=== PATIENT | male | born 1985 | race Caucasian/White ===

== ENCOUNTER 2016-04-20 07:31 | Emergency (ER) | payer OTHER ==
[2016-04-20 07:50] VITALS: TEMP 97.5
--- NOTE | 2016-04-20 09:25 | ED ---
ENT HPI - General Chief complaint: ENT Stated complaint: ear mouth pain Time Seen by Provider: 04/20/16 08:06 Source: patient, RN notes reviewed Mode of arrival: ambulatory Limitations: no limitations - History of Present Illness Initial comments: This patient is a 30-year-old man who presents with a few days of pains to the left side of his tongue. Patient states that with certain movements of the tongue or symptoms with chewing things he'll get a sharp sensation to the left side of his tongue. The patient has not noticed any swelling, drainage, fevers. Patient denies difficulty with speech or swallowing. Patient does have history of using oral tobacco products. MD complaint: other (Tongue pain) Onset/Timin -: days(s) Location: tongue Severity: mild Quality: sharp (Sharp) Consistency: intermittent Improves with: none - Related Data Previous Rx's Medication Instructions Recorded Ondansetron Odt [Zofran Odt] 4 mg PO Q8HR PRN #12 tab 03/07/16 Clindamycin [Cleocin] 150 mg PO Q6H #20 capsule 04/20/16 traMADol HCl [Ultram] 50 mg PO Q6H PRN #20 tab 04/20/16 Allergies Allergy/AdvReac Type Severity Reaction Status Date / Time amoxicillin Allergy Itching Verified 04/20/16 07:50 azithromycin [From Zithromax] Allergy Rash/Hives Verified 04/20/16 07:50 codeine Allergy Unknown Verified 04/20/16 07:50 Childhood Iodinated Contrast Media - Allergy Anaphylaxis Verified 04/20/16 07:50 Oral and [Iodinated Contrast Media - IV Dye] iodine Allergy Anaphylaxis Verified 04/20/16 07:50 sulfamethoxazole Allergy Rash/Hives Verified 04/20/16 07:50 [From Bactrim] trimethoprim [From Bactrim] Allergy Rash/Hives Verified 04/20/16 07:50 Review of Systems ROS Statement: Those systems with pertinent positive or pertinent negative responses have been documented in the HPI. ROS Other: All systems not noted in ROS Statement are negative. Constitutional: Denies: fever, chills ENT: Denies: ear pain, throat pain, dental pain, hearing loss Respiratory: Denies: cough, dyspnea, stridor Past Medical History Past Medical History: No Reported History History of Any Multi-Drug Resistant Organisms: None Reported Past Surgical History: Adenoidectomy, Tonsillectomy Past Psychological History: Anxiety Smoking Status: Current every day smoker Past Alcohol Use History: None Reported Past Drug Use History: None Reported General Exam Limitations: no limitations General appearance: alert, in no apparent distress Head exam: Present: atraumatic, normocephalic, normal inspection Eye exam: Present: normal appearance ENT exam: Present: mucous membranes moist, TM's normal bilaterally, normal external ear exam Expanded Mouth exam: Present: other (Patient has a papillary/polypoid lesion to the left side of the tongue near the base of the tongue. There is some mild erythema. There is no palpable abscess or evidence of deep infection. ). Absent: drooling, trismus, muffled voice, tongue normal, tongue elevation, laceration Teeth exam: Present: normal inspection Throat exam: normal inspection. negative: tonsillar erythema, tonsillar exudate , R peritonsillar mass, L peritonsillar mass Neck exam: Present: normal inspection, full ROM. Absent: tenderness, lymphadenopathy Respiratory exam: Present: normal lung sounds bilaterally. Absent: respiratory distress, wheezes, rales, rhonchi, stridor Cardiovascular Exam: Present: regular rate, normal rhythm, normal heart sounds. Absent: systolic murmur, diastolic murmur, rubs, gallop Course Vital Signs 04/20/16 04/20/16 07:49 09:30 Temperature 97.5 F L 97.5 F L Pulse Rate 69 74 Respiratory 20 16 Rate Blood Pressure 119/63 116/65 O2 Sat by Pulse 99 96 Oximetry Medical Decision Making - Medical Decision Making Patient's a 30-year-old male, tobacco user, who has a papillary/polypoid lesion to the left side of the tongue. Discussed possibilities including early malignancy, possibility of HPV, and patient to follow up with Dr. patel who is on -call for oral surgery, with suspicion the patient's will need a biopsy of this lesion. Discussed return parameters and stressed the importance of having the biopsy. The patient does have a little bit of erythema there and can possibility of mild infection was covered with antibiotic. Also given prescription for some analgesia. Discussed return parameters. Disposition Clinical Impression: Tongue abnormality Disposition: HOME SELF-CARE Condition: Good Instructions: Mouth Care (ED) Additional Instructions: As we discussed, you must follow-up with Dr. patel to have the growth on your tongue further evaluated. I suspect he will want to perform a biopsy. Return here if there is any worsening. Again I recommend that you stop using tobacco products.. Prescriptions: Clindamycin [Cleocin] 150 mg PO Q6H #20 capsule traMADol HCl [Ultram] 50 mg PO Q6H PRN #20 tab PRN Reason: Pain Referrals: Eran Andre MD [Primary Care Provider] - 1-2 days Robles Muir DDS [STAFF PHYSICIAN] - 1-2 days
[2016-04-20 09:33] VITALS: BP 116/65; PULSE 74; RESP 16
== END 2016-04-20 09:43 | disposition home or self-care (01) ==
LOC: EC 07:31
DX: K14.6 Glossodynia (principal); F17.200 Nicotine dependence, unspecified, uncomplicated; Z88.0 Allergy status to penicillin; Z91.041 Radiographic dye allergy status; Z88.5 Allergy status to narcotic agent; Z88.2 Allergy status to sulfonamides
CPT/HCPCS: 99282

== ENCOUNTER 2016-05-07 23:55 | Emergency (ER) | payer OTHER ==
[2016-05-08 00:05] VITALS: BP 134/75; PULSE 74; RESP 20; TEMP 97.6
[2016-05-08] MEDS ORDERED: LIDOCAINE VISCOUS 300 MG/15 ML CUP MUCOUS MEM STA (00:15)
[2016-05-08] MEDS ORDERED: LORATADINE-PSEUDOEPH 5-120 MG 1 EACH TAB.ER.12H PO STA (00:21)
--- NOTE | 2016-05-08 00:21 | ED ---
ENT HPI - General Chief complaint: ENT Stated complaint: SHI Time Seen by Provider: 05/08/16 00:11 Source: patient, RN notes reviewed Mode of arrival: ambulatory Limitations: no limitations - History of Present Illness Initial comments: 30-year-old male presents to the emergency department chief complaint of irritation in his throat. Patient states he has some irritation left ear and now he has to see her dictation is south just feels as if there is something scratching were in his throat. Patient states he has no difficulty breathing with it. Patient states that the cough does not change. Patient states feel ill like he has a cold. Patient states she's irritated. Patient states he's had it for a few days. Patient denies any history of in the past. Patient states he was concerned due to the symptoms they thought that he should be evaluated. Patient denies any recent fever, chills, shortness of breath, chest pain, back pain, abdominal pain, nausea vomiting, numbness or tingling, dysuria or hematuria, constipation or diarrhea, headaches or visual changes, or any other current symptoms. - Related Data Home Medications Medication Instructions Recorded Confirmed Meclizine [Antivert] 25 mg PO TID 05/08/16 05/08/16 clonazePAM [KlonoPIN] 0.5 mg PO DAILY 05/08/16 05/08/16 Previous Rx's Medication Instructions Recorded Loratadine-Pseudoeph 5-120 mg 1 each PO Q12HR #20 tab 05/08/16 [Claritin-D 12 HR] Allergies Allergy/AdvReac Type Severity Reaction Status Date / Time amoxicillin Allergy Itching Verified 05/08/16 00:05 azithromycin [From Zithromax] Allergy Rash/Hives Verified 05/08/16 00:05 codeine Allergy Unknown Verified 05/08/16 00:05 Childhood Iodinated Contrast Media - Allergy Anaphylaxis Verified 05/08/16 00:05 Oral and [Iodinated Contrast Media - IV Dye] iodine Allergy Anaphylaxis Verified 05/08/16 00:05 sulfamethoxazole Allergy Rash/Hives Verified 05/08/16 00:05 [From Bactrim] trimethoprim [From Bactrim] Allergy Rash/Hives Verified 05/08/16 00:05 Review of Systems ROS Statement: Those systems with pertinent positive or pertinent negative responses have been documented in the HPI. ROS Other: All systems not noted in ROS Statement are negative. Past Medical History Past Medical History: No Reported History History of Any Multi-Drug Resistant Organisms: None Reported Past Surgical History: Adenoidectomy, Tonsillectomy Past Psychological History: Anxiety Smoking Status: Current every day smoker Past Alcohol Use History: None Reported Past Drug Use History: None Reported General Exam - General Exam Comments Initial Comments: General exam: Alert, active, comfortable in no apparent distress Head: Normocephalic Eyes: Normal reaction of pupils, equal size, normal range of extraocular motion Ears: normal external ear canals, pink tympanic membranes with normal cone of light Nose: clear with pink turbinates Throat: no erythema or exudates with normal sized tonsils Neck: no masses, no nuchal rigidity Chest: no chest wall deformity Lungs: equal air entry with no crackles or wheeze CVS: S1 and S2 normal with no audible mumurs, regular rhythm Abdomen: no hepatosplenomegaly, normal bowel sounds, no guarding or rigidity Spine: no scoliosis or deformity Skin: no rashes Neurological: No focal deficits, tone is normal in all 4 extremities Limitations: no limitations Course Vital Signs 05/08/16 00:01 Temperature 97.6 F Pulse Rate 74 Respiratory 20 Rate Blood Pressure 134/75 O2 Sat by Pulse 99 Oximetry Medical Decision Making - Medical Decision Making 30-year-old male presents for what appears to be consistent with possible ALLERGY-type complaints. Patient did see improvement to his symptoms with lidocaine. This time we did start the patient on Claritin. We discussed follow -up with ENT and he is given Dr. Mccarthy's information. We discussed return parameters. Patient stated that he understood and all his questions have been answered. He will be discharged home. Disposition Clinical Impression: Throat irritation, Left ear pain, Seasonal allergies Disposition: HOME SELF-CARE Condition: Stable Instructions: Allergies (ED) Additional Instructions: Please use medication as discussed. Please follow up with family doctor if symptoms have not improved over the next two days. Please return to the emergency room if your symptoms increase or worsen or for any other concerns. Prescriptions: Loratadine-Pseudoeph 5-120 mg [Claritin-D 12 HR] 1 each PO Q12HR #20 tab Referrals: Eran Andre MD [Primary Care Provider] - 1-2 days Gino Mccarthy MD [STAFF PHYSICIAN] - 1-2 days Time of Disposition: 00:35
== END 2016-05-08 00:44 | disposition home or self-care (01) ==
LOC: EC 23:55
DX: H92.02 Otalgia, left ear (principal); R05 Cough; J31.0 Chronic rhinitis; F41.9 Anxiety disorder, unspecified; F17.200 Nicotine dependence, unspecified, uncomplicated; Z79.899 Other long term (current) drug therapy; Z88.0 Allergy status to penicillin; Z88.1 Allergy status to other antibiotic agents; Z88.5 Allergy status to narcotic agent; Z91.041 Radiographic dye allergy status; Z88.2 Allergy status to sulfonamides; Z91.048 Other nonmedicinal substance allergy status
CPT/HCPCS: 99283; 99284

== ENCOUNTER 2016-05-20 08:30 | Day surgery (SDC) | payer OTHER ==
[2016-05-12 14:45] VITALS: BMI 33.7
[~2016-05-20 08:30] MED LIST: LACTATED RINGERS 1,000 ML IV SCH; LIDOCAINE 1% 20 ML VIAL (10MG/ML) FOR IV START INTRADERMA PRN
[2016-05-20 09:02] VITALS: TEMP 98.2
[2016-05-20] MEDS ORDERED: fentaNYL (PF) 50 MCG/ML 2 ML AMP ONE (09:09)
[2016-05-20] MEDS ORDERED: PROPOFOL 10 MG/ML 20 ML VIAL IV ONE (09:09)
[2016-05-20] MEDS ORDERED: LIDOCAINE 1% INJ 10MG/ML (20 ML MDV) ONE (09:09)
[2016-05-20] MEDS ORDERED: MIDAZOLAM 2 MG/2 ML VIAL ONE (09:09)
--- NOTE | 2016-05-20 09:10 | P.GSHP ---
History of Present Illness H&P Date: 05/20/16 Chief Complaint: GERD This is a 30-year-old male referred from Dr. Eran Andre. Patient presents today for EGD. He's had issues with GERD. - Constitutional Constitutional: Reports as per HPI Past Medical History Past Medical History: No Reported History History of Any Multi-Drug Resistant Organisms: None Reported Past Surgical History: Adenoidectomy, Tonsillectomy Past Anesthesia/Blood Transfusion Reactions: Family History of Problems w/ Anesthesia Additional Past Anesthesia/Blood Transfusion Reaction / Comment(s): father N/V Past Psychological History: Anxiety Smoking Status: Current every day smoker Past Alcohol Use History: None Reported Past Drug Use History: None Reported - Past Family History Father Family Medical History: Cancer Medications and Allergies Home Medications Medication Instructions Recorded Confirmed Type Meclizine [Antivert] 25 mg PO DAILY 05/08/16 05/12/16 History clonazePAM [KlonoPIN] 0.5 mg PO DAILY 05/08/16 05/12/16 History methylPREDNISolone Dose Pack 4 mg PO DIRECTED 05/14/16 05/14/16 History [Medrol Dose Pack] Allergies Allergy/AdvReac Type Severity Reaction Status Date / Time azithromycin [From Zithromax] Allergy Rash/Hives Verified 05/20/16 08:54 codeine Allergy Unknown Verified 05/20/16 08:54 Childhood Iodinated Contrast Media - Allergy Anaphylaxis Verified 05/20/16 08:54 Oral and [Iodinated Contrast Media - IV Dye] iodine Allergy Anaphylaxis Verified 05/20/16 08:54 sulfamethoxazole Allergy Rash/Hives Verified 05/20/16 08:54 [From Bactrim] trimethoprim [From Bactrim] Allergy Rash/Hives Verified 05/20/16 08:54 Surgical - Exam Vital Signs Temp Pulse Resp BP Pulse Ox 98.2 F 77 16 129/83 95 05/20/16 09:00 05/20/16 09:00 05/20/16 09:00 05/20/16 09:00 05/20/16 09:00 - General well developed, no distress - Eyes PERRL - ENT normal pinna - Neck no masses - Respiratory normal expansion - Cardiovascular Rhythm: regular - Abdomen Abdomen: soft, non tender Assessment and Plan Plan: GERD. We'll perform EGD.
[2016-05-20 09:13] LABS: Glucose,Whole Blood 87 mg/dL (75-99)
--- NOTE | 2016-05-20 09:19 | P.OP ---
Date of Procedure: 05/20/16 Preoperative Diagnosis: GERD Postoperative Diagnosis: Antral gastritis Small hiatal hernia Esophagitis Procedure(s) Performed: EGD Anesthesia: MAC Surgeon: Scott Alfaro Pathology: other (Antrum, esophagus) Condition: stable Disposition: PACU Description of Procedure: The patient's placed on the endoscopy table in the lateral position. He received IV sedation. The gastroscope some placed oropharynx passed in the esophagus and into the stomach. Scope was then placed through the pylorus. The first and second portion of the duodenum appeared normal. Scope was then brought back into the antrum and there was water melon stripping of the antrum with significant gastritis. This area is biopsied. Scope was retroflexed and remainder of the stomach appeared normal. There was a small hiatal hernia. The GE junction was at 39 cm. The distal esophagus appeared minimally inflamed and a biopsies was performed. The proximal esophagus. Normal. Scope was withdrawn for patient.
[2016-05-20 09:54] VITALS: RESP 16
[2016-05-20 09:55] VITALS: BP 104/74; PULSE 71
== END 2016-05-20 10:17 | disposition home or self-care (01) ==
LOC: ORWHC2ENDO 08:30
PROVIDERS: ATTEND Surgery
DX: K29.70 Gastritis, unspecified, without bleeding (principal); K20.9 Esophagitis, unspecified; K44.9 Diaphragmatic hernia without obstruction or gangrene; F17.200 Nicotine dependence, unspecified, uncomplicated; F41.9 Anxiety disorder, unspecified; Z79.899 Other long term (current) drug therapy; Z88.1 Allergy status to other antibiotic agents; Z88.5 Allergy status to narcotic agent; Z88.2 Allergy status to sulfonamides
CPT/HCPCS: 88305; 88342; 43239; J2250; J2001; J3010; J2704

== ENCOUNTER 2016-06-02 20:10 | Emergency (ER) | payer OTHER ==
[2016-06-02 20:28] VITALS: RESP 16; TEMP 98
[2016-06-02 21:11] LABS: Basophils % (A) 1 %; CH 30.9; CHCM 34.9; Eosinophils # (A) 0.2 k/uL (0-0.7); Eosinophils % (A) 3 %; HCT 43.5 % (39.0-53.0); HDW 2.63; HGB 15.3 gm/dL (13.0-17.5); Luc # (Auto) 0.18; Luc % (Auto) 3; Lymphocytes % (A) 44 %; MCH 31.2 pg (25.0-35.0); MCHC 35.1 g/dL (31.0-37.0); MCV 88.9 fL (80.0-100.0); Mean Platelet Volume 8.6; Monocytes # (A) 0.5 k/uL (0-1.0); Monocytes % (A) 7 %; Neutrophils # (A) 2.9 k/uL (1.3-7.7); Neutrophils % (A) 43 %; RBC 4.89 m/uL (4.30-5.90); RDW 12.8 % (11.5-15.5); WBC 6.8 k/uL (3.8-10.6); WBC (Perox) 6.89
[2016-06-02 21:26] LABS: ALT 46 U/L (21-72); AST 34 U/L (17-59); Alkaline Phosphatase 41 U/L (38-126); Anion Gap 10 mmol/L; Blood Urea Nitrogen 14 mg/dL (9-20); Calcium 9.3 mg/dL (8.4-10.2); Carbon Dioxide 25 mmol/L (22-30); Chloride 107 mmol/L (98-107); Glucose 104 mg/dL (74-99); Non-African American GFR(MDRD) >60 (>60 ml/min/1.73 sqM); Potassium 4.1 mmol/L (3.5-5.1); Sodium 142 mmol/L (137-145); Total Bilirubin 0.3 mg/dL (0.2-1.3); Total Protein 7.1 g/dL (6.3-8.2)
--- NOTE | 2016-06-02 21:37 | XR ---
EXAMINATION TYPE: XR abdomen 2V DATE OF EXAM: 06/02/2016 9:15 PM CLINICAL HISTORY: Abdominal pain. TECHNIQUE: Supine and upright views of the abdomen are obtained. COMPARISON: Abdominal x-ray and CT abdomen and pelvis June 13, 2014 FINDINGS: There is some paucity of bowel gas. Visualized gas is noted in nondistended small and large bowel loops predominantly in the mid and right abdomen. No pneumoperitoneum or suspicious calcificat ion is seen. Elongated roughly 1 cm density over left pubic symphysis is of uncertain etiology presum ed external to patient. Clinical correlation is advised. Lung bases are clear. IMPRESSION: Overall nonspecific favor nonobstructive bowel gas pattern.
--- NOTE | 2016-06-02 21:39 | ED ---
General Adult HPI - General Chief complaint: GI Bleed Stated complaint: hernia Time Seen by Provider: 06/02/16 20:34 Source: patient, RN notes reviewed Mode of arrival: ambulatory Limitations: no limitations - History of Present Illness Initial comments: 30-year-old male presents to the emergency department with a chief complaint of diarrhea. Patient states he had one episode of dark diarrhea that started with abdominal cramping. Patient denies any nausea or vomiting. Patient states she was concerned with how dark it was thought that he should be seen. Patient states he just has a minimal epigastric abdominal cramping preceding this. Patient states there is no nausea vomiting. Patient states he was diagnosed with hiatal hernia so he was concerned. Patient states he hasn't had a fever chills. Patient denies any cough cold or runny nose. Patient states that he was concerned due to his pains without that he should be evaluated.Patient denies any recent fever, chills, shortness of breath, chest pain, back pain, nausea vomiting, numbness or tingling, dysuria or hematuria, constipation, headaches or visual changes, or any other current symptoms. - Related Data Home Medications Medication Instructions Recorded Confirmed Meclizine [Antivert] 25 mg PO DAILY 05/08/16 06/02/16 clonazePAM [KlonoPIN] 1 mg PO BID 05/08/16 06/02/16 Omeprazole 20 mg PO BID 06/02/16 06/02/16 Allergies Allergy/AdvReac Type Severity Reaction Status Date / Time azithromycin [From Zithromax] Allergy Rash/Hives Verified 06/02/16 21:39 codeine Allergy Unknown Verified 06/02/16 21:39 Childhood Iodinated Contrast Media - Allergy Anaphylaxis Verified 06/02/16 21:39 Oral and [Iodinated Contrast Media - IV Dye] iodine Allergy Anaphylaxis Verified 06/02/16 21:39 sulfamethoxazole Allergy Rash/Hives Verified 06/02/16 21:39 [From Bactrim] trimethoprim [From Bactrim] Allergy Rash/Hives Verified 06/02/16 21:39 Review of Systems ROS Statement: Those systems with pertinent positive or pertinent negative responses have been documented in the HPI. ROS Other: All systems not noted in ROS Statement are negative. Past Medical History Past Medical History: No Reported History History of Any Multi-Drug Resistant Organisms: None Reported Past Surgical History: Adenoidectomy, Tonsillectomy Past Anesthesia/Blood Transfusion Reactions: Family History of Problems w/ Anesthesia Additional Past Anesthesia/Blood Transfusion Reaction / Comment(s): father N/V Past Psychological History: Anxiety Smoking Status: Current every day smoker Past Alcohol Use History: None Reported Past Drug Use History: None Reported - Past Family History Father Family Medical History: Cancer General Exam - General Exam Comments Initial Comments: General: The patient is awake and alert, in no distress, and does not appear acutely ill. Eye: Pupils are equal, round and reactive to light, extra-ocular movements are intact; there is normal conjunctiva bilaterally. No signs of icterus. Ears, nose, mouth and throat: There are moist mucous membranes. Neck: The neck is supple, there is no tenderness. Cardiovascular: There is a regular rate and rhythm. No murmur, rub or gallop is appreciated. Respiratory: Lungs are clear to auscultation, respirations are non-labored, breath sounds are equal. No wheezes, stridor, rales, or rhonchi. Gastrointestinal: Soft, non-distended, non-tender abdomen without masses or organomegaly noted. There is no rebound or guarding present. No CVA tenderness. Bowel sounds are unremarkable. Back: There is no tenderness to palpation in the midline. There is no obvious deformity. No rashes noted. Musculoskeletal: Normal ROM, no tenderness, There is no pedal edema. There is no calf tenderness or swelling. Sensation intact. Pulses equal bilaterally 2+. Neurological: CN II-XII intact, There are no obvious motor or sensory deficits. Coordination appears grossly intact. Speech is normal. Skin: Skin is warm and dry and no rashes or lesions are noted. Psychiatric: Cooperative, appropriate mood & affect, normal judgment. Limitations: no limitations Course Vital Signs 06/02/16 20:23 Temperature 98 F Pulse Rate 87 Respiratory 16 Rate Blood Pressure 126/73 O2 Sat by Pulse 97 Oximetry Medical Decision Making - Medical Decision Making 30-year-old male presents emergency department with chief complaint of abdominal cramping followed by an episode of diarrhea this time patient's laboratory is negative and patient's stool is fecal occult negative as well. This time we discussed that he is having continued follow-up with his doctor. We discussed return parameters follow-up. We discussed all patient's questions. He stated that he understood any significant plan. Patient's abdomen is soft and nontender on reevaluation. This time we will discharge.. - Lab Data Result diagrams: 06/02/16 21:00 06/02/16 21:00 Lab Results 06/02/16 06/02/16 06/02/16 Range/Units 21:00 21:00 21:25 WBC 6.8 (3.8-10.6) k/uL RBC 4.89 (4.30-5.90) m/uL Hgb 15.3 (13.0-17.5) gm/dL Hct 43.5 (39.0-53.0) % MCV 88.9 (80.0-100.0) fL MCH 31.2 (25.0-35.0) pg MCHC 35.1 (31.0-37.0) g/dL RDW 12.8 (11.5-15.5) % Plt Count 180 (150-450) k/uL Neutrophils % 43 % Lymphocytes % 44 % Monocytes % 7 % Eosinophils % 3 % Basophils % 1 % Neutrophils # 2.9 (1.3-7.7) k/uL Lymphocytes # 3.0 (1.0-4.8) k/uL Monocytes # 0.5 (0-1.0) k/uL Eosinophils # 0.2 (0-0.7) k/uL Basophils # 0.0 (0-0.2) k/uL Sodium 142 (137-145) mmol/L Potassium 4.1 (3.5-5.1) mmol/L Chloride 107 (98-107) mmol/L Carbon Dioxide 25 (22-30) mmol/L Anion Gap 10 mmol/L BUN 14 (9-20) mg/dL Creatinine 0.90 (0.66-1.25) mg/dL Est GFR (MDRD) Af Amer >60 (>60 ml/min/1.73 sqM) Est GFR (MDRD) Non-Af >60 (>60 ml/min/1.73 sqM) Glucose 104 H (74-99) mg/dL Calcium 9.3 (8.4-10.2) mg/dL Total Bilirubin 0.3 (0.2-1.3) mg/dL AST 34 (17-59) U/L ALT 46 (21-72) U/L Alkaline Phosphatase 41 (38-126) U/L Total Protein 7.1 (6.3-8.2) g/dL Albumin 4.0 (3.5-5.0) g/dL Stool Occult Blood Negative (Negative) - Radiology Data Radiology results: report reviewed, image reviewed Disposition Clinical Impression: Diarrhea Disposition: HOME SELF-CARE Condition: Stable Instructions: Acute Diarrhea (ED) Additional Instructions: Please use medication as discussed. Please follow up with family doctor if symptoms have not improved over the next two days. Please return to the emergency room if your symptoms increase or worsen or for any other concerns. Referrals: Eran Andre MD [Primary Care Provider] - 1-2 days Time of Disposition: 21:46
[2016-06-02 21:56] VITALS: BP 119/65; PULSE 90
== END 2016-06-02 21:56 | disposition home or self-care (01) ==
LOC: EC 20:10
DX: R19.7 Diarrhea, unspecified (principal); K46.9 Unspecified abdominal hernia without obstruction or gangrene; K44.9 Diaphragmatic hernia without obstruction or gangrene; F41.9 Anxiety disorder, unspecified; Z79.899 Other long term (current) drug therapy; F17.200 Nicotine dependence, unspecified, uncomplicated; Z88.5 Allergy status to narcotic agent; Z88.2 Allergy status to sulfonamides; Z88.8 Allergy status to other drugs, medicaments and biological substances; Z88.1 Allergy status to other antibiotic agents; Z91.041 Radiographic dye allergy status
CPT/HCPCS: 36415; 74020; 80053; 82272; 85025; 99285

== ENCOUNTER 2016-08-02 23:46 | Emergency (ER) | payer OTHER ==
[2016-08-03 01:15] VITALS: BP 106/55; PULSE 55; RESP 18; TEMP 97.7
--- NOTE | 2016-08-03 07:41 | XR ---
EXAMINATION TYPE: XR chest 2V DATE OF EXAM: 08/03/2016 7:07 AM COMPARISON: 07/27/2015 TECHNIQUE: PA and lateral views submitted. HISTORY: Chest pain FINDINGS: The lungs are clear and there is no pneumothorax, pleural effusion, or focal pneumonia. IMPRESSION: 1. No acute process.
== END 2016-08-03 01:15 | disposition home or self-care (01) ==
LOC: EC 23:46
DX: J06.9 Acute upper respiratory infection, unspecified (principal)
CPT/HCPCS: 71020; 99283

== ENCOUNTER → 2016-09-19 | Outpatient (CLI) | payer OTHER ==
--- NOTE | 2016-09-19 12:57 | US ---
EXAMINATION TYPE: US venous doppler duplex LE LT DATE OF EXAM: 09/19/2016 12:43 PM COMPARISON: NONE CLINICAL HISTORY: M79.662 Pain Left lower limb. SIDE PERFORMED: Left TECHNIQUE: The lower extremity deep venous system is examined utilizing real time linear array sonog alice with graded compression, doppler sonography and color-flow sonography. VESSELS IMAGED: External Iliac Vein (EIV) Common Femoral Vein Deep Femoral Vein Greater Saphenous Vein * Femoral Vein Popliteal Vein Proximal Calf Veins (* superficial vessels) Grayscale, color doppler, spectral doppler imaging performed of the deep veins of the left lower extr emity. There is normal flow, compressibility, vascular waveforms. Left Leg: Negative for DVT IMPRESSION: No evidence for edema.
== END ==
LOC: RADUSWWP 12:24
PROVIDERS: ATTEND Family Medicine
DX: M79.662 Pain in left lower leg (principal)

== ENCOUNTER 2016-10-01 20:44 | Emergency (ER) | payer OTHER ==
[2016-10-01 20:51] VITALS: BP 130/75; PULSE 97; RESP 18; TEMP 98.8
--- NOTE | 2016-10-01 21:23 | ED ---
General Adult HPI - General Chief complaint: Abdominal Pain Stated complaint: Abd Pain Time Seen by Provider: 10/01/16 20:56 Source: patient, RN notes reviewed, old records reviewed Mode of arrival: ambulatory Limitations: no limitations - History of Present Illness Initial comments: Chief complaint history of present illness a 30-year-old male who reports that yesterday was doing some heavy lifting 20 pounds 200 pounds. Strain the muscles of his upper abdominal wall. No nausea no vomiting. - Related Data Home Medications Medication Instructions Recorded Confirmed Meclizine [Antivert] 25 mg PO DAILY 05/08/16 06/02/16 clonazePAM [KlonoPIN] 1 mg PO BID 05/08/16 06/02/16 Omeprazole 20 mg PO BID 06/02/16 06/02/16 Allergies Allergy/AdvReac Type Severity Reaction Status Date / Time azithromycin [From Zithromax] Allergy Rash/Hives Verified 10/01/16 20:51 codeine Allergy Unknown Verified 10/01/16 20:51 Childhood Iodinated Contrast Media - Allergy Anaphylaxis Verified 10/01/16 20:51 Oral and [Iodinated Contrast Media - IV Dye] iodine Allergy Anaphylaxis Verified 10/01/16 20:51 sulfamethoxazole Allergy Rash/Hives Verified 10/01/16 20:51 [From Bactrim] trimethoprim [From Bactrim] Allergy Rash/Hives Verified 10/01/16 20:51 Review of Systems ROS Statement: Those systems with pertinent positive or pertinent negative responses have been documented in the HPI. Review of systems no visual acuity changes no headache no stiff neck no back pain other than chronic back pain. No shortness of breath or chest pain. He has discomfort along the abdominal muscle attachments to the rib cage. Sitting up slightly increases her palpating the area increases it. No bruising noted. All systems are reviewed. Past medical problems significant for GERD, tonsils and adenoids. He has ALLERGIES to azithromycin, codeine, IV dye, sulfa drugs. Patient denies alcohol use denies drug use. Smokes daily encouraged to stop smoking. ROS Other: All systems not noted in ROS Statement are negative. Past Medical History Past Medical History: No Reported History History of Any Multi-Drug Resistant Organisms: None Reported Past Surgical History: Adenoidectomy, Tonsillectomy Past Anesthesia/Blood Transfusion Reactions: Family History of Problems w/ Anesthesia Additional Past Anesthesia/Blood Transfusion Reaction / Comment(s): father N/V Past Psychological History: Anxiety Smoking Status: Current every day smoker Past Alcohol Use History: None Reported Past Drug Use History: None Reported - Past Family History Father Family Medical History: Cancer General Exam - General Exam Comments Initial Comments: General: The patient is awake and alert, planes of discomfort to the upper abdominal wall from heavy lifting yesterday. Vital signs temperature 98.8 pulse 97 respiratory rate 18 pulse ox 97% room air blood pressure 130/75 Eye: Pupils are equal, , extra-ocular movements are intact; there is normal conjunctiva bilaterally. No signs of icterus. Ears, nose, mouth and throat: There are moist mucous membranes Neck: The neck is supple, there is no tenderness Cardiovascular: There is a regular rate and rhythm. No murmur, rub or gallop is appreciated. Respiratory: Lungs are clear to auscultation, respirations are non-labored, breath sounds are equal. No wheezes, stridor, rales, or rhonchi. Gastrointestinal: Palpation of the abdomen causes mild discomfort to the muscle attachments to the rib cage. No bruising. No evidence of herniation through the midline. Normal active bowel sounds. Back: Chronic back pain nothing new per patient. Musculoskeletal: Normal ROM, no tenderness, There is no pedal edema. There is no calf tenderness or swelling. Sensation intact. . Limitations: no limitations Course Vital Signs 10/01/16 20:48 Temperature 98.8 F Pulse Rate 97 Respiratory 18 Rate Blood Pressure 130/75 O2 Sat by Pulse 97 Oximetry Medical Decision Making - Medical Decision Making It appears the patient strained his upper abdominal muscles from lifting heavy items yesterday. Mildly more uncomfortable today than yesterday. The plan the patient will be advised to use Tylenol for pain and Pepcid for stomach and Tums as needed. Disposition Clinical Impression: Abdominal muscle strain Disposition: HOME SELF-CARE Condition: Fair Instructions: Muscle Strain (ED), Musculoskeletal Pain (ED) Additional Instructions: Do gentle range of motion use Tylenol for pain and Pepcid as needed. Follow-up family physician Referrals: Eran Andre MD [Primary Care Provider] - 1-2 days Time of Disposition: 21:23
== END 2016-10-01 21:30 | disposition home or self-care (01) ==
LOC: EC 20:44
DX: S39.011A Strain of muscle, fascia and tendon of abdomen, initial encounter (principal); X50.0XXA Overexertion from strenuous movement or load, initial encounter; Y93.B3 Activity, free weights; F41.9 Anxiety disorder, unspecified; F17.200 Nicotine dependence, unspecified, uncomplicated; Z88.1 Allergy status to other antibiotic agents; Z79.899 Other long term (current) drug therapy; Z91.041 Radiographic dye allergy status; Z88.5 Allergy status to narcotic agent; Z88.2 Allergy status to sulfonamides; Z91.048 Other nonmedicinal substance allergy status
CPT/HCPCS: 99283

== ENCOUNTER 2017-01-28 13:28 | Emergency (ER) | payer OTHER ==
[2017-01-28 13:36] VITALS: BP 131/77; PULSE 87; RESP 18; TEMP 97.9
--- NOTE | 2017-01-28 13:49 | ED ---
Head Injury HPI - General Chief complaint: Head Injury Stated complaint: head injury Time Seen by Provider: 01/28/17 13:33 Source: patient Mode of arrival: ambulatory Limitations: no limitations - History of Present Illness Initial comments: 31-year-old male patient presents to the emergency department today for evaluation after hitting his head on the trunk lid 2 days ago. Patient states that since then he has been having intermittent headaches and dizziness. Patient states that he does usually have dizziness from a history of vertigo however the dizziness seems to be a little bit more intense than usual. Patient states that he has been able to perform his activities of daily living and attend work without any problems. He is reporting some tenderness over where the trunk struck his head, denies any open wounds. He denies any blurred or double vision. Denies any neck pain. Denies any weakness, numbness, or tingling. He denies loss of consciousness at time of injury. Patient denies any back pain, chest pain, shortness of breath, abdominal pain, nausea, vomiting , or difficulties with bowel movements or urination. Patient denies any use of anticoagulants. - Related Data Home Medications Medication Instructions Recorded Confirmed Meclizine [Antivert] 25 mg PO DAILY 05/08/16 06/02/16 clonazePAM [KlonoPIN] 1 mg PO BID 05/08/16 06/02/16 Omeprazole 20 mg PO BID 06/02/16 06/02/16 Allergies/Adverse reactions: Allergies Allergy/AdvReac Type Severity Reaction Status Date / Time azithromycin [From Zithromax] Allergy Rash/Hives Verified 01/28/17 13:36 codeine Allergy Unknown Verified 01/28/17 13:36 Childhood Iodinated Contrast- Oral and Allergy Anaphylaxis Verified 01/28/17 13:36 IV Dye [Iodinated Contrast Media - IV Dye] iodine Allergy Anaphylaxis Verified 01/28/17 13:36 sulfamethoxazole Allergy Rash/Hives Verified 01/28/17 13:36 [From Bactrim] trimethoprim [From Bactrim] Allergy Rash/Hives Verified 01/28/17 13:36 Review of Systems ROS Statement: Those systems with pertinent positive or pertinent negative responses have been documented in the HPI. ROS Other: All systems not noted in ROS Statement are negative. Past Medical History Past Medical History: No Reported History History of Any Multi-Drug Resistant Organisms: None Reported Past Surgical History: Adenoidectomy, Tonsillectomy Past Anesthesia/Blood Transfusion Reactions: Family History of Problems w/ Anesthesia Additional Past Anesthesia/Blood Transfusion Reaction / Comment(s): father N/V Past Psychological History: Anxiety Smoking Status: Current every day smoker Past Alcohol Use History: None Reported Past Drug Use History: None Reported - Past Family History Father Family Medical History: Cancer General Exam Limitations: no limitations General appearance: alert, in no apparent distress, other (This is a well- developed, well-nourished adult male patient in no acute distress. Vital signs upon presentation her temperature 97.9F, pulse 87, respirations 18, blood pressure 131/77, pulse ox 100% on room air.) Head exam: Present: atraumatic, normocephalic, normal inspection, other ( Tenderness over the right posterior parietal scalp. No evidence of abrasion or laceration. No deformity or step-off to palpation. ) Eye exam: Present: normal appearance, PERRL, EOMI. Absent: scleral icterus, conjunctival injection, nystagmus, periorbital swelling Pupils: Present: normal accommodation ENT exam: Present: normal exam, normal oropharynx, mucous membranes moist, TM's normal bilaterally Neck exam: Present: normal inspection, full ROM, other (Nontender, no step-off, no deformity to firm midline palpation of the posterior cervical spine. Full range of motion without pain or limitation.). Absent: tenderness, meningismus, lymphadenopathy Respiratory exam: Present: normal lung sounds bilaterally. Absent: respiratory distress, wheezes, rales, rhonchi, stridor Cardiovascular Exam: Present: regular rate, normal rhythm, normal heart sounds. Absent: systolic murmur, diastolic murmur, rubs, gallop, clicks Neurological exam: Present: alert, oriented X3, CN II-XII intact, other (Speech is fluid and clear. Patient is acutely responsive.) Psychiatric exam: Present: normal affect, normal mood Skin exam: Present: warm, dry, intact, normal color. Absent: rash Course Vital Signs 01/28/17 13:34 Temperature 97.9 F Pulse Rate 87 Respiratory 18 Rate Blood Pressure 131/77 O2 Sat by Pulse 100 Oximetry Medical Decision Making - Medical Decision Making 31-year-old male patient presents to emergency department today for evaluation after being struck in the head by the trunk lid 2 days ago. The patient physical exam is unremarkable. Patient is neurologically intact. Patient is acutely responsive with clear fluid speech. Did discuss with patient the probability that he does have a concussion. Given the patient does not take any anticoagulants, low mechanism of injury, and neurologic status I felt it appropriate to withhold CT scanning at this time. I did instruct him to return here immediately subjective his symptoms change at all or worsen. I instructed him to follow up with his primary care physician for recheck in 1-2 days. I instructed him to return here immediately for any new, worsening, or concerning symptoms. He verbalizes understanding and agrees with this plan. Disposition Clinical Impression: Head injury, Concussion Disposition: HOME SELF-CARE Condition: Good Instructions: Concussion (ED) Additional Instructions: Avoid mentally and physically stimulate activities. Follow up with her primary care physician for recheck in 1-2 days. Return here immediately for any new, worsening, or concerning symptoms. Referrals: Eran Andre MD [Primary Care Provider] - 1-2 days Time of Disposition: 13:49
== END 2017-01-28 14:09 | disposition home or self-care (01) ==
LOC: EC 13:28
DX: S06.0X0A Concussion without loss of consciousness, initial encounter (principal); F41.9 Anxiety disorder, unspecified; F17.200 Nicotine dependence, unspecified, uncomplicated; Z88.1 Allergy status to other antibiotic agents; Z88.5 Allergy status to narcotic agent; Z91.048 Other nonmedicinal substance allergy status; Z88.2 Allergy status to sulfonamides; Z91.041 Radiographic dye allergy status; Z79.899 Other long term (current) drug therapy; W22.8XXA Striking against or struck by other objects, initial encounter
CPT/HCPCS: 99283

== ENCOUNTER 2017-01-29 20:04 | Emergency (ER) | payer OTHER ==
[2017-01-29 20:17] VITALS: BP 128/74; PULSE 88; RESP 16; TEMP 98.4
--- NOTE | 2017-01-29 21:08 | ED ---
Skin/Abscess/FB HPI - General Chief complaint: Skin/Abscess/Foreign Body Stated complaint: Rash/Headache Time Seen by Provider: 01/29/17 20:55 Source: patient Mode of arrival: ambulatory Limitations: no limitations - History of Present Illness Initial comments: this patient is a 31-year-old man who presents to be evaluated for a rash to his left forearm. The patient states that [place] had [place] past [place] of [place]. He believes she may have come in contact with some sort of plant material. He noted red, pruritic rash in a few small patches to his left forearm. The patient denies any sort of systemic symptoms, including no fever or chills, chest pain, palpitations, dyspnea, upper respiratory symptoms, joint pains, change in urination. MD complaint: rash -: hour(s) Tetanus Up to Date: yes Location: LUE Quality: burning Consistency: constant Improves with: none Worsens with: none Context: none Associated symptoms: denies other symptoms Treatments Prior to Arrival: none - Related Data Home Medications Medication Instructions Recorded Confirmed Meclizine [Antivert] 25 mg PO DAILY 05/08/16 06/02/16 clonazePAM [KlonoPIN] 1 mg PO BID 05/08/16 06/02/16 Omeprazole 20 mg PO BID 06/02/16 06/02/16 Previous Rx's Medication Instructions Recorded Triamcinolone 0.1% Cream [Kenalog] 1 applicatio TOPICAL BID #15 g 01/29/17 Allergies Allergy/AdvReac Type Severity Reaction Status Date / Time azithromycin [From Zithromax] Allergy Rash/Hives Verified 01/29/17 20:17 codeine Allergy Unknown Verified 01/29/17 20:17 Childhood Iodinated Contrast- Oral and Allergy Anaphylaxis Verified 01/29/17 20:17 IV Dye [Iodinated Contrast Media - IV Dye] iodine Allergy Anaphylaxis Verified 01/29/17 20:17 sulfamethoxazole Allergy Rash/Hives Verified 01/29/17 20:17 [From Bactrim] trimethoprim [From Bactrim] Allergy Rash/Hives Verified 01/29/17 20:17 Review of Systems ROS Statement: Those systems with pertinent positive or pertinent negative responses have been documented in the HPI. ROS Other: All systems not noted in ROS Statement are negative. Constitutional: Denies: fever, chills Respiratory: Denies: cough, dyspnea Cardiovascular: Denies: chest pain, palpitations Genitourinary: Denies: dysuria Musculoskeletal: Denies: joint swelling, arthralgia Skin: Reports: as per HPI, rash Past Medical History Past Medical History: No Reported History History of Any Multi-Drug Resistant Organisms: None Reported Past Surgical History: Adenoidectomy, Tonsillectomy Past Anesthesia/Blood Transfusion Reactions: Family History of Problems w/ Anesthesia Additional Past Anesthesia/Blood Transfusion Reaction / Comment(s): father N/V Past Psychological History: Anxiety Smoking Status: Current every day smoker Past Alcohol Use History: None Reported Past Drug Use History: None Reported - Past Family History Father Family Medical History: Cancer General Exam Limitations: no limitations General appearance: alert Head exam: Present: atraumatic, normocephalic Eye exam: Present: normal appearance. Absent: scleral icterus, conjunctival injection ENT exam: Present: normal oropharynx Skin exam: Present: warm, dry, intact, other (patient has 3 small patches of erythematous, dermatitis with some secondary excoriations to the left forearm. These measure approximately once or diameter for one, a linear portion, approximately 1.5 cm x 5 cm, and another, linear patch about 2 cm long by less than 1 cm.) Course Vital Signs 01/29/17 20:14 Temperature 98.4 F Pulse Rate 88 Respiratory 16 Rate Blood Pressure 128/74 O2 Sat by Pulse 99 Oximetry Disposition Clinical Impression: Dermatitis Disposition: HOME SELF-CARE Condition: Good Instructions: Contact Dermatitis (ED) Prescriptions: Triamcinolone 0.1% Cream [Kenalog] 1 applicatio TOPICAL BID #15 g Referrals: Eran Andre MD [Primary Care Provider] - 1-2 days
== END 2017-01-29 21:22 | disposition home or self-care (01) ==
LOC: EC 20:04
DX: L30.9 Dermatitis, unspecified (principal); F41.9 Anxiety disorder, unspecified; F17.200 Nicotine dependence, unspecified, uncomplicated; Z79.899 Other long term (current) drug therapy; Z88.1 Allergy status to other antibiotic agents; Z88.2 Allergy status to sulfonamides; Z88.5 Allergy status to narcotic agent; Z91.041 Radiographic dye allergy status
CPT/HCPCS: 99282

== ENCOUNTER 2017-03-09 22:50 | Emergency (ER) | payer OTHER ==
[2017-03-09 23:01] VITALS: RESP 18
--- NOTE | 2017-03-10 00:01 | ED ---
General Adult HPI - General Chief complaint: Chest Pain Stated complaint: Chest Pain Time Seen by Provider: 03/09/17 23:08 Source: patient, RN notes reviewed Mode of arrival: ambulatory Limitations: no limitations - History of Present Illness Initial comments: This is a 31-year-old male who presents to the emergency department with chief complaint of chest discomfort. He states that at approximately 4 PM he was out hunting with his son. He began to feel a "vibration" in the right side of his chest. He states that they last 2-5 minutes and occur every 15-20 minutes. Patient states that at first he thought it was a muscle spasm and tried punching himself in the chest to get the vibration to stop. He states that he does not feel a palpable vibration when he touches the right side of his chest. He states that he does have some mild shortness of breath but is unsure if its because he is anxious about the discomfort. Denies illicit drug use. Denies actual chest pain. Denies fever, chills, abdominal pain, nausea or vomiting, constipation or diarrhea, dysuria or hematuria, numbness or tingling, headache or vision changes. - Related Data Home Medications Medication Instructions Recorded Confirmed clonazePAM [KlonoPIN] 1 mg PO DAILY PRN 05/08/16 03/09/17 Acetaminophen Tab [Tylenol Tab] 325 - 650 mg PO Q4H PRN 03/09/17 03/09/17 Ascorbic Acid [Vitamin C] 500 mg PO DAILY 03/09/17 03/09/17 Meclizine [Antivert] 25 mg PO TID PRN 03/09/17 03/09/17 Zinc 50 mg PO DAILY 03/09/17 03/09/17 Allergies Allergy/AdvReac Type Severity Reaction Status Date / Time azithromycin [From Zithromax] Allergy Rash/Hives Verified 03/09/17 23:06 codeine Allergy Unknown Verified 03/09/17 23:06 Childhood Iodinated Contrast- Oral and Allergy Anaphylaxis Verified 03/09/17 23:06 IV Dye [Iodinated Contrast Media - IV Dye] iodine Allergy Anaphylaxis Verified 03/09/17 23:06 sulfamethoxazole Allergy Rash/Hives Verified 03/09/17 23:06 [From Bactrim] trimethoprim [From Bactrim] Allergy Rash/Hives Verified 03/09/17 23:06 Review of Systems ROS Statement: Those systems with pertinent positive or pertinent negative responses have been documented in the HPI. ROS Other: All systems not noted in ROS Statement are negative. Past Medical History Past Medical History: No Reported History History of Any Multi-Drug Resistant Organisms: None Reported Past Surgical History: Adenoidectomy, Tonsillectomy Past Anesthesia/Blood Transfusion Reactions: Family History of Problems w/ Anesthesia Additional Past Anesthesia/Blood Transfusion Reaction / Comment(s): father N/V Past Psychological History: Anxiety Smoking Status: Current every day smoker Past Alcohol Use History: None Reported Past Drug Use History: None Reported - Past Family History Father Family Medical History: Cancer General Exam - General Exam Comments Initial Comments: General: Awake and alert, well-developed; in no apparent distress. HEENT: Head atraumatic, normocephalic. Pupils are equal, round and reactive to light. Extraocular movements intact. Oropharynx moist without erythema or exudate. Neck: Supple. Normal ROM. Cardiovascular: Regular rate and rhythm. No murmurs, rubs or gallops. Chest symmetrical. No tenderness on palpation of chest wall. Respiratory: Lungs clear to auscultation bilaterally. No wheezes, rales or rhonchi. Normal respiratory effort with no use of accessory muscles. Abdomen: Soft, non-tender, non-distended. No rigidity, rebound or guarding. Normal bowel sounds in all 4 quadrants. Musculoskeletal: Normal ROM, no tenderness bilateral upper and lower extremities. Ambulating normally. Skin: [place], warm and dry without rashes or lesions. Neurological: Alert and oriented x3. CN II-XII grossly intact. Speech is fluent and answers are appropriate. No focal neuro deficits. Psychiatric: Normal mood and affect. No overt signs of depression or anxiety noted. Limitations: no limitations Course Vital Signs 03/09/17 22:59 Temperature 98.2 F Pulse Rate 80 Respiratory 18 Rate Blood Pressure 130/73 O2 Sat by Pulse 99 Oximetry EKG Findings - EKG Comments: EKG Findings:: EKG performed at 23:59:26. Normal sinus rhythm with nonspecific ST abnormality. Ventricular rate 70 bpm, CA interval 166, QRS duration 84, QT/ QTC 376/48. Medical Decision Making - Medical Decision Making This is a 31-year-old male who presented to the emergency department for evaluation of a "vibration" in the right chest. EKG revealed normal sinus rhythm. Chest x-ray revealed no acute cardiopulmonary process. Findings were discussed with patient. Patient likely suffering from a muscle spasm. He'll be discharged home. Return parameters were discussed. He is in agreement with plan and voiced understanding. All questions were answered. - Radiology Data Radiology results: report reviewed Chest x-ray impression: No acute cardiopulmonary disease. Disposition Clinical Impression: Chest wall discomfort Disposition: HOME SELF-CARE Condition: Good Instructions: Chest Wall Pain (ED) Additional Instructions: Please follow up with primary care provider within 1-2 days. Return to emergency department if symptoms should worsen or any concerns arise. Referrals: Eran Andre MD [Primary Care Provider] - 1-2 days Time of Disposition: 01:00
--- NOTE | 2017-03-10 00:45 | XR ---
EXAM: XR Chest, 2 Views CLINICAL HISTORY: Reason: Pain TECHNIQUE: Frontal and lateral views of the chest. COMPARISON: Chest x-ray 08/03/16 FINDINGS: Lungs: Unremarkable. No consolidation. Pleural space: No pleural effusion. No pneumothorax. Heart: Unremarkable. No cardiomegaly. Mediastinum: Unremarkable. Bones/joints: Unremarkable. IMPRESSION: No acute cardiopulmonary disease.
[2017-03-10 01:15] VITALS: BP 113/55; PULSE 72; TEMP 98.6
== END 2017-03-10 01:10 | disposition home or self-care (01) ==
LOC: EC 22:50
DX: R07.89 Other chest pain (principal); K21.9 Gastro-esophageal reflux disease without esophagitis; F17.200 Nicotine dependence, unspecified, uncomplicated; Z88.1 Allergy status to other antibiotic agents; Z88.5 Allergy status to narcotic agent; Z91.041 Radiographic dye allergy status; Z88.2 Allergy status to sulfonamides; Z91.048 Other nonmedicinal substance allergy status; Z79.899 Other long term (current) drug therapy
CPT/HCPCS: 71020; 93005; 99285

== ENCOUNTER 2017-03-23 01:09 | Emergency (ER) | payer OTHER ==
--- NOTE | 2017-03-23 02:33 | ED ---
General Adult HPI - General Chief complaint: Abdominal Pain Stated complaint: Upper abdominal Pain Time Seen by Provider: 03/23/17 02:08 Source: patient, RN notes reviewed Mode of arrival: ambulatory Limitations: no limitations - History of Present Illness Initial comments: 31-year-old male presents emergency 5 chief complaint of abdominal wall muscle pain. He states he is listening car seen help hold him this time part of his abdominal wall. Patient states bending moving things seems to make it worse. He states worse to touch. If he tries to do occur that seems to make it worse as well. Patient states there is no falls there is no other injury in the incident. They were concerned due to his pain so he thought that he should be seen.Patient denies any recent fever, chills, shortness of breath, chest pain, back pain, nausea vomiting, numbness or tingling, dysuria or hematuria, constipation or diarrhea, headaches or visual changes, or any other current symptoms. - Related Data Home Medications Medication Instructions Recorded Confirmed clonazePAM [KlonoPIN] 1 mg PO DAILY PRN 05/08/16 03/23/17 Acetaminophen Tab [Tylenol Tab] 325 - 650 mg PO Q4H PRN 03/09/17 03/23/17 Ascorbic Acid [Vitamin C] 500 mg PO DAILY 03/09/17 03/23/17 Meclizine [Antivert] 25 mg PO TID PRN 03/09/17 03/23/17 Zinc 50 mg PO DAILY 03/09/17 03/23/17 Amoxicillin 500 mg PO TID 03/23/17 03/23/17 Hydrocodone/Acetaminophen [[place] 1 tab PO Q4HR PRN 03/23/17 03/23/17 5-325] Allergies Allergy/AdvReac Type Severity Reaction Status Date / Time azithromycin [From Zithromax] Allergy Rash/Hives Verified 03/23/17 01:21 codeine Allergy Unknown Verified 03/23/17 01:21 Childhood Iodinated Contrast- Oral and Allergy Anaphylaxis Verified 03/23/17 01:21 IV Dye [Iodinated Contrast Media - IV Dye] iodine Allergy Anaphylaxis Verified 03/23/17 01:21 sulfamethoxazole Allergy Rash/Hives Verified 03/23/17 01:21 [From Bactrim] trimethoprim [From Bactrim] Allergy Rash/Hives Verified 03/23/17 01:21 Review of Systems ROS Statement: Those systems with pertinent positive or pertinent negative responses have been documented in the HPI. ROS Other: All systems not noted in ROS Statement are negative. Past Medical History Past Medical History: No Reported History Additional Past Medical History / Comment(s): vertigo History of Any Multi-Drug Resistant Organisms: None Reported Past Surgical History: Adenoidectomy, Tonsillectomy Past Anesthesia/Blood Transfusion Reactions: Family History of Problems w/ Anesthesia Additional Past Anesthesia/Blood Transfusion Reaction / Comment(s): father N/V Past Psychological History: Anxiety Smoking Status: Current every day smoker Past Alcohol Use History: None Reported Past Drug Use History: None Reported - Past Family History Father Family Medical History: Cancer General Exam Limitations: no limitations General appearance: alert, in no apparent distress ENT exam: Present: normal exam, mucous membranes moist Neck exam: Present: normal inspection. Absent: tenderness, meningismus, lymphadenopathy Respiratory exam: Present: normal lung sounds bilaterally. Absent: respiratory distress, wheezes, rales, rhonchi, stridor Cardiovascular Exam: Present: regular rate, normal rhythm, normal heart sounds. Absent: systolic murmur, diastolic murmur, rubs, gallop, clicks GI/Abdominal exam: Present: soft, tenderness (Minimal tenderness to palpation of the abdominal wall muscles in the upper abdomen upon flexing), normal bowel sounds. Absent: distended, guarding, rebound, rigid Neurological exam: Present: alert, oriented X3 Psychiatric exam: Present: normal affect, normal mood Skin exam: Present: warm, dry, intact, normal color. Absent: rash Course Vital Signs 03/23/17 01:17 Temperature 97.8 F Pulse Rate 94 Respiratory 17 Rate Blood Pressure 141/92 O2 Sat by Pulse 97 Oximetry Medical Decision Making - Medical Decision Making 31-year-old male presents emergency 5 chief complaint of what appears abdominal wall muscle strain. This and we discussed Motrin Tylenol with discussed ice the area. We discussed return parameters and follow-up and all questions. Patient stated that he understood and he is in agreement with this plan. All questions have been answered. At this time the patient will be discharged home. - Radiology Data Radiology results: report reviewed, image reviewed Disposition Clinical Impression: Abdominal wall strain Disposition: HOME SELF-CARE Condition: Stable Instructions: Muscle Strain (ED) Additional Instructions: Please use medication as discussed. Please follow up with family doctor if symptoms have not improved over the next two days. Please return to the emergency room if your symptoms increase or worsen or for any other concerns. Referrals: Eran Andre MD [Primary Care Provider] - 1-2 days Time of Disposition: 03:15
--- NOTE | 2017-03-23 03:13 | XR ---
EXAM: XR Abdomen Complete, 2 or More Views CLINICAL HISTORY: Reason: Pain TECHNIQUE: Frontal view of the abdomen/pelvis with upright view of the abdomen. COMPARISON: None. FINDINGS: Intraperitoneal space: No free air. Gastrointestinal tract: Unremarkable. No dilation. Bones/joints: Unremarkable. IMPRESSION: Unremarkable abdominal x-rays.
[2017-03-23 03:41] VITALS: BP 129/68; PULSE 68; RESP 18; TEMP 98.4
== END 2017-03-23 03:41 | disposition home or self-care (01) ==
LOC: EC 01:09
DX: S39.011A Strain of muscle, fascia and tendon of abdomen, initial encounter (principal); F17.200 Nicotine dependence, unspecified, uncomplicated; Z88.1 Allergy status to other antibiotic agents; Z88.5 Allergy status to narcotic agent; Z91.041 Radiographic dye allergy status; Z91.048 Other nonmedicinal substance allergy status; Z88.2 Allergy status to sulfonamides; Z79.899 Other long term (current) drug therapy; X50.1XXA Overexertion from prolonged static or awkward postures, initial encounter
CPT/HCPCS: 74019; 99284

== ENCOUNTER 2017-04-02 12:21 | Emergency (ER) | payer OTHER ==
[2017-04-02 13:22] VITALS: BP 111/68; PULSE 78; RESP 18; TEMP 99.1
[2017-04-02] MEDS ORDERED: KETOROLAC 60 MG/2 ML VIAL IM STA (13:47)
[2017-04-02] MEDS ORDERED: ORPHENADRINE 30 MG/ML 2 ML VIAL IM STA (13:47)
--- NOTE | 2017-04-02 14:02 | XR ---
EXAMINATION TYPE: XR thoracic spine 2V DATE OF EXAM: 04/02/2017 COMPARISON: NONE HISTORY: Pain Alignment is anatomic. There is no compression deformities. Vertebral body height and disc interspa jefry are maintained. IMPRESSION: 1. No acute abnormality.
--- NOTE | 2017-04-02 14:06 | ED ---
General Adult HPI - General Chief complaint: Extremity Injury, Upper Stated complaint: Back Pain Time Seen by Provider: 04/02/17 13:23 Source: patient, RN notes reviewed Mode of arrival: ambulatory Limitations: no limitations - History of Present Illness Initial comments: 31-year-old male presents to the emergency department with a chief complaint of midthoracic pain. He states that he was chasing his dog and since he's had pain in the center of his back. He denies any actual fall or injury. He states that movement seems to make it worse. Patient has a loss by bladder functioning saddle anesthesia. Patient states there is no actual falls traumas to the area. Patient states in the center of his back. Standing and sitting is the worst he can get comfortable laying down. He was concerned due to the continued pain so he thought that he should be evaluated. Patient denies any recent fever, chills, shortness of breath, chest pain, abdominal pain, nausea vomiting, numbness or tingling, dysuria or hematuria, constipation or diarrhea, headaches or visual changes, or any other current symptoms. - Related Data Home Medications Medication Instructions Recorded Confirmed clonazePAM [KlonoPIN] 1 mg PO DAILY PRN 05/08/16 04/02/17 Ascorbic Acid [Vitamin C] 500 mg PO DAILY 03/09/17 04/02/17 Meclizine [Antivert] 25 mg PO TID PRN 03/09/17 04/02/17 Previous Rx's Medication Instructions Recorded Ibuprofen [Motrin] 600 mg PO Q6HR PRN #20 tab 04/02/17 Orphenadrine [Norflex] 100 mg PO Q12H #10 tablet.er 04/02/17 Allergies Allergy/AdvReac Type Severity Reaction Status Date / Time azithromycin [From Zithromax] Allergy Rash/Hives Verified 04/02/17 13:44 codeine Allergy Unknown Verified 04/02/17 13:44 Childhood Iodinated Contrast- Oral and Allergy Anaphylaxis Verified 04/02/17 13:44 IV Dye [Iodinated Contrast Media - IV Dye] iodine Allergy Anaphylaxis Verified 04/02/17 13:44 sulfamethoxazole Allergy Rash/Hives Verified 04/02/17 13:44 [From Bactrim] trimethoprim [From Bactrim] Allergy Rash/Hives Verified 04/02/17 13:44 Review of Systems ROS Statement: Those systems with pertinent positive or pertinent negative responses have been documented in the HPI. ROS Other: All systems not noted in ROS Statement are negative. Past Medical History Past Medical History: No Reported History Additional Past Medical History / Comment(s): vertigo History of Any Multi-Drug Resistant Organisms: None Reported Past Surgical History: Adenoidectomy, Tonsillectomy Past Anesthesia/Blood Transfusion Reactions: Family History of Problems w/ Anesthesia Additional Past Anesthesia/Blood Transfusion Reaction / Comment(s): father N/V Past Psychological History: Anxiety Smoking Status: Current every day smoker Past Alcohol Use History: None Reported Past Drug Use History: None Reported - Past Family History Father Family Medical History: Cancer General Exam Limitations: no limitations General appearance: alert, in no apparent distress ENT exam: Present: normal exam, mucous membranes moist Neck exam: Present: normal inspection. Absent: tenderness, meningismus, lymphadenopathy Respiratory exam: Present: normal lung sounds bilaterally. Absent: respiratory distress, wheezes, rales, rhonchi, stridor Cardiovascular Exam: Present: regular rate, normal rhythm, normal heart sounds. Absent: systolic murmur, diastolic murmur, rubs, gallop, clicks Back exam: Present: normal inspection, full ROM, tenderness (Left thoracic paraspinal region), muscle spasm (Left thoracic paraspinal) Neurological exam: Present: alert, oriented X3 Psychiatric exam: Present: normal affect, normal mood Skin exam: Present: warm, dry, intact, normal color. Absent: rash Course Vital Signs 04/02/17 13:18 Temperature 99.1 F Pulse Rate 78 Respiratory 18 Rate Blood Pressure 111/68 O2 Sat by Pulse 98 Oximetry Medical Decision Making - Medical Decision Making 31-year-old male presents to the emergency department with a chief complaint of back pain after cheating his jaw. This time we discussed most likely a muscle spasm. We discussed we'll start him on muscle relaxers and Motrin for home for pain. We did discuss return parameters and follow-up and all questions. Patient stated he understood and he is agreement this plan. All questions have been answered. At this time the patient is in agreement with this. This time the patient will be discharged. - Radiology Data Radiology results: report reviewed, image reviewed Disposition Clinical Impression: Spasm of thoracic back muscle Disposition: HOME SELF-CARE Condition: Stable Instructions: Muscle Spasm (ED) Additional Instructions: Please use medication as discussed. Please follow up with family doctor if symptoms have not improved over the next two days. Please return to the emergency room if your symptoms increase or worsen or for any other concerns. Prescriptions: Ibuprofen [Motrin] 600 mg PO Q6HR PRN #20 tab PRN Reason: Pain Orphenadrine [Norflex] 100 mg PO Q12H #10 tablet.er Referrals: Eran Andre MD [Primary Care Provider] - 1-2 days Time of Disposition: 14:06
== END 2017-04-02 14:11 | disposition home or self-care (01) ==
LOC: EC 12:21
DX: M62.830 Muscle spasm of back (principal); F17.200 Nicotine dependence, unspecified, uncomplicated; Z79.899 Other long term (current) drug therapy; Z88.1 Allergy status to other antibiotic agents; Z88.5 Allergy status to narcotic agent; Z91.041 Radiographic dye allergy status; Z91.048 Other nonmedicinal substance allergy status
CPT/HCPCS: 72070; 99283; 96372 ×2; J2360; J1885

== ENCOUNTER → 2017-04-09 | Outpatient (CLI) | payer OTHER ==
--- NOTE | 2017-04-09 08:26 | CT ---
EXAMINATION TYPE: CT lumbar spine wo con DATE OF EXAM: 04/09/2017 COMPARISON: 12/01/2015 HISTORY: Low back pain, no known injury CT DLP: 1301.[address] of the lumbar spine was performed. Bone and soft tissue window settings are submitted as well as coronal and sagittal reconstructions. L1-L2: Normal disc space height. No disc herniation protrusion or central stenosis. No facet joint arthropathy. No evidence for foraminal encroachment. L2-L3: Normal disc space height. No disc herniation protrusion or central stenosis. No facet joint arthropathy. No evidence for foraminal encroachment. L3-L4: Normal disc space height. No disc herniation protrusion or central stenosis. No facet joint arthropathy. No evidence for foraminal encroachment. L4-L5: Normal disc space height. Mild posterior disc bulge noted without adrien disc herniation. No ev idence for central stenosis. No facet joint arthropathy. No evidence for foraminal encroachment. L5-S1: Normal disc space height. Mild posterior disc bulge noted without adrien disc herniation. No ev idence for central stenosis. No facet joint arthropathy. No evidence for foraminal encroachment. No paraspinal masses are identified. Lumbar segments are free if fracture. IMPRESSION: 1. Mild disc bulging posteriorly at L4-5 and L5-S1 with minimal effacement ventral thecal sac. No jerry dence for herniation or central stenosis.
== END | disposition home or self-care (01) ==
LOC: RADCTMAIN 07:03
PROVIDERS: ATTEND Family Medicine
DX: M51.27 Other intervertebral disc displacement, lumbosacral region (principal)
CPT/HCPCS: 72131

== ENCOUNTER 2017-04-11 02:46 | Emergency (ER) | payer OTHER ==
[2017-04-11 03:11] VITALS: BP 144/81; PULSE 97; RESP 18; TEMP 97.3
[2017-04-11] MEDS ORDERED: DIPHENOX-ATROP 2.5-0.025 MG 1 EACH TAB PO STA (03:20)
--- NOTE | 2017-04-11 03:24 | ED ---
General Adult HPI - General Chief complaint: Abdominal Pain Stated complaint: Diarrhea Time Seen by Provider: 04/11/17 02:50 Source: patient, family, RN notes reviewed Mode of arrival: ambulatory Limitations: no limitations - History of Present Illness Initial comments: This is a 31-year-old male presents emergency Department stating since midnight tonight he said diarrhea and he said about 7 or 8 episodes. Patient states about 5 days ago he stepped on a nail and he was given a tetanus shot and he is wondering if that wound on his foot could be the cause of his diarrhea. Patient states the wound does not look red and there is no pus or drainage. Patient states he is given an antibiotic but he only took one day. Patient denies any fever or chills. Patient states earlier he was a little bit dizzy but that has subsided. Patient denies any chest pain difficulty breathing shortness of breath or palpitations. Patient denies any abdominal pain. Patient states she's had no nausea or vomiting. Patient denies any lightheadedness currently or dizziness currently. Patient denies any headache patient denies numbness weakness - Related Data Home Medications Medication Instructions Recorded Confirmed clonazePAM [KlonoPIN] 1 mg PO DAILY PRN 05/08/16 04/11/17 Ascorbic Acid [Vitamin C] 500 mg PO DAILY 03/09/17 04/11/17 Meclizine [Antivert] 25 mg PO TID PRN 03/09/17 04/11/17 Previous Rx's Medication Instructions Recorded Ibuprofen [Motrin] 600 mg PO Q6HR PRN #20 tab 04/02/17 Orphenadrine [Norflex] 100 mg PO Q12H #10 tablet.er 04/02/17 Allergies Allergy/AdvReac Type Severity Reaction Status Date / Time azithromycin [From Zithromax] Allergy Rash/Hives Verified 04/11/17 03:11 codeine Allergy Unknown Verified 04/11/17 03:11 Childhood Iodinated Contrast- Oral and Allergy Anaphylaxis Verified 04/11/17 03:11 IV Dye [Iodinated Contrast Media - IV Dye] iodine Allergy Anaphylaxis Verified 04/11/17 03:11 sulfamethoxazole Allergy Rash/Hives Verified 04/11/17 03:11 [From Bactrim] trimethoprim [From Bactrim] Allergy Rash/Hives Verified 04/11/17 03:11 Review of Systems ROS Statement: Those systems with pertinent positive or pertinent negative responses have been documented in the HPI. ROS Other: All systems not noted in ROS Statement are negative. Past Medical History Past Medical History: No Reported History Additional Past Medical History / Comment(s): vertigo History of Any Multi-Drug Resistant Organisms: None Reported Past Surgical History: Adenoidectomy, Tonsillectomy Past Anesthesia/Blood Transfusion Reactions: Family History of Problems w/ Anesthesia Additional Past Anesthesia/Blood Transfusion Reaction / Comment(s): father N/V Past Psychological History: Anxiety Smoking Status: Current every day smoker Past Alcohol Use History: None Reported Past Drug Use History: None Reported - Past Family History Father Family Medical History: Cancer General Exam - General Exam Comments Initial Comments: GENERAL: Patient is well-developed and well-nourished. Patient is nontoxic and well- hydrated and is in no acute distress. ENT: Neck is soft and supple. No significant lymphadenopathy is noted. Oropharynx is clear. Moist mucous membranes. Neck has full range of motion without eliciting any pain. EYES: The sclera were anicteric and conjunctiva were pink and moist. Extraocular movements were intact and pupils were equal round and reactive to light. Eyelids were unremarkable. PULMONARY: Unlabored respirations. Good breath sounds bilaterally. No audible rales rhonchi or wheezing was noted. CARDIOVASCULAR: There is a regular rate and rhythm without any murmurs gallops or rubs. ABDOMEN: Soft and nontender with normal bowel sounds. No palpable organomegaly was noted. There is no palpable pulsatile mass. SKIN: Skin is clear with no lesions or rashes and otherwise unremarkable. NEUROLOGIC: Patient is alert and oriented x3. Cranial nerves II through XII are grossly intact. Motor and sensory are also intact. Normal speech, volume and content. Symmetrical smile. MUSCULOSKELETAL: Normal extremities with adequate strength and full range of motion. No lower extremity swelling or edema. No calf tenderness. LYMPHATICS: No significant lymphadenopathy is noted PSYCHIATRIC: Normal psychiatric evaluation. Normal interpersonal interactions appears functionally intact in deals appropriately with others. No signs of depression. No signs of anxiety. Limitations: no limitations Course Vital Signs 04/11/17 03:07 Temperature 97.3 F L Pulse Rate 97 Respiratory 18 Rate Blood Pressure 144/81 O2 Sat by Pulse 98 Oximetry Medical Decision Making - Medical Decision Making Patient's abdomen is completely soft the wound to the bottom of the foot does not look infected is no drainage is no swelling. Disposition Clinical Impression: Acute diarrhea Disposition: HOME SELF-CARE Condition: Good Instructions: Acute Diarrhea (ED) Referrals: Eran Andre MD [Primary Care Provider] - 1-2 days Time of Disposition: 03:24
== END 2017-04-11 03:30 | disposition home or self-care (01) ==
LOC: EC 02:46
DX: R19.7 Diarrhea, unspecified (principal); F17.200 Nicotine dependence, unspecified, uncomplicated; Z79.899 Other long term (current) drug therapy; Z88.1 Allergy status to other antibiotic agents; Z88.5 Allergy status to narcotic agent; Z91.041 Radiographic dye allergy status; Z91.048 Other nonmedicinal substance allergy status; Z88.2 Allergy status to sulfonamides
CPT/HCPCS: 99283

== ENCOUNTER 2017-04-23 19:11 | Emergency (ER) | payer OTHER ==
[2017-04-23 19:22] VITALS: BP 127/77; PULSE 81; RESP 18; TEMP 98.1
--- NOTE | 2017-04-23 19:29 | ED ---
General Adult HPI - General Chief complaint: Skin/Abscess/Foreign Body Stated complaint: Rash Time Seen by Provider: 04/23/17 19:22 Source: patient, RN notes reviewed Mode of arrival: ambulatory Limitations: no limitations - History of Present Illness Initial comments: 31-year-old male presents for rash. He noticed that last night. He states he just has a few red bumps. They're not itchy and irritated. Patient denies any other symptoms with it. Patient denies any fever chills. He denies any new soaps or detergents. He was concerned due to the fact that he saw the bottom so he thought that he should be seen.Patient denies any recent fever, chills, shortness of breath, chest pain, back pain, abdominal pain, nausea vomiting, numbness or tingling, dysuria or hematuria, constipation or diarrhea, headaches or visual changes, or any other current symptoms. - Related Data Home Medications Medication Instructions Recorded Confirmed clonazePAM [KlonoPIN] 1 mg PO DAILY PRN 05/08/16 04/11/17 Ascorbic Acid [Vitamin C] 500 mg PO DAILY 03/09/17 04/11/17 Meclizine [Antivert] 25 mg PO TID PRN 03/09/17 04/11/17 Previous Rx's Medication Instructions Recorded Ibuprofen [Motrin] 600 mg PO Q6HR PRN #20 tab 04/02/17 Orphenadrine [Norflex] 100 mg PO Q12H #10 tablet.er 04/02/17 Hydrocortisone [Cortisone 10%] 1 applic TOPICAL BID #1 tube 04/23/17 Allergies Allergy/AdvReac Type Severity Reaction Status Date / Time azithromycin [From Zithromax] Allergy Rash/Hives Verified 04/23/17 19:22 codeine Allergy Unknown Verified 04/23/17 19:22 Childhood Iodinated Contrast- Oral and Allergy Anaphylaxis Verified 04/23/17 19:22 IV Dye [Iodinated Contrast Media - IV Dye] iodine Allergy Anaphylaxis Verified 04/23/17 19:22 sulfamethoxazole Allergy Rash/Hives Verified 04/23/17 19:22 [From Bactrim] trimethoprim [From Bactrim] Allergy Rash/Hives Verified 04/23/17 19:22 Review of Systems ROS Statement: Those systems with pertinent positive or pertinent negative responses have been documented in the HPI. ROS Other: All systems not noted in ROS Statement are negative. Past Medical History Past Medical History: No Reported History Additional Past Medical History / Comment(s): vertigo History of Any Multi-Drug Resistant Organisms: None Reported Past Surgical History: Adenoidectomy, Tonsillectomy Past Anesthesia/Blood Transfusion Reactions: Family History of Problems w/ Anesthesia Additional Past Anesthesia/Blood Transfusion Reaction / Comment(s): father N/V Past Psychological History: Anxiety Smoking Status: Current every day smoker Past Alcohol Use History: None Reported Past Drug Use History: None Reported - Past Family History Father Family Medical History: Cancer General Exam Limitations: no limitations General appearance: alert, in no apparent distress ENT exam: Present: normal exam, mucous membranes moist Neck exam: Present: normal inspection. Absent: tenderness, meningismus, lymphadenopathy Respiratory exam: Present: normal lung sounds bilaterally. Absent: respiratory distress, wheezes, rales, rhonchi, stridor Cardiovascular Exam: Present: regular rate, normal rhythm, normal heart sounds. Absent: systolic murmur, diastolic murmur, rubs, gallop, clicks Psychiatric exam: Present: normal affect, normal mood Skin exam: Present: warm, dry, intact, rash (Small red bump 3 throughout the abdomen. One to the right forehead) Course Vital Signs 04/23/17 19:20 Temperature 98.1 F Pulse Rate 81 Respiratory 18 Rate Blood Pressure 127/77 O2 Sat by Pulse 98 Oximetry Medical Decision Making - Medical Decision Making 31-year-old male presents for what appears to be a very mild possible dermatitis. We'll give him a steroid cream to apply to the area. We did discuss follow-up return parameters all questions. They state that he understood and he is given plan. All questions have been answered. He will be discharged. Disposition Clinical Impression: Dermatitis Disposition: HOME SELF-CARE Condition: Stable Instructions: Dermatitis (ED) Additional Instructions: Please use medication as discussed. Please follow up with family doctor if symptoms have not improved over the next two days. Please return to the emergency room if your symptoms increase or worsen or for any other concerns. Prescriptions: Hydrocortisone [Cortisone 10%] 1 applic TOPICAL BID #1 tube Referrals: Eran Andre MD [Primary Care Provider] - 1-2 days Time of Disposition: 19:28
== END 2017-04-23 19:32 | disposition home or self-care (01) ==
LOC: EC 19:11
DX: L30.9 Dermatitis, unspecified (principal); F17.200 Nicotine dependence, unspecified, uncomplicated; Z88.1 Allergy status to other antibiotic agents; Z88.2 Allergy status to sulfonamides; Z88.5 Allergy status to narcotic agent; Z91.041 Radiographic dye allergy status; Z91.048 Other nonmedicinal substance allergy status; Z79.899 Other long term (current) drug therapy
CPT/HCPCS: 99282

== ENCOUNTER 2017-08-25 22:40 | Emergency (ER) | payer OTHER ==
[2017-08-25 22:45] VITALS: RESP 18
--- NOTE | 2017-08-26 00:23 | ED ---
Skin/Abscess/FB HPI - General Chief complaint: Skin/Abscess/Foreign Body Stated complaint: abcess Time Seen by Provider: 08/25/17 23:46 Source: patient, RN notes reviewed, old records reviewed Mode of arrival: ambulatory Limitations: no limitations - History of Present Illness Initial comments: This patient is a 31 year old male with CC of right inner thigh abscess. He was seen by PCP and started on antibiotic cream. He reports that he thinks itneeds to be drained. Denies fever or chills. Denies history of MRSA. Denies streaking up the leg or swelling. - Related Data Home Medications Medication Instructions Recorded Confirmed clonazePAM [KlonoPIN] 1 mg PO DAILY PRN 05/08/16 04/11/17 Ascorbic Acid [Vitamin C] 500 mg PO DAILY 03/09/17 04/11/17 Meclizine [Antivert] 25 mg PO TID PRN 03/09/17 04/11/17 Previous Rx's Medication Instructions Recorded Ibuprofen [Motrin] 600 mg PO Q6HR PRN #20 tab 04/02/17 Orphenadrine [Norflex] 100 mg PO Q12H #10 tablet.er 04/02/17 Hydrocortisone [Cortisone 10%] 1 applic TOPICAL BID #1 tube 04/23/17 Cephalexin [Keflex] 500 mg PO Q6HR #28 cap 08/26/17 Allergies Allergy/AdvReac Type Severity Reaction Status Date / Time azithromycin [From Zithromax] Allergy Rash/Hives Verified 08/25/17 22:45 codeine Allergy Unknown Verified 08/25/17 22:45 Childhood Iodinated Contrast- Oral and Allergy Anaphylaxis Verified 08/25/17 22:45 IV Dye [Iodinated Contrast Media - IV Dye] iodine Allergy Anaphylaxis Verified 08/25/17 22:45 sulfamethoxazole Allergy Rash/Hives Verified 08/25/17 22:45 [From Bactrim] trimethoprim [From Bactrim] Allergy Rash/Hives Verified 08/25/17 22:45 Review of Systems ROS Statement: Those systems with pertinent positive or pertinent negative responses have been documented in the HPI. ROS Other: All systems not noted in ROS Statement are negative. Constitutional: Denies: fever, chills Eyes: Denies: eye pain ENT: Denies: ear pain Respiratory: Denies: cough Cardiovascular: Denies: chest pain Endocrine: Denies: heat or cold intolerance Gastrointestinal: Denies: abdominal pain, nausea, vomiting Skin: Reports: rash Neurological: Denies: headache Psychiatric: Denies: anxiety Hematological/Lymphatic: Denies: easy bleeding Past Medical History Past Medical History: No Reported History Additional Past Medical History / Comment(s): vertigo History of Any Multi-Drug Resistant Organisms: None Reported Past Surgical History: Adenoidectomy, Tonsillectomy Past Anesthesia/Blood Transfusion Reactions: Family History of Problems w/ Anesthesia Additional Past Anesthesia/Blood Transfusion Reaction / Comment(s): father N/V Past Psychological History: Anxiety Smoking Status: Current every day smoker Past Alcohol Use History: None Reported Past Drug Use History: None Reported - Past Family History Father Family Medical History: Cancer General Exam - General Exam Comments Initial Comments: Well appearing 31 year old male, no distress. Limitations: no limitations General appearance: alert, in no apparent distress Head exam: Present: atraumatic, normocephalic, normal inspection Eye exam: Present: normal appearance, PERRL, EOMI. Absent: scleral icterus, conjunctival injection, periorbital swelling ENT exam: Present: normal exam, mucous membranes moist Neck exam: Present: normal inspection. Absent: tenderness, meningismus, lymphadenopathy Respiratory exam: Present: normal lung sounds bilaterally. Absent: respiratory distress, wheezes, rales, rhonchi, stridor Cardiovascular Exam: Present: regular rate, normal rhythm, normal heart sounds. Absent: systolic murmur, diastolic murmur, rubs, gallop, clicks GI/Abdominal exam: Present: soft, normal bowel sounds. Absent: distended, tenderness, guarding, rebound, rigid Extremities exam: Present: normal inspection, full ROM, normal capillary refill , other (2 cm right medial thigh abscess. No purulent drainage. ). Absent: tenderness, pedal edema, joint swelling, calf tenderness Back exam: Present: normal inspection Neurological exam: Present: alert, oriented X3, CN II-XII intact Psychiatric exam: Present: normal affect, normal mood Skin exam: Present: warm, dry, intact, normal color. Absent: rash Course Vital Signs 08/25/17 08/26/17 22:43 00:43 Temperature 98.2 F 98.7 F Pulse Rate 83 71 Respiratory 18 18 Rate Blood Pressure 125/75 143/71 O2 Sat by Pulse 97 98 Oximetry Procedures - Incision & Drainage Consent Obtained: verbal consent Site: lower extremity (right medial upper thigh) Size (cm): 2 Anesthetic Used: lidocaine 1% Amount (mLs): 3 I&D Cleaning Method: Iodine Sterile Field Used?: Yes Scalpel Used: #11 I&D Drainage Obtained: Blood Culture Obtained?: No Patient Tolerated Procedure: well Medical Decision Making - Medical Decision Making 31 year old male with CC of abscess on right medial inner thigh, and complains of irritation when walking. I attempted Incision and drainage, however there was no pus from the site. I did explore, and leave a small opening. Discussed doing warm soaks. Will start pt on antibiotics and discussed return parameters. Discussed the area is more of a firm nodule, and I do not suspect much drainage from site. Discussed PCP follow up and return parameters discussed. Disposition Clinical Impression: Abscess Disposition: HOME SELF-CARE Condition: Good Instructions: Abscess Incision and Drainage (ED) Additional Instructions: Patient has follow-up with primary care provider. Take antibiotics as prescribed. Return to emergency department if any alarming signs or symptoms occur. Prescriptions: Cephalexin [Keflex] 500 mg PO Q6HR #28 cap Is patient prescribed a controlled substance at d/c from ED?: No When asked, does pt state using other controlled substances?: No If prescribed controlled substance>3 days was MAPS reviewed?: No If opioid is for acute pain is fill amount 7 days or less?: No If Rx opioid, was Start Talking consent form obtained?: No Referrals: Eran Andre MD [Primary Care Provider] - 1-2 days Time of Disposition: 00:21
[2017-08-26 00:45] VITALS: BP 143/71; PULSE 71; TEMP 98.7
== END 2017-08-26 00:45 | disposition home or self-care (01) ==
LOC: EC 22:40
DX: L02.415 Cutaneous abscess of right lower limb (principal); F17.200 Nicotine dependence, unspecified, uncomplicated; Z88.1 Allergy status to other antibiotic agents; Z88.5 Allergy status to narcotic agent; Z91.041 Radiographic dye allergy status; Z91.048 Other nonmedicinal substance allergy status; Z88.2 Allergy status to sulfonamides
CPT/HCPCS: 10060; 99283

== ENCOUNTER 2017-09-06 09:16 | Emergency (ER) | payer OTHER ==
[2017-09-06 09:28] VITALS: BP 124/76; PULSE 88; RESP 18; TEMP 98.4
--- NOTE | 2017-09-06 09:56 | ED ---
General Adult HPI - General Chief complaint: Abdominal Pain Stated complaint: C-Diff, Abd Pain Time Seen by Provider: 09/06/17 09:37 Source: patient, RN notes reviewed Mode of arrival: ambulatory Limitations: no limitations - History of Present Illness Initial comments: Patient 31-year-old male who presents emergency room today with a chief complaint of having a positive C. diff test. He does admit that he was at [facility] 2 days ago. He states he had a stool study. He states he was called yesterday positive for C. diff. Admits that he was on Keflex a week ago for a infection to his leg which has improved. Patient does admit that he' s had some cramping in his abdomen. No diarrhea. Has been passing gas. States she's having increased cramping type pain and decided to come here to the emergency room. Patient denies any other complaints or symptoms. States he has not picked up his antibiotic prescription yet today. Patient denies any recent fever, chills, shortness of breath, chest pain, back pain, vomiting, numbness or tingling, dysuria or hematuria, constipation, headaches or visual changes, or any other complaints. - Related Data Home Medications Medication Instructions Recorded Confirmed clonazePAM [KlonoPIN] 1 mg PO DAILY PRN 05/08/16 04/11/17 Ascorbic Acid [Vitamin C] 500 mg PO DAILY 03/09/17 04/11/17 Meclizine [Antivert] 25 mg PO TID PRN 03/09/17 04/11/17 Previous Rx's Medication Instructions Recorded Ibuprofen [Motrin] 600 mg PO Q6HR PRN #20 tab 04/02/17 Orphenadrine [Norflex] 100 mg PO Q12H #10 tablet.er 04/02/17 Hydrocortisone [Cortisone 10%] 1 applic TOPICAL BID #1 tube 04/23/17 Cephalexin [Keflex] 500 mg PO Q6HR #28 cap 08/26/17 Famotidine [Pepcid] 20 mg PO BID #20 tablet 09/06/17 Ondansetron Odt [Zofran ODT] 4 mg PO Q8HR PRN #20 tab 09/06/17 Allergies Allergy/AdvReac Type Severity Reaction Status Date / Time azithromycin [From Zithromax] Allergy Rash/Hives Verified 09/06/17 09:28 codeine Allergy Unknown Verified 09/06/17 09:28 Childhood Iodinated Contrast- Oral and Allergy Anaphylaxis Verified 09/06/17 09:28 IV Dye [Iodinated Contrast Media - IV Dye] iodine Allergy Anaphylaxis Verified 09/06/17 09:28 sulfamethoxazole Allergy Rash/Hives Verified 09/06/17 09:28 [From Bactrim] trimethoprim [From Bactrim] Allergy Rash/Hives Verified 09/06/17 09:28 Review of Systems ROS Statement: Those systems with pertinent positive or pertinent negative responses have been documented in the HPI. ROS Other: All systems not noted in ROS Statement are negative. Past Medical History Past Medical History: No Reported History Additional Past Medical History / Comment(s): vertigo History of Any Multi-Drug Resistant Organisms: C-DIFF Date of last positivie culture/infection: 09/05/17-CDiff MDRO Source:: stool Past Surgical History: Adenoidectomy, Tonsillectomy Past Anesthesia/Blood Transfusion Reactions: Family History of Problems w/ Anesthesia Additional Past Anesthesia/Blood Transfusion Reaction / Comment(s): father N/V Past Psychological History: Anxiety Smoking Status: Current every day smoker Past Alcohol Use History: None Reported Past Drug Use History: None Reported - Past Family History Father Family Medical History: Cancer General Exam - General Exam Comments Initial Comments: General: The patient is awake and alert, in no distress, and does not appear acutely ill. Eye: Pupils are equal, round and reactive to light, extra-ocular movements are intact. No nystagmus. There is normal conjunctiva bilaterally. No signs of icterus. Ears, nose, mouth and throat: There are moist mucous membranes and no oral lesions. Neck: The neck is supple, there is no tenderness or JVD. Cardiovascular: There is a regular rate and rhythm. No murmur, rub or gallop is appreciated. Respiratory: Lungs are clear to auscultation, respirations are non-labored, breath sounds are equal. No wheezes, stridor, rales, or rhonchi. Gastrointestinal: Soft, non-distended, non-tender abdomen without masses or organomegaly noted. There is no rebound or guarding present. No CVA tenderness. Musculoskeletal: Normal ROM, no tenderness. Strength 5/5. Sensation intact. Pulses equal bilaterally 2+. Neurological: A&O x 3. CN II-XII intact, There are no obvious motor or sensory deficits. Coordination appears grossly intact. Speech is normal. Skin: Skin is warm and dry and no rashes or lesions are noted. Psychiatric: Cooperative, appropriate mood & affect, normal judgment. Limitations: no limitations Course Vital Signs 09/06/17 09:26 Temperature 98.4 F Pulse Rate 88 Respiratory 18 Rate Blood Pressure 124/76 O2 Sat by Pulse 99 Oximetry Medical Decision Making - Medical Decision Making It was discussed with the patient about starting an IV and draw blood here the emergency room. At this time patient feels relatively comfortable being discharged home to start his antibiotics that were prescribed to him. He will be given medications of Zofran and Pepcid for his symptoms. He is advised follow-up family doctor return to emergency room symptoms increase worsen. He states understanding and is in agreement. Disposition Clinical Impression: C. difficile colitis Disposition: HOME SELF-CARE Condition: Good Instructions: Clostridium Difficile Infection (ED) Additional Instructions: Please use medication as discussed. Please follow-up with family doctor in the next 2 days of symptoms have not improved. Please return to emergency room if the symptoms increase or worsen or for any other concerns. Prescriptions: Famotidine [Pepcid] 20 mg PO BID #20 tablet Ondansetron Odt [Zofran ODT] 4 mg PO Q8HR PRN #20 tab PRN Reason: Nausea Is patient prescribed a controlled substance at d/c from ED?: No Referrals: Eran Andre MD [Primary Care Provider] - 1-2 days Time of Disposition: 09:55
== END 2017-09-06 10:03 | disposition home or self-care (01) ==
LOC: EC 09:16
DX: A04.72 Enterocolitis due to Clostridium difficile, not specified as recurrent (principal); F41.9 Anxiety disorder, unspecified; F17.200 Nicotine dependence, unspecified, uncomplicated; Z79.899 Other long term (current) drug therapy; Z88.1 Allergy status to other antibiotic agents; Z88.2 Allergy status to sulfonamides; Z88.5 Allergy status to narcotic agent; Z91.041 Radiographic dye allergy status
CPT/HCPCS: 99283

== ENCOUNTER 2017-10-11 04:13 | Emergency (ER) | payer OTHER ==
[2017-10-11] MEDS ORDERED: SODIUM CHLORIDE 0.9% 1,000 ML IV STA (04:35)
[2017-10-11] MEDS ORDERED: ONDANSETRON 4 MG/2 ML VIAL IVP STA (04:35)
[2017-10-11] MEDS ORDERED: KETOROLAC 30 MG/ML 1 ML VIAL IVP STA (04:36)
--- NOTE | 2017-10-11 05:24 | ED ---
Abdominal Pain HPI - General Chief Complaint: Abdominal Pain Stated Complaint: Abdominal Pain Time Seen by Provider: 10/11/17 04:23 Source: patient, family Mode of arrival: ambulatory Limitations: no limitations - History of Present Illness Initial Comments: 31 years old gentleman presents with abdominal pain, its located in the epigastric area just 8 food from mom local [employer] and he feels maybe there was some rhonchi with the fluid he is nauseous he feels like he's, throughout but no vomiting so for no diarrhea either pain is quite bad it's at this point he has no history of firm a peptic ulcer disease he denies any surgeries of the abdomen - Related Data Home Medications Medication Instructions Recorded Confirmed clonazePAM [KlonoPIN] 1 mg PO DAILY PRN 05/08/16 10/11/17 Ascorbic Acid [Vitamin C] 500 mg PO DAILY 03/09/17 10/11/17 Meclizine [Antivert] 25 mg PO TID PRN 03/09/17 10/11/17 Previous Rx's Medication Instructions Recorded Ibuprofen [Motrin] 600 mg PO Q6HR PRN #20 tab 04/02/17 Orphenadrine [Norflex] 100 mg PO Q12H #10 tablet.er 04/02/17 Hydrocortisone [Cortisone 10%] 1 applic TOPICAL BID #1 tube 04/23/17 Cephalexin [Keflex] 500 mg PO Q6HR #28 cap 08/26/17 Famotidine [Pepcid] 20 mg PO BID #20 tablet 09/06/17 Ondansetron Odt [Zofran ODT] 4 mg PO Q8HR PRN #20 tab 09/06/17 Allergies Allergy/AdvReac Type Severity Reaction Status Date / Time azithromycin [From Zithromax] Allergy Rash/Hives Verified 10/11/17 04:21 codeine Allergy Unknown Verified 10/11/17 04:21 Childhood Iodinated Contrast- Oral and Allergy Anaphylaxis Verified 10/11/17 04:21 IV Dye [Iodinated Contrast Media - IV Dye] iodine Allergy Anaphylaxis Verified 10/11/17 04:21 sulfamethoxazole Allergy Rash/Hives Verified 10/11/17 04:21 [From Bactrim] trimethoprim [From Bactrim] Allergy Rash/Hives Verified 10/11/17 04:21 Review of Systems ROS Statement: Those systems with pertinent positive or pertinent negative responses have been documented in the HPI. ROS Other: All systems not noted in ROS Statement are negative. Past Medical History Past Medical History: No Reported History Additional Past Medical History / Comment(s): vertigo History of Any Multi-Drug Resistant Organisms: C-DIFF Date of last positivie culture/infection: 09/05/17-CDiff MDRO Source:: stool Past Surgical History: Adenoidectomy, Tonsillectomy Past Anesthesia/Blood Transfusion Reactions: Family History of Problems w/ Anesthesia Additional Past Anesthesia/Blood Transfusion Reaction / Comment(s): father N/V Past Psychological History: Anxiety Smoking Status: Current every day smoker Past Alcohol Use History: None Reported Past Drug Use History: None Reported - Past Family History Father Family Medical History: Cancer General Exam Limitations: no limitations Course Vital Signs 10/11/17 04:17 Temperature 98 F Pulse Rate 82 Respiratory 20 Rate Blood Pressure 116/67 O2 Sat by Pulse 99 Oximetry Patient is reassessed at term 7:15 his pain is better CBC looks good, his metabolic panel including pancreas amylase elevated LFTs are within normal range and KUB ruled out any bowel obstruction. Patient is advised come back if he has high fever chills or symptoms get worse Medical Decision Making - Lab Data Result diagrams: 10/11/17 05:20 10/11/17 05:20 Lab Results 10/11/17 10/11/17 10/11/17 Range/Units 05:20 05:20 05:20 WBC 10.8 H (3.8-10.6) k/uL RBC 5.16 (4.30-5.90) m/uL Hgb 15.6 (13.0-17.5) gm/dL Hct 46.1 (39.0-53.0) % MCV 89.3 (80.0-100.0) fL MCH 30.2 (25.0-35.0) pg MCHC 33.8 (31.0-37.0) g/dL RDW 12.6 (11.5-15.5) % Plt Count 218 (150-450) k/uL Neutrophils % 44 % Lymphocytes % 43 % Monocytes % 7 % Eosinophils % 3 % Basophils % 1 % Neutrophils # 4.7 (1.3-7.7) k/uL Lymphocytes # 4.7 (1.0-4.8) k/uL Monocytes # 0.8 (0-1.0) k/uL Eosinophils # 0.3 (0-0.7) k/uL Basophils # 0.1 (0-0.2) k/uL Sodium 141 (137-145) mmol/L Potassium 3.8 (3.5-5.1) mmol/L Chloride 107 (98-107) mmol/L Carbon Dioxide 26 (22-30) mmol/L Anion Gap 8 mmol/L BUN 13 (9-20) mg/dL Creatinine 0.80 (0.66-1.25) mg/dL Est GFR (CKD-EPI)AfAm >90 (>60 ml/min/1.73 sqM) Est GFR (CKD-EPI)NonAf >90 (>60 ml/min/1.73 sqM) Glucose 104 H (74-99) mg/dL Plasma Lactic Acid Oleksandr 1.7 (0.7-2.0) mmol/L Calcium 9.8 (8.4-10.2) mg/dL Total Bilirubin 0.3 (0.2-1.3) mg/dL AST 31 (17-59) U/L ALT 47 (21-72) U/L Alkaline Phosphatase 35 L (38-126) U/L Total Protein 7.0 (6.3-8.2) g/dL Albumin 4.2 (3.5-5.0) g/dL Amylase 90 (30-110) U/L Lipase 235 (23-300) U/L Disposition Clinical Impression: Abdominal pain Disposition: HOME SELF-CARE Instructions: Abdominal Pain (ED) Additional Instructions: Advised to use Tylenol for the discomfort try to avoid Advil or Aleve and centering the references side effects towards the GI tract Is patient prescribed a controlled substance at d/c from ED?: No Referrals: Eran Andre MD [Primary Care Provider] - 1-2 days
[2017-10-11 05:32] LABS: Basophils # (A) 0.1 k/uL (0-0.2); Basophils % (A) 1 %; Eosinophils # (A) 0.3 k/uL (0-0.7); Eosinophils % (A) 3 %; HCT 46.1 % (39.0-53.0); HGB 15.6 gm/dL (13.0-17.5); Lymphocytes # (A) 4.7 k/uL (1.0-4.8); Lymphocytes % (A) 43 %; MCH 30.2 pg (25.0-35.0); MCHC 33.8 g/dL (31.0-37.0); MCV 89.3 fL (80.0-100.0); Monocytes # (A) 0.8 k/uL (0-1.0); Monocytes % (A) 7 %; Neutrophils # (A) 4.7 k/uL (1.3-7.7); Neutrophils % (A) 44 %; Platelet Count 218 k/uL (150-450); RBC 5.16 m/uL (4.30-5.90); RDW 12.6 % (11.5-15.5); WBC 10.8 k/uL (3.8-10.6)
[2017-10-11 05:40] LABS: ALT 47 U/L (21-72); AST 31 U/L (17-59); Albumin 4.2 g/dL (3.5-5.0); Alkaline Phosphatase 35 U/L (38-126); Amylase 90 U/L (30-110); Anion Gap 8 mmol/L; Blood Urea Nitrogen 13 mg/dL (9-20); Calcium 9.8 mg/dL (8.4-10.2); Carbon Dioxide 26 mmol/L (22-30); Chloride 107 mmol/L (98-107); Glucose 104 mg/dL (74-99); Lipase 235 U/L (23-300); Potassium 3.8 mmol/L (3.5-5.1); Sodium 141 mmol/L (137-145); Total Bilirubin 0.3 mg/dL (0.2-1.3)
--- NOTE | 2017-10-11 06:48 | XR ---
EXAMINATION TYPE: XR KUB DATE OF EXAM: 10/11/2017 COMPARISON: 03/23/2017 HISTORY: Abdominal pain TECHNIQUE: 2 views FINDINGS: There is no sign of intestinal obstruction or pneumoperitoneum. Fecal pattern is normal. Daly ng bases are clear. There are no pathologic calcifications over the kidneys. IMPRESSION: Nonacute abdomen. No change.
[2017-10-11 07:28] LABS: Appearance,Urine Cloudy (Clear); Bacteria,Urine Rare /hpf; Bilirubin,Urine Negative (Negative); Blood,Urine Negative (Negative); Budding Yeast,Urine Many /hpf; Color,Urine Yellow; Glucose,Urine (UA) Negative (Negative); Ketones,Urine Negative (Negative); Leukocyte Esterase,Urine Negative (Negative); Nitrite,Urine Negative (Negative); PH, Urine 7.5 (5.0-8.0); Protein,Urine Negative (Negative); Specific Gravity,Urine 1.014 (1.001-1.035); Urobilinogen,Urine <2.0 mg/dL (<2.0); WBC,Urine 6 /hpf (0-5)
[2017-10-11 07:35] VITALS: BP 117/65; PULSE 85; RESP 18; TEMP 98.3
== END 2017-10-11 07:24 | disposition home or self-care (01) ==
LOC: EC 04:13
DX: R10.13 Epigastric pain (principal); R11.0 Nausea; F41.9 Anxiety disorder, unspecified; F17.200 Nicotine dependence, unspecified, uncomplicated; Z79.899 Other long term (current) drug therapy; Z88.1 Allergy status to other antibiotic agents; Z88.2 Allergy status to sulfonamides; Z88.5 Allergy status to narcotic agent; Z91.041 Radiographic dye allergy status
CPT/HCPCS: 99284; 96374; 96375; 96361; 36415; 80053; 82150; 83605; 83690; 85025; 81001; 74018; J2405; J1885

== ENCOUNTER 2017-12-15 20:47 | Emergency (ER) | payer OTHER ==
[2017-12-15 20:59] VITALS: TEMP 98.3
[2017-12-15] MEDS ORDERED: SODIUM CHLORIDE 0.9% 1,000 ML IV STA (22:28)
--- NOTE | 2017-12-15 22:32 | ED ---
Abdominal Pain HPI - General Source: patient Mode of arrival: ambulatory Limitations: no limitations <Oliva Stearns - Last Filed: 12/16/17 03:54> <Rosy Oden - Last Filed: 12/17/17 03:18> - General Chief Complaint: Abdominal Pain Stated Complaint: abdominal pain Time Seen by Provider: 12/15/17 21:56 - History of Present Illness Initial Comments: 32-year-old male patient presents to the emergency department today for evaluation of upper abdominal pain. Patient states that his abdomen has been bothering over the last couple of days. States that today he had a bowel movement and the stool was coated and red and did have parts that seemed to be black. Patient denies any fevers or chills this. Denies any nausea or vomiting. Patient states he has been having issues with his abdomen over the last couple of months, alternating diarrhea and constipation. Patient states that he has follow-up with his doctor for this and he cannot figure out what is going on. He denies any recent travel or sick contacts. States he was diagnosed with C. difficile couple of months ago but his repeat stool cultures were negative. States he did complete treatment for that. Denies any loose stool today. Patient denies any recent rash, shortness breath, chest pain, abdominal pain, back pain, numbness, tingling, dizziness, weakness, hematuria, dysuria, urinary urgency, urinary frequency, headache, visual changes, or any other complaints. (Oliva Stearns) - Related Data Home Medications Medication Instructions Recorded Confirmed clonazePAM [KlonoPIN] 1 mg PO DAILY PRN 05/08/16 12/15/17 Ascorbic Acid [Vitamin C] 500 mg PO DAILY 03/09/17 12/15/17 Meclizine [Antivert] 25 mg PO TID PRN 03/09/17 12/15/17 Previous Rx's Medication Instructions Recorded Ibuprofen [Motrin] 600 mg PO Q6HR PRN #20 tab 04/02/17 Dicyclomine [Bentyl] 20 mg PO QID #20 tablet 12/15/17 Allergies Allergy/AdvReac Type Severity Reaction Status Date / Time azithromycin [From Zithromax] Allergy Rash/Hives Verified 12/15/17 21:09 codeine Allergy Unknown Verified 12/15/17 21:09 Childhood Iodinated Contrast- Oral and Allergy Anaphylaxis Verified 12/15/17 21:09 IV Dye [Iodinated Contrast Media - IV Dye] iodine Allergy Anaphylaxis Verified 12/15/17 21:09 sulfamethoxazole Allergy Rash/Hives Verified 12/15/17 21:09 [From Bactrim] trimethoprim [From Bactrim] Allergy Rash/Hives Verified 12/15/17 21:09 Review of Systems ROS Other: All systems not noted in ROS Statement are negative. <Oliva Stearns - Last Filed: 12/16/17 03:54> ROS Other: All systems not noted in ROS Statement are negative. <Rosy Oden - Last Filed: 12/17/17 03:18> ROS Statement: Those systems with pertinent positive or pertinent negative responses have been documented in the HPI. Past Medical History Past Medical History: No Reported History Additional Past Medical History / Comment(s): vertigo History of Any Multi-Drug Resistant Organisms: C-DIFF Date of last positivie culture/infection: 09/05/17-CDiff MDRO Source:: stool Past Surgical History: Adenoidectomy, Tonsillectomy Past Anesthesia/Blood Transfusion Reactions: Family History of Problems w/ Anesthesia Additional Past Anesthesia/Blood Transfusion Reaction / Comment(s): father N/V Past Psychological History: Anxiety Smoking Status: Current every day smoker Past Alcohol Use History: None Reported Past Drug Use History: None Reported - Past Family History Father Family Medical History: Cancer <Oliva Stearns Mika - Last Filed: 12/16/17 03:54> General Exam Limitations: no limitations General appearance: alert, in no apparent distress, other (This is a well- developed, well-nourished adult male patient in no acute distress. Vital signs upon presentation are temperature 98.2F, pulse 88, respirations 18, blood pressure 126/77, pulse ox 98% on room air.) Eye exam: Present: normal appearance, PERRL, EOMI. Absent: scleral icterus, conjunctival injection, periorbital swelling ENT exam: Present: normal exam, normal oropharynx, mucous membranes moist Respiratory exam: Present: normal lung sounds bilaterally. Absent: respiratory distress, wheezes, rales, rhonchi, stridor Cardiovascular Exam: Present: regular rate, normal rhythm, normal heart sounds. Absent: systolic murmur, diastolic murmur, rubs, gallop, clicks GI/Abdominal exam: Present: soft, tenderness (Patient has left lower quadrant abdominal tenderness, upper abdominal tenderness), normal bowel sounds. Absent : distended, guarding, rebound, rigid Neurological exam: Present: alert, oriented X3, CN II-XII intact Psychiatric exam: Present: normal affect, normal mood Skin exam: Present: warm, dry, intact, normal color. Absent: rash <Oliva Stearns - Last Filed: 12/16/17 03:54> Vital Signs 12/15/17 12/15/17 20:55 23:42 Temperature 98.3 F Pulse Rate 88 84 Respiratory 18 16 Rate Blood Pressure 126/77 117/73 O2 Sat by Pulse 98 98 Oximetry Medical Decision Making - Lab Data Result diagrams: 12/15/17 22:30 12/15/17 22:30 - EKG Data -: EKG Interpreted by Me <Oliva Stearns - Last Filed: 12/16/17 03:54> - Lab Data Result diagrams: 12/15/17 22:30 12/15/17 22:30 <Rosy Oden - Last Filed: 12/17/17 03:18> - Medical Decision Making 32-year-old male patient presented to the emergency department today for complaints of upper abdominal pain and GI bleeding. Physical examination did reveal some mild upper abdominal tenderness. Labs reviewed and were unremarkable. Patient was negative for blood on Hemoccult testing. EKG showed normal sinus rhythm. Vital signs are stable. Patient did report that he is having intermittent abdominal pain and issues with bowel movements over the last couple of months. Patient has not seen her been evaluated by cleaner carpet and upholstery. We did discuss follow-up and that he should discuss possible colonoscopy. He is instructed to return here immediately for any new, worsening, or concerning symptoms. He verbalizes understanding and agrees with this plan. (Oliva Stearns) I was available for consultation in the emergency department. The history and physical exam were done by the midlevel provider. I was consulted for this patient's care. I reviewed the case with the midlevel provider and based on their presentation of the patient, I agree with the assessment, medical decision making and plan of care as documented. (Rosy Oden) - Lab Data Lab Results 12/15/17 12/15/17 12/15/17 Range/Units 22:30 22:30 22:30 WBC 8.8 (3.8-10.6) k/uL RBC 4.71 (4.30-5.90) m/uL Hgb 14.8 (13.0-17.5) gm/dL Hct 43.6 (39.0-53.0) % MCV 92.4 (80.0-100.0) fL MCH 31.4 (25.0-35.0) pg MCHC 34.0 (31.0-37.0) g/dL RDW 12.9 (11.5-15.5) % Plt Count 212 (150-450) k/uL Neutrophils % 52 % Lymphocytes % 37 % Monocytes % 6 % Eosinophils % 2 % Basophils % 0 % Neutrophils # 4.6 (1.3-7.7) k/uL Lymphocytes # 3.2 (1.0-4.8) k/uL Monocytes # 0.6 (0-1.0) k/uL Eosinophils # 0.2 (0-0.7) k/uL Basophils # 0.0 (0-0.2) k/uL PT (9.0-12.0) sec INR (<1.2) APTT (22.0-30.0) sec Sodium 142 (137-145) mmol/L Potassium 3.6 (3.5-5.1) mmol/L Chloride 108 H (98-107) mmol/L Carbon Dioxide 26 (22-30) mmol/L Anion Gap 8 mmol/L BUN 14 (9-20) mg/dL Creatinine 0.88 (0.66-1.25) mg/dL Est GFR (CKD-EPI)AfAm >90 (>60 ml/min/1.73 sqM) Est GFR (CKD-EPI)NonAf >90 (>60 ml/min/1.73 sqM) Glucose 98 (74-99) mg/dL Calcium 8.9 (8.4-10.2) mg/dL Total Bilirubin 0.2 (0.2-1.3) mg/dL AST 23 (17-59) U/L ALT 32 (21-72) U/L Alkaline Phosphatase 36 L (38-126) U/L Total Creatine Kinase 105 (55-170) U/L CK-MB (CK-2) 0.2 (0.0-2.4) ng/mL CK-MB (CK-2) Rel Index 0.2 Troponin I <0.012 (0.000-0.034) ng/mL Total Protein 6.3 (6.3-8.2) g/dL Albumin 3.6 (3.5-5.0) g/dL Stool Occult Blood (Negative) 12/15/17 12/15/17 Range/Units 22:30 22:30 WBC (3.8-10.6) k/uL RBC (4.30-5.90) m/uL Hgb (13.0-17.5) gm/dL Hct (39.0-53.0) % MCV (80.0-100.0) fL MCH (25.0-35.0) pg MCHC (31.0-37.0) g/dL RDW (11.5-15.5) % Plt Count (150-450) k/uL Neutrophils % % Lymphocytes % % Monocytes % % Eosinophils % % Basophils % % Neutrophils # (1.3-7.7) k/uL Lymphocytes # (1.0-4.8) k/uL Monocytes # (0-1.0) k/uL Eosinophils # (0-0.7) k/uL Basophils # (0-0.2) k/uL PT 9.6 (9.0-12.0) sec INR 1.0 (<1.2) APTT 23.5 (22.0-30.0) sec Sodium (137-145) mmol/L Potassium (3.5-5.1) mmol/L Chloride (98-107) mmol/L Carbon Dioxide (22-30) mmol/L Anion Gap mmol/L BUN (9-20) mg/dL Creatinine (0.66-1.25) mg/dL Est GFR (CKD-EPI)AfAm (>60 ml/min/1.73 sqM) Est GFR (CKD-EPI)NonAf (>60 ml/min/1.73 sqM) Glucose (74-99) mg/dL Calcium (8.4-10.2) mg/dL Total Bilirubin (0.2-1.3) mg/dL AST (17-59) U/L ALT (21-72) U/L Alkaline Phosphatase (38-126) U/L Total Creatine Kinase (55-170) U/L CK-MB (CK-2) (0.0-2.4) ng/mL CK-MB (CK-2) Rel Index Troponin I (0.000-0.034) ng/mL Total Protein (6.3-8.2) g/dL Albumin (3.5-5.0) g/dL Stool Occult Blood Negative (Negative) - EKG Data EKG Comments: EKG obtained at 2237 shows normal sinus rhythm with a sinus arrhythmia. Ventricular rate is 69, MS interval is 186, QR yazidism 886, QT is 394, QTC is 422. No evidence of ST elevation or depression. (Oliva Stearns) Disposition Is patient prescribed a controlled substance at d/c from ED?: No Time of Disposition: 23:38 <Oliva Stearns - Last Filed: 12/16/17 03:54> <Rosy Oden - Last Filed: 12/17/17 03:18> Clinical Impression: Abdominal pain Disposition: HOME SELF-CARE Condition: Good Instructions: Abdominal Pain (ED) Additional Instructions: Increase fluids. Follow-up with cleaner carpet and upholstery for further evaluation and possible colonoscopy. Return here immediately for any new, worsening, or concerning symptoms. Prescriptions: Dicyclomine [Bentyl] 20 mg PO QID #20 tablet Referrals: Eran Andre MD [Primary Care Provider] - 1-2 days Danae Mujica MD [STAFF PHYSICIAN] - 1-2 days
[2017-12-15 22:49] LABS: Basophils % (A) 0 %; Eosinophils # (A) 0.2 k/uL (0-0.7); Eosinophils % (A) 2 %; HCT 43.6 % (39.0-53.0); HGB 14.8 gm/dL (13.0-17.5); Lymphocytes # (A) 3.2 k/uL (1.0-4.8); Lymphocytes % (A) 37 %; MCH 31.4 pg (25.0-35.0); MCV 92.4 fL (80.0-100.0); Mean Platelet Volume 8.3; Monocytes # (A) 0.6 k/uL (0-1.0); Monocytes % (A) 6 %; Neutrophils # (A) 4.6 k/uL (1.3-7.7); Neutrophils % (A) 52 %; Platelet Count 212 k/uL (150-450); RBC 4.71 m/uL (4.30-5.90); RDW 12.9 % (11.5-15.5); WBC 8.8 k/uL (3.8-10.6)
[2017-12-15 22:59] LABS: Partial Thromboplastin Time 23.5 sec (22.0-30.0); Prothrombin Time 9.6 sec (9.0-12.0)
[2017-12-15 23:06] LABS: ALT 32 U/L (21-72); AST 23 U/L (17-59); Albumin 3.6 g/dL (3.5-5.0); Alkaline Phosphatase 36 U/L (38-126); Anion Gap 8 mmol/L; Blood Urea Nitrogen 14 mg/dL (9-20); Calcium 8.9 mg/dL (8.4-10.2); Carbon Dioxide 26 mmol/L (22-30); Chloride 108 mmol/L (98-107); Glucose 98 mg/dL (74-99); Potassium 3.6 mmol/L (3.5-5.1); Sodium 142 mmol/L (137-145); Total Bilirubin 0.2 mg/dL (0.2-1.3); Total Protein 6.3 g/dL (6.3-8.2)
[2017-12-15 23:11] LABS: Creatine Kinase 105 U/L (55-170)
[2017-12-15 23:22] LABS: Creatine Kinase MB 0.2 ng/mL (0.0-2.4)
[2017-12-15 23:24] LABS: Troponin I <0.012 ng/mL (0.000-0.034)
[2017-12-15 23:43] VITALS: BP 117/73; PULSE 84; RESP 16
== END 2017-12-16 00:06 | disposition home or self-care (01) ==
LOC: EC 20:47
DX: R10.10 Upper abdominal pain, unspecified (principal); R10.812 Left upper quadrant abdominal tenderness; R10.814 Left lower quadrant abdominal tenderness; F17.200 Nicotine dependence, unspecified, uncomplicated; F41.9 Anxiety disorder, unspecified; Z88.1 Allergy status to other antibiotic agents; Z88.5 Allergy status to narcotic agent; Z88.2 Allergy status to sulfonamides; Z91.041 Radiographic dye allergy status; Z91.048 Other nonmedicinal substance allergy status
CPT/HCPCS: 36415; 80053; 82272; 82550; 82553; 84484; 85025; 85610; 85730; 93005; 96360; 99284

== ENCOUNTER 2018-01-05 01:32 | Emergency (ER) | payer OTHER ==
[2018-01-05 01:38] VITALS: RESP 18
--- NOTE | 2018-01-05 01:53 | ED ---
Chest Pain HPI - General Chief Complaint: Chest Pain Stated Complaint: Chest Pain Difficulty Breathing Time Seen by Provider: 01/05/18 01:42 Source: patient Mode of arrival: ambulatory Limitations: no limitations - History of Present Illness Initial Comments: This patient is 32-year-old man who presents to be evaluated for chest pain. Patient indicates the area at the xiphoid. He states that it developed couple of hours ago, he had [place] He states that it feels "like a baseball head hit me there", but states that he did not have any trauma. He has not noted any worsening or relieving factors. The pain is constant and mild intensity. There have been no associated symptoms. MD Complaint: chest pain -: hour(s) Onset: during rest, other (The patient states that he was driving) Pain Location: epigastric Pain Radiation: none Severity: mild Quality: other (Like a baseball hit me) Consistency: constant Improves With: nothing Worsens With: nothing Treatments Prior to Arrival: none - Related Data Home Medications Medication Instructions Recorded Confirmed clonazePAM [KlonoPIN] 1 mg PO DAILY PRN 05/08/16 12/15/17 Ascorbic Acid [Vitamin C] 500 mg PO DAILY 03/09/17 12/15/17 Meclizine [Antivert] 25 mg PO TID PRN 03/09/17 12/15/17 Previous Rx's Medication Instructions Recorded Ibuprofen [Motrin] 600 mg PO Q6HR PRN #20 tab 04/02/17 Dicyclomine [Bentyl] 20 mg PO QID #20 tablet 12/15/17 Allergies Allergy/AdvReac Type Severity Reaction Status Date / Time azithromycin [From Zithromax] Allergy Rash/Hives Verified 01/05/18 01:38 codeine Allergy Unknown Verified 01/05/18 01:38 Childhood Iodinated Contrast- Oral and Allergy Anaphylaxis Verified 01/05/18 01:38 IV Dye [Iodinated Contrast Media - IV Dye] iodine Allergy Anaphylaxis Verified 01/05/18 01:38 sulfamethoxazole Allergy Rash/Hives Verified 01/05/18 01:38 [From Bactrim] trimethoprim [From Bactrim] Allergy Rash/Hives Verified 01/05/18 01:38 Review of Systems ROS Statement: Those systems with pertinent positive or pertinent negative responses have been documented in the HPI. ROS Other: All systems not noted in ROS Statement are negative. Constitutional: Denies: fever, chills Respiratory: Denies: cough, dyspnea Cardiovascular: Reports: as per HPI, chest pain. Denies: palpitations, dyspnea on exertion, edema, syncope Gastrointestinal: Denies: abdominal pain, nausea, vomiting, diarrhea, constipation Musculoskeletal: Denies: back pain Skin: Denies: rash Neurological: Denies: headache, weakness, numbness EKG Findings - EKG Results: EKG: interpreted by ERMD, sinus rhythm (Rate 68 bpm), normal axis, normal QRS, normal ST/T, no acute changes - NV, Pacemaker, Normal: Normal tracing: normal tracing Past Medical History Past Medical History: No Reported History Additional Past Medical History / Comment(s): vertigo, History of Any Multi-Drug Resistant Organisms: C-DIFF Date of last positivie culture/infection: 09/05/17-CDiff, MDRO Source:: stool Past Surgical History: Adenoidectomy, Tonsillectomy Past Anesthesia/Blood Transfusion Reactions: Family History of Problems w/ Anesthesia Additional Past Anesthesia/Blood Transfusion Reaction / Comment(s): father N/V Past Psychological History: Anxiety Smoking Status: Current every day smoker Past Alcohol Use History: Occasional Past Drug Use History: None Reported - Past Family History Father Family Medical History: Cancer General Exam Limitations: no limitations General appearance: alert, in no apparent distress Head exam: Present: atraumatic, normocephalic Eye exam: Present: normal appearance. Absent: scleral icterus, conjunctival injection Respiratory exam: Present: normal lung sounds bilaterally. Absent: respiratory distress, wheezes, rales, rhonchi, stridor, chest wall tenderness, accessory muscle use Cardiovascular Exam: Present: regular rate, normal rhythm, normal heart sounds. Absent: systolic murmur, diastolic murmur, rubs, gallop GI/Abdominal exam: Present: soft, normal bowel sounds. Absent: distended, tenderness, guarding, rebound, rigid, mass Extremities exam: Present: normal inspection, normal capillary refill. Absent: pedal edema, calf tenderness Back exam: Present: normal inspection. Absent: CVA tenderness (R), CVA tenderness (L) Skin exam: Present: warm, dry, intact, normal color. Absent: rash Course Vital Signs 10/16/18 10/16/18 01:35 02:01 Temperature 97.8 F Pulse Rate 78 Pulse Rate [ 74 Drum Puller ] Respiratory 18 Rate Blood Pressure 126/84 O2 Sat by Pulse 99 Oximetry Disposition Clinical Impression: Chest pain Disposition: HOME SELF-CARE Condition: Good Instructions: Chest Pain (ED) Is patient prescribed a controlled substance at d/c from ED?: No Referrals: Eran Andre MD [Primary Care Provider] - 1-2 days
[2018-01-05 02:32] LABS: Basophils % (A) 0 %; Eosinophils # (A) 0.3 k/uL (0-0.7); Eosinophils % (A) 3 %; HCT 45.2 % (39.0-53.0); HGB 15.6 gm/dL (13.0-17.5); Lymphocytes # (A) 3.8 k/uL (1.0-4.8); Lymphocytes % (A) 40 %; MCH 31.6 pg (25.0-35.0); MCHC 34.5 g/dL (31.0-37.0); MCV 91.7 fL (80.0-100.0); Mean Platelet Volume 7.6; Monocytes # (A) 0.6 k/uL (0-1.0); Monocytes % (A) 6 %; Neutrophils # (A) 4.5 k/uL (1.3-7.7); Neutrophils % (A) 48 %; Platelet Count 222 k/uL (150-450); RBC 4.93 m/uL (4.30-5.90); RDW 12.8 % (11.5-15.5); WBC 9.4 k/uL (3.8-10.6)
[2018-01-05 02:41] LABS: ALT 42 U/L (21-72); AST 24 U/L (17-59); Albumin 4.2 g/dL (3.5-5.0); Alkaline Phosphatase 33 U/L (38-126); Anion Gap 8 mmol/L; Blood Urea Nitrogen 16 mg/dL (9-20); Calcium 9.4 mg/dL (8.4-10.2); Carbon Dioxide 25 mmol/L (22-30); Chloride 106 mmol/L (98-107); Glucose 90 mg/dL (74-99); Potassium 3.9 mmol/L (3.5-5.1); Sodium 139 mmol/L (137-145); Total Bilirubin 0.5 mg/dL (0.2-1.3); Total Protein 7.4 g/dL (6.3-8.2)
[2018-01-05 02:45] LABS: Creatine Kinase 98 U/L (55-170)
[2018-01-05 02:58] LABS: Creatine Kinase MB 0.2 ng/mL (0.0-2.4); Troponin I <0.012 ng/mL (0.000-0.034)
--- NOTE | 2018-01-05 02:59 | XR ---
EXAMINATION TYPE: XR chest 2V DATE OF EXAM: 01/05/2018 COMPARISON: 03/10/2017 HISTORY: Chest pain TECHNIQUE: Frontal and lateral views of the chest are obtained. FINDINGS: Heart and mediastinum are normal. Lungs are clear. Diaphragm is normal. Bony thorax appear s normal. IMPRESSION: Normal chest. No change.
[2018-01-05 03:37] VITALS: BP 115/66; PULSE 69; TEMP 97.7
== END 2018-01-05 03:37 | disposition home or self-care (01) ==
LOC: EC 01:32
DX: R07.9 Chest pain, unspecified (principal); R06.00 Dyspnea, unspecified; F41.9 Anxiety disorder, unspecified; Z88.1 Allergy status to other antibiotic agents; Z88.2 Allergy status to sulfonamides; Z88.5 Allergy status to narcotic agent; Z91.041 Radiographic dye allergy status
CPT/HCPCS: 36415; 71046; 80053; 82550; 82553; 84484; 85025; 85379; 93005; 99285

== ENCOUNTER 2018-01-21 18:32 | Emergency (ER) | payer OTHER ==
[2018-01-21 18:37] VITALS: RESP 18; TEMP 98.2
--- NOTE | 2018-01-21 19:18 | ED ---
General Adult HPI - General Chief complaint: Chest Pain Stated complaint: high heart rate Time Seen by Provider: 01/21/18 19:04 Source: patient Mode of arrival: ambulatory Limitations: no limitations - History of Present Illness Initial comments: 32-year-old male patient presents to the emergency department today for evaluation of chest discomfort and irregular rapid heart rate. Patient states that he went to urgent care today for evaluation of rash to the right ankle. Patient states while he was there they noticed that his heart rate was high and irregular. States that they sent him over here for further evaluation. Patient reports that he did have onset of some chest tightness and upper abdominal pain today. States he has been feeling somewhat dizzy and weak. Patient states that the pain in his chest is substernal and feels like he pulled something. Patient states that he has had chest pain frequently since he was a child. Patient states that his physician's have never been able to figure out what causes it. Patient denies any history of palpitations or irregular heartbeat. States he is not having any shortness of breath, nausea, vomiting, or sweats. Patient is also reporting rash to the right ankle. States he noticed it today when getting out of the shower. He denies any itching, burning, or pain to the rash. Denies any exposure to new substances. States he has not had a rash to any other part of his body. Patient denies any recent rash, fever, chills, diarrhea, constipation, back pain, numbness, tingling, hematuria, dysuria, urinary urgency, urinary frequency, headache, visual changes, or any other complaints. - Related Data Home Medications Medication Instructions Recorded Confirmed clonazePAM [KlonoPIN] 1 mg PO TID PRN 05/08/16 01/21/18 Ascorbic Acid [Vitamin C] 500 mg PO DAILY 03/09/17 01/21/18 Meclizine [Antivert] 25 mg PO TID PRN 03/09/17 01/21/18 Acetaminophen Tab [Tylenol Tab] 1,000 mg PO Q6HR PRN 01/21/18 01/21/18 Previous Rx's Medication Instructions Recorded Ibuprofen [Motrin] 600 mg PO Q6HR PRN #20 tab 04/02/17 Allergies Allergy/AdvReac Type Severity Reaction Status Date / Time azithromycin [From Zithromax] Allergy Rash/Hives Verified 01/21/18 19:17 codeine Allergy Unknown Verified 01/21/18 19:17 Childhood Iodinated Contrast- Oral and Allergy Anaphylaxis Verified 01/21/18 19:17 IV Dye [Iodinated Contrast Media - IV Dye] iodine Allergy Anaphylaxis Verified 01/21/18 19:17 sulfamethoxazole Allergy Rash/Hives Verified 01/21/18 19:17 [From Bactrim] trimethoprim [From Bactrim] Allergy Rash/Hives Verified 01/21/18 19:17 Review of Systems ROS Statement: Those systems with pertinent positive or pertinent negative responses have been documented in the HPI. ROS Other: All systems not noted in ROS Statement are negative. Past Medical History Past Medical History: No Reported History Additional Past Medical History / Comment(s): vertigo, History of Any Multi-Drug Resistant Organisms: C-DIFF Date of last positivie culture/infection: 09/05/17-CDiff, MDRO Source:: stool Past Surgical History: Adenoidectomy, Tonsillectomy Past Anesthesia/Blood Transfusion Reactions: Family History of Problems w/ Anesthesia Additional Past Anesthesia/Blood Transfusion Reaction / Comment(s): father N/V Past Psychological History: Anxiety Smoking Status: Current every day smoker Past Alcohol Use History: None Reported Past Drug Use History: None Reported - Past Family History Father Family Medical History: Cancer General Exam Limitations: no limitations General appearance: alert, in no apparent distress, other (This is a well- developed, well-nourished adult male patient in no acute distress. Vital signs upon presentation are temperature 98.2F, pulse 131, respirations 18, blood pressure 117/77, pulse ox 98% on room air.) Eye exam: Present: normal appearance, PERRL, EOMI. Absent: scleral icterus, conjunctival injection, periorbital swelling ENT exam: Present: normal exam, normal oropharynx, mucous membranes moist Respiratory exam: Present: normal lung sounds bilaterally. Absent: respiratory distress, wheezes, rales, rhonchi, stridor Cardiovascular Exam: Present: normal rhythm, tachycardia, normal heart sounds. Absent: systolic murmur, diastolic murmur, rubs, gallop, clicks GI/Abdominal exam: Present: soft, normal bowel sounds. Absent: distended, tenderness, guarding, rebound, rigid Neurological exam: Present: alert, oriented X3, CN II-XII intact Psychiatric exam: Present: normal affect, normal mood Skin exam: Present: warm, dry, intact, normal color. 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 No evidence of ST elevation or depression. Medical Decision Making - Medical Decision Making 32-year-old male patient presented to the emergency department today for complaints of palpitations and chest tightness. Patient reports that he isn't having chest pain frequently since childhood without no identifiable cause for his symptoms. Patient reports he was seen at urgent care today for rash to his ankle and they found the elevated irregular heart rate incidentally. Currently patient was reporting some mild chest tightness. Physical examination is unremarkable. He has no reproducible pain. Heart rate is in the 70s to 90s. He was normal sinus rhythm on the monitor throughout visit. EKG showed normal sinus rhythm. Labs reviewed and are unremarkable. Did discuss findings and results with the patient. Patient does feel comfortable being discharged home. He is instructed to follow up with cardiology for further evaluation and possible Holter monitoring. We did discuss return parameters in detail. He verbalizes understanding and agrees with this plan. - Lab Data Result diagrams: 01/21/18 18:50 01/21/18 18:50 Lab Results 01/21/18 01/21/18 01/21/18 Range/Units 18:50 18:50 18:50 WBC 8.7 (3.8-10.6) k/uL RBC 5.36 (4.30-5.90) m/uL Hgb 17.1 (13.0-17.5) gm/dL Hct 49.5 (39.0-53.0) % MCV 92.3 (80.0-100.0) fL MCH 31.8 (25.0-35.0) pg MCHC 34.4 (31.0-37.0) g/dL RDW 12.7 (11.5-15.5) % Plt Count 198 (150-450) k/uL Neutrophils % 64 % Lymphocytes % 26 % Monocytes % 6 % Eosinophils % 2 % Basophils % 0 % Neutrophils # 5.6 (1.3-7.7) k/uL Lymphocytes # 2.3 (1.0-4.8) k/uL Monocytes # 0.5 (0-1.0) k/uL Eosinophils # 0.2 (0-0.7) k/uL Basophils # 0.0 (0-0.2) k/uL PT (9.0-12.0) sec INR (<1.2) APTT (22.0-30.0) sec D-Dimer (<0.60) mg/L FEU Sodium 140 (137-145) mmol/L Potassium 4.6 (3.5-5.1) mmol/L Chloride 107 (98-107) mmol/L Carbon Dioxide 23 (22-30) mmol/L Anion Gap 10 mmol/L BUN 15 (9-20) mg/dL Creatinine 0.83 (0.66-1.25) mg/dL Est GFR (CKD-EPI)AfAm >90 (>60 ml/min/1.73 sqM) Est GFR (CKD-EPI)NonAf >90 (>60 ml/min/1.73 sqM) Glucose 132 H (74-99) mg/dL Calcium 9.9 (8.4-10.2) mg/dL Magnesium 2.0 (1.6-2.3) mg/dL Total Bilirubin 0.7 (0.2-1.3) mg/dL AST 37 (17-59) U/L ALT 29 (21-72) U/L Alkaline Phosphatase 28 L (38-126) U/L Total Creatine Kinase 96 (55-170) U/L CK-MB (CK-2) 0.3 (0.0-2.4) ng/mL CK-MB (CK-2) Rel Index 0.3 Troponin I <0.012 (0.000-0.034) ng/mL Total Protein 7.9 (6.3-8.2) g/dL Albumin 4.6 (3.5-5.0) g/dL Amylase (30-110) U/L Lipase (23-300) U/L TSH (0.465-4.680) mIU/L 01/21/18 01/21/18 Range/Units 18:50 18:50 WBC (3.8-10.6) k/uL RBC (4.30-5.90) m/uL Hgb (13.0-17.5) gm/dL Hct (39.0-53.0) % MCV (80.0-100.0) fL MCH (25.0-35.0) pg MCHC (31.0-37.0) g/dL RDW (11.5-15.5) % Plt Count (150-450) k/uL Neutrophils % % Lymphocytes % % Monocytes % % Eosinophils % % Basophils % % Neutrophils # (1.3-7.7) k/uL Lymphocytes # (1.0-4.8) k/uL Monocytes # (0-1.0) k/uL Eosinophils # (0-0.7) k/uL Basophils # (0-0.2) k/uL PT 9.6 (9.0-12.0) sec INR 1.0 (<1.2) APTT 23.4 (22.0-30.0) sec D-Dimer <0.17 (<0.60) mg/L FEU Sodium (137-145) mmol/L Potassium (3.5-5.1) mmol/L Chloride (98-107) mmol/L Carbon Dioxide (22-30) mmol/L Anion Gap mmol/L BUN (9-20) mg/dL Creatinine (0.66-1.25) mg/dL Est GFR (CKD-EPI)AfAm (>60 ml/min/1.73 sqM) Est GFR (CKD-EPI)NonAf (>60 ml/min/1.73 sqM) Glucose (74-99) mg/dL Calcium (8.4-10.2) mg/dL Magnesium (1.6-2.3) mg/dL Total Bilirubin (0.2-1.3) mg/dL AST (17-59) U/L ALT (21-72) U/L Alkaline Phosphatase (38-126) U/L Total Creatine Kinase (55-170) U/L CK-MB (CK-2) (0.0-2.4) ng/mL CK-MB (CK-2) Rel Index Troponin I (0.000-0.034) ng/mL Total Protein (6.3-8.2) g/dL Albumin (3.5-5.0) g/dL Amylase 119 H (30-110) U/L Lipase 154 (23-300) U/L TSH 1.630 (0.465-4.680) mIU/L - Radiology Data Radiology results: report reviewed, image reviewed Two-view x-ray of the chest is obtained. Heart mediastinum are normal. Lungs are clear. Diaphragm is normal. Bony thorax appears normal. Impression by Dr. Alejo shows normal chest with no change. Disposition Clinical Impression: Palpitations, Chest pain Disposition: HOME SELF-CARE Condition: Good Instructions: Chest Pain (ED), Heart Palpitations (ED) Additional Instructions: Follow-up with mortgage originator to discuss Holter monitor. Follow-up with your primary care physician for recheck in 1-2 days. Return here immediately for any new, worsening, or concerning symptoms. Is patient prescribed a controlled substance at d/c from ED?: No Referrals: Eran Andre MD [Primary Care Provider] - 1-2 days Pete Hernández MD [STAFF PHYSICIAN] - 1-2 days Time of Disposition: 20:30
[2018-01-21 19:23] LABS: ALT 29 U/L (21-72); AST 37 U/L (17-59); Albumin 4.6 g/dL (3.5-5.0); Alkaline Phosphatase 28 U/L (38-126); Anion Gap 10 mmol/L; Blood Urea Nitrogen 15 mg/dL (9-20); Calcium 9.9 mg/dL (8.4-10.2); Carbon Dioxide 23 mmol/L (22-30); Chloride 107 mmol/L (98-107); Glucose 132 mg/dL (74-99); Potassium 4.6 mmol/L (3.5-5.1); Sodium 140 mmol/L (137-145); Total Bilirubin 0.7 mg/dL (0.2-1.3); Total Protein 7.9 g/dL (6.3-8.2)
[2018-01-21 19:25] LABS: Creatine Kinase 96 U/L (55-170)
[2018-01-21 19:26] LABS: Basophils % (A) 0 %; Eosinophils # (A) 0.2 k/uL (0-0.7); Eosinophils % (A) 2 %; HCT 49.5 % (39.0-53.0); HGB 17.1 gm/dL (13.0-17.5); Lymphocytes # (A) 2.3 k/uL (1.0-4.8); Lymphocytes % (A) 26 %; MCH 31.8 pg (25.0-35.0); MCHC 34.4 g/dL (31.0-37.0); MCV 92.3 fL (80.0-100.0); Mean Platelet Volume 7.8; Monocytes # (A) 0.5 k/uL (0-1.0); Monocytes % (A) 6 %; Neutrophils # (A) 5.6 k/uL (1.3-7.7); Neutrophils % (A) 64 %; Partial Thromboplastin Time 23.4 sec (22.0-30.0); Platelet Count 198 k/uL (150-450); Prothrombin Time 9.6 sec (9.0-12.0); RBC 5.36 m/uL (4.30-5.90); RDW 12.7 % (11.5-15.5); WBC 8.7 k/uL (3.8-10.6)
[2018-01-21 19:28] LABS: D-Dimer <0.17 mg/L FEU (<0.60)
[2018-01-21 19:38] LABS: Creatine Kinase MB 0.3 ng/mL (0.0-2.4); Troponin I <0.012 ng/mL (0.000-0.034)
--- NOTE | 2018-01-21 19:41 | XR ---
EXAMINATION TYPE: XR chest 2V DATE OF EXAM: 01/21/2018 COMPARISON: 01/05/2018 HISTORY: Irregular heart rate TECHNIQUE: Frontal and lateral views of the chest are obtained. FINDINGS: Heart and mediastinum are normal. Lungs are clear. Diaphragm is normal. Bony thorax appear s normal. IMPRESSION: Normal chest. No change.
[2018-01-21 20:37] VITALS: BP 131/69; PULSE 81
== END 2018-01-21 20:37 | disposition home or self-care (01) ==
LOC: EC 18:32
DX: R07.89 Other chest pain (principal); R00.2 Palpitations; R21 Rash and other nonspecific skin eruption; R00.0 Tachycardia, unspecified; R10.10 Upper abdominal pain, unspecified; F17.200 Nicotine dependence, unspecified, uncomplicated; Z88.1 Allergy status to other antibiotic agents; Z88.2 Allergy status to sulfonamides; Z88.5 Allergy status to narcotic agent; Z91.041 Radiographic dye allergy status; Z91.048 Other nonmedicinal substance allergy status
CPT/HCPCS: 36415; 71046; 80053; 82150; 82550; 82553; 83690; 83735; 84443; 84484; 85025; 85379; 85610; 85730; 93005; 99285

== ENCOUNTER 2018-04-07 08:52 | Day surgery (SDC) | payer OTHER ==
[2018-04-05 12:54] VITALS: BMI 33.5
[2018-04-07] MEDS ORDERED: LACTATED RINGERS 1,000 ML IV ONE (09:03)
[2018-04-07 09:04] VITALS: TEMP 97.7
[2018-04-07] MEDS ORDERED: LIDOCAINE 1% INJ 10MG/ML (20 ML MDV) ONE (09:59)
[2018-04-07] MEDS ORDERED: PROPOFOL 10 MG/ML 20 ML VIAL IV ONE (09:59)
--- NOTE | 2018-04-07 10:21 | P.PCN ---
Date of Procedure: 04/07/18 Procedure(s) Performed: BRIEF HISTORY: Patient is a 32-year-old pleasant white female, scheduled for an elective colonoscopy as a part of variation of left lower quadrant abdominal pain and change in bowel habits for the last several months duration. PROCEDURE PERFORMED: Colonoscopy. PREOPERATIVE DIAGNOSIS: Left lower quadrant abdominal pain and change in bowel habits. IV sedation per Anesthesia. PROCEDURE: After informed consent was obtained, the patient, was brought into the endoscopy unit. IV sedation was administered by Anesthesia under continuous monitoring. Digital rectal examination was normal. Initially the Olympus CF- 160 flexible video colonoscope was then inserted in the rectum, gradually advanced into the cecum without any difficulty. Careful examination was performed as the scope was gradually being withdrawn. Ileocecal valve and the appendiceal orifice were visualized and appeared normal. Prep was excellent. Mucosa of the cecum, ascending colon, transverse colon, descending colon, sigmoid colon, and rectum appeared normal. Retroflexion was performed in the rectum and no lesions were seen. The patient tolerated the procedure well. IMPRESSION: Normal-appearing colon from rectum to cecum with no evidence of colitis or colorectal neoplasia. RECOMMENDATIONS: Findings of this examination were discussed with the patient is well as his family. He was advised to be on a high-fiber diet and fiber supplements a regular basis and take Bentyl as needed..
[2018-04-07 10:25] VITALS: BP 105/64; RESP 16
[2018-04-07 10:45] VITALS: PULSE 73
== END 2018-04-07 10:55 | disposition home or self-care (01) ==
LOC: ORWHC2ENDO 08:52
PROVIDERS: ATTEND Internal Medicine Gastroenterology
DX: R10.32 Left lower quadrant pain (principal); R19.4 Change in bowel habit; Z79.1 Long term (current) use of non-steroidal anti-inflammatories (NSAID); Z79.899 Other long term (current) drug therapy; Z88.1 Allergy status to other antibiotic agents; Z88.5 Allergy status to narcotic agent; Z88.2 Allergy status to sulfonamides; Z91.048 Other nonmedicinal substance allergy status; F17.210 Nicotine dependence, cigarettes, uncomplicated
CPT/HCPCS: 45378; J2001; J2704

== ENCOUNTER 2018-04-16 06:55 | Emergency (ER) | payer OTHER ==
[2018-04-16 07:00] VITALS: RESP 18
[2018-04-16] MEDS ORDERED: MAG HYDROX/AL HYDROX/SIMETH 30 ML, HYOSCYAMINE ELIXIR 10 ML, CIMETIDINE HCL 300 MG, LID... PO STA ×4 (07:27)
--- NOTE | 2018-04-16 07:30 | ED ---
General Adult HPI - General Chief complaint: Abdominal Pain Stated complaint: ABD PAIN Source: patient Mode of arrival: ambulatory Limitations: no limitations - Related Data Home Medications Medication Instructions Recorded Confirmed clonazePAM [KlonoPIN] 1 mg PO TID PRN 05/08/16 04/16/18 Meclizine [Antivert] 25 mg PO TID PRN 03/09/17 04/16/18 Bismuth Subsalicylate 349 mg PO ONCE PRN 04/16/18 04/16/18 [Pepto-Bismol] Previous Rx's Medication Instructions Recorded Omeprazole [PriLOSEC] 40 mg PO DAILY #30 capsule. 04/16/18 Allergies Allergy/AdvReac Type Severity Reaction Status Date / Time azithromycin [From Zithromax] Allergy Rash/Hives Verified 04/16/18 07:22 codeine Allergy Unknown Verified 04/16/18 07:22 Childhood Iodinated Contrast- Oral and Allergy Anaphylaxis Verified 04/16/18 07:22 IV Dye [Iodinated Contrast Media - IV Dye] iodine Allergy Anaphylaxis Verified 04/16/18 07:22 sulfamethoxazole Allergy Rash/Hives Verified 04/16/18 07:22 [From Bactrim] trimethoprim [From Bactrim] Allergy Rash/Hives Verified 04/16/18 07:22 Review of Systems ROS Statement: Those systems with pertinent positive or pertinent negative responses have been documented in the HPI. ROS Other: All systems not noted in ROS Statement are negative. Past Medical History Past Medical History: Asthma, GERD/Reflux Additional Past Medical History / Comment(s): vertigo, lots of gas, occasional blood in stool, recent stress test, intermittent rapid heart rate-just finished w/monitor, hx. kidney stones, pt states was told by PCP did not have c-diff in past History of Any Multi-Drug Resistant Organisms: C-DIFF Date of last positivie culture/infection: 09/05/17-CDiff, MDRO Source:: stool Past Surgical History: Adenoidectomy, Tonsillectomy Additional Past Surgical History / Comment(s): colonoscopy Past Anesthesia/Blood Transfusion Reactions: Family History of Problems w/ Anesthesia Additional Past Anesthesia/Blood Transfusion Reaction / Comment(s): father N/V Past Psychological History: Anxiety Smoking Status: Current every day smoker Past Alcohol Use History: Rare Past Drug Use History: None Reported - Past Family History Father Family Medical History: Cancer General Exam Limitations: no limitations Course Vital Signs 04/16/18 06:57 Temperature 97.5 F L Pulse Rate 97 Respiratory 18 Rate Blood Pressure 120/83 O2 Sat by Pulse 98 Oximetry Medical Decision Making - Medical Decision Making Dictation was produced using [employer] dictation software. please excuse any grammatical, word or spelling errors. Chief Complaint: 32-year-old male past medical history of hiatal hernia presents with epigastric abdominal pain. History of Present Illness: he is 32-year-old male presents with epigastric abdominal no pain since last night. Patient states he had crockpot venison. 30 minutes after eating he began having this crampy abdominal pain. Patient has history of hiatal hernia that was discovered last year. He had a lower endoscopy performed last week for left lower quadrant pain. Patient denies any pyrexia. Patient denies any nausea or vomiting. He denies any symptoms like this in the past. Patient does drink 24 ounces of coffee every morning. Denies any alcohol abuse. Patient does smoke half pack cigarettes a day. The ROS documented in this emergency department record has been reviewed and confirmed by me. Those systems with pertinent positive or negative responses have been documented in the HPI. All other systems are other negative and/or noncontributory. PHYSICAL EXAM: General Impression: Alert and oriented x3, not in acute distress HEENT: Normocephalic atraumatic, extra-ocular movements intact, pupils equal and reactive to light bilaterally, mucous membranes moist. Cardiovascular: Heart regular rate and rhythm, S1&S2 audible, no murmurs, rubs or gallops Chest: Lungs clear to auscultation bilaterally, no rhonchi, no wheeze, no rales Abdomen: Bowel sounds present, abdomen soft, non-tender, non-distended, no organomegaly Musculoskeletal: Pulses present and equal in all extremities, no peripheral edema Motor: Power 5/5 bilaterally, no focal deficits noted Neurological: CN II-XII grossly intact, no focal motor or sensory deficits noted Skin: Intact with no visualized rashes Psych: Normal affect and mood ED course: 32-year-old male presents with chief complaint of epigastric abdominal pain. Vital signs upon arrival are within acceptable limits.Laboratory evaluation obtained. Mild leukocytosis of 11.1. Metabolic panel is unremarkable. Abdominal labs are unremarkable. Urinalysis negative. KUB shows possible enteritis or ileus. Patient given GI cocktail. Patient observed in the emergency department for several hours. Patient reevaluated found have improvement of symptoms. Patient reports that he is supposed to be taking a proton pump inhibitor however has not been compliant with that medication. Patient given prescription for omeprazole. Still to follow-up with his GI doctor for outpatient management of symptoms. Patient understandable and agreeable to disposition. EKG interpretation: Ventricular rate 64, normal sinus rhythm,. Interval 166, QRS 84, QTC 460. No AL prolongation, no QTC prolongation, no ST or T-wave changes noted. . Overall, this EKG is unremarkable - Lab Data Result diagrams: 04/16/18 07:13 04/16/18 07:13 Lab Results 04/16/18 04/16/18 04/16/18 Range/Units 07:13 07:13 07:13 WBC 11.1 H (3.8-10.6) k/uL RBC 5.32 (4.30-5.90) m/uL Hgb 16.4 (13.0-17.5) gm/dL Hct 48.8 (39.0-53.0) % MCV 91.8 (80.0-100.0) fL MCH 30.8 (25.0-35.0) pg MCHC 33.5 (31.0-37.0) g/dL RDW 13.0 (11.5-15.5) % Plt Count 213 (150-450) k/uL Neutrophils % 47 % Lymphocytes % 41 % Monocytes % 6 % Eosinophils % 3 % Basophils % 0 % Neutrophils # 5.3 (1.3-7.7) k/uL Lymphocytes # 4.5 (1.0-4.8) k/uL Monocytes # 0.7 (0-1.0) k/uL Eosinophils # 0.4 (0-0.7) k/uL Basophils # 0.0 (0-0.2) k/uL Sodium 140 (137-145) mmol/L Potassium 4.6 (3.5-5.1) mmol/L Chloride 108 H (98-107) mmol/L Carbon Dioxide 24 (22-30) mmol/L Anion Gap 8 mmol/L BUN 18 (9-20) mg/dL Creatinine 0.90 (0.66-1.25) mg/dL Est GFR (CKD-EPI)AfAm >90 (>60 ml/min/1.73 sqM) Est GFR (CKD-EPI)NonAf >90 (>60 ml/min/1.73 sqM) Glucose 100 H (74-99) mg/dL Calcium 9.5 (8.4-10.2) mg/dL Total Bilirubin 1.1 (0.2-1.3) mg/dL AST 30 (17-59) U/L ALT 38 (21-72) U/L Alkaline Phosphatase 25 L (38-126) U/L Total Protein 7.6 (6.3-8.2) g/dL Albumin 4.5 (3.5-5.0) g/dL Lipase 140 (23-300) U/L Urine Color Yellow Urine Appearance Clear (Clear) Urine pH 5.5 (5.0-8.0) Ur Specific [place] 1.019 (1.001-1.035) Urine Protein Negative (Negative) Urine Glucose (UA) Negative (Negative) Urine Ketones Negative (Negative) Urine Blood Negative (Negative) Urine Nitrite Negative (Negative) Urine Bilirubin Negative (Negative) Urine Urobilinogen <2.0 (<2.0) mg/dL Ur Leukocyte Esterase Negative (Negative) Disposition Clinical Impression: Abdominal pain Disposition: HOME SELF-CARE Instructions (If sedation given, give patient instructions): Abdominal Pain (ED ) Prescriptions: Omeprazole [PriLOSEC] 40 mg PO DAILY #30 capsule.dr Is patient prescribed a controlled substance at d/c from ED?: No Referrals: Eran Andre MD [Primary Care Provider] - 1-2 days Time of Disposition: 08:37
[2018-04-16 07:39] LABS: Basophils % (A) 0 %; Eosinophils # (A) 0.4 k/uL (0-0.7); Eosinophils % (A) 3 %; HCT 48.8 % (39.0-53.0); HGB 16.4 gm/dL (13.0-17.5); Lymphocytes # (A) 4.5 k/uL (1.0-4.8); Lymphocytes % (A) 41 %; MCH 30.8 pg (25.0-35.0); MCHC 33.5 g/dL (31.0-37.0); MCV 91.8 fL (80.0-100.0); Mean Platelet Volume 7.9; Monocytes # (A) 0.7 k/uL (0-1.0); Monocytes % (A) 6 %; Neutrophils # (A) 5.3 k/uL (1.3-7.7); Neutrophils % (A) 47 %; Platelet Count 213 k/uL (150-450); RBC 5.32 m/uL (4.30-5.90); WBC 11.1 k/uL (3.8-10.6)
[2018-04-16 07:40] LABS: Appearance,Urine Clear (Clear); Bilirubin,Urine Negative (Negative); Blood,Urine Negative (Negative); Color,Urine Yellow; Glucose,Urine (UA) Negative (Negative); Ketones,Urine Negative (Negative); Leukocyte Esterase,Urine Negative (Negative); Nitrite,Urine Negative (Negative); PH, Urine 5.5 (5.0-8.0); Protein,Urine Negative (Negative); Specific Gravity,Urine 1.019 (1.001-1.035); Urobilinogen,Urine <2.0 mg/dL (<2.0)
[2018-04-16 07:50] LABS: ALT 38 U/L (21-72); AST 30 U/L (17-59); Albumin 4.5 g/dL (3.5-5.0); Alkaline Phosphatase 25 U/L (38-126); Anion Gap 8 mmol/L; Blood Urea Nitrogen 18 mg/dL (9-20); Calcium 9.5 mg/dL (8.4-10.2); Carbon Dioxide 24 mmol/L (22-30); Chloride 108 mmol/L (98-107); Glucose 100 mg/dL (74-99); Lipase 140 U/L (23-300); Potassium 4.6 mmol/L (3.5-5.1); Sodium 140 mmol/L (137-145); Total Bilirubin 1.1 mg/dL (0.2-1.3); Total Protein 7.6 g/dL (6.3-8.2)
--- NOTE | 2018-04-16 08:23 | XR ---
Abdomen HISTORY: Abdomen pain Frontal view of the abdomen on 2 images correlated to prior abdomen 10/11/2017 Lung bases are clear. Bone mineralization is stable. No pneumoperitoneum or bowel obstruction evident . There are air-fluid levels without bowel distention. IMPRESSION: Correlate for possible enteritis or ileus, follow-up as indicated.
[2018-04-16 08:51] VITALS: BP 116/85; PULSE 67; TEMP 98
== END 2018-04-16 08:43 | disposition home or self-care (01) ==
LOC: EC 06:55
DX: D72.829 Elevated white blood cell count, unspecified (principal); F17.210 Nicotine dependence, cigarettes, uncomplicated; Z87.442 Personal history of urinary calculi; Z87.19 Personal history of other diseases of the digestive system; Z88.1 Allergy status to other antibiotic agents; Z88.5 Allergy status to narcotic agent; Z91.041 Radiographic dye allergy status; Z88.2 Allergy status to sulfonamides
CPT/HCPCS: 36415; 74018; 80053; 81003; 83690; 85025; 93005; 99284

== ENCOUNTER 2018-06-09 14:56 | Emergency (ER) | payer OTHER ==
[2018-06-09 15:09] VITALS: RESP 18
[2018-06-09] MEDS ORDERED: SODIUM CHLORIDE 0.9% 1,000 ML IV STA (16:07)
[2018-06-09] MEDS ORDERED: ONDANSETRON 4 MG/2 ML VIAL IVP STA (16:07)
[2018-06-09] MEDS ORDERED: PANTOPRAZOLE 40 MG/10 ML VIAL IVP STA (16:07)
[2018-06-09] MEDS ORDERED: MAG HYDROX/AL HYDROX/SIMETH 30 ML, HYOSCYAMINE ELIXIR 10 ML, CIMETIDINE HCL 300 MG PO STA ×3 (16:08)
[2018-06-09 16:28] LABS: Basophils % (A) 0 %; Eosinophils # (A) 0.1 k/uL (0-0.7); Eosinophils % (A) 2 %; HCT 49.7 % (39.0-53.0); HGB 16.2 gm/dL (13.0-17.5); Lymphocytes # (A) 1.9 k/uL (1.0-4.8); Lymphocytes % (A) 28 %; MCH 30.4 pg (25.0-35.0); MCHC 32.6 g/dL (31.0-37.0); MCV 93.1 fL (80.0-100.0); Mean Platelet Volume 8.1; Monocytes # (A) 0.4 k/uL (0-1.0); Monocytes % (A) 6 %; Neutrophils # (A) 4.3 k/uL (1.3-7.7); Neutrophils % (A) 62 %; Platelet Count 208 k/uL (150-450); RBC 5.34 m/uL (4.30-5.90); RDW 12.8 % (11.5-15.5)
[2018-06-09 16:38] LABS: ALT 35 U/L (21-72); AST 29 U/L (17-59); Albumin 4.5 g/dL (3.5-5.0); Alkaline Phosphatase 35 U/L (38-126); Amylase 71 U/L (30-110); Anion Gap 11 mmol/L; Blood Urea Nitrogen 11 mg/dL (9-20); Calcium 9.7 mg/dL (8.4-10.2); Carbon Dioxide 24 mmol/L (22-30); Chloride 106 mmol/L (98-107); Glucose 92 mg/dL (74-99); Lipase 126 U/L (23-300); Potassium 4.3 mmol/L (3.5-5.1); Sodium 141 mmol/L (137-145); Total Bilirubin 0.7 mg/dL (0.2-1.3); Total Protein 7.7 g/dL (6.3-8.2)
--- NOTE | 2018-06-09 17:05 | ED ---
Abdominal Pain HPI - General Chief Complaint: Abdominal Pain Stated Complaint: Abd pain,dizzy,shaking Time Seen by Provider: 06/09/18 15:36 Source: patient, RN notes reviewed, old records reviewed Mode of arrival: ambulatory Limitations: no limitations - History of Present Illness Initial Comments: This is a 32-year-old male to the ER for evaluation of abdominal pain. Epigastric and bilateral upper quadrant abdominal pain. Patient has mild nausea no vomiting no fevers. No prior history of similar pain. Symptoms for 2-3 days episodic in nature. Nothing seems to make better or worse. No prior surgical history again. Patient currently complaining of pain mild now. No diarrhea. No prior evaluation. MD Complaint: abdominal pain -: hour(s), days(s) Location: LUQ, RUQ, epigastric Radiation: epigastric Migration to: LUQ, RUQ Severity: mild Severity scale (1-10): 3 Quality: aching Consistency: intermittent Improves With: nothing Worsens With: nothing Associated Symptoms: nausea - Related Data Home Medications Medication Instructions Recorded Confirmed clonazePAM [KlonoPIN] 1 mg PO TID PRN 05/08/16 06/09/18 Meclizine [Antivert] 25 mg PO TID PRN 03/09/17 06/09/18 Previous Rx's Medication Instructions Recorded Ondansetron [Zofran] 4 mg PO Q8HR PRN #60 tab 06/09/18 Allergies Allergy/AdvReac Type Severity Reaction Status Date / Time azithromycin [From Zithromax] Allergy Rash/Hives Verified 06/09/18 15:39 codeine Allergy Unknown Verified 06/09/18 15:39 Childhood Iodinated Contrast- Oral and Allergy Anaphylaxis Verified 06/09/18 15:39 IV Dye [Iodinated Contrast Media - IV Dye] iodine Allergy Anaphylaxis Verified 06/09/18 15:39 sulfamethoxazole Allergy Rash/Hives Verified 06/09/18 15:39 [From Bactrim] trimethoprim [From Bactrim] Allergy Rash/Hives Verified 06/09/18 15:39 Review of Systems ROS Statement: Those systems with pertinent positive or pertinent negative responses have been documented in the HPI. ROS Other: All systems not noted in ROS Statement are negative. Past Medical History Past Medical History: Asthma, GERD/Reflux Additional Past Medical History / Comment(s): vertigo, lots of gas, occasional blood in stool, recent stress test, intermittent rapid heart rate-just finished w/monitor, hx. kidney stones, pt states was told by PCP did not have c-diff in past History of Any Multi-Drug Resistant Organisms: C-DIFF Date of last positivie culture/infection: 09/05/17-CDiff, MDRO Source:: stool Past Surgical History: Adenoidectomy, Tonsillectomy Additional Past Surgical History / Comment(s): colonoscopy Past Anesthesia/Blood Transfusion Reactions: Family History of Problems w/ Anesthesia Additional Past Anesthesia/Blood Transfusion Reaction / Comment(s): father N/V Past Psychological History: Anxiety Smoking Status: Current every day smoker Past Alcohol Use History: Rare Past Drug Use History: None Reported - Past Family History Father Family Medical History: Cancer General Exam Limitations: no limitations General appearance: alert, in no apparent distress Head exam: Present: atraumatic, normocephalic, normal inspection Eye exam: Present: normal appearance, PERRL, EOMI. Absent: scleral icterus, conjunctival injection, periorbital swelling ENT exam: Present: normal exam, mucous membranes moist Neck exam: Present: normal inspection. Absent: tenderness, meningismus, lymphadenopathy Respiratory exam: Present: normal lung sounds bilaterally. Absent: respiratory distress, wheezes, rales, rhonchi, stridor Cardiovascular Exam: Present: regular rate, normal rhythm, normal heart sounds. Absent: systolic murmur, diastolic murmur, rubs, gallop, clicks GI/Abdominal exam: Present: soft, normal bowel sounds. Absent: distended, tenderness, guarding, rebound, rigid Extremities exam: Present: normal inspection, full ROM, normal capillary refill. Absent: tenderness, pedal edema, joint swelling, calf tenderness Back exam: Present: normal inspection Neurological exam: Present: alert, oriented X3, CN II-XII intact Psychiatric exam: Present: normal affect, normal mood Skin exam: Present: warm, dry, intact, normal color. Absent: rash Course Vital Signs 06/09/18 06/09/18 15:08 17:28 Temperature 98.4 F 98.0 F Pulse Rate 71 65 Respiratory 18 18 Rate Blood Pressure 123/74 117/71 O2 Sat by Pulse 98 98 Oximetry Medical Decision Making - Medical Decision Making 29 female the ER with nonspecific abdominal pain. No significant cause found here labwork is normal. Patient declining any further testing or imaging at this time, will return to ER if symptoms worsen - Lab Data Result diagrams: 06/09/18 15:59 06/09/18 15:59 Lab Results 06/09/18 06/09/18 Range/Units 15:59 15:59 WBC 7.0 (3.8-10.6) k/uL RBC 5.34 (4.30-5.90) m/uL Hgb 16.2 (13.0-17.5) gm/dL Hct 49.7 (39.0-53.0) % MCV 93.1 (80.0-100.0) fL MCH 30.4 (25.0-35.0) pg MCHC 32.6 (31.0-37.0) g/dL RDW 12.8 (11.5-15.5) % Plt Count 208 (150-450) k/uL Neutrophils % 62 % Lymphocytes % 28 % Monocytes % 6 % Eosinophils % 2 % Basophils % 0 % Neutrophils # 4.3 (1.3-7.7) k/uL Lymphocytes # 1.9 (1.0-4.8) k/uL Monocytes # 0.4 (0-1.0) k/uL Eosinophils # 0.1 (0-0.7) k/uL Basophils # 0.0 (0-0.2) k/uL Sodium 141 (137-145) mmol/L Potassium 4.3 (3.5-5.1) mmol/L Chloride 106 (98-107) mmol/L Carbon Dioxide 24 (22-30) mmol/L Anion Gap 11 mmol/L BUN 11 (9-20) mg/dL Creatinine 0.82 (0.66-1.25) mg/dL Est GFR (CKD-EPI)AfAm >90 (>60 ml/min/1.73 sqM) Est GFR (CKD-EPI)NonAf >90 (>60 ml/min/1.73 sqM) Glucose 92 (74-99) mg/dL Calcium 9.7 (8.4-10.2) mg/dL Total Bilirubin 0.7 (0.2-1.3) mg/dL AST 29 (17-59) U/L ALT 35 (21-72) U/L Alkaline Phosphatase 35 L (38-126) U/L Total Protein 7.7 (6.3-8.2) g/dL Albumin 4.5 (3.5-5.0) g/dL Amylase 71 (30-110) U/L Lipase 126 (23-300) U/L Disposition Clinical Impression: Abdominal pain Disposition: HOME SELF-CARE Condition: Good Instructions (If sedation given, give patient instructions): Abdominal Pain (ED) Prescriptions: Ondansetron [Zofran] 4 mg PO Q8HR PRN #60 tab PRN Reason: Nausea And Vomiting Is patient prescribed a controlled substance at d/c from ED?: No Referrals: Eran Andre MD [Primary Care Provider] - 1-2 days
[2018-06-09 17:29] VITALS: BP 117/71; PULSE 65; TEMP 98
== END 2018-06-09 17:29 | disposition home or self-care (01) ==
LOC: EC 14:56
DX: R10.13 Epigastric pain (principal); R10.11 Right upper quadrant pain; R10.12 Left upper quadrant pain; R11.0 Nausea; R42 Dizziness and giddiness; R25.1 Tremor, unspecified; F17.200 Nicotine dependence, unspecified, uncomplicated; Z88.1 Allergy status to other antibiotic agents; Z88.2 Allergy status to sulfonamides; Z88.5 Allergy status to narcotic agent; Z91.041 Radiographic dye allergy status; Z91.048 Other nonmedicinal substance allergy status
CPT/HCPCS: 36415; 80053; 82150; 83690; 85025; 99284; 96374; 96375; 96361; J2405; C9113

== ENCOUNTER 2018-07-01 13:26 | Emergency (ER) | payer OTHER ==
[2018-07-01 13:33] VITALS: TEMP 97.7
[2018-07-01 14:04] LABS: Basophils % (A) 0 %; Eosinophils # (A) 0.2 k/uL (0-0.7); Eosinophils % (A) 2 %; HCT 49.3 % (39.0-53.0); Lymphocytes # (A) 2.5 k/uL (1.0-4.8); Lymphocytes % (A) 33 %; MCH 29.9 pg (25.0-35.0); MCHC 32.4 g/dL (31.0-37.0); MCV 92.3 fL (80.0-100.0); Mean Platelet Volume 7.8; Monocytes # (A) 0.4 k/uL (0-1.0); Monocytes % (A) 5 %; Neutrophils # (A) 4.4 k/uL (1.3-7.7); Neutrophils % (A) 58 %; Platelet Count 207 k/uL (150-450); RBC 5.34 m/uL (4.30-5.90); RDW 12.8 % (11.5-15.5); WBC 7.6 k/uL (3.8-10.6)
[2018-07-01 14:20] LABS: INR 0.9 (<1.2); Partial Thromboplastin Time 23.7 sec (22.0-30.0); Prothrombin Time 9.9 sec (9.0-12.0)
[2018-07-01 14:32] LABS: Glucose,Whole Blood 99 mg/dL (75-99)
[2018-07-01 14:34] LABS: Albumin 4.4 g/dL (3.5-5.0); Anion Gap 10 mmol/L; Blood Urea Nitrogen 15 mg/dL (9-20); Calcium 9.9 mg/dL (8.4-10.2); Carbon Dioxide 23 mmol/L (22-30); Chloride 108 mmol/L (98-107); Glucose 90 mg/dL (74-99); Sodium 141 mmol/L (137-145); Total Bilirubin 0.6 mg/dL (0.2-1.3); Total Protein 7.5 g/dL (6.3-8.2)
[2018-07-01 14:45] LABS: Potassium 4.3 mmol/L (3.5-5.1)
[2018-07-01 14:46] LABS: ALT 36 U/L (21-72); AST 32 U/L (17-59); Alkaline Phosphatase 36 U/L (38-126); Magnesium 1.7 mg/dL (1.6-2.3)
[2018-07-01 15:47] VITALS: BP 119/81; PULSE 76; RESP 16
--- NOTE | 2018-07-01 16:09 | XR ---
EXAMINATION TYPE: XR chest 2V DATE OF EXAM: 07/01/2018 COMPARISON: Prior chest x-ray 01/21/2018 HISTORY: Pain, difficulty breathing, dizziness TECHNIQUE: Frontal and lateral views of the chest are obtained. FINDINGS: No evident airspace disease, pneumothorax, or pleural effusion. Cardiac mediastinal silhou ette, pulmonary vascularity and yoan are stable. IMPRESSION: No acute cardiopulmonary process.
--- NOTE | 2018-07-01 16:23 | ED ---
Chest Pain HPI - General Chief Complaint: Chest Pain Stated Complaint: Chest pain, SOB Time Seen by Provider: 07/01/18 15:39 Source: patient, family, RN notes reviewed, old records reviewed Mode of arrival: wheelchair Limitations: no limitations - History of Present Illness Initial Comments: Patient is a 32-year-old man presents emergency Department today. He states that after he was cutting wood he became dizzy and felt short of breath. Symptoms lasted for 20 minutes. Patient started that he having a panic attack and Klonopin. Patient states that he has had no chest pain at this time denies any dizziness. His symptoms seemed to resolve after drinks water. Patient is emergency department for 2 hours before being able to be seen due to volume load. Patient states that since his arrival to ED is otherwise been feeling well. It is a smoker. Denies any family history of personal history of heart disease. - Related Data Home Medications Medication Instructions Recorded Confirmed clonazePAM [KlonoPIN] 1 mg PO DAILY PRN 05/08/16 07/01/18 Meclizine [Antivert] 25 mg PO TID PRN 03/09/17 07/01/18 Allergies Allergy/AdvReac Type Severity Reaction Status Date / Time azithromycin [From Zithromax] Allergy Rash/Hives Verified 07/01/18 16:10 codeine Allergy Unknown Verified 07/01/18 16:10 Childhood Iodinated Contrast- Oral and Allergy Anaphylaxis Verified 07/01/18 16:10 IV Dye [Iodinated Contrast Media - IV Dye] iodine Allergy Anaphylaxis Verified 07/01/18 16:10 sulfamethoxazole Allergy Rash/Hives Verified 07/01/18 16:10 [From Bactrim] trimethoprim [From Bactrim] Allergy Rash/Hives Verified 07/01/18 16:10 Review of Systems ROS Statement: Those systems with pertinent positive or pertinent negative responses have been documented in the HPI. ROS Other: All systems not noted in ROS Statement are negative. EKG Findings - EKG Comments: EKG Findings:: EKG performed at 13 3070 sinus rhythm with sinus arrhythmia normal EKG. Ventricular rate of 80 bpm. Verbal 136 most seconds. She episcopal 82 Alyssa's seconds. QT QTc is 356/410 ms. Past Medical History Past Medical History: Asthma, GERD/Reflux Additional Past Medical History / Comment(s): vertigo, lots of gas, occasional blood in stool, recent stress test, intermittent rapid heart rate-just finished w/monitor, hx. kidney stones, pt states was told by PCP did not have c-diff in past History of Any Multi-Drug Resistant Organisms: C-DIFF Date of last positivie culture/infection: 09/05/17-CDiff, MDRO Source:: stool Past Surgical History: Adenoidectomy, Tonsillectomy Additional Past Surgical History / Comment(s): colonoscopy Past Anesthesia/Blood Transfusion Reactions: Family History of Problems w/ Anesthesia Additional Past Anesthesia/Blood Transfusion Reaction / Comment(s): father N/V Past Psychological History: Anxiety Smoking Status: Current every day smoker Past Alcohol Use History: Rare Past Drug Use History: None Reported - Past Family History Father Family Medical History: Cancer General Exam - General Exam Comments Initial Comments: Well-appearing 32-year-old male. Alert. No distress. Limitations: no limitations General appearance: alert, in no apparent distress Head exam: Present: atraumatic, normocephalic, normal inspection Eye exam: Present: normal appearance, PERRL, EOMI. Absent: scleral icterus, conjunctival injection, periorbital swelling ENT exam: Present: normal exam, mucous membranes moist Neck exam: Present: normal inspection. Absent: tenderness, meningismus, lymphadenopathy Respiratory exam: Present: normal lung sounds bilaterally. Absent: respiratory distress, wheezes, rales, rhonchi, stridor Cardiovascular Exam: Present: regular rate, normal rhythm, normal heart sounds. Absent: systolic murmur, diastolic murmur, rubs, gallop, clicks GI/Abdominal exam: Present: soft, normal bowel sounds. Absent: distended, tenderness, guarding, rebound, rigid Extremities exam: Present: normal inspection, full ROM, normal capillary refill. Absent: tenderness, pedal edema, joint swelling, calf tenderness Back exam: Present: normal inspection Neurological exam: Present: alert, oriented X3, CN II-XII intact Psychiatric exam: Present: normal affect, normal mood Skin exam: Present: warm, dry, intact, normal color. Absent: rash Course Vital Signs 07/01/18 07/01/18 13:29 15:43 Temperature 97.7 F Pulse Rate 99 76 Respiratory 20 16 Rate Blood Pressure 123/84 119/81 O2 Sat by Pulse 98 99 Oximetry Chest Pain MDM - MDM 32-year-old male presents returns today with complaints of some episodes of dizziness and shortness of breath when he was chopping wood, do not drink water prior to doing so. He states he had a tingling sensation over his body that subsided shortly afterward. Arrival after taking Klonopin and he feels much better. Patient was in his normal EKG. Normal troponin and blood work. Chest x-rays negative for any acute process. this time will be discharged otherwise. Sober signs are stable. Discussed falling up with PCP and possibly cardiology for further treatment and evaluation. Patient agrees treatment plan will comply. Disposition Clinical Impression: Atypical chest pain Disposition: HOME SELF-CARE Condition: Good Instructions (If sedation given, give patient instructions): Chest Pain (ED) Additional Instructions: Paient advised to follow up with her primary care doctor. Patient should also follow-up with cardiology. Return to the emergency department if any alarming signs or symptoms occur. Is patient prescribed a controlled substance at d/c from ED?: No Referrals: Eran Andre MD [Primary Care Provider] - 1-2 days Time of Disposition: 16:22
== END 2018-07-01 16:31 | disposition home or self-care (01) ==
LOC: EC 13:26
DX: R07.89 Other chest pain (principal); R06.02 Shortness of breath; R42 Dizziness and giddiness; F17.200 Nicotine dependence, unspecified, uncomplicated; Z88.1 Allergy status to other antibiotic agents; Z88.5 Allergy status to narcotic agent; Z91.041 Radiographic dye allergy status; Z88.2 Allergy status to sulfonamides
CPT/HCPCS: 36415; 71046; 80053; 83735; 84484; 85025; 85610; 85730; 93005; 99285

== ENCOUNTER 2018-07-24 23:27 | Emergency (ER) | payer OTHER ==
[2018-07-25] MEDS ORDERED: KETOROLAC 30 MG/ML 1 ML VIAL IVP STA (00:22)
[2018-07-25] MEDS ORDERED: METOCLOPRAMIDE 5 MG/ML 2 ML VIAL IVP STA (00:22)
[2018-07-25] MEDS ORDERED: SODIUM CHLORIDE 0.9% 1,000 ML IV STA (00:22)
[2018-07-25] MEDS ORDERED: diphenhydrAMINE 50 MG/ML 1 ML VIAL IVP STA (00:22)
[2018-07-25] MEDS ORDERED: DICYCLOMINE 10 MG/ML 2 ML AMP IM STA (00:23)
[2018-07-25] MEDS ORDERED: ONDANSETRON 4 MG ODT STARTER PACK 2 TAB BTL PO STA (01:36)
--- NOTE | 2018-07-25 01:36 | ED ---
General Adult HPI - General Chief complaint: Nausea/Vomiting/Diarrhea Stated complaint: Dizzy,Headache,Shaking Time Seen by Provider: 07/24/18 23:55 Source: patient, family Mode of arrival: ambulatory Limitations: no limitations - History of Present Illness Initial comments: 32-year-old male patient presents to the emergency department today for evaluati on of headache and diarrhea. Patient states he's had a headache throughout the day today. Patient states he went to dinner and after eating he did have abdominal cramping and had a large watery bowel movement. Patient states he developed chills after this. States his headache became worse. States he was dizzy. He denies any blurred or double vision. Denies any known fever. Denies any hematochezia or melena. Denies any sick contacts or recent travel. Patient states he does have a history of migraine headaches and his headache is similar to his usual migraine pattern. States he was concerned because of the abdominal discomfort and diarrhea. Patient denies any recent rash, fever, chills, shortness breath, chest pain, abdominal pain, nausea, vomiting, diarrhea, constipation, back pain, numbness, tingling, dizziness, weakness, hematuria, dysuria, urinary urgency, urinary frequency, headache, visual changes, or any other complaints. - Related Data Home Medications Medication Instructions Recorded Confirmed clonazePAM [KlonoPIN] 1 mg PO DAILY PRN 05/08/16 07/24/18 Meclizine [Antivert] 25 mg PO TID PRN 03/09/17 07/24/18 Allergies Allergy/AdvReac Type Severity Reaction Status Date / Time azithromycin [From Zithromax] Allergy Rash/Hives Verified 07/01/18 16:10 codeine Allergy Unknown Verified 07/01/18 16:10 Childhood Iodinated Contrast- Oral and Allergy Anaphylaxis Verified 07/01/18 16:10 IV Dye [Iodinated Contrast Media - IV Dye] iodine Allergy Anaphylaxis Verified 07/01/18 16:10 sulfamethoxazole Allergy Rash/Hives Verified 07/01/18 16:10 [From Bactrim] trimethoprim [From Bactrim] Allergy Rash/Hives Verified 07/01/18 16:10 Review of Systems ROS Statement: Those systems with pertinent positive or pertinent negative responses have been documented in the HPI. ROS Other: All systems not noted in ROS Statement are negative. Past Medical History Past Medical History: Asthma, GERD/Reflux Additional Past Medical History / Comment(s): vertigo, lots of gas, occasional blood in stool, recent stress test, intermittent rapid heart rate-just finished w/monitor, hx. kidney stones, pt states was told by PCP did not have c-diff in past History of Any Multi-Drug Resistant Organisms: C-DIFF Date of last positivie culture/infection: 09/05/17-CDiff, MDRO Source:: stool Past Surgical History: Adenoidectomy, Tonsillectomy Additional Past Surgical History / Comment(s): colonoscopy Past Anesthesia/Blood Transfusion Reactions: Family History of Problems w/ Anesthesia Additional Past Anesthesia/Blood Transfusion Reaction / Comment(s): father N/V Past Psychological History: Anxiety Smoking Status: Current every day smoker Past Alcohol Use History: Rare Past Drug Use History: None Reported - Past Family History Father Family Medical History: Cancer General Exam Limitations: no limitations Course Vital Signs 07/24/18 07/25/18 23:41 02:00 Temperature 97.9 F 98.0 F Pulse Rate 103 H 82 Respiratory 20 18 Rate Blood Pressure 132/77 139/70 O2 Sat by Pulse 99 98 Oximetry Medical Decision Making - Medical Decision Making 32-year-old male patient presented to the emergency department today for evaluation of headache and diarrhea. Physical examination reveals soft nontender abdomen. He is neurologically intact with no focal deficits. Does report a history of migraines and states that his symptoms are consistent with his usual migraine pattern. We did start an IV and administered IV fluids, IV medications and IM Bentyl. Upon reevaluation patient reports complete resolution of symptoms. States he feels much better. He does agree to be discharged home at this time. He will be given a starter pack for Zofran for any returning nausea. He is instructed to follow-up with his primary care physician for recheck in 1-2 days. Return parameters were discussed in detail. He verbalizes understanding and agrees with this plan. Disposition Clinical Impression: Headache, Diarrhea Disposition: HOME SELF-CARE Condition: Good Instructions (If sedation given, give patient instructions): Acute Headache (ED), Acute Diarrhea (ED) Additional Instructions: Start with clear liquid diet and advance as tolerated. Take medications as directed. Follow-up with your primary care physician for recheck in 1-2 days. Return to the emergency department immediately for any new, worsening, or concerning symptoms. Is patient prescribed a controlled substance at d/c from ED?: No Referrals: Eran Andre MD [Primary Care Provider] - 1-2 days Time of Disposition: 01:36
[2018-07-25 02:02] VITALS: BP 139/70; PULSE 82; RESP 18; TEMP 98
== END 2018-07-25 02:03 | disposition home or self-care (01) ==
LOC: EC 23:27
DX: R51 Headache (principal); R19.7 Diarrhea, unspecified; F17.200 Nicotine dependence, unspecified, uncomplicated; Z88.1 Allergy status to other antibiotic agents; Z88.5 Allergy status to narcotic agent; Z88.2 Allergy status to sulfonamides; Z91.041 Radiographic dye allergy status; Z88.8 Allergy status to other drugs, medicaments and biological substances
CPT/HCPCS: 99283; 96374; 96375 ×2; 96361; 96372; J1200; J0500; J2765; J1885; S0119

== ENCOUNTER 2018-08-25 20:21 | Emergency (ER) | payer OTHER ==
[2018-08-25 20:37] VITALS: RESP 18
[2018-08-25] MEDS ORDERED: HYDROcodone/APAP 5-325MG 1 EACH TAB PO STA (21:44)
[2018-08-25 21:46] LABS: Glucose,Whole Blood 99 mg/dL (75-99)
--- NOTE | 2018-08-25 21:46 | ED ---
Eye Problem HPI - General Source: patient Mode of arrival: ambulatory Limitations: no limitations <Oliva Stearns - Last Filed: 08/26/18 02:00> <Rosy Oden - Last Filed: 08/26/18 03:45> - General Chief complaint: Eye Problems Stated complaint: Vision Change,Dizziness Time Seen by Provider: 08/25/18 21:08 - History of Present Illness Initial comments: 32-year-old male patient presents to the emergency department today for sudden onset blurred vision. Patient states he was sitting in his cough watching his kids finished when he suddenly was unable to read words on his phone. Patient states his distant vision was intact. Patient denies any other symptoms with this. Denies any headache. Patient states he did have a little dizziness but he does have chronic dizziness and takes meclizine for this. He denies any fever or chills. Denies any eye pain or drainage. Denies any numbness, tingling, weakness to his extremities. Denies any recent head injury. Patient denies any recent rash, shortness breath, chest pain, abdominal pain, nausea, vomiting, diarrhea, constipation, back pain, hematuria, dysuria, urinary urgency, urinary frequency, headache, visual changes, or any other complaints. (Oliva Stearns) - Related Data Home Medications Medication Instructions Recorded Confirmed clonazePAM [KlonoPIN] 1 mg PO DAILY PRN 05/08/16 08/25/18 Meclizine [Antivert] 25 mg PO TID PRN 03/09/17 08/25/18 Allergies Allergy/AdvReac Type Severity Reaction Status Date / Time azithromycin [From Zithromax] Allergy Rash/Hives Verified 08/25/18 20:52 codeine Allergy Unknown Verified 08/25/18 20:52 Childhood Iodinated Contrast- Oral and Allergy Anaphylaxis Verified 08/25/18 20:52 IV Dye [Iodinated Contrast Media - IV Dye] iodine Allergy Anaphylaxis Verified 08/25/18 20:52 sulfamethoxazole Allergy Rash/Hives Verified 08/25/18 20:52 [From Bactrim] trimethoprim [From Bactrim] Allergy Rash/Hives Verified 08/25/18 20:52 Review of Systems ROS Other: All systems not noted in ROS Statement are negative. <Oliva Stearns - Last Filed: 08/26/18 02:00> ROS Other: All systems not noted in ROS Statement are negative. <Rosy Oden P - Last Filed: 08/26/18 03:45> ROS Statement: Those systems with pertinent positive or pertinent negative responses have been documented in the HPI. Past Medical History Past Medical History: Asthma, GERD/Reflux Additional Past Medical History / Comment(s): vertigo, occasional blood in stool, recent stress test, hx. kidney stones, History of Any Multi-Drug Resistant Organisms: None Reported Date of last positivie culture/infection: 09/05/17-CDiff, MDRO Source:: stool Past Surgical History: Adenoidectomy, Tonsillectomy Additional Past Surgical History / Comment(s): colonoscopy, Past Anesthesia/Blood Transfusion Reactions: Family History of Problems w/ Anesthesia Additional Past Anesthesia/Blood Transfusion Reaction / Comment(s): father N/V Past Psychological History: Anxiety Smoking Status: Current every day smoker Past Alcohol Use History: Rare Past Drug Use History: None Reported - Past Family History Father Family Medical History: Cancer <Oliva Stearns M - Last Filed: 08/26/18 02:00> General Exam Limitations: no limitations General appearance: alert, in no apparent distress, other (Physical well- developed, well-nourished adult male patient in no acute distress. Vital signs upon presentation shows temperature 97.7F, pulse 1:15, respirations 18, blood pressure 133/83, pulse ox 99% on room air.) Eye exam: Present: normal appearance, PERRL, EOMI. Absent: scleral icterus, conjunctival injection, periorbital swelling ENT exam: Present: normal exam, normal oropharynx, mucous membranes moist Respiratory exam: Present: normal lung sounds bilaterally. Absent: respiratory distress, wheezes, rales, rhonchi, stridor Cardiovascular Exam: Present: regular rate, normal rhythm, normal heart sounds. Absent: systolic murmur, diastolic murmur, rubs, gallop, clicks GI/Abdominal exam: Present: soft, normal bowel sounds. Absent: distended, tenderness, guarding, rebound, rigid Neurological exam: Present: alert, oriented X3, CN II-XII intact Psychiatric exam: Present: normal affect, normal mood Skin exam: Present: warm, dry, intact, normal color. Absent: rash <Oliva Stearns - Last Filed: 08/26/18 02:00> Course Vital Signs 08/25/18 08/25/18 20:34 22:07 Temperature 97.7 F 97.9 F Pulse Rate 115 H 108 H Respiratory 18 18 Rate Blood Pressure 133/83 139/80 O2 Sat by Pulse 99 100 Oximetry Medical Decision Making <Oliva Stearns - Last Filed: 08/26/18 02:00> <Rosy Oden - Last Filed: 08/26/18 03:45> - Medical Decision Making 32-year-old male patient presents to the emergency department today for evaluation of blurred vision. Physical examination is unremarkable. He is neurologically intact with no focal deficits. Blood glucose is normal. Visual acuity is normal. Given these findings patient will be discharged home at this time. He is urged to obtain ophthalmic examination either by optometry or ophthalmology. He is instructed HIS primary care physician for recheck tomorrow. Return parameters were discussed in detail. He verbalizes understanding and agrees with this plan. (Oliva Stearns) I was available for consultation in the emergency department. The history and physical exam were done by the midlevel provider. I was consulted for this yari ent's care. I reviewed the case with the midlevel provider and based on their presentation of the patient, I agree with the assessment, medical decision making and plan of care as documented. Chart was dictated using [employer] dictation software. Attempts were made to correct any dictation errors however some typographical errors may persist. (Rosy Oden) - Lab Data Lab Results 08/25/18 Range/Units 21:43 POC Glucose (mg/dL) 99 (75-99) mg/dL POC Glu [employer] Yesica Coley Disposition Is patient prescribed a controlled substance at d/c from ED?: No Time of Disposition: 21:46 <Oliva Stearns - Last Filed: 08/26/18 02:00> <Rosy Oden - Last Filed: 08/26/18 03:45> Clinical Impression: Blurred vision, bilateral Disposition: HOME SELF-CARE Condition: Good Instructions (If sedation given, give patient instructions): Blurred Vision (ED) Additional Instructions: Rest. Increase fluids. Follow up with her primary care physician for recheck in 1-2 days. Consider follow up with advertising specialist or foundry manager for further evaluation. Return to the emergency department immediately for any new, worsening, or concerning symptoms Referrals: Eran Andre MD [Primary Care Provider] - 1-2 days
[2018-08-25 22:08] VITALS: BP 139/80; PULSE 108; TEMP 97.9
== END 2018-08-25 22:08 | disposition home or self-care (01) ==
LOC: EC 20:21
DX: H53.8 Other visual disturbances (principal); R42 Dizziness and giddiness; F17.200 Nicotine dependence, unspecified, uncomplicated; Z88.1 Allergy status to other antibiotic agents; Z88.2 Allergy status to sulfonamides; Z88.5 Allergy status to narcotic agent; Z91.041 Radiographic dye allergy status; Z91.048 Other nonmedicinal substance allergy status
CPT/HCPCS: 36415; 99284

== ENCOUNTER 2018-11-06 20:30 | Emergency (ER) | payer OTHER ==
[2018-11-06] MEDS ORDERED: ALPRAZolam 0.5 MG TAB PO STA (21:02)
--- NOTE | 2018-11-06 21:02 | ED ---
Chest Pain HPI - General Chief Complaint: Chest Pain Stated Complaint: Chest pain Time Seen by Provider: 11/06/18 20:41 Source: patient, family Mode of arrival: ambulatory Limitations: no limitations - History of Present Illness Initial Comments: 33-year-old male presenting this evening for chief complaint of chest pain. Patient states his children were acting up at dinner and he began yelling at them. He states he then began experiencing chest pain. He states this happened before. Patient states he struggles with anxiety and takes anxiety medications which she did take prior to arrival. Patient states that he did not have jaw pain the pain did not radiate denies back pain. Patient denies any dyspnea. Patient denies any leg swelling. Patient states he has had a negative stress test 2 months prior. Patient describes the pain as a dull aching. He denies pressure. Patient denies any sharp pain hemoptysis recent surgery travel or immobilization. Patient denies history of DVT or pulmonary and wasn't. Patient states his symptoms are subsiding upon arrival he states he does have a dull amount of chest pain. Remaining review is negative. Upon arrival patient appears well vital signs within acceptable limits no signs of acute distress. - Related Data Home Medications Medication Instructions Recorded Confirmed clonazePAM [KlonoPIN] 1 mg PO DAILY PRN 05/08/16 08/25/18 Meclizine [Antivert] 25 mg PO TID PRN 03/09/17 08/25/18 Allergies Allergy/AdvReac Type Severity Reaction Status Date / Time azithromycin [From Zithromax] Allergy Rash/Hives Verified 11/06/18 20:39 codeine Allergy Unknown Verified 11/06/18 20:39 Childhood Iodinated Contrast- Oral and Allergy Anaphylaxis Verified 11/06/18 20:39 IV Dye [Iodinated Contrast Media - IV Dye] iodine Allergy Anaphylaxis Verified 11/06/18 20:39 sulfamethoxazole Allergy Rash/Hives Verified 11/06/18 20:39 [From Bactrim] trimethoprim [From Bactrim] Allergy Rash/Hives Verified 11/06/18 20:39 Review of Systems ROS Statement: Those systems with pertinent positive or pertinent negative responses have been documented in the HPI. ROS Other: All systems not noted in ROS Statement are negative. EKG Findings - EKG Comments: EKG Findings:: Ventricular rate 93 bpm, HI interval 160 ms, QR yarsani 80 ms, QT/QTC 354/440 ms. This is normal sinus rhythm, normal EKG. There is no ST elevation or depression. Artifact is noted no other acute abdomen abnormalities. Personally interpreted. Past Medical History Past Medical History: Asthma, GERD/Reflux Additional Past Medical History / Comment(s): vertigo, occasional blood in stool, recent stress test, hx. kidney stones, History of Any Multi-Drug Resistant Organisms: None Reported Date of last positivie culture/infection: 09/05/17-CDiff, MDRO Source:: stool Past Surgical History: Adenoidectomy, Tonsillectomy Additional Past Surgical History / Comment(s): colonoscopy, Past Anesthesia/Blood Transfusion Reactions: Family History of Problems w/ Anesthesia Additional Past Anesthesia/Blood Transfusion Reaction / Comment(s): father N/V Past Psychological History: Anxiety Smoking Status: Current every day smoker Past Alcohol Use History: Rare Past Drug Use History: None Reported - Past Family History Father Family Medical History: Cancer General Exam - General Exam Comments Initial Comments: General: The patient is awake and alert, in no distress, and does not appear acutely ill. Eye: Pupils are equal, round and reactive to light, extra-ocular movements are intact. No nystagmus. There is normal conjunctiva bilaterally. No signs of icterus. Ears, nose, mouth and throat: There are moist mucous membranes and no oral lesions. Neck: The neck is supple, there is no tenderness or JVD. Cardiovascular: There is a regular rate and rhythm. No murmur, rub or gallop is appreciated. Respiratory: Lungs are clear to auscultation, respirations are non-labored, breath sounds are equal. No wheezes, stridor, rales, or rhonchi. Gastrointestinal: Soft, non-distended, non-tender abdomen without masses or organomegaly noted. There is no rebound or guarding present. Musculoskeletal: Normal ROM, no tenderness. Strength 5/5. Sensation intact. Pulses equal bilaterally 2+. Neurological: A&O x 3. CN II-XII intact, There are no obvious motor or sensory deficits. Coordination appears grossly intact. Speech is normal. Skin: Skin is warm and dry and no rashes or lesions are noted. No lower extremity edema Psychiatric: Cooperative, appropriate mood & affect, normal judgment. Limitations: no limitations Course Vital Signs 11/06/18 11/06/1819 20:36 21:42 23:00 Temperature 98.5 F 97.8 F 98 F Pulse Rate 97 94 90 Respiratory 20 18 18 Rate Blood Pressure 126/81 123/74 124/74 O2 Sat by Pulse 99 96 98 Oximetry 11/07/18 00:44 Temperature 98 F Pulse Rate 90 Respiratory 18 Rate Blood Pressure 126/78 O2 Sat by Pulse 100 Oximetry Chest Pain MDM - MDM Well-appearing 33-year-old male past medical history of anxiety. Patient has no history of diabetes hypertension, no history of premature coronary artery disease. Patient had negative stress test 2 months prior. Patient's pain does not appear typical. Initial troponin negative. Physical examination unremarkable. No murmur. No lower extremity edema. EKG no acute findings. Repeat troponin at 3 hours negative. Patient was requesting discharge prior to the second troponin however I encouraged patient to stay for the second test. At this time feel patient is low risk for adverse cardiac outcome. Given his past medical history, presentation and EKG findings and 2 negative troponins. I discussed the case with attending provider who is agreeable. At this time we feel patient is stable for discharge. Return parameters importance of follow-up were discussed with patient who verbalizes understanding. Disposition Clinical Impression: Chest pain, Stress Disposition: HOME SELF-CARE Condition: Good Instructions (If sedation given, give patient instructions): Chest Pain (ED) Additional Instructions: Please use medication as discussed. Please follow-up with family doctor in the next 2 days. Please return to emergency room if the symptoms increase or worsen or for any other concerns. Is patient prescribed a controlled substance at d/c from ED?: No Referrals: Eran Andre MD [Primary Care Provider] - 1-2 days Time of Disposition: 00:36
--- NOTE | 2018-11-06 21:13 | XR ---
EXAMINATION TYPE: XR chest 2V DATE OF EXAM: 11/06/2018 COMPARISON: 07/01/2018 HISTORY: Chest pain TECHNIQUE: Frontal and lateral views of the chest are obtained. FINDINGS: Heart and mediastinum are normal. Lungs are clear. Diaphragm is normal. Bony thorax appear s normal. There are chest leads. IMPRESSION: Normal chest. No change.
[2018-11-06 21:18] LABS: Basophils % (A) 0 %; Eosinophils # (A) 0.2 k/uL (0-0.7); Eosinophils % (A) 2 %; HCT 47.9 % (39.0-53.0); HGB 16.1 gm/dL (13.0-17.5); Lymphocytes # (A) 3.2 k/uL (1.0-4.8); Lymphocytes % (A) 37 %; MCH 30.9 pg (25.0-35.0); MCHC 33.5 g/dL (31.0-37.0); MCV 92.3 fL (80.0-100.0); Mean Platelet Volume 8.1; Monocytes # (A) 0.5 k/uL (0-1.0); Monocytes % (A) 6 %; Neutrophils # (A) 4.5 k/uL (1.3-7.7); Neutrophils % (A) 53 %; Platelet Count 197 k/uL (150-450); RBC 5.19 m/uL (4.30-5.90); RDW 12.9 % (11.5-15.5); WBC 8.6 k/uL (3.8-10.6)
[2018-11-06 21:27] LABS: ALT 31 U/L (21-72); AST 26 U/L (17-59); African American GFR (CKD) >90 (>60 ml/min/1.73 sqM); Albumin 4.4 g/dL (3.5-5.0); Alkaline Phosphatase 39 U/L (38-126); Anion Gap 10 mmol/L; Blood Urea Nitrogen 14 mg/dL (9-20); Calcium 9.4 mg/dL (8.4-10.2); Carbon Dioxide 22 mmol/L (22-30); Chloride 108 mmol/L (98-107); Glucose 96 mg/dL (74-99); Magnesium 1.7 mg/dL (1.6-2.3); Non-African American GFR(CKD) >90 (>60 ml/min/1.73 sqM); Potassium 3.8 mmol/L (3.5-5.1); Sodium 140 mmol/L (137-145); Total Bilirubin 0.5 mg/dL (0.2-1.3); Total Protein 7.5 g/dL (6.3-8.2)
[2018-11-06 21:30] LABS: INR 0.9 (<1.2); Partial Thromboplastin Time 24.1 sec (22.0-30.0); Prothrombin Time 9.8 sec (9.0-12.0)
[2018-11-06 21:44] VITALS: RESP 18
[2018-11-06 23:53] VITALS: PULSE 90; TEMP 98
[2018-11-07 00:46] VITALS: BP 126/78
== END 2018-11-07 00:43 | disposition home or self-care (01) ==
LOC: EC 20:30
DX: F43.9 Reaction to severe stress, unspecified (principal); R07.9 Chest pain, unspecified; F41.9 Anxiety disorder, unspecified; F17.200 Nicotine dependence, unspecified, uncomplicated; Z88.1 Allergy status to other antibiotic agents; Z88.2 Allergy status to sulfonamides; Z88.5 Allergy status to narcotic agent; Z91.041 Radiographic dye allergy status; Z91.048 Other nonmedicinal substance allergy status
CPT/HCPCS: 36415; 71046; 80053; 83735; 84484; 85025; 85610; 85730; 93005; 99285

== ENCOUNTER 2018-11-22 18:13 | Emergency (ER) | payer OTHER ==
[2018-11-22 18:31] VITALS: RESP 18
[2018-11-22] MEDS ORDERED: LIDOCAINE 1% INJ 10MG/ML (20 ML MDV) SQ ONE (19:10)
[2018-11-22] MEDS ORDERED: KETOROLAC 30 MG/ML 1 ML VIAL IM STA (19:11)
--- NOTE | 2018-11-22 20:48 | ED ---
General Adult HPI - General Chief complaint: Skin/Abscess/Foreign Body Stated complaint: foreign body under finger nail Time Seen by Provider: 11/22/18 18:42 Source: patient Mode of arrival: ambulatory Limitations: no limitations - History of Present Illness Initial comments: Patient 33-year-old male presenting to emergency Department with a chief compl aint of a thorn in his finger. Patient reports there is a thorn on their his nail on the right fourth digit. Patient reports he attempted to remove it by cutting parts of the nail off but is still to disappear patient reports tenderness with palpation in the region. Patient denies any lacerations or abrasions the region. Patient denies any trauma to the area patient denies any numbness or tingling. Patient reports the pain is an 8 and throbbing only with palpation alleviated rest. Patient denies taking medication to alleviate his symptoms. - Related Data Home Medications Medication Instructions Recorded Confirmed clonazePAM [KlonoPIN] 1 mg PO DAILY PRN 05/08/16 08/25/18 Meclizine [Antivert] 25 mg PO TID PRN 03/09/17 08/25/18 Previous Rx's Medication Instructions Recorded Cephalexin [Keflex] 500 mg PO Q6HR 3 Days #12 cap 11/22/18 Allergies Allergy/AdvReac Type Severity Reaction Status Date / Time azithromycin [From Zithromax] Allergy Rash/Hives Verified 11/22/18 18:32 codeine Allergy Unknown Verified 11/22/18 18:32 Childhood Iodinated Contrast- Oral and Allergy Anaphylaxis Verified 11/22/18 18:32 IV Dye [Iodinated Contrast Media - IV Dye] iodine Allergy Anaphylaxis Verified 11/22/18 18:32 sulfamethoxazole Allergy Rash/Hives Verified 11/22/18 18:32 [From Bactrim] trimethoprim [From Bactrim] Allergy Rash/Hives Verified 11/22/18 18:32 Review of Systems ROS Statement: Those systems with pertinent positive or pertinent negative responses have been documented in the HPI. ROS Other: All systems not noted in ROS Statement are negative. Past Medical History Past Medical History: Asthma, GERD/Reflux Additional Past Medical History / Comment(s): vertigo, occasional blood in stool, recent stress test, hx. kidney stones, History of Any Multi-Drug Resistant Organisms: None Reported Date of last positivie culture/infection: 09/05/17-CDiff, MDRO Source:: stool Past Surgical History: Adenoidectomy, Tonsillectomy Additional Past Surgical History / Comment(s): colonoscopy, Past Anesthesia/Blood Transfusion Reactions: Family History of Problems w/ Anesthesia Additional Past Anesthesia/Blood Transfusion Reaction / Comment(s): father N/V Past Psychological History: Anxiety Smoking Status: Current every day smoker Past Alcohol Use History: Rare Past Drug Use History: None Reported - Past Family History Father Family Medical History: Cancer General Exam - General Exam Comments Initial Comments: General: Well-developed well-nourished distress HEENT: Normocephalic/atraumatic, PERLL, pharynx erythema, swallowing well, EAC no erythema, no exudates, TM clear, no cervical lymph nodes Neck: Supple, nontender, trachea midline Chest/Lungs: Normal respirations, no signs of respiratory distress clear to auscultation bilaterally no wheezes, rales, rhonchi Cardiac: Regular rate and rhythm, normal S1-S2, no murmurs rubs or gallops Abdomen/GI: Soft nontender, bowel sounds equal or quadrant x4, no guarding, no rebound no CVA tenderness Musculoskeletal: Foreign body under the nail of the fourth right digit, mild erythema and region, no lacerations or abrasions, no active bleeding. No damage to the nail bed. Skin: Warmth, no rashes or lesions, no cyanosis or diaphoresis Neurologic: AAO x 3, CN 2-12 intact, Psychiatric: Mood and affect normal, judgment normal Limitations: no limitations Course Vital Signs 11/22/18 11/22/18 18:29 21:24 Temperature 98.5 F 98.2 F Pulse Rate 95 80 Respiratory 18 18 Rate Blood Pressure 108/77 112/72 O2 Sat by Pulse 98 99 Oximetry Procedures - Procedures Initial comment: Partial nail removal/foreign body removal: Digital block and local anesthesia, 1% lidocaine, partial removal of the right fourth digit nail, foreign body removed, full range of motion, patient tolerated procedure well. Medical Decision Making - Medical Decision Making Patient is a 33-year-old male presenting to emergency Department with a chief complaint of a torn and his nail. Patient appears to have a foreign body lodged under the nail of the right fourth digit. Patient has full range of motion but the site of injury appears to be very tender, patient has normal capillary refill. Local anesthesia and digital block was used in order to partially remove the nail along with a foreign body. Patient tolerated the procedure well. Foreign body was removed. Patient was given Keflex. Patient will be discharged with a 5 day course of Keflex. Patient advised to alternate between Tylenol and ibuprofen for pain control. Strict return parameters were thor oughly discussed with patient is understanding and agreeable. Patient advised to follow proper wound care structures. Case discussed with physician. Disposition Clinical Impression: Foreign body finger Disposition: HOME SELF-CARE Condition: Stable Instructions (If sedation given, give patient instructions): Nail Removal (ED), Partial Nail Avulsion for Ingrown Nail (DC) Additional Instructions: Please take prescribed medication as directed. Please follow proper wound care instructions. Please return to emergency department symptoms worsen. Prescriptions: Cephalexin [Keflex] 500 mg PO Q6HR 3 Days #12 cap Is patient prescribed a controlled substance at d/c from ED?: No Referrals: Eran Andre MD [Primary Care Provider] - 1-2 days Time of Disposition: 21:13
[2018-11-22] MEDS ORDERED: CEPHALEXIN 500MG STARTER PACK 4 CAP BTL PO STA (21:13)
[2018-11-22 21:25] VITALS: BP 112/72; PULSE 80; TEMP 98.2
== END 2018-11-22 21:25 | disposition home or self-care (01) ==
LOC: EC 18:13
DX: S60.454A Superficial foreign body of right ring finger, initial encounter (principal); F17.200 Nicotine dependence, unspecified, uncomplicated; Z88.1 Allergy status to other antibiotic agents; Z88.2 Allergy status to sulfonamides; Z88.5 Allergy status to narcotic agent; Z91.041 Radiographic dye allergy status; Z91.048 Other nonmedicinal substance allergy status; W45.8XXA Other foreign body or object entering through skin, initial encounter; Y92.009 Unspecified place in unspecified non-institutional (private) residence as the place of occurrence of the external cause
CPT/HCPCS: 99283; 11730; 96372; J2001; J1885

== ENCOUNTER 2018-12-29 16:14 | Emergency (ER) | payer OTHER ==
[2018-12-29 16:26] VITALS: BP 138/71; PULSE 93; RESP 16; TEMP 98.5
--- NOTE | 2018-12-29 18:11 | ED ---
Lower Extremity Injury HPI - General Chief Complaint: Extremity Injury, Lower Stated Complaint: pain in lt leg Time Seen by Provider: 12/29/18 16:35 Source: patient Mode of arrival: ambulatory Limitations: no limitations - History of Present Illness Initial Comments: Patient is a 33-year-old male presenting to emergency Department with complaints of left calf pain x 1 day. Patient states he woke up this morning with a sharp pain/cramping sensation in his left calf and throughout the day has moved superior to behind the left knee and now the posterior aspect of his left thigh. Patient admits to history of 4.5 hour car ride 2 weeks ago and he is in every day smoker. Patient denies history of blood clots. Patient denies any other injuries or trauma to his left lower extremity. Patient denies fever, chills. Patient denies chest pain, shortness of breath. No other complaints at this time. Upon arrival to ER, vital signs are stable. - Related Data Home Medications Medication Instructions Recorded Confirmed clonazePAM [KlonoPIN] 1 mg PO DAILY PRN 05/08/16 08/25/18 Meclizine [Antivert] 25 mg PO TID PRN 03/09/17 08/25/18 Previous Rx's Medication Instructions Recorded Cephalexin [Keflex] 500 mg PO Q6HR 3 Days #12 cap 11/22/18 Allergies Allergy/AdvReac Type Severity Reaction Status Date / Time azithromycin [From Zithromax] Allergy Rash/Hives Verified 12/29/18 16:26 codeine Allergy Unknown Verified 12/29/18 16:26 Childhood Iodinated Contrast Media Allergy Anaphylaxis Verified 12/29/18 16:26 [Iodinated Contrast Media - IV Dye] iodine Allergy Anaphylaxis Verified 12/29/18 16:26 sulfamethoxazole Allergy Rash/Hives Verified 12/29/18 16:26 [From Bactrim] trimethoprim [From Bactrim] Allergy Rash/Hives Verified 12/29/18 16:26 Review of Systems ROS Statement: Those systems with pertinent positive or pertinent negative responses have been documented in the HPI. ROS Other: All systems not noted in ROS Statement are negative. Past Medical History Past Medical History: Asthma, GERD/Reflux Additional Past Medical History / Comment(s): vertigo, occasional blood in stool, recent stress test, hx. kidney stones, History of Any Multi-Drug Resistant Organisms: None Reported Date of last positivie culture/infection: 09/05/17-CDiff, MDRO Source:: stool Past Surgical History: Adenoidectomy, Tonsillectomy Additional Past Surgical History / Comment(s): colonoscopy, Past Anesthesia/Blood Transfusion Reactions: Family History of Problems w/ Anesthesia Additional Past Anesthesia/Blood Transfusion Reaction / Comment(s): father N/V Past Psychological History: Anxiety Smoking Status: Current every day smoker Past Alcohol Use History: Rare Past Drug Use History: None Reported - Past Family History Father Family Medical History: Cancer General Exam - General Exam Comments Initial Comments: GENERAL: Well-appearing, well-nourished and in no acute distress. HEAD: Atraumatic, normocephalic. EYES: Pupils equal round and reactive to light, extraocular movements intact, sclera anicteric, conjunctiva are normal. ENT: TMs normal, nares patent, oropharynx clear without exudates. Moist mucous membranes. NECK: Normal range of motion, supple without lymphadenopathy or JVD. LUNGS: Breath sounds clear to auscultation bilaterally and equal. No wheezes rales or rhonchi. HEART: Regular rate and rhythm without murmurs, rubs or gallops. ABDOMEN: Soft, nontender, normoactive bowel sounds. No guarding, no rebound. No masses appreciated. : Deferred EXTREMITIES: Mild pain with palpation of the posterior aspect of the left knee as well as distal hamstring area. Normal range of motion of left knee. Strength is 5/5 bilateral lower extremities. No surrounding erythema or swelling. Neurovascular intact. NEUROLOGICAL: Cranial nerves II through XII grossly intact. Normal speech, normal gait. PSYCH: Normal mood, normal affect. SKIN: Warm, Dry, normal turgor, no rashes or lesions noted. Limitations: no limitations Course Vital Signs 12/29/18 16:24 Temperature 98.5 F Pulse Rate 93 Respiratory 16 Rate Blood Pressure 138/71 O2 Sat by Pulse 98 Oximetry Medical Decision Making - Medical Decision Making Patient is a 33-year-old male presenting with posterior left leg pain 2 days. Exam is normal. Ultrasound reveals no evidence of DVT. It was discussed with patient this is most likely muscle related. Patient will use ice and/or heat for relief of pain. Patient is stable for discharge at this time and he is in agreement with this plan of care. Return parameters were discussed with the patient and he verbalized understanding. Disposition Clinical Impression: Left hamstring muscle strain, Pain in superior left lower extremity Disposition: HOME SELF-CARE Condition: Stable Instructions (If sedation given, give patient instructions): Muscle Strain (ED) Additional Instructions: Please return to the Emergency Department if symptoms worsen or any other concerns. Follow-up with PCP if symptoms persist. Is patient prescribed a controlled substance at d/c from ED?: No Referrals: Eran Andre MD [Primary Care Provider] - 1-2 days
--- NOTE | 2018-12-29 18:17 | US ---
EXAMINATION TYPE: US venous doppler duplex LE LT DATE OF EXAM: 12/29/2018 4:43 PM COMPARISON: US 2017 CLINICAL HISTORY: Lt thigh pain. Left thigh pain since 5 AM. NO HX of DVT. Patient does not take bloo d thinners. SIDE PERFORMED: Left TECHNIQUE: The lower extremity deep venous system is examined utilizing real time linear array sonog alice with graded compression, doppler sonography and color-flow sonography. VESSELS IMAGED: External Iliac Vein (EIV) Common Femoral Vein Deep Femoral Vein Greater Saphenous Vein * Femoral Vein Popliteal Vein Small Saphenous Vein * Proximal Calf Veins (* superficial vessels) Left Leg: No evidence of DVT in veins imaged from prox calf veins to EIV. IMPRESSION: No acute DVT in the left lower extremity. No significant change from prior.
== END 2018-12-29 18:32 | disposition home or self-care (01) ==
LOC: EC 16:14
DX: S76.812A Strain of other specified muscles, fascia and tendons at thigh level, left thigh, initial encounter (principal); F17.200 Nicotine dependence, unspecified, uncomplicated; Z88.1 Allergy status to other antibiotic agents; Z88.2 Allergy status to sulfonamides; Z88.5 Allergy status to narcotic agent; Z91.041 Radiographic dye allergy status; Z91.048 Other nonmedicinal substance allergy status; X58.XXXA Exposure to other specified factors, initial encounter
CPT/HCPCS: 99283

== ENCOUNTER 2019-03-11 16:01 | Emergency (ER) | payer OTHER ==
[2019-03-11 16:12] VITALS: BP 121/83; TEMP 98.5
[2019-03-11 17:26] LABS: Basophils # (A) 0.1 k/uL (0-0.2); Basophils % (A) 1 %; Eosinophils # (A) 0.3 k/uL (0-0.7); Eosinophils % (A) 2 %; HCT 46.1 % (39.0-53.0); HGB 15.9 gm/dL (13.0-17.5); Lymphocytes # (A) 1.4 k/uL (1.0-4.8); Lymphocytes % (A) 10 %; MCH 31.6 pg (25.0-35.0); MCHC 34.5 g/dL (31.0-37.0); MCV 91.6 fL (80.0-100.0); Mean Platelet Volume 8.6; Monocytes # (A) 0.6 k/uL (0-1.0); Monocytes % (A) 4 %; Neutrophils # (A) 12.6 k/uL (1.3-7.7); Neutrophils % (A) 83 %; Platelet Count 227 k/uL (150-450); RBC 5.03 m/uL (4.30-5.90); RDW 12.3 % (11.5-15.5); WBC 15.1 k/uL (3.8-10.6)
[2019-03-11 17:35] LABS: ALT 29 U/L (4-49); AST 28 U/L (17-59); African American GFR (CKD) >90 (>60 ml/min/1.73 sqM); Albumin 4.5 g/dL (3.5-5.0); Alkaline Phosphatase 39 U/L (38-126); Anion Gap 7 mmol/L; Blood Urea Nitrogen 13 mg/dL (9-20); Calcium 10.1 mg/dL (8.4-10.2); Carbon Dioxide 27 mmol/L (22-30); Chloride 107 mmol/L (98-107); Creatine Kinase 73 U/L (55-170); Glucose 98 mg/dL (74-99); Non-African American GFR(CKD) >90 (>60 ml/min/1.73 sqM); Potassium 4.9 mmol/L (3.5-5.1); Sodium 141 mmol/L (137-145); Total Bilirubin 0.5 mg/dL (0.2-1.3); Total Protein 7.7 g/dL (6.3-8.2)
[2019-03-11] MEDS ORDERED: KETOROLAC 60 MG/2 ML VIAL IM STA (17:38)
--- NOTE | 2019-03-11 18:03 | XR ---
EXAMINATION TYPE: XR chest 2V DATE OF EXAM: 03/11/2019 COMPARISON: 11/06/2018 HISTORY: Chest pain dizziness TECHNIQUE: 2 views FINDINGS: Heart and mediastinum are normal. Lungs are clear. Diaphragm is normal. Bony thorax appears normal. Pulmonary vascularity is normal. IMPRESSION: Normal chest. No change.
--- NOTE | 2019-03-11 18:13 | ED ---
General Adult HPI - General Chief complaint: Weakness Stated complaint: body aches Time Seen by Provider: 03/11/19 16:13 Source: patient Mode of arrival: ambulatory Limitations: no limitations - History of Present Illness Initial comments: 33-year-old male presents today for chief complaint of body aches fever. Patient states approximately one hour prior to arrival record a fever of 103. He states he took a Tylenol at this point he states that this morning woke up congestion and a sore throat. He states he continues to have congestion the sore throat has felt slightly better. Patient denies any difficulty breathing rash she states is vaccinated denies any immunocompromised state. Patient denies any significant cough denies abdominal pain chest pain shortness of breath he denies any current headache neck stiffness he denies any sensation th at the room is spinning or presyncopal. Patient states his main complaint is he had a total body aches making him feel weak all over. Patient otherwise appears well and nontoxic on arrival vital signs stable afebrile - Related Data Home Medications Medication Instructions Recorded Confirmed clonazePAM [KlonoPIN] 1 mg PO DAILY PRN 05/08/16 08/25/18 Meclizine [Antivert] 25 mg PO TID PRN 03/09/17 08/25/18 Previous Rx's Medication Instructions Recorded Cephalexin [Keflex] 500 mg PO Q6HR 3 Days #12 cap 11/22/18 Allergies Allergy/AdvReac Type Severity Reaction Status Date / Time azithromycin [From Zithromax] Allergy Rash/Hives Verified 03/11/19 16:12 codeine Allergy Unknown Verified 03/11/19 16:12 Childhood Iodinated Contrast Media Allergy Anaphylaxis Verified 03/11/19 16:12 [Iodinated Contrast Media - IV Dye] iodine Allergy Anaphylaxis Verified 03/11/19 16:12 sulfamethoxazole Allergy Rash/Hives Verified 03/11/19 16:12 [From Bactrim] trimethoprim [From Bactrim] Allergy Rash/Hives Verified 03/11/19 16:12 Review of Systems ROS Statement: Those systems with pertinent positive or pertinent negative responses have been documented in the HPI. ROS Other: All systems not noted in ROS Statement are negative. Past Medical History Past Medical History: Asthma, GERD/Reflux Additional Past Medical History / Comment(s): vertigo, occasional blood in stool, recent stress test, hx. kidney stones, History of Any Multi-Drug Resistant Organisms: None Reported Date of last positivie culture/infection: 09/05/17-CDiff, MDRO Source:: stool Past Surgical History: Adenoidectomy, Tonsillectomy Additional Past Surgical History / Comment(s): colonoscopy, Past Anesthesia/Blood Transfusion Reactions: Family History of Problems w/ Anesthesia Additional Past Anesthesia/Blood Transfusion Reaction / Comment(s): father N/V Past Psychological History: Anxiety Smoking Status: Current every day smoker Past Alcohol Use History: Rare Past Drug Use History: None Reported - Past Family History Father Family Medical History: Cancer General Exam - General Exam Comments Initial Comments: General: The patient is awake and alert, in no distress, and does not appear acutely ill. Eye: +3 mm pupils are equal, round and reactive to light, extra-ocular movements are intact. No nystagmus. There is normal conjunctiva bilaterally. No signs of icterus. No photophobia Ears, nose, mouth and throat: There are moist mucous membranes and no oral lesions. Oropharynx was not erythematous there is no tonsillar enlargement exudates or lesions. Uvula midline. No tenderness to palpation of the mastoid. No anterior cervical lymphadenopathy. Rhinorrhea, clear and bilateral nares. No tripoding, no drooling. Neck: The neck is supple, there is no tenderness or JVD. No nuchal rigidity Cardiovascular: There is a regular rate and rhythm. No murmur, rub or gallop is appreciated. Respiratory: Lungs are clear to auscultation, respirations are non-labored, breath sounds are equal. No wheezes, stridor, rales, or rhonchi. No retractions or abdominal breathing. Gastrointestinal: Soft, non-distended, non-tender abdomen without masses or organomegaly noted. There is no rebound or guarding present. Bowel sounds are unremarkable. Musculoskeletal: Normal ROM, no tenderness. Strength 5/5. Sensation intact. Radial pulses equal bilaterally 2+. Neurological: A&O x 3. CN II-XII intact grossly, There are no obvious motor or sensory deficits. Coordination appears grossly intact. Speech appears normal, no muffling. Skin: Skin is warm and dry and no rashes or lesions are noted. No extremity edema Psychiatric: Cooperative Limitations: no limitations Course Vital Signs 03/11/19 03/11/19 03/11/19 16:09 16:27 18:20 Temperature 98.5 F Pulse Rate 99 84 Respiratory 20 18 16 Rate Blood Pressure 121/83 O2 Sat by Pulse 97 98 Oximetry Medical Decision Making - Medical Decision Making Well-appearing 33-year-old male presenting today for chief complaint of body aches. History of fever. Afebrile in the emergency department. Patient appears nontoxic. Chest x-ray clear of pneumonia. Influenza testing negative. Examination revealing no focalizing symptoms aside from patient having obvious upper respiratory signs such as nasal congestion. Discussed the case with attending provider Dr. Renee with this time we feel patient is stable for discharge with outpatient primary care follow-up I discussed that this may be early on in a disease process and the patient develops new or worsening symptoms he is to return to emergency department. Patient verbalized understanding and was discharged appearing well. - Lab Data Result diagrams: 03/11/19 17:05 03/11/19 17:05 Lab Results 03/11/19 03/11/19 03/11/19 Range/Units 16:20 17:05 17:05 WBC 15.1 H (3.8-10.6) k/uL RBC 5.03 (4.30-5.90) m/uL Hgb 15.9 (13.0-17.5) gm/dL Hct 46.1 (39.0-53.0) % MCV 91.6 (80.0-100.0) fL MCH 31.6 (25.0-35.0) pg MCHC 34.5 (31.0-37.0) g/dL RDW 12.3 (11.5-15.5) % Plt Count 227 (150-450) k/uL Neutrophils % 83 % Lymphocytes % 10 % Monocytes % 4 % Eosinophils % 2 % Basophils % 1 % Neutrophils # 12.6 H (1.3-7.7) k/uL Lymphocytes # 1.4 (1.0-4.8) k/uL Monocytes # 0.6 (0-1.0) k/uL Eosinophils # 0.3 (0-0.7) k/uL Basophils # 0.1 (0-0.2) k/uL Sodium 141 (137-145) mmol/L Potassium 4.9 (3.5-5.1) mmol/L Chloride 107 (98-107) mmol/L Carbon Dioxide 27 (22-30) mmol/L Anion Gap 7 mmol/L BUN 13 (9-20) mg/dL Creatinine 0.90 (0.66-1.25) mg/dL Est GFR (CKD-EPI)AfAm >90 (>60 ml/min/1.73 sqM) Est GFR (CKD-EPI)NonAf >90 (>60 ml/min/1.73 sqM) Glucose 98 (74-99) mg/dL Calcium 10.1 (8.4-10.2) mg/dL Total Bilirubin 0.5 (0.2-1.3) mg/dL AST 28 (17-59) U/L ALT 29 (4-49) U/L Alkaline Phosphatase 39 (38-126) U/L Creatine Kinase 73 (55-170) U/L Total Protein 7.7 (6.3-8.2) g/dL Albumin 4.5 (3.5-5.0) g/dL Influenza Type A RNA Not Detected (Not Detectd) Influenza Type B (PCR) Not Detected (Not Detectd) Disposition Clinical Impression: Body aches, Congestion of nasal sinus, Sore throat Disposition: HOME SELF-CARE Condition: Good Instructions (If sedation given, give patient instructions): Upper Respiratory Infection (ED) Additional Instructions: Please use medication as discussed. Please follow-up with family doctor in the next 2 days.Please return to emergency room if the symptoms increase or worsen or for any other concerns. Is patient prescribed a controlled substance at d/c from ED?: No Referrals: Eran Andre MD [Primary Care Provider] - 1-2 days Time of Disposition: 18:12
[2019-03-11 18:24] VITALS: PULSE 84; RESP 16
== END 2019-03-11 18:20 | disposition home or self-care (01) ==
LOC: EC 16:01
DX: J02.9 Acute pharyngitis, unspecified (principal); R52 Pain, unspecified; R53.1 Weakness; F17.200 Nicotine dependence, unspecified, uncomplicated; Z88.1 Allergy status to other antibiotic agents; Z88.2 Allergy status to sulfonamides; Z91.041 Radiographic dye allergy status; Z88.5 Allergy status to narcotic agent
CPT/HCPCS: 36415; 80053; 82550; 85025; 87502; 71046; 96372; 99285; J1885

== ENCOUNTER 2019-03-22 22:12 | Emergency (ER) | payer OTHER ==
[2019-03-22 22:17] VITALS: TEMP 97.9
[2019-03-22] MEDS ORDERED: SODIUM CHLORIDE 0.9% 500 ML 500 ML IV STA (22:37)
[2019-03-22] MEDS ORDERED: ASPIRIN 81 MG PO STA (22:37)
--- NOTE | 2019-03-22 22:46 | ED ---
Arrhythmia/Palpitations HPI - General Chief Complaint: Arrhythmia/Palpitations Stated Complaint: Rapid heart rate, difficulty breathing Time Seen by Provider: 03/22/19 22:29 Source: patient Mode of arrival: ambulatory - History of Present Illness Initial Comments: This patient is a 33-year-old man who presents to be evaluated for rapid heartbeat. The patient states that approximately 2 hours ago he had been at a family gathering, where he was cooking some food and noticed that it felt like his heart was racing. He also felt a little bit short of breath. He states that a family member helped him, his pulse and it was approximately 160. Patient states that he went home and rested a bit but he was not feeling much better so he came here to be evaluated. Patient states he was not having chest pain. No diaphoresis. No nausea or vomiting. The patient notes that for approximately the week prior he had been having some upper respiratory symptoms, including cough, congestion, fever and diffuse myalgias. MD Complaint: rapid heart beat -: hour(s) Context: occurred during rest Associated Symptoms: shortness of breath - Related Data Home Medications Medication Instructions Recorded Confirmed clonazePAM [KlonoPIN] 1 mg PO DAILY PRN 05/08/16 08/25/18 Meclizine [Antivert] 25 mg PO TID PRN 03/09/17 08/25/18 Previous Rx's Medication Instructions Recorded Cephalexin [Keflex] 500 mg PO Q6HR 3 Days #12 cap 11/22/18 Allergies Allergy/AdvReac Type Severity Reaction Status Date / Time azithromycin [From Zithromax] Allergy Rash/Hives Verified 03/22/19 22:16 codeine Allergy Unknown Verified 03/22/19 22:16 Childhood Iodinated Contrast Media Allergy Anaphylaxis Verified 03/22/19 22:16 [Iodinated Contrast Media - IV Dye] iodine Allergy Anaphylaxis Verified 03/22/19 22:16 sulfamethoxazole Allergy Rash/Hives Verified 03/22/19 22:16 [From Bactrim] trimethoprim [From Bactrim] Allergy Rash/Hives Verified 03/22/19 22:16 Review of Systems ROS Statement: Those systems with pertinent positive or pertinent negative responses have been documented in the HPI. ROS Other: All systems not noted in ROS Statement are negative. Constitutional: Denies: fever, chills, weakness Respiratory: Reports: as per HPI, dyspnea. Denies: cough, wheezes Cardiovascular: Reports: palpitations. Denies: chest pain, orthopnea, edema, syncope Gastrointestinal: Denies: abdominal pain, nausea, vomiting, melena, hematochezia Genitourinary: Denies: dysuria, frequency Musculoskeletal: Denies: back pain Skin: Denies: rash Neurological: Denies: headache, weakness, numbness Past Medical History Past Medical History: Asthma, GERD/Reflux Additional Past Medical History / Comment(s): vertigo, occasional blood in st ool, recent stress test, hx. kidney stones, History of Any Multi-Drug Resistant Organisms: None Reported Date of last positivie culture/infection: 09/05/17-CDiff, MDRO Source:: stool Past Surgical History: Adenoidectomy, Tonsillectomy Additional Past Surgical History / Comment(s): colonoscopy, Past Anesthesia/Blood Transfusion Reactions: Family History of Problems w/ Anesthesia Additional Past Anesthesia/Blood Transfusion Reaction / Comment(s): father N/V Past Psychological History: Anxiety Smoking Status: Current every day smoker Past Alcohol Use History: Rare Past Drug Use History: None Reported - Past Family History Father Family Medical History: Cancer General Exam General appearance: alert, in no apparent distress Head exam: Present: atraumatic, normocephalic Eye exam: Present: normal appearance. Absent: scleral icterus, conjunctival injection ENT exam: Present: normal oropharynx Neck exam: Present: normal inspection, full ROM Respiratory exam: Present: normal lung sounds bilaterally. Absent: respiratory distress, wheezes, rales, rhonchi, stridor, accessory muscle use Cardiovascular Exam: Present: normal rhythm, tachycardia (Rate proximally 108 at my exam), normal heart sounds. Absent: systolic murmur, diastolic murmur, rubs, gallop GI/Abdominal exam: Present: soft. Absent: distended, tenderness, guarding, rebound, rigid, mass, pulsatile mass Extremities exam: Present: normal inspection, normal capillary refill. Absent: pedal edema, calf tenderness Back exam: Present: normal inspection. Absent: CVA tenderness (R), CVA tenderness (L) Neurological exam: Present: alert Skin exam: Present: warm, dry, intact, normal color. Absent: rash Course Vital Signs 03/22/19 03/22/19 22:15 23:16 Temperature 97.9 F Pulse Rate 126 H 103 H Respiratory 20 Rate Blood Pressure 119/78 O2 Sat by Pulse 97 Oximetry EKG Findings - EKG Results: EKG: interpreted by ERMD, sinus rhythm, normal axis, normal QRS, normal ST/T EKG shows: tachycardia (Rate approximately 113 bpm) Medical Decision Making - Lab Data Result diagrams: 03/22/19 23:00 03/22/19 23:00 Lab Results 03/22/19 03/22/19 03/22/19 Range/Units 23:00 23:00 23:00 WBC 10.5 (3.8-10.6) k/uL RBC 5.09 (4.30-5.90) m/uL Hgb 15.8 (13.0-17.5) gm/dL Hct 45.7 (39.0-53.0) % MCV 89.8 (80.0-100.0) fL MCH 31.1 (25.0-35.0) pg MCHC 34.7 (31.0-37.0) g/dL RDW 12.4 (11.5-15.5) % Plt Count 282 (150-450) k/uL Neutrophils % 56 % Lymphocytes % 35 % Monocytes % 6 % Eosinophils % 2 % Basophils % 0 % Neutrophils # 5.9 (1.3-7.7) k/uL Lymphocytes # 3.6 (1.0-4.8) k/uL Monocytes # 0.6 (0-1.0) k/uL Eosinophils # 0.2 (0-0.7) k/uL Basophils # 0.0 (0-0.2) k/uL PT 9.5 (9.0-12.0) sec INR 0.9 (<1.2) APTT 23.9 (22.0-30.0) sec Sodium 140 (137-145) mmol/L Potassium 4.1 (3.5-5.1) mmol/L Chloride 105 (98-107) mmol/L Carbon Dioxide 24 (22-30) mmol/L Anion Gap 11 mmol/L BUN 15 (9-20) mg/dL Creatinine 0.85 (0.66-1.25) mg/dL Est GFR (CKD-EPI)AfAm >90 (>60 ml/min/1.73 sqM) Est GFR (CKD-EPI)NonAf >90 (>60 ml/min/1.73 sqM) Glucose 102 H (74-99) mg/dL Calcium 9.7 (8.4-10.2) mg/dL Magnesium 1.7 (1.6-2.3) mg/dL Total Bilirubin 0.3 (0.2-1.3) mg/dL AST 35 (17-59) U/L ALT 39 (4-49) U/L Alkaline Phosphatase 37 L (38-126) U/L Troponin I (0.000-0.034) ng/mL Total Protein 7.7 (6.3-8.2) g/dL Albumin 4.5 (3.5-5.0) g/dL TSH 1.910 (0.465-4.680) mIU/L 03/22/19 Range/Units 23:00 WBC (3.8-10.6) k/uL RBC (4.30-5.90) m/uL Hgb (13.0-17.5) gm/dL Hct (39.0-53.0) % MCV (80.0-100.0) fL MCH (25.0-35.0) pg MCHC (31.0-37.0) g/dL RDW (11.5-15.5) % Plt Count (150-450) k/uL Neutrophils % % Lymphocytes % % Monocytes % % Eosinophils % % Basophils % % Neutrophils # (1.3-7.7) k/uL Lymphocytes # (1.0-4.8) k/uL Monocytes # (0-1.0) k/uL Eosinophils # (0-0.7) k/uL Basophils # (0-0.2) k/uL PT (9.0-12.0) sec INR (<1.2) APTT (22.0-30.0) sec Sodium (137-145) mmol/L Potassium (3.5-5.1) mmol/L Chloride (98-107) mmol/L Carbon Dioxide (22-30) mmol/L Anion Gap mmol/L BUN (9-20) mg/dL Creatinine (0.66-1.25) mg/dL Est GFR (CKD-EPI)AfAm (>60 ml/min/1.73 sqM) Est GFR (CKD-EPI)NonAf (>60 ml/min/1.73 sqM) Glucose (74-99) mg/dL Calcium (8.4-10.2) mg/dL Magnesium (1.6-2.3) mg/dL Total Bilirubin (0.2-1.3) mg/dL AST (17-59) U/L ALT (4-49) U/L Alkaline Phosphatase (38-126) U/L Troponin I <0.012 (0.000-0.034) ng/mL Total Protein (6.3-8.2) g/dL Albumin (3.5-5.0) g/dL TSH (0.465-4.680) mIU/L Disposition Clinical Impression: Palpitations Disposition: HOME SELF-CARE Condition: Good Instructions (If sedation given, give patient instructions): Heart Palpitations (ED) Is patient prescribed a controlled substance at d/c from ED?: No Referrals: Eran Andre MD [Primary Care Provider] - 1-2 days
--- NOTE | 2019-03-22 22:56 | XR ---
EXAMINATION TYPE: XR chest 2V DATE OF EXAM: 03/22/2019 COMPARISON: 03/11/2019 HISTORY: Weakness TECHNIQUE: 2 views FINDINGS: Heart and mediastinum are normal. Lungs are clear. Diaphragm is normal. Bony thorax appears normal. There are chest leads. Pulmonary vascularity is normal. IMPRESSION: Normal chest. No change.
[2019-03-22 23:07] LABS: Basophils % (A) 0 %; Eosinophils # (A) 0.2 k/uL (0-0.7); Eosinophils % (A) 2 %; HCT 45.7 % (39.0-53.0); HGB 15.8 gm/dL (13.0-17.5); Lymphocytes # (A) 3.6 k/uL (1.0-4.8); Lymphocytes % (A) 35 %; MCH 31.1 pg (25.0-35.0); MCHC 34.7 g/dL (31.0-37.0); MCV 89.8 fL (80.0-100.0); Mean Platelet Volume 8.1; Monocytes # (A) 0.6 k/uL (0-1.0); Monocytes % (A) 6 %; Neutrophils # (A) 5.9 k/uL (1.3-7.7); Neutrophils % (A) 56 %; Platelet Count 282 k/uL (150-450); RBC 5.09 m/uL (4.30-5.90); RDW 12.4 % (11.5-15.5); WBC 10.5 k/uL (3.8-10.6)
[2019-03-22 23:17] LABS: ALT 39 U/L (4-49); AST 35 U/L (17-59); African American GFR (CKD) >90 (>60 ml/min/1.73 sqM); Albumin 4.5 g/dL (3.5-5.0); Alkaline Phosphatase 37 U/L (38-126); Anion Gap 11 mmol/L; Blood Urea Nitrogen 15 mg/dL (9-20); Calcium 9.7 mg/dL (8.4-10.2); Carbon Dioxide 24 mmol/L (22-30); Chloride 105 mmol/L (98-107); Glucose 102 mg/dL (74-99); Magnesium 1.7 mg/dL (1.6-2.3); Non-African American GFR(CKD) >90 (>60 ml/min/1.73 sqM); Potassium 4.1 mmol/L (3.5-5.1); Sodium 140 mmol/L (137-145); Total Bilirubin 0.3 mg/dL (0.2-1.3); Total Protein 7.7 g/dL (6.3-8.2)
[2019-03-22 23:20] LABS: INR 0.9 (<1.2); Prothrombin Time 9.5 sec (9.0-12.0)
[2019-03-22 23:21] LABS: Partial Thromboplastin Time 23.9 sec (22.0-30.0)
[2019-03-23 00:25] VITALS: BP 124/72; PULSE 102; RESP 18
== END 2019-03-23 00:25 | disposition home or self-care (01) ==
LOC: EC 22:12
DX: R00.2 Palpitations (principal); R00.0 Tachycardia, unspecified; R06.02 Shortness of breath; F17.200 Nicotine dependence, unspecified, uncomplicated; Z88.1 Allergy status to other antibiotic agents; Z88.2 Allergy status to sulfonamides; Z88.5 Allergy status to narcotic agent; Z91.041 Radiographic dye allergy status; Z91.048 Other nonmedicinal substance allergy status; Z87.09 Personal history of other diseases of the respiratory system
CPT/HCPCS: 36415; 71046; 80053; 83735; 84443; 84484; 85025; 85610; 85730; 93005; 96360; 99285

== ENCOUNTER 2019-05-07 03:18 | Emergency (ER) | payer OTHER ==
[2019-05-07 03:25] VITALS: TEMP 98
[2019-05-07] MEDS ORDERED: MAG HYDROX/AL HYDROX/SIMETH 30 ML, HYOSCYAMINE ELIXIR 10 ML, LIDOCAINE VISCOUS 2% 10 ML PO STA ×3 (03:36)
--- NOTE | 2019-05-07 03:49 | ED ---
Chest Pain HPI - General Chief Complaint: Chest Pain Stated Complaint: Chest Pain, SOB Time Seen by Provider: 05/07/19 03:27 Source: patient Mode of arrival: ambulatory Limitations: no limitations - History of Present Illness Initial Comments: Alex is a previously healthy 33-year-old male presents the ER today for evaluation of burning epigastric abdominal pain radiating through his chest with associated taste of acid in his mouth. Patient reports that he had a very stressful day, he was home with his teenagers there is quite a bit of social strife in the household. He reports he was yelling at his teenagers quite a bit. Patient reports he is extremely. Seeing this burning discomfort in his chest throughout the day however seem to improve her. Upon bedtime. Patient reports he went to bed around 1 AM but woke around 2 AM with worsening burning and a taste of acid in his mouth. Patient didn't take anything for this but came to the ER for further evaluation. Patient does have a history of acid reflux so is not currently on any medications he does have a history of a hiatal hernia is been identified on previous imaging. Patient denies any cardiac history. He does report a family history of cardiac disease including grandfather who in his 40s, patient has no history of hypertension hyperlipidemia or diabetes. Patient isn't every day cigarette smoker. - Related Data Home Medications Medication Instructions Recorded Confirmed clonazePAM [KlonoPIN] 1 mg PO DAILY PRN 05/08/16 08/25/18 Meclizine [Antivert] 25 mg PO TID PRN 03/09/17 08/25/18 Previous Rx's Medication Instructions Recorded Cephalexin [Keflex] 500 mg PO Q6HR 3 Days #12 cap 11/22/18 Pantoprazole Sodium [Protonix] 20 mg PO DAILY #30 tablet. 05/07/19 Sucralfate [Carafate] 1 gm PO ACHS #90 tablet 05/07/19 Allergies Allergy/AdvReac Type Severity Reaction Status Date / Time azithromycin [From Zithromax] Allergy Rash/Hives Verified 05/07/19 03:25 codeine Allergy Unknown Verified 05/07/19 03:25 Childhood Iodinated Contrast Media Allergy Anaphylaxis Verified 05/07/19 03:25 [Iodinated Contrast Media - IV Dye] iodine Allergy Anaphylaxis Verified 05/07/19 03:25 sulfamethoxazole Allergy Rash/Hives Verified 05/07/19 03:25 [From Bactrim] trimethoprim [From Bactrim] Allergy Rash/Hives Verified 05/07/19 03:25 Review of Systems ROS Statement: Those systems with pertinent positive or pertinent negative responses have been documented in the HPI. ROS Other: All systems not noted in ROS Statement are negative. EKG Findings - EKG Comments: EKG Findings:: EKG was obtained due to complaint of burning epigastric and chest pain, EKG was obtained at 3:41 AM, rate of 76 rhythm sinus normal axis, normal intervals, [place] 160, curious 80, QTc is 438 there are no acute ST elevations or depressions no evidence of acute ischemia or infarction. Past Medical History Past Medical History: Asthma, GERD/Reflux Additional Past Medical History / Comment(s): vertigo, occasional blood in stool, recent stress test, hx. kidney stones, History of Any Multi-Drug Resistant Organisms: None Reported Date of last positivie culture/infection: 09/05/17-CDiff, MDRO Source:: stool Past Surgical History: Adenoidectomy, Tonsillectomy Additional Past Surgical History / Comment(s): colonoscopy, Past Anesthesia/Blood Transfusion Reactions: Family History of Problems w/ Anesthesia Additional Past Anesthesia/Blood Transfusion Reaction / Comment(s): father N/V Past Psychological History: Anxiety Smoking Status: Current every day smoker Past Alcohol Use History: Rare Past Drug Use History: None Reported - Past Family History Father Family Medical History: Cancer General Exam - General Exam Comments Initial Comments: Physical Exam GENERAL: Patient is well-developed and well-nourished. Patient is nontoxic and well- hydrated and is in no distress. HENT: Normocephalic, Atraumatic. EYES: PERRL, EOMI PULMONARY: Unlabored respirations. No audible rales rhonchi or wheezing was noted. CARDIOVASCULAR: There is a regular rate and rhythm without any murmurs gallops or rubs. ABDOMEN: Soft and nontender with normal bowel sounds. SKIN: Skin is clear with no lesions or rashes and otherwise unremarkable. : Deferred NEUROLOGIC: Patient is alert and oriented x3. Moving all extremities spontaneously MUSCULOSKELETAL: Normal extremities with adequate strength and full range of motion. No lower extremity swelling or edema. No calf tenderness. PSYCHIATRIC: Normal psychiatric evaluation. Limitations: no limitations Course Vital Signs 05/07/19 05/07/19 05/07/19 03:22 03:34 04:14 Temperature 98 F Pulse Rate 91 65 Pulse Rate [ 79 Bilateral Sitting Radial] Respiratory 20 18 Rate Blood Pressure 144/84 130/45 O2 Sat by Pulse 97 96 Oximetry 05/07/19 05:27 Temperature Pulse Rate 66 Pulse Rate [ Bilateral Sitting Radial] Respiratory 16 Rate Blood Pressure 139/44 O2 Sat by Pulse 97 Oximetry Chest Pain MDM - MDM Patient was seen and evaluated history was obtained from patient 33-year-old male with history of GERD currently not medicated, expresses some social stress and anxiety and burning epigastric pain radiating to his throat and taste of acid in his throat. Does not seem to have any classical chest pain Patient only risk factor for cardiac disease is possible family history there is uncertain and patient is a every day cigarette smoker EKG was obtained and was nonischemic, chest x-ray was unremarkable patient was treated with a GI cocktail Patient was reevaluated after GI cocktail, reported feeling better at this time. I suspect the patient's discomfort was secondary to GI etiology, patient will be discharged home with Protonix and Carafate advised to follow-up with his primary care physician for reevaluation. Return parameters were discussed patient discharged home in stable condition. Disposition Clinical Impression: Atypical chest pain Disposition: HOME SELF-CARE Condition: Stable Instructions (If sedation given, give patient instructions): Gastroesophageal Reflux Disease (DC) Prescriptions: Sucralfate [Carafate] 1 gm PO ACHS #90 tablet Pantoprazole Sodium [Protonix] 20 mg PO DAILY #30 tablet.dr Is patient prescribed a controlled substance at d/c from ED?: No Referrals: Eran Andre MD [Primary Care Provider] - 1-2 days
--- NOTE | 2019-05-07 03:50 | XR ---
EXAMINATION TYPE: XR chest 2V DATE OF EXAM: 05/07/2019 COMPARISON: 03/22/2019 HISTORY: Dysrhythmia TECHNIQUE: FINDINGS: Heart and mediastinum are normal. Lungs are clear. Diaphragm is normal. Bony thorax appears normal. There are chest leads. IMPRESSION: Normal chest. No change.
[2019-05-07 05:28] VITALS: BP 139/44; PULSE 66; RESP 16
== END 2019-05-07 05:55 | disposition home or self-care (01) ==
LOC: EC 03:18
DX: R07.89 Other chest pain (principal); R06.02 Shortness of breath; R10.13 Epigastric pain; F41.9 Anxiety disorder, unspecified; F17.200 Nicotine dependence, unspecified, uncomplicated; Z88.1 Allergy status to other antibiotic agents; Z88.5 Allergy status to narcotic agent; Z91.041 Radiographic dye allergy status; Z91.048 Other nonmedicinal substance allergy status; Z88.2 Allergy status to sulfonamides
CPT/HCPCS: 71046; 93005; 99285

== ENCOUNTER 2019-05-28 18:56 | Emergency (ER) | payer OTHER ==
--- NOTE | 2019-05-28 19:19 | ED ---
General Adult HPI - General Chief complaint: Chest Pain Stated complaint: SOB, Chest Pain Time Seen by Provider: 05/28/19 19:07 Source: patient, RN notes reviewed, old records reviewed Mode of arrival: ambulatory Limitations: no limitations - History of Present Illness Initial comments: 33-year-old male presenting for evaluation of right upper chest pain. Patient describes the pain as a squeezing sensation. Began abruptly while at rest. Patient states that he did have some mild dyspnea. No cough or fever. He states had no symptoms prior to this onset. He denies sharp pain. Denies abdominal pain nausea vomiting. He has no known history of coronary artery disease. No history DVT or PE. - Related Data Home Medications Medication Instructions Recorded Confirmed clonazePAM [KlonoPIN] 1 mg PO DAILY PRN 05/08/16 08/25/18 Meclizine [Antivert] 25 mg PO TID PRN 03/09/17 08/25/18 Previous Rx's Medication Instructions Recorded Cephalexin [Keflex] 500 mg PO Q6HR 3 Days #12 cap 11/22/18 Pantoprazole Sodium [Protonix] 20 mg PO DAILY #30 tablet. 05/07/19 Sucralfate [Carafate] 1 gm PO ACHS #90 tablet 05/07/19 Allergies Allergy/AdvReac Type Severity Reaction Status Date / Time azithromycin [From Zithromax] Allergy Rash/Hives Verified 05/28/19 19:02 codeine Allergy Unknown Verified 05/28/19 19:02 Childhood Iodinated Contrast Media Allergy Anaphylaxis Verified 05/28/19 19:02 [Iodinated Contrast Media - IV Dye] iodine Allergy Anaphylaxis Verified 05/28/19 19:02 sulfamethoxazole Allergy Rash/Hives Verified 05/28/19 19:02 [From Bactrim] trimethoprim [From Bactrim] Allergy Rash/Hives Verified 05/28/19 19:02 Review of Systems ROS Statement: Those systems with pertinent positive or pertinent negative responses have been documented in the HPI. ROS Other: All systems not noted in ROS Statement are negative. Past Medical History Past Medical History: Asthma, GERD/Reflux Additional Past Medical History / Comment(s): vertigo, occasional blood in stool, recent stress test, hx. kidney stones, History of Any Multi-Drug Resistant Organisms: None Reported Date of last positivie culture/infection: 09/05/17-CDiff, MDRO Source:: stool Past Surgical History: Adenoidectomy, Tonsillectomy Additional Past Surgical History / Comment(s): colonoscopy, Past Anesthesia/Blood Transfusion Reactions: Family History of Problems w/ Anesthesia Additional Past Anesthesia/Blood Transfusion Reaction / Comment(s): father N/V Past Psychological History: Anxiety Smoking Status: Current every day smoker Past Alcohol Use History: Rare Past Drug Use History: None Reported - Past Family History Father Family Medical History: Cancer General Exam Limitations: no limitations General appearance: alert, in no apparent distress Head exam: Present: atraumatic, normocephalic Eye exam: Present: normal appearance, PERRL ENT exam: Present: normal exam Neck exam: Present: normal inspection. Absent: tenderness, meningismus Respiratory exam: Present: normal lung sounds bilaterally. Absent: respiratory distress, wheezes Cardiovascular Exam: Present: regular rate, normal rhythm GI/Abdominal exam: Present: soft. Absent: distended, tenderness Extremities exam: Present: normal inspection, normal capillary refill. Absent: pedal edema Neurological exam: Present: alert, oriented X3, CN II-XII intact. Absent: motor sensory deficit Psychiatric exam: Present: normal affect, normal mood Skin exam: Present: warm, dry, intact. Absent: cyanosis, diaphoretic Course Vital Signs 05/28/19 19:01 Temperature 98.7 F Pulse Rate 91 Respiratory 20 Rate Blood Pressure 129/79 O2 Sat by Pulse 99 Oximetry EKG Findings - EKG Comments: EKG Findings:: EKG: Normal sinus rhythm, rate of 79, ME interval 174, QRS duration 70, QTC 417, no ST segment elevation. Medical Decision Making - Medical Decision Making 33-year-old male with right upper chest pain. Patient stable vitals, normal exam. Chest x-ray negative for acute cardiac primary disease, no pneumothorax, no focal consolidation. Laboratory studies reveal normal CBC, no leukocytosis, stable hemoglobin. Patient has normal x-rays. He has a negative d-dimer, negative troponin. EKG sinus rhythm with no ischemic changes. Patient does have good outpatient follow-up. He admits that he's had these symptoms many times in the past his had a monitor and has been followed by cardiology. - Lab Data Result diagrams: 05/28/19 19:10 05/28/19 19:10 Lab Results 05/28/19 05/28/1905/27/20 Range/Units 19:10 19:10 19:10 WBC 10.5 (3.8-10.6) k/uL RBC 5.01 (4.30-5.90) m/uL Hgb 15.5 (13.0-17.5) gm/dL Hct 45.8 (39.0-53.0) % MCV 91.5 (80.0-100.0) fL MCH 31.0 (25.0-35.0) pg MCHC 33.9 (31.0-37.0) g/dL RDW 12.5 (11.5-15.5) % Plt Count 222 (150-450) k/uL Neutrophils % 55 % Lymphocytes % 35 % Monocytes % 6 % Eosinophils % 2 % Basophils % 0 % Neutrophils # 5.8 (1.3-7.7) k/uL Lymphocytes # 3.7 (1.0-4.8) k/uL Monocytes # 0.6 (0-1.0) k/uL Eosinophils # 0.2 (0-0.7) k/uL Basophils # 0.0 (0-0.2) k/uL PT 9.5 (9.0-12.0) sec INR 0.9 (<1.2) APTT 23.6 (22.0-30.0) sec D-Dimer <0.17 (<0.60) mg/L FEU Sodium 139 (137-145) mmol/L Potassium 4.3 (3.5-5.1) mmol/L Chloride 104 (98-107) mmol/L Carbon Dioxide 26 (22-30) mmol/L Anion Gap 9 mmol/L BUN 13 (9-20) mg/dL Creatinine 0.89 (0.66-1.25) mg/dL Est GFR (CKD-EPI)AfAm >90 (>60 ml/min/1.73 sqM) Est GFR (CKD-EPI)NonAf >90 (>60 ml/min/1.73 sqM) Glucose 90 (74-99) mg/dL Calcium 9.6 (8.4-10.2) mg/dL Magnesium 1.9 (1.6-2.3) mg/dL Total Bilirubin 0.4 (0.2-1.3) mg/dL AST 36 (17-59) U/L ALT 34 (4-49) U/L Alkaline Phosphatase 37 L (38-126) U/L Troponin I (0.000-0.034) ng/mL Total Protein 7.9 (6.3-8.2) g/dL Albumin 4.7 (3.5-5.0) g/dL Lipase 161 (23-300) U/L 05/28/19 Range/Units 19:10 WBC (3.8-10.6) k/uL RBC (4.30-5.90) m/uL Hgb (13.0-17.5) gm/dL Hct (39.0-53.0) % MCV (80.0-100.0) fL MCH (25.0-35.0) pg MCHC (31.0-37.0) g/dL RDW (11.5-15.5) % Plt Count (150-450) k/uL Neutrophils % % Lymphocytes % % Monocytes % % Eosinophils % % Basophils % % Neutrophils # (1.3-7.7) k/uL Lymphocytes # (1.0-4.8) k/uL Monocytes # (0-1.0) k/uL Eosinophils # (0-0.7) k/uL Basophils # (0-0.2) k/uL PT (9.0-12.0) sec INR (<1.2) APTT (22.0-30.0) sec D-Dimer (<0.60) mg/L FEU Sodium (137-145) mmol/L Potassium (3.5-5.1) mmol/L Chloride (98-107) mmol/L Carbon Dioxide (22-30) mmol/L Anion Gap mmol/L BUN (9-20) mg/dL Creatinine (0.66-1.25) mg/dL Est GFR (CKD-EPI)AfAm (>60 ml/min/1.73 sqM) Est GFR (CKD-EPI)NonAf (>60 ml/min/1.73 sqM) Glucose (74-99) mg/dL Calcium (8.4-10.2) mg/dL Magnesium (1.6-2.3) mg/dL Total Bilirubin (0.2-1.3) mg/dL AST (17-59) U/L ALT (4-49) U/L Alkaline Phosphatase (38-126) U/L Troponin I <0.012 (0.000-0.034) ng/mL Total Protein (6.3-8.2) g/dL Albumin (3.5-5.0) g/dL Lipase (23-300) U/L Disposition Clinical Impression: Atypical chest pain Disposition: HOME SELF-CARE Instructions (If sedation given, give patient instructions): Chest Pain (ED) Is patient prescribed a controlled substance at d/c from ED?: No Referrals: Eran Andre MD [Primary Care Provider] - 1-2 days Time of Disposition: 20:25
--- NOTE | 2019-05-28 19:26 | XR ---
EXAMINATION TYPE: XR chest 2V DATE OF EXAM: 05/28/2019 COMPARISON: 05/07/2019 HISTORY: Chest pain TECHNIQUE: FINDINGS: Heart is normal. Lungs are clear. Diaphragm is normal. Bony thorax appears normal. IMPRESSION: Normal chest. No change.
[2019-05-28 19:40] LABS: Basophils % (A) 0 %; Eosinophils # (A) 0.2 k/uL (0-0.7); Eosinophils % (A) 2 %; HCT 45.8 % (39.0-53.0); HGB 15.5 gm/dL (13.0-17.5); Lymphocytes # (A) 3.7 k/uL (1.0-4.8); Lymphocytes % (A) 35 %; MCHC 33.9 g/dL (31.0-37.0); MCV 91.5 fL (80.0-100.0); Mean Platelet Volume 8.9; Monocytes # (A) 0.6 k/uL (0-1.0); Monocytes % (A) 6 %; Neutrophils # (A) 5.8 k/uL (1.3-7.7); Neutrophils % (A) 55 %; Platelet Count 222 k/uL (150-450); RBC 5.01 m/uL (4.30-5.90); RDW 12.5 % (11.5-15.5); WBC 10.5 k/uL (3.8-10.6)
[2019-05-28 19:56] LABS: D-Dimer <0.17 mg/L FEU (<0.60); INR 0.9 (<1.2); Partial Thromboplastin Time 23.6 sec (22.0-30.0); Prothrombin Time 9.5 sec (9.0-12.0)
[2019-05-28 20:03] LABS: ALT 34 U/L (4-49); AST 36 U/L (17-59); African American GFR (CKD) >90 (>60 ml/min/1.73 sqM); Albumin 4.7 g/dL (3.5-5.0); Alkaline Phosphatase 37 U/L (38-126); Anion Gap 9 mmol/L; Blood Urea Nitrogen 13 mg/dL (9-20); Calcium 9.6 mg/dL (8.4-10.2); Carbon Dioxide 26 mmol/L (22-30); Chloride 104 mmol/L (98-107); Glucose 90 mg/dL (74-99); Magnesium 1.9 mg/dL (1.6-2.3); Non-African American GFR(CKD) >90 (>60 ml/min/1.73 sqM); Potassium 4.3 mmol/L (3.5-5.1); Sodium 139 mmol/L (137-145); Total Bilirubin 0.4 mg/dL (0.2-1.3); Total Protein 7.9 g/dL (6.3-8.2)
[2019-05-28 20:35] VITALS: BP 114/74; PULSE 78; RESP 17; TEMP 98.2
== END 2019-05-28 20:35 | disposition home or self-care (01) ==
LOC: EC 18:56
DX: R07.89 Other chest pain (principal); R06.00 Dyspnea, unspecified; F17.200 Nicotine dependence, unspecified, uncomplicated; Z88.1 Allergy status to other antibiotic agents; Z88.2 Allergy status to sulfonamides; Z88.5 Allergy status to narcotic agent; Z91.041 Radiographic dye allergy status; Z91.048 Other nonmedicinal substance allergy status
CPT/HCPCS: 36415; 71046; 80053; 83690; 83735; 84484; 85025; 85379; 85610; 85730; 93005; 99285

== ENCOUNTER 2019-08-08 15:50 | Emergency (ER) | payer OTHER ==
[2019-08-08 15:54] VITALS: RESP 18
[2019-08-08] MEDS ORDERED: SODIUM CHLORIDE 0.9% 1,000 ML IV STA (16:37)
[2019-08-08] MEDS ORDERED: METOCLOPRAMIDE 5 MG/ML 2 ML VIAL IVP STA (16:38)
--- NOTE | 2019-08-08 16:41 | ED ---
General Adult HPI - General Chief complaint: Dizziness Stated complaint: dizzyness,light headed Time Seen by Provider: 08/08/19 15:55 Source: patient, RN notes reviewed Mode of arrival: wheelchair Limitations: no limitations - History of Present Illness Initial comments: Patient is a pleasant 33-year-old male presenting to the emergency Department with complaints of lightheadedness. Patient does have some chronic dizziness however this has been worse than normal. Symptoms have been worse over the past few days. Patient does take Antivert frequently and has not been taking it much lately. Patient did take a dose yesterday and a dose today prior to arrival and it did help some. Patient states lightheadedness is worse with going from lying down to upright position. Patient states his diet has been higher fat than normal recently. Patient otherwise is eating and drinking normally. No alcohol use. No street drug use. Dizziness is described as lightheadedness and not a spinning type sensation. Patient states his entire family has vertigo. Patient does have chronic sinus problems however there are no worse than normal at this time. Patient has been sleeping more than normal the past few days. - Related Data Home Medications Medication Instructions Recorded Confirmed clonazePAM [KlonoPIN] 1 mg PO DAILY PRN 05/08/16 08/25/18 Meclizine [Antivert] 25 mg PO TID PRN 03/09/17 08/25/18 Previous Rx's Medication Instructions Recorded Cephalexin [Keflex] 500 mg PO Q6HR 3 Days #12 cap 11/22/18 Pantoprazole Sodium [Protonix] 20 mg PO DAILY #30 tablet. 05/07/19 Sucralfate [Carafate] 1 gm PO ACHS #90 tablet 05/07/19 Metoclopramide HCl [Reglan] 10 mg PO Q6HR PRN #15 tablet 08/08/19 Allergies Allergy/AdvReac Type Severity Reaction Status Date / Time azithromycin [From Zithromax] Allergy Rash/Hives Verified 08/08/19 15:54 codeine Allergy Unknown Verified 08/08/19 15:54 Childhood Iodinated Contrast Media Allergy Anaphylaxis Verified 08/08/19 15:54 [Iodinated Contrast Media - IV Dye] iodine Allergy Anaphylaxis Verified 08/08/19 15:54 sulfamethoxazole Allergy Rash/Hives Verified 08/08/19 15:54 [From Bactrim] trimethoprim [From Bactrim] Allergy Rash/Hives Verified 08/08/19 15:54 Review of Systems ROS Statement: Those systems with pertinent positive or pertinent negative responses have been documented in the HPI. ROS Other: All systems not noted in ROS Statement are negative. Constitutional: Denies: fever Eyes: Denies: eye pain ENT: Denies: ear pain Respiratory: Denies: cough, dyspnea Cardiovascular: Denies: chest pain Endocrine: Denies: fatigue Gastrointestinal: Denies: abdominal pain Genitourinary: Denies: dysuria Musculoskeletal: Denies: back pain Skin: Denies: rash Neurological: Reports: as per HPI. Denies: weakness Past Medical History Past Medical History: Asthma, GERD/Reflux Additional Past Medical History / Comment(s): vertigo, occasional blood in stool, recent stress test, hx. kidney stones, History of Any Multi-Drug Resistant Organisms: None Reported Date of last positivie culture/infection: 09/05/17-CDiff, MDRO Source:: stool Past Surgical History: Adenoidectomy, Tonsillectomy Additional Past Surgical History / Comment(s): colonoscopy, Past Anesthesia/Blood Transfusion Reactions: Family History of Problems w/ Anesthesia Additional Past Anesthesia/Blood Transfusion Reaction / Comment(s): father N/V Past Psychological History: Anxiety Smoking Status: Current every day smoker Past Alcohol Use History: Rare Past Drug Use History: None Reported - Past Family History Father Family Medical History: Cancer General Exam Limitations: no limitations General appearance: alert, in no apparent distress Head exam: Present: normocephalic Eye exam: Present: normal appearance, PERRL, EOMI. Absent: nystagmus Neck exam: Present: normal inspection Respiratory exam: Present: normal lung sounds bilaterally Cardiovascular Exam: Present: regular rate, normal rhythm GI/Abdominal exam: Present: soft. Absent: tenderness Extremities exam: Present: normal inspection Neurological exam: Present: alert, CN II-XII intact. Absent: motor sensory deficit Expanded Neurological exam: Present: protecting the airway Speech: Present: fluid speech Cranial nerves: EOM's Intact: Normal Cerebellar function: Finger to Nose: Normal Motor strength exam: RUE: 5, LUE: 5, RLE: 5, LLE: 5 Eye Response: (4) open spontaneously Motor Response: (6) obeys commands Verbal Response: (5) oriented Psychiatric exam: Present: normal affect, normal mood Skin exam: Present: normal color Course Vital Signs 08/08/19 15:52 Temperature 98.0 F Pulse Rate 102 H Respiratory 18 Rate Blood Pressure 117/82 O2 Sat by Pulse 98 Oximetry EKG Findings - EKG Comments: EKG Findings:: Normal sinus rhythm 84. MN 16. QRS 82. QT 370. QTc 437. Normal axis. Normal QRS. No acute ST change. Medical Decision Making - Medical Decision Making Patient reevaluated and is feeling better following Reglan. Patient and family updated on results and need for follow-up. - Lab Data Result diagrams: 08/08/19 16:35 08/08/19 16:35 Lab Results 08/08/19 08/08/19 Range/Units 16:35 16:35 WBC 9.4 (3.8-10.6) k/uL RBC 5.44 (4.30-5.90) m/uL Hgb 16.7 (13.0-17.5) gm/dL Hct 49.9 (39.0-53.0) % MCV 91.9 (80.0-100.0) fL MCH 30.7 (25.0-35.0) pg MCHC 33.4 (31.0-37.0) g/dL RDW 12.5 (11.5-15.5) % Plt Count 228 (150-450) k/uL Neutrophils % 61 % Lymphocytes % 28 % Monocytes % 6 % Eosinophils % 2 % Basophils % 0 % Neutrophils # 5.8 (1.3-7.7) k/uL Lymphocytes # 2.7 (1.0-4.8) k/uL Monocytes # 0.6 (0-1.0) k/uL Eosinophils # 0.2 (0-0.7) k/uL Basophils # 0.0 (0-0.2) k/uL Sodium 139 (137-145) mmol/L Potassium 4.7 (3.5-5.1) mmol/L Chloride 105 (98-107) mmol/L Carbon Dioxide 26 (22-30) mmol/L Anion Gap 8 mmol/L BUN 11 (9-20) mg/dL Creatinine 0.71 (0.66-1.25) mg/dL Est GFR (CKD-EPI)AfAm >90 (>60 ml/min/1.73 sqM) Est GFR (CKD-EPI)NonAf >90 (>60 ml/min/1.73 sqM) Glucose 86 (74-99) mg/dL Calcium 9.4 (8.4-10.2) mg/dL Magnesium 1.9 (1.6-2.3) mg/dL Total Bilirubin 0.2 (0.2-1.3) mg/dL AST 32 (17-59) U/L ALT 39 (4-49) U/L Alkaline Phosphatase 37 L (38-126) U/L Total Protein 7.4 (6.3-8.2) g/dL Albumin 4.4 (3.5-5.0) g/dL - Radiology Data Radiology results: image reviewed (Computed tomography scan the brain reveals no acute process) Disposition Clinical Impression: Dizziness Disposition: HOME SELF-CARE Condition: Stable Instructions (If sedation given, give patient instructions): Dizziness (ED) Additional Instructions: Please follow-up with primary care physician in the next couple days for recheck. Also follow-up with ENT, number provided. Continue Antivert as needed. Return for confusion, weakness, off balance, worsening or changing symptoms or other concerns. Prescription and sent to [facility] Prescriptions: Metoclopramide HCl [Reglan] 10 mg PO Q6HR PRN #15 tablet PRN Reason: Nausea Is patient prescribed a controlled substance at d/c from ED?: No Referrals: Eran Andre MD [Primary Care Provider] - 1-2 days Gino Mccarthy MD [STAFF PHYSICIAN] - 1-2 days Time of Disposition: 17:41
[2019-08-08 16:46] LABS: Basophils % (A) 0 %; Eosinophils # (A) 0.2 k/uL (0-0.7); Eosinophils % (A) 2 %; HCT 49.9 % (39.0-53.0); HGB 16.7 gm/dL (13.0-17.5); Lymphocytes # (A) 2.7 k/uL (1.0-4.8); Lymphocytes % (A) 28 %; MCH 30.7 pg (25.0-35.0); MCHC 33.4 g/dL (31.0-37.0); MCV 91.9 fL (80.0-100.0); Mean Platelet Volume 8.3; Monocytes # (A) 0.6 k/uL (0-1.0); Monocytes % (A) 6 %; Neutrophils # (A) 5.8 k/uL (1.3-7.7); Neutrophils % (A) 61 %; Platelet Count 228 k/uL (150-450); RBC 5.44 m/uL (4.30-5.90); RDW 12.5 % (11.5-15.5); WBC 9.4 k/uL (3.8-10.6)
[2019-08-08 16:58] LABS: ALT 39 U/L (4-49); AST 32 U/L (17-59); African American GFR (CKD) >90 (>60 ml/min/1.73 sqM); Albumin 4.4 g/dL (3.5-5.0); Alkaline Phosphatase 37 U/L (38-126); Anion Gap 8 mmol/L; Blood Urea Nitrogen 11 mg/dL (9-20); Calcium 9.4 mg/dL (8.4-10.2); Carbon Dioxide 26 mmol/L (22-30); Chloride 105 mmol/L (98-107); Glucose 86 mg/dL (74-99); Magnesium 1.9 mg/dL (1.6-2.3); Non-African American GFR(CKD) >90 (>60 ml/min/1.73 sqM); Potassium 4.7 mmol/L (3.5-5.1); Sodium 139 mmol/L (137-145); Total Bilirubin 0.2 mg/dL (0.2-1.3); Total Protein 7.4 g/dL (6.3-8.2)
--- NOTE | 2019-08-08 17:26 | CT ---
EXAMINATION TYPE: CT brain wo con DATE OF EXAM: 08/08/2019 COMPARISON: 01/13/2016 INDICATION: dizziness, fatigue DLP: 1102.4 mGycm, Automated exposure control for dose reduction was used. CONTRAST: None CT of the brain is performed utilizing 3 mm thick sections through the posterior fossa and 3 mm thick sections through the remaining calvarium. Study is performed within 24 hours of arrival to the hosp [facility]. No abnormal hyperdensity is present to suggest an acute intracranial hemorrhage. No mass lesion is evident. No acute infarcts are evident. Ventricles and sulci are appropriate for the patient age. Paranasal sinuses and mastoid air cells within the [id number] are clear. IMPRESSIONS: 1. Normal CT Brain
[2019-08-08 17:53] VITALS: BP 118/78; PULSE 90; TEMP 97.9
== END 2019-08-08 17:49 | disposition home or self-care (01) ==
LOC: EC 15:50
DX: R42 Dizziness and giddiness (principal); F17.200 Nicotine dependence, unspecified, uncomplicated; Z88.1 Allergy status to other antibiotic agents; Z88.5 Allergy status to narcotic agent; Z91.041 Radiographic dye allergy status; Z88.2 Allergy status to sulfonamides; Z91.048 Other nonmedicinal substance allergy status
CPT/HCPCS: 36415; 93005; 80053; 83735; 85025; 70450; 99284; 96374; 96361; J2765

== ENCOUNTER 2019-08-19 22:30 | Emergency (ER) | payer OTHER ==
[2019-08-19 22:43] VITALS: BP 119/87; PULSE 102; RESP 18; TEMP 99
[2019-08-19] MEDS ORDERED: LIDOCAINE 1% INJ 10MG/ML (20 ML MDV) SQ ONE (22:48)
--- NOTE | 2019-08-19 23:26 | ED ---
Skin/Abscess/FB HPI - General Chief complaint: Skin/Abscess/Foreign Body Stated complaint: Fish hook in finger Time Seen by Provider: 08/19/19 22:44 Source: patient Mode of arrival: ambulatory Limitations: no limitations - History of Present Illness Initial comments: Patient is a 33-year-old male presenting to emergency Department with complaints of a fishhook stuck in his right middle finger. Patient states this happened just prior to arrival. He tended to remove the hook and was unsuccessful. He states his tetanus is up-to-date, updated last year. He denies any fever or chills. He has no other complaints at this time. - Related Data Home Medications Medication Instructions Recorded Confirmed clonazePAM [KlonoPIN] 1 mg PO DAILY PRN 05/08/16 08/25/18 Meclizine [Antivert] 25 mg PO TID PRN 03/09/17 08/25/18 Previous Rx's Medication Instructions Recorded Cephalexin [Keflex] 500 mg PO Q6HR 3 Days #12 cap 11/22/18 Pantoprazole Sodium [Protonix] 20 mg PO DAILY #30 tablet. 05/07/19 Sucralfate [Carafate] 1 gm PO ACHS #90 tablet 05/07/19 Metoclopramide HCl [Reglan] 10 mg PO Q6HR PRN #15 tablet 08/08/19 Amoxicillin/Potassium Clav 1 tab PO BID 3 Days #6 tab 08/19/19 [Augmentin 875-125 Tablet] Allergies Allergy/AdvReac Type Severity Reaction Status Date / Time azithromycin [From Zithromax] Allergy Rash/Hives Verified 08/19/19 22:42 codeine Allergy Unknown Verified 08/19/19 22:42 Childhood Iodinated Contrast Media Allergy Anaphylaxis Verified 08/19/19 22:42 [Iodinated Contrast Media - IV Dye] iodine Allergy Anaphylaxis Verified 08/19/19 22:42 sulfamethoxazole Allergy Rash/Hives Verified 08/19/19 22:42 [From Bactrim] trimethoprim [From Bactrim] Allergy Rash/Hives Verified 08/19/19 22:42 Review of Systems ROS Statement: Those systems with pertinent positive or pertinent negative responses have been documented in the HPI. ROS Other: All systems not noted in ROS Statement are negative. Past Medical History Past Medical History: Asthma, GERD/Reflux Additional Past Medical History / Comment(s): vertigo, occasional blood in stool, recent stress test, hx. kidney stones, History of Any Multi-Drug Resistant Organisms: None Reported Date of last positivie culture/infection: 09/05/17-CDiff, MDRO Source:: stool Past Surgical History: Adenoidectomy, Tonsillectomy Additional Past Surgical History / Comment(s): colonoscopy, Past Anesthesia/Blood Transfusion Reactions: Family History of Problems w/ Anesthesia Additional Past Anesthesia/Blood Transfusion Reaction / Comment(s): father N/V Past Psychological History: Anxiety Smoking Status: Current every day smoker Past Alcohol Use History: Rare Past Drug Use History: None Reported - Past Family History Father Family Medical History: Cancer General Exam - General Exam Comments Initial Comments: GENERAL: Well-appearing, well-nourished and in no acute distress. HEAD: Atraumatic, normocephalic. EYES: Pupils equal round and reactive to light, extraocular movements intact, sclera anicteric, conjunctiva are normal. ENT: TMs normal, nares patent, oropharynx clear without exudates. Moist mucous membranes. NECK: Normal range of motion, supple without lymphadenopathy or JVD. LUNGS: Breath sounds clear to auscultation bilaterally and equal. No wheezes rales or rhonchi. HEART: Regular rate and rhythm without murmurs, rubs or gallops. ABDOMEN: Soft, nontender, normoactive bowel sounds. No guarding, no rebound. No masses appreciated. : Deferred EXTREMITIES: Full range of motion of the right hand and fingers. Neurovascular intact. No pitting or edema. No clubbing or cyanosis. NEUROLOGICAL: Normal speech, normal gait. PSYCH: Normal mood, normal affect. SKIN: Warm, Dry, normal turgor. Patient has a small fishhook embedded into the distal end of the right middle finger. No active bleeding. Limitations: no limitations Course Vital Signs 08/19/19 22:40 Temperature 99 F Pulse Rate 102 H Respiratory 18 Rate Blood Pressure 119/87 O2 Sat by Pulse 100 Oximetry Procedures - Procedures Initial comment: Foreign body removal of right middle finger. Patient was anesthetized with 5 mL of lidocaine 1% subcu. Linwood was removed successfully. Patient tolerated procedure well. Patient was then irrigated with sterile water. Topical antibiotic and bandage was applied. No complications. Medical Decision Making - Medical Decision Making Patient is a 33-year-old male presenting with a fishhook embedded in the right middle finger. Tetanus vaccine is up-to-date. Linwood was successfully removed. Patient tolerated his procedure well. Topical antibiotic and bandage was applied. Patient was given prescription for Augmentin. Patient stable for discharge and he is in agreement with this plan of care. Disposition Clinical Impression: Fish hook injury of right middle finger Disposition: HOME SELF-CARE Condition: Stable Instructions (If sedation given, give patient instructions): Soft Tissue Foreign Body (ED) Additional Instructions: Please return to the Emergency Department if symptoms worsen or any other concerns. Take at night as prescribed. Keep wound clean and dry. Apply topical antibiotic. Prescriptions: Amoxicillin/Potassium Clav [Augmentin 875-125 Tablet] 1 tab PO BID 3 Days #6 tab Is patient prescribed a controlled substance at d/c from ED?: No Referrals: Eran Andre MD [Primary Care Provider] - 1-2 days
== END 2019-08-19 23:37 | disposition home or self-care (01) ==
LOC: EC 22:30
DX: S60.452A Superficial foreign body of right middle finger, initial encounter (principal); F41.9 Anxiety disorder, unspecified; F17.200 Nicotine dependence, unspecified, uncomplicated; Z88.1 Allergy status to other antibiotic agents; Z88.2 Allergy status to sulfonamides; Z88.5 Allergy status to narcotic agent; Z91.041 Radiographic dye allergy status; Z91.048 Other nonmedicinal substance allergy status; W45.8XXA Other foreign body or object entering through skin, initial encounter
CPT/HCPCS: 99283; 10120; J2001

== ENCOUNTER 2019-09-16 20:26 | Emergency (ER) | payer OTHER ==
[2019-09-16] MEDS ORDERED: DEXAMETHASONE 4 MG TAB PO STA (20:57)
--- NOTE | 2019-09-16 20:59 | ED ---
General Adult HPI - General Chief complaint: Allergic Reaction Stated complaint: allergic reaction, SHI Time Seen by Provider: 09/16/19 20:49 Source: patient Mode of arrival: ambulatory Limitations: no limitations - History of Present Illness Initial comments: Dictation was produced using Ribbit dictation software. please excuse any grammatical, word or spelling errors. This patient was cared for during a federal and state declared state of emergency secondary to Covid 19 Chief Complaint: 33-year-old male past nuchal history of anxiety presents with insect bite to the toe History of Present Illness: Patient is a 33-year-old male his past medical history of anxiety, exercise-induced asthma. He was out trying to hurt groundhog's. He wasn't wearing socks. He felt like a bug bit him on his left fifth toe. Patient states he became anxious and became short of breath. Patient has a history of anaphylaxis. He does report however ALLERGIES to certain bees. He has never injected himself with an EpiPen. Physical short of breath. No abdominal pain. No rash. The ROS documented in this emergency department record has been reviewed and confirmed by me. Those systems with pertinent positive or negative responses have been documented in the HPI. All other systems are other negative and/or noncontributory. PHYSICAL EXAM: General Impression: Alert and oriented x3, not in acute distress HEENT: Normocephalic atraumatic, extra-ocular movements intact, pupils equal and reactive to light bilaterally, mucous membranes moist. Cardiovascular: Heart regular rate and rhythm Chest: Able to complete full sentences, no retractions, no tachypnea, lungs clear to auscultation bilaterally Abdomen: abdomen soft, non-tender, non-distended, no organomegaly Musculoskeletal: Pulses present and equal in all extremities, no peripheral edema Motor: no focal deficits noted Neurological: CN II-XII grossly intact, no focal motor or sensory deficits noted Skin: Intact with no visualized rashes, small punctate bug bite to the left small toe without any erythema Psych: Normal affect and mood ED course: 33-year-old male presents with anxiety reaction. Signs upon arrival shows heart rate of 111, respiratory rate of 28 and repeat vital signs are unremarkable. Patient given 10 of by mouth Decadron. Patient's clinical presentation is not consistent with ALLERGIC reaction or anaphylaxis. Patient told to follow-up with primary care physician. Patient clear for discharge. - Related Data Home Medications Medication Instructions Recorded Confirmed clonazePAM [KlonoPIN] 1 mg PO DAILY PRN 05/08/16 08/25/18 Meclizine [Antivert] 25 mg PO TID PRN 03/09/17 08/25/18 Previous Rx's Medication Instructions Recorded Cephalexin [Keflex] 500 mg PO Q6HR 3 Days #12 cap 11/22/18 Pantoprazole Sodium [Protonix] 20 mg PO DAILY #30 tablet. 05/07/19 Sucralfate [Carafate] 1 gm PO ACHS #90 tablet 05/07/19 Metoclopramide HCl [Reglan] 10 mg PO Q6HR PRN #15 tablet 08/08/19 Amoxicillin/Potassium Clav 1 tab PO BID 3 Days #6 tab 08/19/19 [Augmentin 875-125 Tablet] Allergies Allergy/AdvReac Type Severity Reaction Status Date / Time azithromycin [From Zithromax] Allergy Rash/Hives Verified 08/19/19 22:42 codeine Allergy Unknown Verified 08/19/19 22:42 Childhood Iodinated Contrast Media Allergy Anaphylaxis Verified 08/19/19 22:42 [Iodinated Contrast Media - IV Dye] iodine Allergy Anaphylaxis Verified 08/19/19 22:42 sulfamethoxazole Allergy Rash/Hives Verified 08/19/19 22:42 [From Bactrim] trimethoprim [From Bactrim] Allergy Rash/Hives Verified 08/19/19 22:42 Review of Systems ROS Statement: Those systems with pertinent positive or pertinent negative responses have been documented in the HPI. ROS Other: All systems not noted in ROS Statement are negative. Past Medical History Past Medical History: Asthma, GERD/Reflux Additional Past Medical History / Comment(s): vertigo, occasional blood in stool, recent stress test, hx. kidney stones, History of Any Multi-Drug Resistant Organisms: None Reported Date of last positivie culture/infection: 09/05/17-CDiff, MDRO Source:: stool Past Surgical History: Adenoidectomy, Tonsillectomy Additional Past Surgical History / Comment(s): colonoscopy, Past Anesthesia/Blood Transfusion Reactions: Family History of Problems w/ Anesthesia Additional Past Anesthesia/Blood Transfusion Reaction / Comment(s): father N/V Past Psychological History: Anxiety Smoking Status: Current every day smoker Past Alcohol Use History: Rare Past Drug Use History: None Reported - Past Family History Father Family Medical History: Cancer General Exam Limitations: no limitations Course Vital Signs 09/16/19 20:31 Temperature 98.1 F Pulse Rate 111 H Respiratory 28 H Rate Blood Pressure 129/79 O2 Sat by Pulse 98 Oximetry Disposition Clinical Impression: Allergic reaction Disposition: HOME SELF-CARE Condition: Good Instructions (If sedation given, give patient instructions): Insect Bite or Sting (ED) Is patient prescribed a controlled substance at d/c from ED?: No Referrals: Eran Andre MD [Primary Care Provider] - 1-2 days Time of Disposition: 20:59
[2019-09-16 21:15] VITALS: BP 119/82; PULSE 100; RESP 18; TEMP 98.3
== END 2019-09-16 21:15 | disposition home or self-care (01) ==
LOC: EC 20:26
DX: T78.40XA Allergy, unspecified, initial encounter (principal); F41.9 Anxiety disorder, unspecified; F17.200 Nicotine dependence, unspecified, uncomplicated; Z88.1 Allergy status to other antibiotic agents; Z88.5 Allergy status to narcotic agent; Z91.041 Radiographic dye allergy status; Z91.048 Other nonmedicinal substance allergy status; Z88.2 Allergy status to sulfonamides
CPT/HCPCS: 99284; J8540

== ENCOUNTER 2019-10-02 18:31 | Emergency (ER) | payer OTHER ==
[2019-10-02 18:36] VITALS: BP 124/77; RESP 20; TEMP 98.6
--- NOTE | 2019-10-02 18:48 | ED ---
Chest Pain HPI - General Chief Complaint: Chest Pain Stated Complaint: chest tightness,shoulder pain Time Seen by Provider: 10/02/19 18:42 Source: patient, RN notes reviewed, old records reviewed Mode of arrival: ambulatory Limitations: no limitations - History of Present Illness Initial Comments: This is a 33-year-old male DF for evaluation patient presented today for evaluation of some chest pain but he admits more feels like reflux pain burning burning sensation, patient denies any drug or alcohol abuse today when he admits to being out fishing on the.. Patient states symptoms began has he was returning home have made him increasingly anxious was little sweaty from being on the but denied any shortness of breath. Patient is well abdominal burning type pain distally prior reflux he does state right now he feels good for discharge home as his he is presents to emergency room with symptoms resolved he does have Tums and Maalox at home which she will take MD Complaint: chest pain -: days(s) Onset: during rest Pain Location: substernal Pain Radiation: none Severity: moderate Severity scale (1-10): 5 Quality: aching Consistency: constant Improves With: nothing Worsens With: nothing Anginal Symptoms: nausea Other Symptoms: cough Treatments Prior to Arrival: none - Related Data Home Medications Medication Instructions Recorded Confirmed clonazePAM [KlonoPIN] 1 mg PO DAILY PRN 05/08/16 08/25/18 Meclizine [Antivert] 25 mg PO TID PRN 03/09/17 08/25/18 Previous Rx's Medication Instructions Recorded Cephalexin [Keflex] 500 mg PO Q6HR 3 Days #12 cap 11/22/18 Pantoprazole Sodium [Protonix] 20 mg PO DAILY #30 tablet. 05/07/19 Sucralfate [Carafate] 1 gm PO ACHS #90 tablet 05/07/19 Metoclopramide HCl [Reglan] 10 mg PO Q6HR PRN #15 tablet 08/08/19 Amoxicillin/Potassium Clav 1 tab PO BID 3 Days #6 tab 08/19/19 [Augmentin 875-125 Tablet] Allergies Allergy/AdvReac Type Severity Reaction Status Date / Time azithromycin [From Zithromax] Allergy Rash/Hives Verified 10/02/19 18:36 codeine Allergy Unknown Verified 10/02/19 18:36 Childhood Iodinated Contrast Media Allergy Anaphylaxis Verified 10/02/19 18:36 [Iodinated Contrast Media - IV Dye] iodine Allergy Anaphylaxis Verified 10/02/19 18:36 sulfamethoxazole Allergy Rash/Hives Verified 10/02/19 18:36 [From Bactrim] trimethoprim [From Bactrim] Allergy Rash/Hives Verified 10/02/19 18:36 Review of Systems ROS Statement: Those systems with pertinent positive or pertinent negative responses have been documented in the HPI. ROS Other: All systems not noted in ROS Statement are negative. Past Medical History Past Medical History: Asthma, GERD/Reflux Additional Past Medical History / Comment(s): vertigo, occasional blood in stool, recent stress test, hx. kidney stones, History of Any Multi-Drug Resistant Organisms: None Reported Date of last positivie culture/infection: 09/05/17-CDiff, MDRO Source:: stool Past Surgical History: Adenoidectomy, Tonsillectomy Additional Past Surgical History / Comment(s): colonoscopy, Past Anesthesia/Blood Transfusion Reactions: Family History of Problems w/ Anesthesia Additional Past Anesthesia/Blood Transfusion Reaction / Comment(s): father N/V Past Psychological History: Anxiety Smoking Status: Current every day smoker Past Alcohol Use History: Rare Past Drug Use History: None Reported - Past Family History Father Family Medical History: Cancer General Exam Limitations: no limitations General appearance: alert, in no apparent distress Head exam: Present: atraumatic, normocephalic, normal inspection Eye exam: Present: normal appearance, PERRL, EOMI. Absent: scleral icterus, conjunctival injection, periorbital swelling ENT exam: Present: normal exam, mucous membranes moist Neck exam: Present: normal inspection. Absent: tenderness, meningismus, lymphadenopathy Respiratory exam: Present: normal lung sounds bilaterally. Absent: respiratory distress, wheezes, rales, rhonchi, stridor Cardiovascular Exam: Present: regular rate, normal rhythm, normal heart sounds. Absent: systolic murmur, diastolic murmur, rubs, gallop, clicks GI/Abdominal exam: Present: soft, normal bowel sounds. Absent: distended, tenderness, guarding, rebound, rigid Extremities exam: Present: normal inspection, full ROM, normal capillary refill. Absent: tenderness, pedal edema, joint swelling, calf tenderness Back exam: Present: normal inspection Neurological exam: Present: alert, oriented X3, CN II-XII intact Psychiatric exam: Present: normal affect, normal mood Skin exam: Present: warm, dry, intact, normal color. Absent: rash Course Vital Signs 10/02/19 18:34 Temperature 98.6 F Pulse Rate 72 Respiratory 20 Rate Blood Pressure 124/77 O2 Sat by Pulse 97 Oximetry Chest Pain MDM - MDM 33 male DF for evaluation patient Dese for evaluation of chest pain with some mild anxiety to the ER for Reflux disease which does have history of answered to make him a little anxious. This point patient symptoms are completely resolved he feels good for discharge home Disposition Clinical Impression: Atypical chest pain, Chest pain Disposition: HOME SELF-CARE Condition: Good Instructions (If sedation given, give patient instructions): Chest Pain (ED) Is patient prescribed a controlled substance at d/c from ED?: No Referrals: Eran Andre MD [Primary Care Provider] - 1-2 days
[2019-10-02 18:57] VITALS: PULSE 74
== END 2019-10-02 18:59 | disposition home or self-care (01) ==
LOC: EC 18:31
DX: R07.89 Other chest pain (principal); R11.0 Nausea; F41.9 Anxiety disorder, unspecified; Z79.899 Other long term (current) drug therapy; F17.200 Nicotine dependence, unspecified, uncomplicated; Z88.1 Allergy status to other antibiotic agents; Z88.2 Allergy status to sulfonamides; Z88.5 Allergy status to narcotic agent; Z91.041 Radiographic dye allergy status
CPT/HCPCS: 99285

== ENCOUNTER 2020-01-11 21:13 | Emergency (ER) | payer OTHER ==
[2020-01-11 21:29] VITALS: BP 129/97; PULSE 102; RESP 20; TEMP 98.6
--- NOTE | 2020-01-11 22:31 | XR ---
EXAMINATION TYPE: XR finger LT DATE OF EXAM: 01/11/2020 COMPARISON: NONE HISTORY: Thumb pain TECHNIQUE: 3 views FINDINGS: I see no fracture nor dislocation. Joint spaces are normal. There are no pathologic calcifi cations. I see no evidence of radiopaque foreign body. IMPRESSION: Negative exam. A thorn is probably not visible on a plain x-ray.
--- NOTE | 2020-01-11 22:56 | ED ---
General Adult HPI - General Chief complaint: Extremity Injury, Upper Stated complaint: arm pain/poss infection Time Seen by Provider: 01/11/20 21:33 Source: patient, family, RN notes reviewed Mode of arrival: ambulatory Limitations: no limitations - History of Present Illness Initial comments: 34-year-old male presents to the emergency room for a chief complaint of thumb pain. Patient reports that yesterday he was out in [place] and got some thorns in his thumb. States that the pain radiates from his thumb up his arm. Patient denies any spreading or streaking redness. Denies any pain with moving the shoulder and elbow or wrist. Denies fevers or chills. Patient has no other complaints at this time including shortness of breath, chest pain, abdominal pain, nausea or vomiting, headache, or visual changes. - Related Data Home Medications Medication Instructions Recorded Confirmed clonazePAM [KlonoPIN] 1 mg PO TID PRN 05/08/16 01/11/20 Meclizine [Antivert] 25 mg PO BID 03/09/17 01/11/20 Previous Rx's Medication Instructions Recorded Cephalexin [Keflex] 500 mg PO Q6HR 7 Days #28 cap 01/11/20 Allergies Allergy/AdvReac Type Severity Reaction Status Date / Time azithromycin [From Zithromax] Allergy Rash/Hives Verified 01/11/20 21:54 codeine Allergy Unknown Verified 01/11/20 21:54 Childhood Iodinated Contrast Media Allergy Anaphylaxis Verified 01/11/20 21:54 [Iodinated Contrast Media - IV Dye] iodine Allergy Anaphylaxis Verified 01/11/20 21:54 sulfamethoxazole Allergy Rash/Hives Verified 01/11/20 21:54 [From Bactrim] trimethoprim [From Bactrim] Allergy Rash/Hives Verified 01/11/20 21:54 Review of Systems ROS Statement: Those systems with pertinent positive or pertinent negative responses have been documented in the HPI. ROS Other: All systems not noted in ROS Statement are negative. Past Medical History Past Medical History: Asthma, GERD/Reflux Additional Past Medical History / Comment(s): vertigo, occasional blood in stool, recent stress test, hx. kidney stones, History of Any Multi-Drug Resistant Organisms: None Reported Date of last positivie culture/infection: 09/05/17-CDiff, MDRO Source:: stool Past Surgical History: Adenoidectomy, Tonsillectomy Additional Past Surgical History / Comment(s): colonoscopy, Past Anesthesia/Blood Transfusion Reactions: Family History of Problems w/ Anesthesia Additional Past Anesthesia/Blood Transfusion Reaction / Comment(s): father N/V Past Psychological History: Anxiety Smoking Status: Never smoker Past Alcohol Use History: Rare Past Drug Use History: None Reported - Past Family History Father Family Medical History: Cancer General Exam Limitations: no limitations General appearance: alert, in no apparent distress Head exam: Present: atraumatic, normocephalic, normal inspection Eye exam: Present: normal appearance, PERRL, EOMI. Absent: scleral icterus, conjunctival injection, periorbital swelling ENT exam: Present: normal exam, mucous membranes moist Neck exam: Present: normal inspection, full ROM Respiratory exam: Present: normal lung sounds bilaterally. Absent: respiratory distress, wheezes, rales, rhonchi, stridor Cardiovascular Exam: Present: regular rate, normal rhythm, normal heart sounds. Absent: systolic murmur, diastolic murmur, rubs, gallop, clicks Extremities exam: Present: other (Full range of motion of the left thumb and wrist older. Patient does have some small areas of excoriation on the thumb however no spreading or streaking redness, drainage, swelling, or increased heat. No evidence of infection at this time. No obvious foreign bodies.) Neurological exam: Present: alert Course Vital Signs 01/11/20 21:25 Temperature 98.6 F Pulse Rate 102 H Respiratory 20 Rate Blood Pressure 129/97 O2 Sat by Pulse 97 Oximetry Medical Decision Making - Medical Decision Making X-ray negative. I did offer patient pain management which she refused. At this time I do not see any evidence of infection and instructed patient to start Motrin and Tylenol as symptoms are likely inflammatory in nature. However I did write patient a prescription of antibiotics and if he develops signs of infection he will start these. He will return here for any worsening symptoms. He will otherwise follow-up with his primary care physician. Disposition Clinical Impression: Thumb pain Disposition: HOME SELF-CARE Condition: Good Instructions (If sedation given, give patient instructions): Swollen Joint (ED) Additional Instructions: Please take motrin and Tylenol for pain. If you start to develop spreading or streaking redness or swelling take antibiotic. Otherwise follow-up with your doctor in one to 2 days and return for any worsening symptoms. Prescriptions: Cephalexin [Keflex] 500 mg PO Q6HR 7 Days #28 cap Is patient prescribed a controlled substance at d/c from ED?: No Referrals: Eran Andre MD [Primary Care Provider] - 1-2 days Time of Disposition: 22:55
== END 2020-01-11 23:04 | disposition home or self-care (01) ==
LOC: EC 21:13
DX: M79.646 Pain in unspecified finger(s) (principal); F41.9 Anxiety disorder, unspecified; Z79.899 Other long term (current) drug therapy; Z88.1 Allergy status to other antibiotic agents; Z88.5 Allergy status to narcotic agent; Z88.2 Allergy status to sulfonamides; Z91.041 Radiographic dye allergy status; Z91.048 Other nonmedicinal substance allergy status
CPT/HCPCS: 99283

== ENCOUNTER 2020-05-05 19:24 | Emergency (ER) | payer OTHER ==
[2020-05-05] MEDS ORDERED: SODIUM CHLORIDE 0.9% 1,000 ML IV ONE (20:27)
[2020-05-05 20:29] LABS: Basophils # (A) 0.1 k/uL (0-0.2); Basophils % (A) 1 %; Eosinophils # (A) 0.2 k/uL (0-0.7); Eosinophils % (A) 3 %; HCT 45.4 % (39.0-53.0); HGB 15.3 gm/dL (13.0-17.5); Lymphocytes # (A) 3.5 k/uL (1.0-4.8); Lymphocytes % (A) 36 %; MCH 30.9 pg (25.0-35.0); MCHC 33.6 g/dL (31.0-37.0); MCV 92.1 fL (80.0-100.0); Mean Platelet Volume 8.2; Monocytes # (A) 0.6 k/uL (0-1.0); Monocytes % (A) 6 %; Neutrophils # (A) 5.1 k/uL (1.3-7.7); Neutrophils % (A) 53 %; Platelet Count 209 k/uL (150-450); RBC 4.93 m/uL (4.30-5.90); RDW 12.5 % (11.5-15.5); WBC 9.6 k/uL (3.8-10.6)
[2020-05-05] MEDS ORDERED: SODIUM CHLORIDE 0.9% 1,000 ML IV SCH (20:30)
[2020-05-05] MEDS ORDERED: methylPREDNISolone SOD SUCCI 125 MG/2 ML VIAL IV STA (20:38)
[2020-05-05] MEDS ORDERED: diphenhydrAMINE 50 MG/ML 1 ML VIAL IVP STA (20:38)
[2020-05-05] MEDS ORDERED: FAMOTIDINE 20 MG/2 ML VIAL IV STA (20:38)
[2020-05-05 20:44] LABS: Appearance,Urine Cloudy (Clear); Bilirubin,Urine Negative (Negative); Blood,Urine Negative (Negative); Color,Urine Yellow; Glucose,Urine (UA) Negative (Negative); Ketones,Urine Negative (Negative); Leukocyte Esterase,Urine Negative (Negative); Mucus,Urine Occasional /hpf; Nitrite,Urine Negative (Negative); PH, Urine 5.5 (5.0-8.0); Protein,Urine Negative (Negative); Specific Gravity,Urine 1.024 (1.001-1.035); Urobilinogen,Urine <2.0 mg/dL (<2.0); WBC,Urine 1 /hpf (0-5)
[2020-05-05] MEDS ORDERED: PANTOPRAZOLE 40 MG/10 ML VIAL IVP STA (20:46)
[2020-05-05 20:49] LABS: ALT 37 U/L (4-49); AST 33 U/L (17-59); African American GFR (CKD) >90 (>60 ml/min/1.73 sqM); Albumin 4.2 g/dL (3.5-5.0); Alkaline Phosphatase 36 U/L (38-126); Amylase 62 U/L (30-110); Anion Gap 9 mmol/L; Blood Urea Nitrogen 14 mg/dL (9-20); Calcium 9.4 mg/dL (8.4-10.2); Carbon Dioxide 24 mmol/L (22-30); Chloride 105 mmol/L (98-107); Glucose 102 mg/dL (74-99); Lipase 187 U/L (23-300); Non-African American GFR(CKD) >90 (>60 ml/min/1.73 sqM); Potassium 3.8 mmol/L (3.5-5.1); Sodium 138 mmol/L (137-145); Total Bilirubin 0.5 mg/dL (0.2-1.3); Total Protein 7.2 g/dL (6.3-8.2)
--- NOTE | 2020-05-05 21:20 | CT ---
EXAMINATION TYPE: CT abdomen pelvis w con DATE OF EXAM: 05/05/2020 COMPARISON: 06/13/2014. HISTORY: LUQ abdominal pain radiating into back. CT DLP: 1653.8 mGycm Automated exposure control for dose reduction was used. TECHNIQUE: Helical acquisition of images was performed from the lung bases through the pelvis. CONTRAST: Performed without Oral Contrast and with IV Contrast, patient injected with 100ml mL of Isovue 300. FINDINGS: LUNG BASES: No significant abnormality is appreciated. LIVER/GB: No significant abnormality is appreciated. PANCREAS: No significant abnormality is seen. SPLEEN: No significant abnormality is seen. ADRENALS: No significant abnormality is seen. KIDNEYS: No significant abnormality is seen. Few bilateral benign-appearing renal cysts, measuring up to 1.1 cm. FREE AIR: No free air is visualized. RETROPERITONEAL ADENOPATHY: None visualized REPRODUCTIVE ORGANS: No significant abnormality is seen URINARY BLADDER: No significant abnormality is seen. PELVIC ADENOPATHY: None visualized. OSSEOUS STRUCTURES: No significant abnormality is seen. BOWEL: No significant abnormality is seen. OTHER: None. IMPRESSION: NO SIGNIFICANT ABNORMALITY SEEN. BENIGN-APPEARING RENAL CYSTS.
[2020-05-05] MEDS ORDERED: MORPHINE SULFATE 4 MG/ML SYRINGE IVP PRN (21:21)
--- NOTE | 2020-05-05 21:21 | XR ---
EXAMINATION TYPE: XR chest 2V DATE OF EXAM: 05/05/2020 COMPARISON: 05/28/2019. HISTORY: Epigastric pain. TECHNIQUE: Frontal and lateral views of the chest are obtained. FINDINGS: There is no focal air space opacity, pleural effusion, or pneumothorax seen. The cardiac silhouette size is within normal limits. The osseous structures are intact. IMPRESSION: No acute cardiopulmonary process.
--- NOTE | 2020-05-05 21:27 | ED ---
Abdominal Pain HPI - General Chief Complaint: Abdominal Pain Stated Complaint: Abd pain Time Seen by Provider: 05/05/20 19:35 Source: patient Mode of arrival: ambulatory Limitations: no limitations - History of Present Illness Initial Comments: 34-year-old male presenting today for chief complaint of epigastric a dull pain rating to the left side of the abdomen and back on and off x 2-3 days. He states the past 2-3 days he has had an aching gnawing epigastric pain at times radiates towards the left side around to the back. He denies any dark stools he states they've been looser than usual he denies vomiting he states he does have history of IBS. He denies fevers recent travel. He denies a chest pain pressure jaw pain and arm pain or shortness of breath. Patient denies any lower abdominal pain. Patient he denies any right upper quadrant pain. Patient denies known history of H.Pylori or PUD. patient denies additional complaints. upon arrival patient appear well nontoxic in no acute distress. - Related Data Home Medications Medication Instructions Recorded Confirmed clonazePAM [KlonoPIN] 1 mg PO TID PRN 05/08/16 01/11/20 Meclizine [Antivert] 25 mg PO BID 03/09/17 01/11/20 Previous Rx's Medication Instructions Recorded Cephalexin [Keflex] 500 mg PO Q6HR 7 Days #28 cap 01/11/20 Pantoprazole Sodium [Protonix] 40 mg PO DAILY 7 Days #7 tablet. 05/05/20 Allergies Allergy/AdvReac Type Severity Reaction Status Date / Time azithromycin [From Zithromax] Allergy Rash/Hives Verified 05/05/20 19:37 codeine Allergy Unknown Verified 05/05/20 19:37 Childhood Iodinated Contrast Media Allergy Anaphylaxis Verified 05/05/20 19:37 [Iodinated Contrast Media - IV Dye] iodine Allergy Anaphylaxis Verified 05/05/20 19:37 sulfamethoxazole Allergy Rash/Hives Verified 05/05/20 19:37 [From Bactrim] trimethoprim [From Bactrim] Allergy Rash/Hives Verified 05/05/20 19:37 Review of Systems ROS Statement: Those systems with pertinent positive or pertinent negative responses have been documented in the HPI. ROS Other: All systems not noted in ROS Statement are negative. Past Medical History Past Medical History: Asthma, GERD/Reflux Additional Past Medical History / Comment(s): vertigo, hx. kidney stones,ibs History of Any Multi-Drug Resistant Organisms: None Reported Date of last positivie culture/infection: 09/05/17-CDiff, MDRO Source:: stool Past Surgical History: Adenoidectomy, Tonsillectomy Additional Past Surgical History / Comment(s): colonoscopy, Past Anesthesia/Blood Transfusion Reactions: Family History of Problems w/ Anesthesia Additional Past Anesthesia/Blood Transfusion Reaction / Comment(s): father N/V Past Psychological History: Anxiety Smoking Status: Never smoker Past Alcohol Use History: Rare Past Drug Use History: None Reported - Past Family History Father Family Medical History: Cancer General Exam - General Exam Comments Initial Comments: General: The patient is awake and alert, in no distress Eye: Pupils are equal, round and reactive to light, extra-ocular movements are intact. No nystagmus. There is normal conjunctiva bilaterally. No signs of icterus. Ears, nose, mouth and throat: There are moist mucous membranes and no oral lesions. Neck: The neck is supple, there is no tenderness or JVD. Cardiovascular: There is a regular rate and rhythm. No murmur, rub or gallop is appreciated. Respiratory: Lungs are clear to auscultation, respirations are non-labored, breath sounds are equal. No wheezes, stridor, rales, or rhonchi. Gastrointestinal: Soft, non-distended, minimal epigastric or LUQ tenderness on exam, abdomen without masses or organomegaly noted. There is no rebound or guarding present. Musculoskeletal: Normal ROM, no tenderness. Strength 5/5. Sensation intact. Radial pulses equal bilaterally 2+. Neurological: A&O x 3. CN II-XII intact grossly, There are no obvious motor or sensory deficits. Coordination appears grossly intact. Speech is normal. Skin: Skin is warm and dry and no rashes or lesions are noted. Psychiatric: Cooperative, appropriate mood & affect, normal judgment. Limitations: no limitations Course Vital Signs 05/05/20 05/05/20 05/05/20 19:34 20:53 21:50 Temperature 98.1 F 98.3 F Pulse Rate 117 H 88 79 Respiratory 18 20 18 Rate Blood Pressure 142/84 126/86 122/87 O2 Sat by Pulse 98 98 98 Oximetry Medical Decision Making - Medical Decision Making Labs stable. Denies dark stools. hx IBS, new loose stools. Patient pain minimal at this time. refused pain mediations. no fevers. lipase WNL. biliary studies WNL. patient cxr clear. denies chest pain. troponin (-). patient staets pain better. ddx includes peptic ulcer disease, IBS flare, enteritis (with history of loose stools), recommend GI f/u. patient agreeable to this care plan and discharge. - Lab Data Result diagrams: 05/05/20 20:05/05/20 20:01 Lab Results 05/05/20 05/05/20 05/05/20 Range/Units 20:01 20:01 20:01 WBC 9.6 (3.8-10.6) k/uL RBC 4.93 (4.30-5.90) m/uL Hgb 15.3 (13.0-17.5) gm/dL Hct 45.4 (39.0-53.0) % MCV 92.1 (80.0-100.0) fL MCH 30.9 (25.0-35.0) pg MCHC 33.6 (31.0-37.0) g/dL RDW 12.5 (11.5-15.5) % Plt Count 209 (150-450) k/uL MPV 8.2 Neutrophils % 53 % Lymphocytes % 36 % Monocytes % 6 % Eosinophils % 3 % Basophils % 1 % Neutrophils # 5.1 (1.3-7.7) k/uL Lymphocytes # 3.5 (1.0-4.8) k/uL Monocytes # 0.6 (0-1.0) k/uL Eosinophils # 0.2 (0-0.7) k/uL Basophils # 0.1 (0-0.2) k/uL Sodium 138 (137-145) mmol/L Potassium 3.8 (3.5-5.1) mmol/L Chloride 105 (98-107) mmol/L Carbon Dioxide 24 (22-30) mmol/L Anion Gap 9 mmol/L BUN 14 (9-20) mg/dL Creatinine 0.82 (0.66-1.25) mg/dL Est GFR (CKD-EPI)AfAm >90 (>60 ml/min/1.73 sqM) Est GFR (CKD-EPI)NonAf >90 (>60 ml/min/1.73 sqM) Glucose 102 H (74-99) mg/dL Plasma Lactic Acid Oleksandr (0.7-2.0) mmol/L Calcium 9.4 (8.4-10.2) mg/dL Total Bilirubin 0.5 (0.2-1.3) mg/dL AST 33 (17-59) U/L ALT 37 (4-49) U/L Alkaline Phosphatase 36 L (38-126) U/L Troponin I (0.000-0.034) ng/mL Total Protein 7.2 (6.3-8.2) g/dL Albumin 4.2 (3.5-5.0) g/dL Amylase 62 (30-110) U/L Lipase 187 (23-300) U/L Urine Color Yellow Urine Appearance Cloudy (Clear) Urine pH 5.5 (5.0-8.0) Ur Specific [place] 1.024 (1.001-1.035) Urine Protein Negative (Negative) Urine Glucose (UA) Negative (Negative) Urine Ketones Negative (Negative) Urine Blood Negative (Negative) Urine Nitrite Negative (Negative) Urine Bilirubin Negative (Negative) Urine Urobilinogen <2.0 (<2.0) mg/dL Ur Leukocyte Esterase Negative (Negative) Urine WBC 1 (0-5) /hpf Urine Mucus Occasional H (None) /hpf 05/05/20 05/05/20 Range/Units 20:01 20:01 WBC (3.8-10.6) k/uL RBC (4.30-5.90) m/uL Hgb (13.0-17.5) gm/dL Hct (39.0-53.0) % MCV (80.0-100.0) fL MCH (25.0-35.0) pg MCHC (31.0-37.0) g/dL RDW (11.5-15.5) % Plt Count (150-450) k/uL MPV Neutrophils % % Lymphocytes % % Monocytes % % Eosinophils % % Basophils % % Neutrophils # (1.3-7.7) k/uL Lymphocytes # (1.0-4.8) k/uL Monocytes # (0-1.0) k/uL Eosinophils # (0-0.7) k/uL Basophils # (0-0.2) k/uL Sodium (137-145) mmol/L Potassium (3.5-5.1) mmol/L Chloride (98-107) mmol/L Carbon Dioxide (22-30) mmol/L Anion Gap mmol/L BUN (9-20) mg/dL Creatinine (0.66-1.25) mg/dL Est GFR (CKD-EPI)AfAm (>60 ml/min/1.73 sqM) Est GFR (CKD-EPI)NonAf (>60 ml/min/1.73 sqM) Glucose (74-99) mg/dL Plasma Lactic Acid Oleksandr 0.9 (0.7-2.0) mmol/L Calcium (8.4-10.2) mg/dL Total Bilirubin (0.2-1.3) mg/dL AST (17-59) U/L ALT (4-49) U/L Alkaline Phosphatase (38-126) U/L Troponin I <0.012 (0.000-0.034) ng/mL Total Protein (6.3-8.2) g/dL Albumin (3.5-5.0) g/dL Amylase (30-110) U/L Lipase (23-300) U/L Urine Color Urine Appearance (Clear) Urine pH (5.0-8.0) Ur Specific [place] (1.001-1.035) Urine Protein (Negative) Urine Glucose (UA) (Negative) Urine Ketones (Negative) Urine Blood (Negative) Urine Nitrite (Negative) Urine Bilirubin (Negative) Urine Urobilinogen (<2.0) mg/dL Ur Leukocyte Esterase (Negative) Urine WBC (0-5) /hpf Urine Mucus (None) /hpf Disposition Clinical Impression: Epigastric pain Disposition: HOME SELF-CARE Condition: Good Instructions (If sedation given, give patient instructions): Peptic Ulcer (ED), Epigastric Pain (ED) Additional Instructions: Please use medication as discussed. Please follow-up with family doctor in the next 2 days. Recommend GI follow-up for possible endoscopy/H. Pylori testing/additional testing. Please return to emergency room if the symptoms increase or worsen or for any other concerns. Prescriptions: Pantoprazole Sodium [Protonix] 40 mg PO DAILY 7 Days #7 tablet.dr Is patient prescribed a controlled substance at d/c from ED?: No Referrals: Eran Andre MD [Primary Care Provider] - 1-2 days Danae Mujica MD [STAFF PHYSICIAN] - 1-2 days Time of Disposition: 21:27
[2020-05-05 21:53] VITALS: BP 122/87; PULSE 79; RESP 18; TEMP 98.3
== END 2020-05-05 21:50 | disposition home or self-care (01) ==
LOC: EC 19:24
DX: R10.13 Epigastric pain (principal); F41.9 Anxiety disorder, unspecified; Z79.899 Other long term (current) drug therapy; Z88.1 Allergy status to other antibiotic agents; Z88.5 Allergy status to narcotic agent; Z91.041 Radiographic dye allergy status; Z91.048 Other nonmedicinal substance allergy status; Z88.2 Allergy status to sulfonamides; Z87.442 Personal history of urinary calculi
CPT/HCPCS: 36415; 80053; 82150; 83605; 83690; 84484; 85025; 81001; 71046; 74177; 99284; 96374; 96375 ×2; 96361; J1200; J2930; Q9967

== ENCOUNTER 2020-06-05 20:10 | Emergency (ER) | payer OTHER ==
[2020-06-05 21:09] VITALS: RESP 20
[2020-06-05] MEDS ORDERED: SODIUM CHLORIDE 0.9% 1,000 ML IV STA (21:46)
--- NOTE | 2020-06-05 21:54 | ED ---
Arrhythmia/Palpitations HPI - General Chief Complaint: Arrhythmia/Palpitations Stated Complaint: Chest pain Time Seen by Provider: 06/05/20 21:31 Source: patient, family, RN notes reviewed Mode of arrival: wheelchair Limitations: no limitations - History of Present Illness Initial Comments: 34-year-old well-appearing male patient presents with his complaining of palpitations today with occasional dizziness. Patient states he has been seen for this patient primary care doctor Thai and wore a Holter monitor 6 months ago. Patient endorses a history of asthma, GERD, vertigo, kidney stones, irritable bowel syndrome. Surgical history of tonsillectomy and adenoidectomy. Patient admits to drinking 3 large cups of coffee a day and also smokes half pack cigarettes a day. Patient presents with heart rate of 1:15, respiratory rate of 20 with an oxygen saturation of 97% pressure 137/77 and a temperature of 99.0. Patient denies any sick contacts. Denies cough, nausea vomiting diarrhea or fevers. MD Complaint: rapid heart beat, "heart racing", palpitations -: days(s) (1) Context: occurred during rest Arrhythmia History: other (pvc's) Associated Symptoms: other (dizziness) - Related Data Home Medications Medication Instructions Recorded Confirmed clonazePAM [KlonoPIN] 1 mg PO TID PRN 05/08/16 01/11/20 Meclizine [Antivert] 25 mg PO BID 03/09/17 01/11/20 Previous Rx's Medication Instructions Recorded Cephalexin [Keflex] 500 mg PO Q6HR 7 Days #28 cap 01/11/20 Pantoprazole Sodium [Protonix] 40 mg PO DAILY 7 Days #7 tablet. 05/05/20 Allergies Allergy/AdvReac Type Severity Reaction Status Date / Time azithromycin [From Zithromax] Allergy Rash/Hives Verified 06/05/20 21:09 codeine Allergy Unknown Verified 06/05/20 21:09 Childhood Iodinated Contrast Media Allergy Anaphylaxis Verified 06/05/20 21:09 [Iodinated Contrast Media - IV Dye] iodine Allergy Anaphylaxis Verified 06/05/20 21:09 sulfamethoxazole Allergy Rash/Hives Verified 06/05/20 21:09 [From Bactrim] trimethoprim [From Bactrim] Allergy Rash/Hives Verified 06/05/20 21:09 Review of Systems ROS Statement: Those systems with pertinent positive or pertinent negative responses have been documented in the HPI. ROS Other: All systems not noted in ROS Statement are negative. Past Medical History Past Medical History: Asthma, GERD/Reflux Additional Past Medical History / Comment(s): vertigo, hx. kidney stones,ibs History of Any Multi-Drug Resistant Organisms: None Reported Date of last positivie culture/infection: 09/05/17-CDiff, MDRO Source:: stool Past Surgical History: Adenoidectomy, Tonsillectomy Additional Past Surgical History / Comment(s): colonoscopy, Past Anesthesia/Blood Transfusion Reactions: Family History of Problems w/ Anesthesia Additional Past Anesthesia/Blood Transfusion Reaction / Comment(s): father N/V Past Psychological History: Anxiety Smoking Status: Current every day smoker Past Alcohol Use History: Rare Past Drug Use History: None Reported - Past Family History Father Family Medical History: Cancer General Exam Limitations: no limitations General appearance: alert, in no apparent distress Head exam: Present: atraumatic, normocephalic, normal inspection Eye exam: Present: normal appearance, PERRL, EOMI. Absent: scleral icterus, conjunctival injection, periorbital swelling Neck exam: Present: normal inspection, full ROM. Absent: tenderness, mening ismus, lymphadenopathy Respiratory exam: Present: normal lung sounds bilaterally. Absent: respiratory distress, wheezes, rales, rhonchi, stridor Cardiovascular Exam: Present: tachycardia. Absent: JVD GI/Abdominal exam: Present: soft, normal bowel sounds. Absent: distended, tenderness, guarding, rebound, rigid Extremities exam: Present: normal inspection, full ROM, normal capillary refill. Absent: tenderness, pedal edema, joint swelling, calf tenderness Neurological exam: Present: alert, oriented X3, CN II-XII intact Psychiatric exam: Present: normal affect, normal mood, anxious Skin exam: Present: warm, dry, intact, normal color. Absent: rash Course Vital Signs 06/05/20 21:05 Temperature 99.0 F Pulse Rate 115 H Respiratory 20 Rate Blood Pressure 137/77 O2 Sat by Pulse 97 Oximetry EKG Findings - EKG Results: EKG: sinus rhythm EKG shows: tachycardia (Ventricular rate of 112, CA interval 0.15, QRS of 0.80, QTC 450ms) Medical Decision Making - Medical Decision Making Case discussed with Dr. Gross. D-dimer came back at 0.17, WBC count 11.4 which patient states usually runs high. TSH 2.280. Patient states feels better after IV fluids heart rate down to 78. We'll send patient home with follow-up with primary care doctor, Dr. Andre - Lab Data Result diagrams: 06/05/20 22:25 06/05/20 22:25 Lab Results 06/05/20 06/05/20 06/05/20 Range/Units 22:25 22:25 22:25 WBC 11.4 H (3.8-10.6) k/uL RBC 5.17 (4.30-5.90) m/uL Hgb 16.0 (13.0-17.5) gm/dL Hct 47.2 (39.0-53.0) % MCV 91.3 (80.0-100.0) fL MCH 30.9 (25.0-35.0) pg MCHC 33.9 (31.0-37.0) g/dL RDW 12.8 (11.5-15.5) % Plt Count 241 (150-450) k/uL MPV 8.3 Neutrophils % 58 % Lymphocytes % 30 % Monocytes % 8 % Eosinophils % 3 % Basophils % 0 % Neutrophils # 6.6 (1.3-7.7) k/uL Lymphocytes # 3.4 (1.0-4.8) k/uL Monocytes # 0.9 (0-1.0) k/uL Eosinophils # 0.3 (0-0.7) k/uL Basophils # 0.1 (0-0.2) k/uL D-Dimer (<0.60) mg/L FEU Sodium 138 (137-145) mmol/L Potassium 4.4 (3.5-5.1) mmol/L Chloride 103 (98-107) mmol/L Carbon Dioxide 27 (22-30) mmol/L Anion Gap 8 mmol/L BUN 15 (9-20) mg/dL Creatinine 0.94 (0.66-1.25) mg/dL Est GFR (CKD-EPI)AfAm >90 (>60 ml/min/1.73 sqM) Est GFR (CKD-EPI)NonAf >90 (>60 ml/min/1.73 sqM) Glucose 106 H (74-99) mg/dL Calcium 9.9 (8.4-10.2) mg/dL Magnesium 1.9 (1.6-2.3) mg/dL Total Bilirubin 0.4 (0.2-1.3) mg/dL AST 29 (17-59) U/L ALT 33 (4-49) U/L Alkaline Phosphatase 38 (38-126) U/L Troponin I <0.012 (0.000-0.034) ng/mL Total Protein 7.3 (6.3-8.2) g/dL Albumin 4.3 (3.5-5.0) g/dL TSH 2.280 (0.465-4.680) mIU/L 06/05/20 Range/Units 22:25 WBC (3.8-10.6) k/uL RBC (4.30-5.90) m/uL Hgb (13.0-17.5) gm/dL Hct (39.0-53.0) % MCV (80.0-100.0) fL MCH (25.0-35.0) pg MCHC (31.0-37.0) g/dL RDW (11.5-15.5) % Plt Count (150-450) k/uL MPV Neutrophils % % Lymphocytes % % Monocytes % % Eosinophils % % Basophils % % Neutrophils # (1.3-7.7) k/uL Lymphocytes # (1.0-4.8) k/uL Monocytes # (0-1.0) k/uL Eosinophils # (0-0.7) k/uL Basophils # (0-0.2) k/uL D-Dimer <0.17 (<0.60) mg/L FEU Sodium (137-145) mmol/L Potassium (3.5-5.1) mmol/L Chloride (98-107) mmol/L Carbon Dioxide (22-30) mmol/L Anion Gap mmol/L BUN (9-20) mg/dL Creatinine (0.66-1.25) mg/dL Est GFR (CKD-EPI)AfAm (>60 ml/min/1.73 sqM) Est GFR (CKD-EPI)NonAf (>60 ml/min/1.73 sqM) Glucose (74-99) mg/dL Calcium (8.4-10.2) mg/dL Magnesium (1.6-2.3) mg/dL Total Bilirubin (0.2-1.3) mg/dL AST (17-59) U/L ALT (4-49) U/L Alkaline Phosphatase (38-126) U/L Troponin I (0.000-0.034) ng/mL Total Protein (6.3-8.2) g/dL Albumin (3.5-5.0) g/dL TSH (0.465-4.680) mIU/L - Radiology Data Radiology results: report reviewed, image reviewed Disposition Clinical Impression: Palpitations Disposition: HOME SELF-CARE Condition: Good Instructions (If sedation given, give patient instructions): Heart Palpitations (ED) Additional Instructions: Try and decrease your smoking, increase your fluid intake, decrease your caffeine intake. Follow-up with the primary care doctor this week Is patient prescribed a controlled substance at d/c from ED?: No Referrals: Eran Andre MD [Primary Care Provider] - 1-2 days Time of Disposition: 23:51
--- NOTE | 2020-06-05 22:24 | XR ---
EXAMINATION TYPE: XR chest 2V DATE OF EXAM: 06/05/2020 COMPARISON: 05/05/2020 HISTORY: Dysrhythmia TECHNIQUE: 2 views FINDINGS: Heart and mediastinum are normal. Lungs are clear. Diaphragm is normal. Bony thorax is inta ct. There are chest leads. IMPRESSION: Normal chest. No change.
[2020-06-05 22:43] LABS: Basophils # (A) 0.1 k/uL (0-0.2); Basophils % (A) 0 %; Eosinophils # (A) 0.3 k/uL (0-0.7); Eosinophils % (A) 3 %; HCT 47.2 % (39.0-53.0); Lymphocytes # (A) 3.4 k/uL (1.0-4.8); Lymphocytes % (A) 30 %; MCH 30.9 pg (25.0-35.0); MCHC 33.9 g/dL (31.0-37.0); MCV 91.3 fL (80.0-100.0); Mean Platelet Volume 8.3; Monocytes # (A) 0.9 k/uL (0-1.0); Monocytes % (A) 8 %; Neutrophils # (A) 6.6 k/uL (1.3-7.7); Neutrophils % (A) 58 %; Platelet Count 241 k/uL (150-450); RBC 5.17 m/uL (4.30-5.90); RDW 12.8 % (11.5-15.5); WBC 11.4 k/uL (3.8-10.6)
[2020-06-05 23:04] LABS: ALT 33 U/L (4-49); AST 29 U/L (17-59); African American GFR (CKD) >90 (>60 ml/min/1.73 sqM); Albumin 4.3 g/dL (3.5-5.0); Alkaline Phosphatase 38 U/L (38-126); Anion Gap 8 mmol/L; Blood Urea Nitrogen 15 mg/dL (9-20); Calcium 9.9 mg/dL (8.4-10.2); Carbon Dioxide 27 mmol/L (22-30); Chloride 103 mmol/L (98-107); Glucose 106 mg/dL (74-99); Magnesium 1.9 mg/dL (1.6-2.3); Non-African American GFR(CKD) >90 (>60 ml/min/1.73 sqM); Potassium 4.4 mmol/L (3.5-5.1); Sodium 138 mmol/L (137-145); Total Bilirubin 0.4 mg/dL (0.2-1.3); Total Protein 7.3 g/dL (6.3-8.2)
[2020-06-06 00:40] VITALS: BP 128/65; PULSE 88; TEMP 98.3
== END 2020-06-06 00:05 | disposition home or self-care (01) ==
LOC: EC 20:10
DX: R00.2 Palpitations (principal); F41.9 Anxiety disorder, unspecified; F17.200 Nicotine dependence, unspecified, uncomplicated; F17.210 Nicotine dependence, cigarettes, uncomplicated; J45.909 Unspecified asthma, uncomplicated; K21.9 Gastro-esophageal reflux disease without esophagitis
CPT/HCPCS: 36415; 71046; 80053; 83735; 84443; 84484; 85025; 85379; 93005; 96360; 99285

== ENCOUNTER 2020-08-16 13:53 | Emergency (ER) | payer OTHER ==
[2020-08-16 14:14] VITALS: BP 129/80; PULSE 91; RESP 18; TEMP 98.1
[2020-08-16] MEDS ORDERED: SODIUM CHLORIDE 0.9% 1,000 ML IV STA (14:29)
--- NOTE | 2020-08-16 14:40 | ED ---
Abdominal Pain HPI - General Chief Complaint: Abdominal Pain Stated Complaint: Lft side pain Time Seen by Provider: 08/16/20 14:18 Source: patient Mode of arrival: ambulatory Limitations: no limitations - History of Present Illness Initial Comments: 34 year-old male patient presents to the emergency department for evaluation of nausea, diarrhea, and left upper quadrant tenderness. 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 States for 7 hours yesterday he was leaning over a part of the engine with bolts pressing into his abdomen. States that afterwards his abdomen was tender in the area. States that after work he started to feel nauseated. Did eat dinner. Shortly after started to have diarrhea. Denies any black or bloody stool. Denies fever or chills. Concerned he may have punctured something from working on the boat. He denies any falls or direct impact to the abdomen. That the pain is very local to the left upper quadrant and only hurts with pressing over the area. Patient denies any recent rash, fever, chills, cough, shortness of breath, chest pain, back pain, numbness, tingling, dizziness, weakness, hematuria, dysuria, urinary urgency, urinary frequency, headache, visual changes, or any other complaints. - Related Data Home Medications Medication Instructions Recorded Confirmed clonazePAM [KlonoPIN] 1 mg PO TID PRN 05/08/16 08/16/20 Meclizine [Antivert] 25 mg PO BID PRN 03/09/17 08/16/20 Allergies Allergy/AdvReac Type Severity Reaction Status Date / Time azithromycin [From Zithromax] Allergy Rash/Hives Verified 08/16/20 15:05 codeine Allergy Unknown Verified 08/16/20 15:05 Childhood Iodinated Contrast Media Allergy Anaphylaxis Verified 08/16/20 15:05 [Iodinated Contrast Media - IV Dye] iodine Allergy Anaphylaxis Verified 08/16/20 15:05 sulfamethoxazole Allergy Rash/Hives Verified 08/16/20 15:05 [From Bactrim] trimethoprim [From Bactrim] Allergy Rash/Hives Verified 08/16/20 15:05 Review of Systems ROS Statement: Those systems with pertinent positive or pertinent negative responses have been documented in the HPI. ROS Other: All systems not noted in ROS Statement are negative. Past Medical History Past Medical History: Asthma, GERD/Reflux Additional Past Medical History / Comment(s): vertigo, hx. kidney stones,ibs History of Any Multi-Drug Resistant Organisms: None Reported Date of last positivie culture/infection: 09/05/17-CDiff, MDRO Source:: stool Past Surgical History: Adenoidectomy, Tonsillectomy Additional Past Surgical History / Comment(s): colonoscopy, Past Anesthesia/Blood Transfusion Reactions: Family History of Problems w/ Anesthesia Additional Past Anesthesia/Blood Transfusion Reaction / Comment(s): father N/V Past Psychological History: Anxiety Smoking Status: Current every day smoker Past Alcohol Use History: Rare Past Drug Use History: None Reported - Past Family History Father Family Medical History: Cancer General Exam Limitations: no limitations General appearance: alert, in no apparent distress, other (Physical well- developed, well-nourished adult male patient in no acute distress. Vital signs upon presentation temperature 98.1F, pulse 91, respirations 18, blood pressure 129/80, pulse ox 99% on room air.) Eye exam: Present: normal appearance, PERRL, EOMI. Absent: scleral icterus, conjunctival injection, periorbital swelling ENT exam: Present: normal exam, normal oropharynx, mucous membranes moist Respiratory exam: Present: normal lung sounds bilaterally. Absent: respiratory distress, wheezes, rales, rhonchi, stridor Cardiovascular Exam: Present: regular rate, normal rhythm, normal heart sounds. Absent: systolic murmur, diastolic murmur, rubs, gallop, clicks GI/Abdominal exam: Present: soft, tenderness (Left upper quadrant), normal bowel sounds. Absent: distended, guarding, rebound, rigid Neurological exam: Present: alert, oriented X3, CN II-XII intact Psychiatric exam: Present: normal affect, normal mood Skin exam: Present: warm, dry, intact, normal color. Absent: rash Course Vital Signs 08/16/20 08/16/20 14:11 17:06 Temperature 98.1 F 98.1 F Pulse Rate 91 91 Respiratory 18 18 Rate Blood Pressure 129/80 129/80 O2 Sat by Pulse 99 99 Oximetry Medical Decision Making - Medical Decision Making 34-year-old male patient presented to the emergency department today for evaluation of left upper quadrant pain and tenderness as well as diarrhea and nausea. Physical examination did reveal some left upper quadrant tenderness. No other abdominal tenderness noted. He is afebrile, vital signs. Labs reviewed and are unremarkable. Left upper quadrant tenderness is most likely due to abdominal wall contusion. Upon reevaluation he is resting comfortably in bed. 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 Be discharged follow up with his primary care physician for recheck in 1-2 days. Return parameters were discussed in detail. He verbalizes understanding and agrees with this plan. Case discussed with my attending Dr. Oden. - Lab Data Result diagrams: 08/16/20 14:52 08/16/20 14:52 Lab Results 08/16/20 08/16/20 08/16/20 Range/Units 14:52 14:52 14:52 WBC 5.4 (3.8-10.6) k/uL RBC 5.26 (4.30-5.90) m/uL Hgb 16.7 (13.0-17.5) gm/dL Hct 47.8 (39.0-53.0) % MCV 90.8 (80.0-100.0) fL MCH 31.8 (25.0-35.0) pg MCHC 35.0 (31.0-37.0) g/dL RDW 12.4 (11.5-15.5) % Plt Count 193 (150-450) k/uL MPV 8.6 Neutrophils % 52 % Lymphocytes % 36 % Monocytes % 8 % Eosinophils % 2 % Basophils % 0 % Neutrophils # 2.9 (1.3-7.7) k/uL Lymphocytes # 2.0 (1.0-4.8) k/uL Monocytes # 0.4 (0-1.0) k/uL Eosinophils # 0.1 (0-0.7) k/uL Basophils # 0.0 (0-0.2) k/uL Sodium 140 (137-145) mmol/L Potassium 4.4 (3.5-5.1) mmol/L Chloride 108 H (98-107) mmol/L Carbon Dioxide 26 (22-30) mmol/L Anion Gap 6 mmol/L BUN 10 (9-20) mg/dL Creatinine 0.77 (0.66-1.25) mg/dL Est GFR (CKD-EPI)AfAm >90 (>60 ml/min/1.73 sqM) Est GFR (CKD-EPI)NonAf >90 (>60 ml/min/1.73 sqM) Glucose 109 H (74-99) mg/dL Calcium 9.6 (8.4-10.2) mg/dL Total Bilirubin 0.4 (0.2-1.3) mg/dL AST 32 (17-59) U/L ALT 29 (4-49) U/L Alkaline Phosphatase 36 L (38-126) U/L Total Protein 7.1 (6.3-8.2) g/dL Albumin 4.3 (3.5-5.0) g/dL Lipase 102 (23-300) U/L Urine Color Yellow Urine Appearance Clear (Clear) Urine pH 5.5 (5.0-8.0) Ur Specific [place] 1.012 (1.001-1.035) Urine Protein Negative (Negative) Urine Glucose (UA) Negative (Negative) Urine Ketones Negative (Negative) Urine Blood Negative (Negative) Urine Nitrite Negative (Negative) Urine Bilirubin Negative (Negative) Urine Urobilinogen <2.0 (<2.0) mg/dL Ur Leukocyte Esterase Negative (Negative) Disposition Clinical Impression: Diarrhea, Nausea, Abdominal wall contusion Disposition: HOME SELF-CARE Condition: Good Instructions (If sedation given, give patient instructions): Acute Nausea and Vomiting (ED), Acute Diarrhea (ED), Contusion in Adults (ED) Additional Instructions: Start with clear liquid diet and advance as tolerated. Follow-up with your primary care physician for recheck in 1-2 days. Return for any new, worsening, or concerning symptoms. Is patient prescribed a controlled substance at d/c from ED?: No Referrals: Eran Andre MD [Primary Care Provider] - 1-2 days Time of Disposition: 16:14
[2020-08-16] MEDS: DICYCLOMINE 10 MG/ML 2 ML AMP IM STA ×2 (14:54→15:02)
[2020-08-16] MEDS: ONDANSETRON 4 MG/2 ML VIAL IVP STA ×2 (14:54→15:03)
[2020-08-16 15:07] LABS: ALT 29 U/L (4-49); AST 32 U/L (17-59); African American GFR (CKD) >90 (>60 ml/min/1.73 sqM); Albumin 4.3 g/dL (3.5-5.0); Alkaline Phosphatase 36 U/L (38-126); Anion Gap 6 mmol/L; Blood Urea Nitrogen 10 mg/dL (9-20); Calcium 9.6 mg/dL (8.4-10.2); Carbon Dioxide 26 mmol/L (22-30); Chloride 108 mmol/L (98-107); Glucose 109 mg/dL (74-99); Lipase 102 U/L (23-300); Non-African American GFR(CKD) >90 (>60 ml/min/1.73 sqM); Potassium 4.4 mmol/L (3.5-5.1); Sodium 140 mmol/L (137-145); Total Bilirubin 0.4 mg/dL (0.2-1.3); Total Protein 7.1 g/dL (6.3-8.2)
[2020-08-16 15:12] LABS: Appearance,Urine Clear (Clear); Bilirubin,Urine Negative (Negative); Blood,Urine Negative (Negative); Color,Urine Yellow; Glucose,Urine (UA) Negative (Negative); Ketones,Urine Negative (Negative); Leukocyte Esterase,Urine Negative (Negative); Nitrite,Urine Negative (Negative); PH, Urine 5.5 (5.0-8.0); Protein,Urine Negative (Negative); Specific Gravity,Urine 1.012 (1.001-1.035); Urobilinogen,Urine <2.0 mg/dL (<2.0)
[2020-08-16 15:37] LABS: Basophils % (A) 0 %; Eosinophils # (A) 0.1 k/uL (0-0.7); Eosinophils % (A) 2 %; HCT 47.8 % (39.0-53.0); HGB 16.7 gm/dL (13.0-17.5); Lymphocytes % (A) 36 %; MCH 31.8 pg (25.0-35.0); MCV 90.8 fL (80.0-100.0); Mean Platelet Volume 8.6; Monocytes # (A) 0.4 k/uL (0-1.0); Monocytes % (A) 8 %; Neutrophils # (A) 2.9 k/uL (1.3-7.7); Neutrophils % (A) 52 %; Platelet Count 193 k/uL (150-450); RBC 5.26 m/uL (4.30-5.90); RDW 12.4 % (11.5-15.5); WBC 5.4 k/uL (3.8-10.6)
== END 2020-08-16 17:06 | disposition home or self-care (01) ==
LOC: EC 13:53
DX: S30.1XXA Contusion of abdominal wall, initial encounter (principal); R19.7 Diarrhea, unspecified; R11.0 Nausea; J45.909 Unspecified asthma, uncomplicated; K21.9 Gastro-esophageal reflux disease without esophagitis; F17.200 Nicotine dependence, unspecified, uncomplicated; Z87.442 Personal history of urinary calculi; X58.XXXA Exposure to other specified factors, initial encounter
CPT/HCPCS: 36415; 80053; 83690; 85025; 81003; 99284; 96372; J0500

== ENCOUNTER 2020-08-24 23:05 | Emergency (ER) | payer OTHER ==
[2020-08-24 23:10] VITALS: TEMP 98.1
--- NOTE | 2020-08-24 23:25 | ED ---
Chest Pain HPI - General Chief Complaint: Chest Pain Stated Complaint: Chest and back pain Time Seen by Provider: 08/24/20 23:19 Source: patient Mode of arrival: ambulatory Limitations: no limitations - History of Present Illness MD Complaint: chest pain -: hour(s) Onset: other (While fishing) Pain Location: substernal Pain Radiation: back Severity: moderate Quality: other (Squeezing) Consistency: now resolved (Lasts about 5 minutes) Improves With: nothing Worsens With: nothing Treatments Prior to Arrival: none - Related Data Home Medications Medication Instructions Recorded Confirmed clonazePAM [KlonoPIN] 1 mg PO TID PRN 05/08/16 08/16/20 Meclizine [Antivert] 25 mg PO BID PRN 03/09/17 08/16/20 Allergies Allergy/AdvReac Type Severity Reaction Status Date / Time azithromycin [From Zithromax] Allergy Rash/Hives Verified 08/24/20 23:10 codeine Allergy Unknown Verified 08/24/20 23:10 Childhood Iodinated Contrast Media Allergy Anaphylaxis Verified 08/24/20 23:10 [Iodinated Contrast Media - IV Dye] iodine Allergy Anaphylaxis Verified 08/24/20 23:10 sulfamethoxazole Allergy Rash/Hives Verified 08/24/20 23:10 [From Bactrim] trimethoprim [From Bactrim] Allergy Rash/Hives Verified 08/24/20 23:10 Review of Systems ROS Statement: Those systems with pertinent positive or pertinent negative responses have been documented in the HPI. ROS Other: All systems not noted in ROS Statement are negative. Constitutional: Denies: fever, chills Respiratory: Denies: cough, dyspnea Cardiovascular: Reports: as per HPI, chest pain. Denies: palpitations, orthopnea, edema, syncope Gastrointestinal: Denies: abdominal pain, nausea, vomiting Genitourinary: Denies: dysuria, hematuria Musculoskeletal: Denies: back pain Skin: Denies: rash Neurological: Denies: headache, weakness, numbness EKG Findings - EKG Results: EKG: interpreted by TAMERA, sinus rhythm, normal axis, normal QRS, normal ST/T, no acute changes EKG shows: tachycardia (Rate 101 bpm) Past Medical History Past Medical History: Asthma, GERD/Reflux Additional Past Medical History / Comment(s): vertigo, hx. kidney stones,ibs History of Any Multi-Drug Resistant Organisms: None Reported Date of last positivie culture/infection: 09/05/17-CDiff, MDRO Source:: stool Past Surgical History: Adenoidectomy, Tonsillectomy Additional Past Surgical History / Comment(s): colonoscopy, Past Anesthesia/Blood Transfusion Reactions: Family History of Problems w/ Anesthesia Additional Past Anesthesia/Blood Transfusion Reaction / Comment(s): father N/V Past Psychological History: Anxiety Smoking Status: Current every day smoker Past Alcohol Use History: Rare Past Drug Use History: None Reported - Past Family History Father Family Medical History: Cancer General Exam Limitations: no limitations General appearance: alert, in no apparent distress Head exam: Present: atraumatic, normocephalic Eye exam: Present: normal appearance. Absent: scleral icterus, conjunctival in jection ENT exam: Present: normal oropharynx Neck exam: Present: normal inspection, full ROM Respiratory exam: Present: normal lung sounds bilaterally. Absent: respiratory distress, wheezes, rales, rhonchi, stridor, chest wall tenderness, accessory muscle use, decreased breath sounds Cardiovascular Exam: Present: regular rate, normal rhythm, normal heart sounds. Absent: systolic murmur, diastolic murmur, rubs, gallop GI/Abdominal exam: Present: soft. Absent: distended, tenderness, guarding, rebound, rigid, mass, pulsatile mass Extremities exam: Present: normal inspection, normal capillary refill. Absent: pedal edema, calf tenderness Back exam: Present: normal inspection. Absent: CVA tenderness (R), CVA tenderness (L) Neurological exam: Present: alert Skin exam: Present: warm, dry, intact, normal color. Absent: rash Course Vital Signs 08/24/20 23:08 Temperature 98.1 F Pulse Rate 102 H Respiratory 20 Rate Blood Pressure 123/81 O2 Sat by Pulse 98 Oximetry Disposition Clinical Impression: Chest pain Disposition: HOME SELF-CARE Condition: Good Instructions (If sedation given, give patient instructions): Chest Pain (ED) Is patient prescribed a controlled substance at d/c from ED?: No Referrals: Eran Andre MD [Primary Care Provider] - 1-2 days
[2020-08-24 23:35] LABS: Basophils # (A) 0.1 k/uL (0-0.2); Basophils % (A) 1 %; Eosinophils # (A) 0.3 k/uL (0-0.7); Eosinophils % (A) 3 %; HCT 45.3 % (39.0-53.0); HGB 15.5 gm/dL (13.0-17.5); Lymphocytes # (A) 3.7 k/uL (1.0-4.8); Lymphocytes % (A) 39 %; MCH 31.1 pg (25.0-35.0); MCHC 34.2 g/dL (31.0-37.0); MCV 90.9 fL (80.0-100.0); Mean Platelet Volume 8.4; Monocytes # (A) 0.6 k/uL (0-1.0); Monocytes % (A) 7 %; Neutrophils # (A) 4.7 k/uL (1.3-7.7); Neutrophils % (A) 49 %; Platelet Count 197 k/uL (150-450); RBC 4.98 m/uL (4.30-5.90); RDW 12.6 % (11.5-15.5); WBC 9.6 k/uL (3.8-10.6)
[2020-08-24 23:52] LABS: INR 0.9 (<1.2); Partial Thromboplastin Time 23.4 sec (22.0-30.0)
[2020-08-24 23:53] LABS: ALT 32 U/L (4-49); AST 37 U/L (17-59); African American GFR (CKD) >90 (>60 ml/min/1.73 sqM); Albumin 4.5 g/dL (3.5-5.0); Alkaline Phosphatase 35 U/L (38-126); Anion Gap 8 mmol/L; Blood Urea Nitrogen 15 mg/dL (9-20); Calcium 9.2 mg/dL (8.4-10.2); Carbon Dioxide 25 mmol/L (22-30); Chloride 106 mmol/L (98-107); Glucose 104 mg/dL (74-99); Magnesium 1.8 mg/dL (1.6-2.3); Non-African American GFR(CKD) >90 (>60 ml/min/1.73 sqM); Potassium 3.9 mmol/L (3.5-5.1); Sodium 139 mmol/L (137-145); Total Bilirubin 0.5 mg/dL (0.2-1.3); Total Protein 7.2 g/dL (6.3-8.2)
--- NOTE | 2020-08-25 00:10 | XR ---
EXAMINATION TYPE: XR chest 2V DATE OF EXAM: 08/24/2020 COMPARISON: 06/05/2020 HISTORY: Chest pain TECHNIQUE: FINDINGS: Heart and mediastinum are normal. Lungs are clear. Diaphragm is normal. Bony thorax appears normal. There are chest leads. IMPRESSION: Normal chest. No change.
[2020-08-25 00:53] VITALS: BP 114/81; PULSE 78; RESP 16
== END 2020-08-25 00:54 | disposition home or self-care (01) ==
LOC: EC 23:05
DX: R07.2 Precordial pain (principal); J45.909 Unspecified asthma, uncomplicated; K21.9 Gastro-esophageal reflux disease without esophagitis; F41.9 Anxiety disorder, unspecified; F17.200 Nicotine dependence, unspecified, uncomplicated
CPT/HCPCS: 36415; 71046; 80053; 83735; 84484; 85025; 85610; 85730; 93005; 99285

== ENCOUNTER 2020-09-07 23:22 | Emergency (ER) | payer OTHER ==
[2020-09-07 23:29] VITALS: BP 119/76; PULSE 93; RESP 20; TEMP 97.8
--- NOTE | 2020-09-08 00:20 | ED ---
Skin/Abscess/FB HPI - General Chief complaint: Skin/Abscess/Foreign Body Stated complaint: Abscess Time Seen by Provider: 09/07/20 23:31 Source: patient Mode of arrival: ambulatory Limitations: no limitations - History of Present Illness MD complaint: abscess/boil -: week(s) Tetanus Up to Date: yes Location: face Severity: moderate Quality: dull Consistency: constant Improves with: none Worsens with: none Associated symptoms: denies other symptoms Treatments Prior to Arrival: attempted to drain pus at home - Related Data Home Medications Medication Instructions Recorded Confirmed clonazePAM [KlonoPIN] 1 mg PO TID PRN 05/08/16 08/16/20 Meclizine [Antivert] 25 mg PO BID PRN 03/09/17 08/16/20 Previous Rx's Medication Instructions Recorded Amoxic-Pot Clav 875-125Mg 1 tab PO Q12HR 1 Days #14 tab 09/08/20 [Augmentin 875-125] Cephalexin [Keflex] 500 mg PO Q6HR #28 cap 09/08/20 Allergies Allergy/AdvReac Type Severity Reaction Status Date / Time azithromycin [From Zithromax] Allergy Rash/Hives Verified 09/10/20 13:43 codeine Allergy Unknown Verified 09/10/20 13:43 Childhood Iodinated Contrast Media Allergy Anaphylaxis Verified 09/10/20 13:43 [Iodinated Contrast Media - IV Dye] iodine Allergy Anaphylaxis Verified 09/10/20 13:43 sulfamethoxazole Allergy Rash/Hives Verified 09/10/20 13:43 [From Bactrim] trimethoprim [From Bactrim] Allergy Rash/Hives Verified 09/10/20 13:43 Review of Systems ROS Statement: Those systems with pertinent positive or pertinent negative responses have been documented in the HPI. ROS Other: All systems not noted in ROS Statement are negative. Constitutional: Denies: fever, chills Skin: Reports: as per HPI Past Medical History Past Medical History: Asthma, GERD/Reflux Additional Past Medical History / Comment(s): vertigo, hx. kidney stones,ibs History of Any Multi-Drug Resistant Organisms: None Reported Date of last positivie culture/infection: 09/05/17-CDiff, MDRO Source:: stool Past Surgical History: Adenoidectomy, Tonsillectomy Additional Past Surgical History / Comment(s): colonoscopy, Past Anesthesia/Blood Transfusion Reactions: Family History of Problems w/ Anesthesia Additional Past Anesthesia/Blood Transfusion Reaction / Comment(s): father N/V Past Psychological History: Anxiety Smoking Status: Current every day smoker Past Alcohol Use History: Rare Past Drug Use History: None Reported - Past Family History Father Family Medical History: Cancer General Exam Limitations: no limitations General appearance: alert, in no apparent distress Head exam: Present: atraumatic, normocephalic Eye exam: Present: normal appearance. Absent: scleral icterus, conjunctival injection ENT exam: Present: normal oropharynx Respiratory exam: Present: normal lung sounds bilaterally. Absent: respiratory distress, wheezes, rales, rhonchi, stridor Cardiovascular Exam: Present: regular rate, normal rhythm, normal heart sounds. Absent: systolic murmur, diastolic murmur, rubs, gallop Skin exam: Present: warm, dry, intact, normal color, other (Patient has an approximately 2 cm cystic lesion to the right cheek area. There is mild erythema and warmth as well as some tenderness.). Absent: rash Course Vital Signs 09/07/20 23:23 Temperature 97.8 F Pulse Rate 93 Respiratory 20 Rate Blood Pressure 119/76 O2 Sat by Pulse 98 Oximetry Procedures - Incision & Drainage Consent Obtained: written consent Site: face Anesthetic Used: lidocaine 1% I&D Cleaning Method: Betadine Sterile Field Used?: No Scalpel Used: #11 Needle Aspiration Performed?: Yes Irrigation Performed?: Yes I&D Drainage Obtained: Pus Patient Tolerated Procedure: well, no complications Medical Decision Making - Medical Decision Making Patient is 34-year-old man who presents with what appears to be epidermal inclusion cyst. Discussed with him that probably best management would be to have the entire cyst incised, but the patient states his insurance will not cover visits with dermatology or other specialist. He was fairly adamant about wanting this done in emergency department. I explained indications, risks and benefits of drainage. Given that there is some mild infection, will drain this here. Given that it was face only minimal stab incision will be made. Discussed appropriate further care and follow-up as well as return parameters. Disposition Clinical Impression: Subcutaneous cyst Disposition: HOME SELF-CARE Condition: Good Instructions (If sedation given, give patient instructions): Epidermal Inclusion Cysts (ED) Prescriptions: Amoxic-Pot Clav 875-125Mg [Augmentin 875-125] 1 tab PO Q12HR 1 Days #14 tab Cephalexin [Keflex] 500 mg PO Q6HR #28 cap Is patient prescribed a controlled substance at d/c from ED?: No Referrals: Eran Andre MD [Primary Care Provider] - 1-2 days
[2020-09-08] MEDS ORDERED: LIDOCAINE 1% INJ 10MG/ML (20 ML MDV) SQ ONE (01:09)
[2020-09-08] MEDS ORDERED: AMOXIC-POT CLAV 875-125MG 1 EACH TAB PO STA (02:00)
== END 2020-09-08 02:04 | disposition home or self-care (01) ==
LOC: EC 23:22
DX: L72.8 Other follicular cysts of the skin and subcutaneous tissue (principal); F17.200 Nicotine dependence, unspecified, uncomplicated; J45.909 Unspecified asthma, uncomplicated; Z88.1 Allergy status to other antibiotic agents; Z88.2 Allergy status to sulfonamides; Z88.5 Allergy status to narcotic agent; Z91.041 Radiographic dye allergy status
CPT/HCPCS: 99282 ×2; 10060 ×2; J2001

== ENCOUNTER 2020-09-10 13:11 | Emergency (ER) | payer OTHER ==
[2020-09-10 13:43] VITALS: TEMP 97.7
[2020-09-10] MEDS ORDERED: SODIUM CHLORIDE 0.9% 1,000 ML IV STA (15:28)
--- NOTE | 2020-09-10 15:32 | ED ---
Dizziness HPI - General Chief Complaint: Dizziness Stated Complaint: chest pain Source: patient, family, RN notes reviewed Mode of arrival: ambulatory Limitations: no limitations - History of Present Illness Initial Comments: 34-year-old male patient presents to the emergency room with significant other complaining of back pain between his shoulder blades with some dizziness while at work today lasting approximately 10 minutes. Patient became very anxious and diaphoretic. He said it resolved on its own. Patient states that he had similar symptoms in the past and seen his primary care Dr. Andre, patient states that there is been instances where his heart rate would be 147 and he has had a Holter monitor but did not have any episodes while he is wearing Holter monitor. Patient describes anterior chest pain worse when he spreads his arms outward or with deep palpation. patient has a history of asthma, vertigo, severe anxiety. Patient states that he has a family history only of maternal grandfather dying at age 45 of ND but was a heavy smoker of unfiltered c igarettes and drinker. No other family history of cardiac disease. Patient is a half a pack to one pack a day smoker daily. Patient has no symptoms at this time. States did take his clonidine with no relief of his anxiety. Patient was seen on August [address] Tyson with similar episodes and had lab work and x-ray done all negative. MD Complaint: dizziness Timing: sudden onset, intermittent, now resolved Description: lightheadedness History of Same: Yes (Patient has been seen in the emergency room on August 25) History of Trauma: No Improves With: nothing Worsens With: nothing Associated Symptoms: diaphoresis - Related Data Home Medications Medication Instructions Recorded Confirmed clonazePAM [KlonoPIN] 1 mg PO TID PRN 05/08/16 08/16/20 Meclizine [Antivert] 25 mg PO BID PRN 03/09/17 08/16/20 Previous Rx's Medication Instructions Recorded Amoxic-Pot Clav 875-125Mg 1 tab PO Q12HR 1 Days #14 tab 09/08/20 [Augmentin 875-125] Cephalexin [Keflex] 500 mg PO Q6HR #28 cap 09/08/20 Allergies Allergy/AdvReac Type Severity Reaction Status Date / Time azithromycin [From Zithromax] Allergy Rash/Hives Verified 09/10/20 13:43 codeine Allergy Unknown Verified 09/10/20 13:43 Childhood Iodinated Contrast Media Allergy Anaphylaxis Verified 09/10/20 13:43 [Iodinated Contrast Media - IV Dye] iodine Allergy Anaphylaxis Verified 09/10/20 13:43 sulfamethoxazole Allergy Rash/Hives Verified 09/10/20 13:43 [From Bactrim] trimethoprim [From Bactrim] Allergy Rash/Hives Verified 09/10/20 13:43 Review of Systems ROS Statement: Those systems with pertinent positive or pertinent negative responses have been documented in the HPI. ROS Other: All systems not noted in ROS Statement are negative. Past Medical History Past Medical History: Asthma, GERD/Reflux Additional Past Medical History / Comment(s): vertigo, hx. kidney stones,ibs History of Any Multi-Drug Resistant Organisms: None Reported Date of last positivie culture/infection: 09/05/17-CDiff, MDRO Source:: stool Past Surgical History: Adenoidectomy, Tonsillectomy Additional Past Surgical History / Comment(s): colonoscopy, Past Anesthesia/Blood Transfusion Reactions: Family History of Problems w/ Anesthesia Additional Past Anesthesia/Blood Transfusion Reaction / Comment(s): father N/V Past Psychological History: Anxiety Smoking Status: Current every day smoker Past Alcohol Use History: Rare Past Drug Use History: None Reported - Past Family History Father Family Medical History: Cancer General Exam Limitations: no limitations General appearance: alert, in no apparent distress Head exam: Present: atraumatic, normocephalic, normal inspection Eye exam: Present: normal appearance, PERRL, EOMI. Absent: scleral icterus, conjunctival injection, periorbital swelling Pupils: Present: normal accommodation ENT exam: Present: normal exam, normal oropharynx, mucous membranes moist Neck exam: Present: normal inspection, full ROM. Absent: tenderness, meningismus, lymphadenopathy, thyromegaly Respiratory exam: Present: normal lung sounds bilaterally. Absent: respiratory distress, wheezes, rales, rhonchi, stridor, chest wall tenderness, accessory muscle use, decreased breath sounds, prolonged expiratory Cardiovascular Exam: Present: regular rate, normal rhythm, normal heart sounds. Absent: systolic murmur, diastolic murmur, rubs, gallop, clicks GI/Abdominal exam: Present: soft, normal bowel sounds. Absent: distended, tenderness, guarding, rebound, rigid Extremities exam: Present: normal inspection, full ROM, normal capillary refill. Absent: tenderness, pedal edema, joint swelling, calf tenderness Back exam: Present: normal inspection, full ROM, tenderness, paraspinal tenderness (upper Thoracic). Absent: CVA tenderness (R), CVA tenderness (L), muscle spasm, vertebral tenderness, rash noted Neurological exam: Present: alert, oriented X3, CN II-XII intact Psychiatric exam: Present: normal affect, normal mood Skin exam: Present: warm, dry, intact, normal color. Absent: rash Course Vital Signs 09/10/20 13:40 Temperature 97.7 F Pulse Rate 80 Respiratory 19 Rate Blood Pressure 109/75 O2 Sat by Pulse 99 Oximetry Medical Decision Making - Medical Decision Making CBC and electrolytes are within normal limits. Troponin is negative at 0.012 . Patient has no pain at this time and no dizziness at this time. Patient does admit to having severe anxiety and did take his clonidine prior to arrival which he states now has resolved his symptoms. He will be directed to follow up with Dr. Andre for continuation of his care. He should also directed to stop smoking as it will kill him. Patient is agreeable to being discharged and will follow up as directed. Case discussed with Dr. Renee who was agreeable to this plan of care - Lab Data Result diagrams: 09/10/20 15:52 09/10/20 15:52 Lab Results 09/10/20 09/10/20 09/10/20 Range/Units 15:52 15:52 15:52 WBC 8.4 (3.8-10.6) k/uL RBC 5.28 (4.30-5.90) m/uL Hgb 16.5 (13.0-17.5) gm/dL Hct 48.2 (39.0-53.0) % MCV 91.3 (80.0-100.0) fL MCH 31.1 (25.0-35.0) pg MCHC 34.1 (31.0-37.0) g/dL RDW 12.6 (11.5-15.5) % Plt Count 222 (150-450) k/uL MPV 8.2 Neutrophils % 70 % Lymphocytes % 23 % Monocytes % 5 % Eosinophils % 1 % Basophils % 1 % Neutrophils # 5.9 (1.3-7.7) k/uL Lymphocytes # 1.9 (1.0-4.8) k/uL Monocytes # 0.4 (0-1.0) k/uL Eosinophils # 0.1 (0-0.7) k/uL Basophils # 0.1 (0-0.2) k/uL Sodium 142 (137-145) mmol/L Potassium 4.9 (3.5-5.1) mmol/L Chloride 107 (98-107) mmol/L Carbon Dioxide 27 (22-30) mmol/L Anion Gap 8 mmol/L BUN 12 (9-20) mg/dL Creatinine 0.81 (0.66-1.25) mg/dL Est GFR (CKD-EPI)AfAm >90 (>60 ml/min/1.73 sqM) Est GFR (CKD-EPI)NonAf >90 (>60 ml/min/1.73 sqM) Glucose 97 (74-99) mg/dL Calcium 9.5 (8.4-10.2) mg/dL Total Bilirubin 0.4 (0.2-1.3) mg/dL AST 34 (17-59) U/L ALT 37 (4-49) U/L Alkaline Phosphatase 38 (38-126) U/L Troponin I <0.012 (0.000-0.034) ng/mL Total Protein 7.6 (6.3-8.2) g/dL Albumin 4.7 (3.5-5.0) g/dL Disposition Clinical Impression: Dizziness, Anxiety Disposition: HOME SELF-CARE Condition: Good Instructions (If sedation given, give patient instructions): Dizziness (ED), Anxiety (ED) Additional Instructions: Follow-up with Dr. Andre this week. Keep track of when you feel dizziness or elevated heart rate and How long the symptoms lasted and what you're doing. Quit smoking. Is patient prescribed a controlled substance at d/c from ED?: No Referrals: Eran Andre MD [Primary Care Provider] - 1-2 days Time of Disposition: 16:48
[2020-09-10 16:17] LABS: Basophils # (A) 0.1 k/uL (0-0.2); Basophils % (A) 1 %; Eosinophils # (A) 0.1 k/uL (0-0.7); Eosinophils % (A) 1 %; HCT 48.2 % (39.0-53.0); HGB 16.5 gm/dL (13.0-17.5); Lymphocytes # (A) 1.9 k/uL (1.0-4.8); Lymphocytes % (A) 23 %; MCH 31.1 pg (25.0-35.0); MCHC 34.1 g/dL (31.0-37.0); MCV 91.3 fL (80.0-100.0); Mean Platelet Volume 8.2; Monocytes # (A) 0.4 k/uL (0-1.0); Monocytes % (A) 5 %; Neutrophils # (A) 5.9 k/uL (1.3-7.7); Neutrophils % (A) 70 %; Platelet Count 222 k/uL (150-450); RBC 5.28 m/uL (4.30-5.90); RDW 12.6 % (11.5-15.5); WBC 8.4 k/uL (3.8-10.6)
[2020-09-10 16:27] LABS: ALT 37 U/L (4-49); AST 34 U/L (17-59); African American GFR (CKD) >90 (>60 ml/min/1.73 sqM); Albumin 4.7 g/dL (3.5-5.0); Alkaline Phosphatase 38 U/L (38-126); Anion Gap 8 mmol/L; Blood Urea Nitrogen 12 mg/dL (9-20); Calcium 9.5 mg/dL (8.4-10.2); Carbon Dioxide 27 mmol/L (22-30); Chloride 107 mmol/L (98-107); Glucose 97 mg/dL (74-99); Non-African American GFR(CKD) >90 (>60 ml/min/1.73 sqM); Potassium 4.9 mmol/L (3.5-5.1); Sodium 142 mmol/L (137-145); Total Bilirubin 0.4 mg/dL (0.2-1.3); Total Protein 7.6 g/dL (6.3-8.2)
[2020-09-10 17:04] VITALS: BP 130/79; PULSE 71; RESP 16
== END 2020-09-10 17:04 | disposition home or self-care (01) ==
LOC: EC 13:11
DX: R42 Dizziness and giddiness (principal); F41.9 Anxiety disorder, unspecified; R07.89 Other chest pain; J45.909 Unspecified asthma, uncomplicated; F17.200 Nicotine dependence, unspecified, uncomplicated; Z88.1 Allergy status to other antibiotic agents; Z88.2 Allergy status to sulfonamides; Z88.5 Allergy status to narcotic agent; Z91.041 Radiographic dye allergy status
CPT/HCPCS: 36415; 80053; 84484; 85025; 93005; 99285

== ENCOUNTER 2020-10-08 16:04 | Emergency (ER) | payer OTHER ==
[2020-10-08] MEDS ORDERED: KETOROLAC 15 MG/ML 1 ML VIAL IM STA (18:06)
[2020-10-08 18:15] LABS: Appearance,Urine Clear (Clear); Bilirubin,Urine Negative (Negative); Blood,Urine Negative (Negative); Color,Urine Yellow; Glucose,Urine (UA) Negative (Negative); Ketones,Urine Negative (Negative); Leukocyte Esterase,Urine Negative (Negative); Nitrite,Urine Negative (Negative); PH, Urine 6.5 (5.0-8.0); Protein,Urine Negative (Negative); Specific Gravity,Urine 1.018 (1.001-1.035); Urobilinogen,Urine <2.0 mg/dL (<2.0)
[2020-10-08] MEDS ORDERED: KETOROLAC 15 MG/ML 1 ML VIAL IVP STA (18:57)
[2020-10-08 19:25] LABS: Basophils % (A) 0 %; Eosinophils # (A) 0.1 k/uL (0-0.7); Eosinophils % (A) 1 %; HCT 49.1 % (39.0-53.0); HGB 16.6 gm/dL (13.0-17.5); Lymphocytes # (A) 2.8 k/uL (1.0-4.8); Lymphocytes % (A) 27 %; MCH 31.2 pg (25.0-35.0); MCHC 33.8 g/dL (31.0-37.0); MCV 92.3 fL (80.0-100.0); Mean Platelet Volume 8.7; Monocytes # (A) 0.5 k/uL (0-1.0); Monocytes % (A) 5 %; Neutrophils # (A) 6.9 k/uL (1.3-7.7); Neutrophils % (A) 66 %; Platelet Count 219 k/uL (150-450); RBC 5.31 m/uL (4.30-5.90); RDW 12.4 % (11.5-15.5); WBC 10.5 k/uL (3.8-10.6)
--- NOTE | 2020-10-08 19:27 | XR ---
EXAMINATION TYPE: XR KUB DATE OF EXAM: 10/08/2020 COMPARISON: 04/16/2018 HISTORY: Flank pain TECHNIQUE: 2 views upright FINDINGS: There is no sign of intestinal obstruction or pneumoperitoneum. Fecal pattern is normal. I see no calcifications over the kidneys and ureters. Lung bases are clear. There is no evidence of a m ass. IMPRESSION: Nonacute abdomen. No change.
--- NOTE | 2020-10-08 19:32 | ED ---
General Adult HPI - General Chief complaint: Back Pain/Injury Stated complaint: ABD pain,Dizzy Time Seen by Provider: 10/08/20 17:56 Source: patient, RN notes reviewed Mode of arrival: wheelchair Limitations: no limitations - History of Present Illness Initial comments: Patient is a 34-year-old male that presents to the emergency department with bilateral mid back pain. He notes that he was recently shoveling dirt helping. Dog other day and then noticed that his back was uncomfortable dull and achy after. He denied any urinary tract symptoms such as dysuria or frequency. He was a well-appearing 34-year-old male in no apparent distress. He denied any chest pain shortness of breath headache nausea vomiting diarrhea constipation fever fatigue chills. - Related Data Home Medications Medication Instructions Recorded Confirmed clonazePAM [KlonoPIN] 1 mg PO TID PRN 05/08/16 08/16/20 Meclizine [Antivert] 25 mg PO BID PRN 03/09/17 08/16/20 Previous Rx's Medication Instructions Recorded Amoxic-Pot Clav 875-125Mg 1 tab PO Q12HR 1 Days #14 tab 09/08/20 [Augmentin 875-125] Cephalexin [Keflex] 500 mg PO Q6HR #28 cap 09/08/20 Allergies Allergy/AdvReac Type Severity Reaction Status Date / Time azithromycin [From Zithromax] Allergy Rash/Hives Verified 10/08/20 16:22 codeine Allergy Unknown Verified 10/08/20 16:22 Childhood Iodinated Contrast Media Allergy Anaphylaxis Verified 10/08/20 16:22 [Iodinated Contrast Media - IV Dye] iodine Allergy Anaphylaxis Verified 10/08/20 16:22 sulfamethoxazole Allergy Rash/Hives Verified 10/08/20 16:22 [From Bactrim] trimethoprim [From Bactrim] Allergy Rash/Hives Verified 10/08/20 16:22 Review of Systems ROS Statement: Those systems with pertinent positive or pertinent negative responses have been documented in the HPI. ROS Other: All systems not noted in ROS Statement are negative. Past Medical History Past Medical History: Asthma, GERD/Reflux Additional Past Medical History / Comment(s): vertigo, hx. kidney stones,ibs History of Any Multi-Drug Resistant Organisms: None Reported Date of last positivie culture/infection: 09/05/17-CDiff, MDRO Source:: stool Past Surgical History: Adenoidectomy, Tonsillectomy Additional Past Surgical History / Comment(s): colonoscopy, Past Anesthesia/Blood Transfusion Reactions: Family History of Problems w/ Anesthesia Additional Past Anesthesia/Blood Transfusion Reaction / Comment(s): father N/V Past Psychological History: Anxiety Smoking Status: Current every day smoker Past Alcohol Use History: Rare Past Drug Use History: None Reported - Past Family History Father Family Medical History: Cancer General Exam Limitations: no limitations General appearance: alert, in no apparent distress Head exam: Present: atraumatic, normocephalic, normal inspection Eye exam: Present: normal appearance, PERRL, EOMI. Absent: scleral icterus, conjunctival injection, periorbital swelling Neck exam: Present: normal inspection Respiratory exam: Present: normal lung sounds bilaterally. Absent: respiratory distress, wheezes, rales, rhonchi, stridor Cardiovascular Exam: Present: regular rate, normal rhythm, normal heart sounds. Absent: systolic murmur, diastolic murmur, rubs, gallop, clicks GI/Abdominal exam: Present: soft, normal bowel sounds. Absent: distended, tenderness, guarding, rebound, rigid Extremities exam: Present: normal inspection, full ROM, normal capillary refill. Absent: tenderness, pedal edema, joint swelling, calf tenderness Back exam: Present: normal inspection, tenderness (Mildly to bilateral mid back) Neurological exam: Present: alert, oriented X3 Psychiatric exam: Present: normal affect, normal mood Skin exam: Present: warm, dry, intact, normal color. Absent: rash Course Vital Signs 10/08/20 10/08/20 16:19 19:27 Temperature 98.4 F 98.1 F Pulse Rate 90 68 Respiratory 17 18 Rate Blood Pressure 118/80 121/80 O2 Sat by Pulse 100 100 Oximetry Medical Decision Making - Medical Decision Making 34-year-old male complaining of bilateral mid back pain after shoveling. Labs, KUB, 15 mg of Toradol ordered. Labs unremarkable. KUB nonacute abdomen. Case discussed with Dr. oS, patient can discharge home with conservative management for a mechanical back strain. - Lab Data Result diagrams: 10/08/20 19:15 10/08/20 19:15 Lab Results 10/08/20 10/08/20 10/08/20 Range/Units 18:09 19:15 19:15 WBC 10.5 (3.8-10.6) k/uL RBC 5.31 (4.30-5.90) m/uL Hgb 16.6 (13.0-17.5) gm/dL Hct 49.1 (39.0-53.0) % MCV 92.3 (80.0-100.0) fL MCH 31.2 (25.0-35.0) pg MCHC 33.8 (31.0-37.0) g/dL RDW 12.4 (11.5-15.5) % Plt Count 219 (150-450) k/uL MPV 8.7 Neutrophils % 66 % Lymphocytes % 27 % Monocytes % 5 % Eosinophils % 1 % Basophils % 0 % Neutrophils # 6.9 (1.3-7.7) k/uL Lymphocytes # 2.8 (1.0-4.8) k/uL Monocytes # 0.5 (0-1.0) k/uL Eosinophils # 0.1 (0-0.7) k/uL Basophils # 0.0 (0-0.2) k/uL Sodium 141 (137-145) mmol/L Potassium 4.7 (3.5-5.1) mmol/L Chloride 105 (98-107) mmol/L Carbon Dioxide 26 (22-30) mmol/L Anion Gap 10 mmol/L BUN 9 (9-20) mg/dL Creatinine 0.75 (0.66-1.25) mg/dL Est GFR (CKD-EPI)AfAm >90 (>60 ml/min/1.73 sqM) Est GFR (CKD-EPI)NonAf >90 (>60 ml/min/1.73 sqM) Glucose 92 (74-99) mg/dL Calcium 9.5 (8.4-10.2) mg/dL Total Bilirubin 0.5 (0.2-1.3) mg/dL AST 31 (17-59) U/L ALT 30 (4-49) U/L Alkaline Phosphatase 36 L (38-126) U/L Total Protein 7.5 (6.3-8.2) g/dL Albumin 4.5 (3.5-5.0) g/dL Urine Color Yellow Urine Appearance Clear (Clear) Urine pH 6.5 (5.0-8.0) Ur Specific [place] 1.018 (1.001-1.035) Urine Protein Negative (Negative) Urine Glucose (UA) Negative (Negative) Urine Ketones Negative (Negative) Urine Blood Negative (Negative) Urine Nitrite Negative (Negative) Urine Bilirubin Negative (Negative) Urine Urobilinogen <2.0 (<2.0) mg/dL Ur Leukocyte Esterase Negative (Negative) - Radiology Data Radiology results: report reviewed, image reviewed KUB: Nonacute abdomen. No change. Disposition Clinical Impression: Mechanical back pain, Thoracic back pain Disposition: HOME SELF-CARE Condition: Stable Instructions (If sedation given, give patient instructions): Acute Low Back Pain (ED) Additional Instructions: Please return to the Emergency Department if symptoms worsen or any other concerns. Rest, avoid any strenuous activity or exercise. Take Motrin as needed for pain. Follow-up primary care as needed. Is patient prescribed a controlled substance at d/c from ED?: No Referrals: Eran Andre MD [Primary Care Provider] - 1-2 days Time of Disposition: 19:48
[2020-10-08 19:33] VITALS: RESP 18
[2020-10-08 19:34] LABS: ALT 30 U/L (4-49); AST 31 U/L (17-59); African American GFR (CKD) >90 (>60 ml/min/1.73 sqM); Albumin 4.5 g/dL (3.5-5.0); Alkaline Phosphatase 36 U/L (38-126); Anion Gap 10 mmol/L; Blood Urea Nitrogen 9 mg/dL (9-20); Calcium 9.5 mg/dL (8.4-10.2); Carbon Dioxide 26 mmol/L (22-30); Chloride 105 mmol/L (98-107); Glucose 92 mg/dL (74-99); Non-African American GFR(CKD) >90 (>60 ml/min/1.73 sqM); Potassium 4.7 mmol/L (3.5-5.1); Sodium 141 mmol/L (137-145); Total Bilirubin 0.5 mg/dL (0.2-1.3); Total Protein 7.5 g/dL (6.3-8.2)
[2020-10-08 19:44] VITALS: BP 121/80; PULSE 68; TEMP 98.1
== END 2020-10-08 20:03 | disposition home or self-care (01) ==
LOC: EC 16:04
DX: M54.6 Pain in thoracic spine (principal); R10.9 Unspecified abdominal pain; R42 Dizziness and giddiness; J45.909 Unspecified asthma, uncomplicated; F17.200 Nicotine dependence, unspecified, uncomplicated; Z88.1 Allergy status to other antibiotic agents; Z88.5 Allergy status to narcotic agent; Z88.8 Allergy status to other drugs, medicaments and biological substances; Z88.2 Allergy status to sulfonamides
CPT/HCPCS: 36415; 74018; 80053; 81003; 85025; 99284

== ENCOUNTER 2020-12-15 11:32 | Emergency (ER) | payer OTHER ==
--- NOTE | 2020-12-15 12:12 | ED ---
General Adult HPI - General Chief complaint: Arrhythmia/Palpitations Stated complaint: irreg, heart rate Time Seen by Provider: 12/15/20 11:51 Source: patient Mode of arrival: wheelchair Limitations: no limitations - History of Present Illness Initial comments: Dictation was produced using [employer] dictation software. please excuse any grammatical, word or spelling errors. Chief Complaint: 35-year-old male with chief complaint of palpitations History of Present Illness: Patient 35-year-old male he presents emergency department for chief complaint of palpitations. Patient states he gets random episodes of palpitations. He states that it happen often for the last month. States that he feels like his heart racing because of into his chest. Patient states he feels like its irregular. Patient denies any excessive use of caff eine. He does not smoke. Does not drink alcohol. Patient denies any cardiac history. No associated chest pain or shortness of breath The ROS documented in this emergency department record has been reviewed and confirmed by me. Those systems with pertinent positive or negative responses have been documented in the HPI. All other systems are other negative and/or noncontributory. PHYSICAL EXAM: General Impression: Alert and oriented x3, not in acute distress HEENT: Normocephalic atraumatic, extra-ocular movements intact, pupils equal and reactive to light bilaterally, mucous membranes moist. Cardiovascular: Heart regular rate and rhythm Chest: Able to complete full sentences, no retractions, no tachypnea Abdomen: abdomen soft, non-tender, non-distended, no organomegaly Musculoskeletal: Pulses present and equal in all extremities, no peripheral edema Motor: no focal deficits noted Neurological: CN II-XII grossly intact, no focal motor or sensory deficits noted Skin: Intact with no visualized rashes Psych: Normal affect and mood ED course: 35-year-old well-appearing male presents emergency department for evaluation of palpitations. As upon arrival shows heart rate of 107, rest of vital signs within acceptable limits. EKG shows normal sinus rhythm without any abnormalities. Laboratory evaluation obtained. CBC, metabolic panel, troponin is negative. Patient observed in the emergency department for 2 hours. He is reevaluated at bedside at 1:30 PM found to be stable medical condition. Patient advised to follow-up with primary care doctor. He is given referral to cardiology for outpatient Holter monitoring. EKG interpretation: Ventricular rate 89, normal sinus rhythm, MI interval 160, QRS 76, QTC 440. No MI prolongation, no QTC prolongation, no ST or T-wave c hanges noted. Overall, this EKG is unremarkable - Related Data Home Medications Medication Instructions Recorded Confirmed clonazePAM [KlonoPIN] 1 mg PO TID PRN 05/08/16 08/16/20 Meclizine [Antivert] 25 mg PO BID PRN 03/09/17 08/16/20 Previous Rx's Medication Instructions Recorded Amoxic-Pot Clav 875-125Mg 1 tab PO Q12HR 1 Days #14 tab 09/08/20 [Augmentin 875-125] Cephalexin [Keflex] 500 mg PO Q6HR #28 cap 09/08/20 Allergies Allergy/AdvReac Type Severity Reaction Status Date / Time azithromycin [From Zithromax] Allergy Rash/Hives Verified 12/15/20 11:34 codeine Allergy Unknown Verified 12/15/20 11:34 Childhood Iodinated Contrast Media Allergy Anaphylaxis Verified 12/15/20 11:34 [Iodinated Contrast Media - IV Dye] iodine Allergy Anaphylaxis Verified 12/15/20 11:34 sulfamethoxazole Allergy Rash/Hives Verified 12/15/20 11:34 [From Bactrim] trimethoprim [From Bactrim] Allergy Rash/Hives Verified 12/15/20 11:34 Review of Systems ROS Statement: Those systems with pertinent positive or pertinent negative responses have been documented in the HPI. ROS Other: All systems not noted in ROS Statement are negative. Past Medical History Past Medical History: Asthma, GERD/Reflux Additional Past Medical History / Comment(s): vertigo, hx. kidney stones,ibs History of Any Multi-Drug Resistant Organisms: None Reported Date of last positivie culture/infection: 09/05/17-CDiff, MDRO Source:: stool Past Surgical History: Adenoidectomy, Tonsillectomy Additional Past Surgical History / Comment(s): colonoscopy, Past Anesthesia/Blood Transfusion Reactions: Family History of Problems w/ Anesthesia Additional Past Anesthesia/Blood Transfusion Reaction / Comment(s): father N/V Past Psychological History: Anxiety Smoking Status: Current every day smoker Past Alcohol Use History: Rare Past Drug Use History: None Reported - Past Family History Father Family Medical History: Cancer General Exam Limitations: no limitations Course Vital Signs 12/15/20 12/15/20 12/15/20 11:34 12:00 13:00 Temperature 97.6 F Pulse Rate 107 H 85 68 Respiratory 18 20 14 Rate Blood Pressure 122/85 122/88 122/88 O2 Sat by Pulse 97 98 98 Oximetry Medical Decision Making - Lab Data Result diagrams: 12/15/20 12:07 12/15/20 12:07 Lab Results 12/15/20 12/15/20 12/15/20 Range/Units 12:07 12:07 12:07 WBC 7.5 (3.8-10.6) k/uL RBC 5.38 (4.30-5.90) m/uL Hgb 16.6 (13.0-17.5) gm/dL Hct 49.5 (39.0-53.0) % MCV 92.0 (80.0-100.0) fL MCH 30.9 (25.0-35.0) pg MCHC 33.6 (31.0-37.0) g/dL RDW 12.3 (11.5-15.5) % Plt Count 199 (150-450) k/uL MPV 9.1 Neutrophils % 48 % Lymphocytes % 40 % Monocytes % 6 % Eosinophils % 4 % Basophils % 0 % Neutrophils # 3.6 (1.3-7.7) k/uL Lymphocytes # 3.0 (1.0-4.8) k/uL Monocytes # 0.4 (0-1.0) k/uL Eosinophils # 0.3 (0-0.7) k/uL Basophils # 0.0 (0-0.2) k/uL Sodium 139 (137-145) mmol/L Potassium 4.3 (3.5-5.1) mmol/L Chloride 107 (98-107) mmol/L Carbon Dioxide 24 (22-30) mmol/L Anion Gap 8 mmol/L BUN 16 (9-20) mg/dL Creatinine 0.82 (0.66-1.25) mg/dL Est GFR (CKD-EPI)AfAm >90 (>60 ml/min/1.73 sqM) Est GFR (CKD-EPI)NonAf >90 (>60 ml/min/1.73 sqM) Glucose 109 H (74-99) mg/dL Calcium 9.8 (8.4-10.2) mg/dL Magnesium 1.8 (1.6-2.3) mg/dL Troponin I <0.012 (0.000-0.034) ng/mL Disposition Clinical Impression: Palpitations Disposition: HOME SELF-CARE Condition: Good Instructions (If sedation given, give patient instructions): Heart Palpitations (ED) Is patient prescribed a controlled substance at d/c from ED?: No Referrals: Liu Andre MD [Primary Care Provider] - 1-2 days Carmelo Moreland DO [STAFF PHYSICIAN] - 1-2 days
[2020-12-15 12:20] LABS: HCT 49.5 % (39.0-53.0); HGB 16.6 gm/dL (13.0-17.5); MCH 30.9 pg (25.0-35.0); RBC 5.38 m/uL (4.30-5.90); WBC 7.5 k/uL (3.8-10.6)
[2020-12-15 12:21] LABS: Basophils % (A) 0 %; Eosinophils # (A) 0.3 k/uL (0-0.7); Eosinophils % (A) 4 %; Lymphocytes % (A) 40 %; MCHC 33.6 g/dL (31.0-37.0); Mean Platelet Volume 9.1; Monocytes # (A) 0.4 k/uL (0-1.0); Monocytes % (A) 6 %; Neutrophils # (A) 3.6 k/uL (1.3-7.7); Neutrophils % (A) 48 %; Platelet Count 199 k/uL (150-450); RDW 12.3 % (11.5-15.5)
[2020-12-15 12:39] LABS: African American GFR (CKD) >90 (>60 ml/min/1.73 sqM); Anion Gap 8 mmol/L; Blood Urea Nitrogen 16 mg/dL (9-20); Calcium 9.8 mg/dL (8.4-10.2); Carbon Dioxide 24 mmol/L (22-30); Chloride 107 mmol/L (98-107); Glucose 109 mg/dL (74-99); Magnesium 1.8 mg/dL (1.6-2.3); Non-African American GFR(CKD) >90 (>60 ml/min/1.73 sqM); Potassium 4.3 mmol/L (3.5-5.1); Sodium 139 mmol/L (137-145)
[2020-12-15 14:04] VITALS: BP 118/71; PULSE 74; RESP 18; TEMP 98.5
== END 2020-12-15 13:45 | disposition home or self-care (01) ==
LOC: EC 11:32
DX: R00.2 Palpitations (principal); F17.200 Nicotine dependence, unspecified, uncomplicated; J45.909 Unspecified asthma, uncomplicated; Z88.1 Allergy status to other antibiotic agents; Z88.2 Allergy status to sulfonamides; Z88.5 Allergy status to narcotic agent; Z91.041 Radiographic dye allergy status; Z88.8 Allergy status to other drugs, medicaments and biological substances
CPT/HCPCS: 36415; 80048; 83735; 84484; 85025; 93005; 99285

== ENCOUNTER 2021-02-28 16:49 | Emergency (ER) | payer OTHER ==
[2021-02-28 18:13] VITALS: BP 131/85; PULSE 84; RESP 16; TEMP 98.5
[2021-02-28] MEDS ORDERED: SODIUM CHLORIDE 0.9% 500 ML 500 ML IV ONE (19:47)
[2021-02-28] MEDS ORDERED: KETOROLAC 15 MG/ML 1 ML VIAL IVP STA (19:47)
--- NOTE | 2021-02-28 20:24 | ED ---
General Adult HPI - General Chief complaint: Upper Respiratory Infection Stated complaint: Covid+/Antibodies Time Seen by Provider: 02/28/21 19:31 Source: patient Mode of arrival: ambulatory Limitations: no limitations - History of Present Illness Initial comments: 35-year-old male patient presents to the emergency department today for an occasional antibody infusion after testing positive for COVID-19 at an urgent care. Patient states he woke up today with headache and was concerned. Denies any other symptoms at this time. He was not vaccinated. He does have history of asthma and sleep apnea. Patient denies any recent rash, fever, chills, cough, shortness of breath, chest pain, abdominal pain, nausea, vomiting, diarrhea, constipation, back pain, numbness, tingling, dizziness, weakness, hematuria, dysuria, urinary urgency, urinary frequency, visual changes, or any other complaints. - Related Data Home Medications Medication Instructions Recorded Confirmed clonazePAM [KlonoPIN] 1 mg PO DAILY PRN 05/08/16 02/28/21 Meclizine [Antivert] 25 mg PO TID PRN 03/09/17 02/28/21 Allergies Allergy/AdvReac Type Severity Reaction Status Date / Time azithromycin [From Zithromax] Allergy Rash/Hives Verified 02/28/21 21:09 codeine Allergy Unknown Verified 02/28/21 21:09 Childhood Iodinated Contrast Media Allergy Anaphylaxis Verified 02/28/21 21:09 [Iodinated Contrast Media - IV Dye] iodine Allergy Anaphylaxis Verified 02/28/21 21:09 sulfamethoxazole Allergy Rash/Hives Verified 02/28/21 21:09 [From Bactrim] trimethoprim [From Bactrim] Allergy Rash/Hives Verified 02/28/21 21:09 Review of Systems ROS Statement: Those systems with pertinent positive or pertinent negative responses have been documented in the HPI. ROS Other: All systems not noted in ROS Statement are negative. Past Medical History Past Medical History: Asthma, GERD/Reflux Additional Past Medical History / Comment(s): vertigo, hx. kidney stones,ibs History of Any Multi-Drug Resistant Organisms: None Reported Date of last positivie culture/infection: 09/05/17-CDiff, MDRO Source:: stool Past Surgical History: Adenoidectomy, Tonsillectomy Additional Past Surgical History / Comment(s): colonoscopy, Past Anesthesia/Blood Transfusion Reactions: Family History of Problems w/ Anesthesia Additional Past Anesthesia/Blood Transfusion Reaction / Comment(s): father N/V Past Psychological History: Anxiety Smoking Status: Current every day smoker Past Alcohol Use History: Rare Past Drug Use History: None Reported - Past Family History Father Family Medical History: Cancer General Exam Limitations: no limitations General appearance: alert, in no apparent distress, other (This is a well- developed, well-nourished adult male in no acute distress.) Eye exam: Present: normal appearance, PERRL, EOMI. Absent: scleral icterus, conjunctival injection, periorbital swelling ENT exam: Present: normal exam, normal oropharynx, mucous membranes moist Respiratory exam: Present: normal lung sounds bilaterally. Absent: respiratory distress, wheezes, rales, rhonchi, stridor Cardiovascular Exam: Present: regular rate, normal rhythm, normal heart sounds. Absent: systolic murmur, diastolic murmur, rubs, gallop, clicks GI/Abdominal exam: Present: soft, normal bowel sounds. Absent: distended, tenderness, guarding, rebound, rigid Neurological exam: Present: alert, oriented X3, CN II-XII intact Psychiatric exam: Present: normal affect, normal mood Skin exam: Present: warm, dry, intact, normal color. Absent: rash Course Vital Signs 02/28/21 18:10 Temperature 98.5 F Pulse Rate 84 Respiratory 16 Rate Blood Pressure 131/85 O2 Sat by Pulse 97 Oximetry Medical Decision Making - Medical Decision Making 35 year-old male patient presenting for monoclonal antibody infusion after testing positive for COVID-19 outpatient. Physical examination is unremarkable. Only symptom was headache. He did have proof of positive result which was emailed to Marie Hopper. He tolerated the infusion without difficulty. He is discharged with instructions to follow-up with the primary care physician for recheck in 1-2 days. Return parameters were discussed in detail. They verbalize understanding and agree with this plan. My attending is Dr. Tyson. Disposition Clinical Impression: COVID-19 Disposition: HOME SELF-CARE Condition: Good Instructions (If sedation given, give patient instructions): Coronavirus Disease 2019 (COVID-19) Additional Instructions: Tips to help you feel better: -Maintain adequate fluid intake - especially water. -Rest, you are healing your body will require extra sleep. -Eat even if you do not feel like it - broth, jello, toast are fine if you cannot eat full meals. -Take tylenol and motrin alternating (if you have no allergies or have not been instructed to avoid these medications) to help with body aches and fevers. -Obtain over the counter vitamin C, zinc, and vitamin D3. -Take medications as prescribed. Follow-up with your primary care physician for recheck in 1-2 days. Return for any new, worsening, or concerning symptoms. Is patient prescribed a controlled substance at d/c from ED?: No Referrals: Eran Andre MD [Primary Care Provider] - 1-2 days Time of Disposition: 21:58
[2021-02-28] MEDS ORDERED: CASIRIVIMAB (REGN10933) (EUA) 600 MG, IMDEVIMAB (REGN10987) (EUA) 600 MG in SODIUM CHLO... IVPB ONE (20:30)
[2021-02-28] MEDS ORDERED: SODIUM CHLORIDE 0.9% 50 ML IVPB ONE (21:00)
== END 2021-02-28 22:51 | disposition home or self-care (01) ==
LOC: EC 16:49
DX: U07.1 COVID-19 (principal); F17.200 Nicotine dependence, unspecified, uncomplicated; J45.909 Unspecified asthma, uncomplicated; Z88.1 Allergy status to other antibiotic agents; Z88.5 Allergy status to narcotic agent; Z91.041 Radiographic dye allergy status; Z88.2 Allergy status to sulfonamides
CPT/HCPCS: 96374; 99283; J1885; Q0244

== ENCOUNTER → 2021-07-03 | Outpatient (CLI) | payer OTHER ==
--- NOTE | 2021-07-03 08:23 | CT ---
EXAMINATION TYPE: CT lumbar spine wo con DATE OF EXAM: 07/03/2021 6:36 AM COMPARISON: CT dated 05/05/2020 HISTORY: lumbar neuritis CT DLP: 977 mGycm Automated exposure control for dose reduction was used. Technique: Unenhanced CT of the lumbar spine was performed. Bone and soft tissue window settings are submitted as well as coronal and sagittal reconstructions. Findings: Preserved lumbar lordosis. Minimal retrolisthesis of L4 over L5 and L5 over S1. No definite vertebral body collapse or acute displaced fracture. Tiny L3 upper endplate osteophytosis. Otherwise no signif icant bony degenerative changes of the lumbar spine. Slightly prominent epidural fat mainly posterior ly at multilevel causing mild central spinal canal stenosis. L1-L2: No significant disc disease, central spinal canal stenosis or neuroforaminal stenosis. L2-L3: No significant disc disease, central spinal canal stenosis or neuroforaminal stenosis. L3-L4: No significant disc disease, central spinal canal stenosis or neuroforaminal stenosis. L4-L5: No significant disc disease, central spinal canal stenosis or neuroforaminal stenosis. L5-S1: Mild diffuse posterior disc bulge more inclined to the left side, causing no significant centr al spinal canal stenosis and mild bilateral neuroforaminal stenosis. No paraspinal lesion. IMPRESSION: Mild central spinal canal stenosis caused mainly by prominent posterior epidural fat as described abo ve. Mild L5-S1 disc bulge causing mild bilateral neuroforaminal stenosis. Further MRI assessment can be considered if clinically required.
== END | disposition home or self-care (01) ==
LOC: RADCTMAIN 06:17
PROVIDERS: ATTEND Family Medicine
DX: M48.061 Spinal stenosis, lumbar region without neurogenic claudication (principal); M54.16 Radiculopathy, lumbar region
CPT/HCPCS: 72131

== ENCOUNTER → 2022-01-29 | Outpatient (CLI) | payer OTHER ==
--- NOTE | 2022-01-29 13:14 | XR ---
EXAMINATION TYPE: XR Hip Complete LT DATE OF EXAM: 01/29/2022 COMPARISON: NONE HISTORY: Palpable mass TECHNIQUE: 2 views submitted FINDINGS: There is no evidence of erosive change or acute fracture. Calcification along the lateral margin of t he acetabulum. IMPRESSION: 1. 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 2. No osseous mass seen. If concern for soft tissue mass correlate with ultrasound..
== END | disposition home or self-care (01) ==
LOC: RADXRMAIN 12:58
PROVIDERS: ATTEND Family Medicine
DX: M61.48 Other calcification of muscle, other site (principal)
CPT/HCPCS: 73502

== ENCOUNTER 2022-10-19 18:27 | Emergency (ER) | payer OTHER ==
[2022-10-19 18:35] VITALS: RESP 18; TEMP 98
[2022-10-19] MEDS ORDERED: SODIUM CHLORIDE 0.9% 1,000 ML IV STA (18:51)
--- NOTE | 2022-10-19 19:19 | ED ---
General Adult HPI - General Chief complaint: Chest Pain Stated complaint: Chest Pain/palpatations Time Seen by Provider: 10/19/22 18:40 Source: patient Mode of arrival: ambulatory Limitations: no limitations - History of Present Illness Initial comments: 37-year-old male presenting with chief complaint of palpitations. Patient states that for about an hour prior to arrival he has had recurrent palpitations and lightheadedness. States that he has a history of palpitations and takes propranolol, however this episode is lasting longer than normal. He denies chest pain, shortness of breath, fever, chills, nausea, vomiting, numbness, tingling, weakness, URI-like symptoms. He admits to chewing tobacco, denies smoking, drug use, or drinking. - Related Data Home Medications Medication Instructions Recorded Confirmed clonazePAM [KlonoPIN] 1 mg PO DAILY PRN 05/08/16 09/11/21 Meclizine [Antivert] 25 mg PO TID PRN 03/09/17 09/11/21 Propranolol (Unknown Dose) 1 tab PO DAILY 09/11/21 09/11/21 Allergies Allergy/AdvReac Type Severity Reaction Status Date / Time azithromycin [From Zithromax] Allergy Rash/Hives Verified 10/19/22 18:35 codeine Allergy Unknown Verified 10/19/22 18:35 Childhood Iodinated Contrast Media Allergy Anaphylaxis Verified 10/19/22 18:35 [Iodinated Contrast Media - IV Dye] iodine Allergy Anaphylaxis Verified 10/19/22 18:35 sulfamethoxazole Allergy Rash/Hives Verified 10/19/22 18:35 [From Bactrim] trimethoprim [From Bactrim] Allergy Rash/Hives Verified 10/19/22 18:35 Review of Systems ROS Statement: Those systems with pertinent positive or pertinent negative responses have been documented in the HPI. ROS Other: All systems not noted in ROS Statement are negative. Past Medical History Past Medical History: Asthma, GERD/Reflux, Sleep Apnea/CPAP/BIPAP Additional Past Medical History / Comment(s): Vertigo, hx kidney stones, IBS, varicose veins, CPAP use. History of Any Multi-Drug Resistant Organisms: None Reported Date of last positivie culture/infection: 09/05/17-CDiff, MDRO Source:: stool Past Surgical History: Adenoidectomy, Tonsillectomy Additional Past Surgical History / Comment(s): Colonoscopy. Past Anesthesia/Blood Transfusion Reactions: No Reported Reaction Additional Past Anesthesia/Blood Transfusion Reaction / Comment(s): Father PONV. Past Psychological History: Anxiety Smoking Status: Former smoker Past Alcohol Use History: None Reported Past Drug Use History: None Reported - Past Family History Father Family Medical History: Cancer General Exam Limitations: no limitations General appearance: alert, in no apparent distress Head exam: Present: atraumatic, normocephalic, normal inspection Eye exam: Present: normal appearance, EOMI. Absent: scleral icterus, periorbital swelling Neck exam: Present: normal inspection, full ROM Respiratory exam: Present: normal lung sounds bilaterally. Absent: respiratory distress, wheezes, rales, rhonchi, stridor Cardiovascular Exam: Present: regular rate, normal rhythm, normal heart sounds. Absent: systolic murmur, diastolic murmur, rubs, gallop, clicks Neurological exam: Present: alert, oriented X3, CN II-XII intact Psychiatric exam: Present: normal affect, normal mood Skin exam: Present: warm, dry, intact, normal color. Absent: rash Course Vital Signs 10/19/22 10/19/22 18:33 22:04 Temperature 98 F Pulse Rate 72 54 L Respiratory 18 18 Rate Blood Pressure 113/80 113/72 O2 Sat by Pulse 98 98 Oximetry EKG Findings - EKG Comments: EKG Findings:: Sinus rhythm ventricular rate 68. RI interval 172. QRS 92. QT 395. QTc 411. No ischemic changes. Normal axis. Medical Decision Making - Medical Decision Making Was pt. sent in by a medical professional or institution (, PA, OFFICE MACHINERY OR EQUIPMENT INSTALLER, urgent ca re, hospital, or prison...) When possible be specific @ -No Did you speak to anyone other than the patient for history (EMS, parent, family, police, friend...)? What history was obtained from this source @ -No Did you review nursing and triage notes (agree or disagree)? Why? @ -I reviewed and agree with nursing and triage notes Were old charts reviewed (outside hosp., previous admission, EMS record, old EKG, old radiological studies, urgent care reports/EKG's, prison records)? Report findings @ -No old charts were reviewed Differential Diagnosis (chest pain, altered mental status, abdominal pain women, abdominal pain men, vaginal bleeding, weakness, fever, dyspnea, syncope, headache, dizziness, GI bleed, back pain, seizure, CVA, palpatations, mental health, musculoskeletal)? @ -Differential Palpitations Ventricular arrhythmias, atrial arrhythmias, myocardial infarction, anemia, thyrotoxicosis, electrolyte imbalance, hypokalemia, pulmonary embolism, pulmonary disease, drugs, alcohol, anxiety, stress.... This is not meant to be an all-inclusive list. EKG interpreted by me (3pts min.). @ -As above X-rays interpreted by me (1pt min.). @ -chest x-ray shows no acute process CT interpreted by me (1pt min.). @ -None done U/S interpreted by me (1pt. min.). @ -None done What testing was considered but not performed or refused? (CT, X-rays, U/S, labs)? Why? @ -None What meds were considered but not given or refused? Why? @ -None Did you discuss the management of the patient with other professionals (professionals i.e. , PA, OFFICE MACHINERY OR EQUIPMENT INSTALLER, lab, RT, psych nurse, social group worker, fryline attendant, teacher, procurement officer, telephonic case manager)? Give summary @ -No Was smoking cessation discussed for >3mins.? @ -No Was critical care preformed (if so, how long)? @ -No Were there social determinants of health that impacted care today? How? (Homelessness, low income, unemployed, alcoholism, drug addiction, transportation, low edu. Level, literacy, decrease access to med. care, shelter, rehab)? @ -No Was there de-escalation of care discussed even if they declined (Discuss DNR or withdrawal of care, Hospice)? DNR status @ -No What co-morbidities impacted this encounter? (DM, HTN, Smoking, COPD, CAD, Cancer, CVA, ARF, Chemo, Hep., AIDS, mental health diagnosis, sleep apnea, morbid obesity)? @ -None Was patient admitted / discharged? Hospital course, mention meds given and route, prescriptions, significant lab abnormalities, going to OR and other pertinent info. @ -37-year-old male presenting with chief complaint of palpitations. Physical examination is unremarkable. EKG shows sinus rhythm. Lab work is grossly unremarkable chest x-ray shows no acute process. On reassessment patient is resting comfortably and states that his palpitations have completely subsided. He is educated on today's findings and instructed to follow-up with his PCP. He states that he also has an upcoming appointment with a health outcomes liaison. Follow-up with PCP. Report back to ER with any new or worsening symptoms. Discussed return parameters and answered all questions. Patient conveyed verbal understanding and agreed to the plan. I discussed this case in detail with my attending Dr. Hernandez Undiagnosed new problem with uncertain prognosis? @ -No Drug Therapy requiring intensive monitoring for toxicity (Heparin, Nitro, Insulin, Cardizem)? @ -No Were any procedures done? @ -No Diagnosis/symptom? @ -Palpitations Acute, or Chronic, or Acute on Chronic? @ -Acute Uncomplicated (without systemic symptoms) or Complicated (systemic symptoms)? @ -Uncomplicated Side effects of treatment? @ -No Exacerbation, Progression, or Severe Exacerbation? @ -No Poses a threat to life or bodily function? How? (Chest pain, [place], MT, pneumonia, PE, COPD, DKA, ARF, appy, cholecystitis, CVA, Diverticulitis, Homicidal, Suicidal, threat to staff... and all critical care pts) @ -No - Lab Data Result diagrams: 10/19/22 18:50 10/19/22 18:50 Lab Results 10/19/22 10/19/22 10/19/22 Range/Units 18:50 18:50 18:50 WBC 7.0 (3.8-10.6) k/uL RBC 4.98 (4.30-5.90) m/uL Hgb 15.4 (13.0-17.5) gm/dL Hct 45.5 (39.0-53.0) % MCV 91.4 (80.0-100.0) fL MCH 30.9 (25.0-35.0) pg MCHC 33.9 (31.0-37.0) g/dL RDW 13.0 (11.5-15.5) % Plt Count 208 (150-450) k/uL MPV 9.1 Neutrophils % 55 % Lymphocytes % 33 % Monocytes % 8 % Eosinophils % 3 % Basophils % 0 % Neutrophils # 3.9 (1.3-7.7) k/uL Lymphocytes # 2.3 (1.0-4.8) k/uL Monocytes # 0.5 (0-1.0) k/uL Eosinophils # 0.2 (0-0.7) k/uL Basophils # 0.0 (0-0.2) k/uL PT 9.9 (9.0-12.0) sec INR 0.9 (<1.2) APTT 23.7 (22.0-30.0) sec Sodium 139 (137-145) mmol/L Potassium 4.1 (3.5-5.1) mmol/L Chloride 109 H (98-107) mmol/L Carbon Dioxide 23 (22-30) mmol/L Anion Gap 7 mmol/L BUN 11 (9-20) mg/dL Creatinine 0.79 (0.66-1.25) mg/dL Est GFR (CKD-EPI)AfAm >90 (>60 ml/min/1.73 sqM) Est GFR (CKD-EPI)NonAf >90 (>60 ml/min/1.73 sqM) Glucose 120 H (74-99) mg/dL Calcium 9.3 (8.4-10.2) mg/dL Magnesium 1.9 (1.6-2.3) mg/dL Total Bilirubin 0.5 (0.2-1.3) mg/dL AST 34 (17-59) U/L ALT 40 (4-49) U/L Alkaline Phosphatase 33 L (38-126) U/L Troponin I (0.000-0.034) ng/mL Total Protein 7.2 (6.3-8.2) g/dL Albumin 4.0 (3.5-5.0) g/dL TSH 1.050 (0.465-4.680) mIU/L Urine Color Urine Appearance (Clear) Urine pH (5.0-8.0) Ur Specific [place] (1.001-1.035) Urine Protein (Negative) Urine Glucose (UA) (Negative) Urine Ketones (Negative) Urine Blood (Negative) Urine Nitrite (Negative) Urine Bilirubin (Negative) Urine Urobilinogen (<2.0) mg/dL Ur Leukocyte Esterase (Negative) Urine RBC (0-5) /hpf Urine WBC (0-5) /hpf Urine Bacteria (None) /hpf Urine Mucus (None) /hpf Urine Opiates Screen (NotDetected) Ur Oxycodone Screen (NotDetected) Urine Methadone Screen (NotDetected) Ur Propoxyphene Screen (NotDetected) Ur Barbiturates Screen (NotDetected) U Tricyclic Antidepress (NotDetected) Ur Phencyclidine Scrn (NotDetected) Ur Amphetamines Screen (NotDetected) U Methamphetamines Scrn (NotDetected) U Benzodiazepines Scrn (NotDetected) Urine Cocaine Screen (NotDetected) U Marijuana (THC) Screen (NotDetected) 10/19/22 10/19/22 Range/Units 18:50 20:40 WBC (3.8-10.6) k/uL RBC (4.30-5.90) m/uL Hgb (13.0-17.5) gm/dL Hct (39.0-53.0) % MCV (80.0-100.0) fL MCH (25.0-35.0) pg MCHC (31.0-37.0) g/dL RDW (11.5-15.5) % Plt Count (150-450) k/uL MPV Neutrophils % % Lymphocytes % % Monocytes % % Eosinophils % % Basophils % % Neutrophils # (1.3-7.7) k/uL Lymphocytes # (1.0-4.8) k/uL Monocytes # (0-1.0) k/uL Eosinophils # (0-0.7) k/uL Basophils # (0-0.2) k/uL PT (9.0-12.0) sec INR (<1.2) APTT (22.0-30.0) sec Sodium (137-145) mmol/L Potassium (3.5-5.1) mmol/L Chloride (98-107) mmol/L Carbon Dioxide (22-30) mmol/L Anion Gap mmol/L BUN (9-20) mg/dL Creatinine (0.66-1.25) mg/dL Est GFR (CKD-EPI)AfAm (>60 ml/min/1.73 sqM) Est GFR (CKD-EPI)NonAf (>60 ml/min/1.73 sqM) Glucose (74-99) mg/dL Calcium (8.4-10.2) mg/dL Magnesium (1.6-2.3) mg/dL Total Bilirubin (0.2-1.3) mg/dL AST (17-59) U/L ALT (4-49) U/L Alkaline Phosphatase (38-126) U/L Troponin I <0.012 (0.000-0.034) ng/mL Total Protein (6.3-8.2) g/dL Albumin (3.5-5.0) g/dL TSH (0.465-4.680) mIU/L Urine Color Light Yellow Urine Appearance Clear (Clear) Urine pH 7.0 (5.0-8.0) Ur Specific [place] 1.010 (1.001-1.035) Urine Protein Negative (Negative) Urine Glucose (UA) Negative (Negative) Urine Ketones Negative (Negative) Urine Blood Negative (Negative) Urine Nitrite Negative (Negative) Urine Bilirubin Negative (Negative) Urine Urobilinogen <2.0 (<2.0) mg/dL Ur Leukocyte Esterase Negative (Negative) Urine RBC 0 (0-5) /hpf Urine WBC 0 (0-5) /hpf Urine Bacteria NONE (None) /hpf Urine Mucus NONE (None) /hpf Urine Opiates Screen Not Detected (NotDetected) Ur Oxycodone Screen Not Detected (NotDetected) Urine Methadone Screen Not Detected (NotDetected) Ur Propoxyphene Screen Not Detected (NotDetected) Ur Barbiturates Screen Not Detected (NotDetected) U Tricyclic Antidepress Not Detected (NotDetected) Ur Phencyclidine Scrn Not Detected (NotDetected) Ur Amphetamines Screen Not Detected (NotDetected) U Methamphetamines Scrn Not Detected (NotDetected) U Benzodiazepines Scrn Not Detected (NotDetected) Urine Cocaine Screen Not Detected (NotDetected) U Marijuana (THC) Screen Not Detected (NotDetected) Disposition Clinical Impression: Palpitations Disposition: HOME SELF-CARE Condition: Good Instructions (If sedation given, give patient instructions): Heart Palpitations (ED) Additional Instructions: Follow-up with PCP and health outcomes liaison at scheduled appointment. Report back to ER with any new or worsening symptoms. Is patient prescribed a controlled substance at d/c from ED?: No Referrals: Eran Andre MD [Primary Care Provider] - 1-2 days Gonzales Bonilla MD [STAFF PHYSICIAN] - 11/05/22 Time of Disposition: 21:34
[2022-10-19 19:29] LABS: ALT 40 U/L (4-49); AST 34 U/L (17-59); African American GFR (CKD) >90 (>60 ml/min/1.73 sqM); Alkaline Phosphatase 33 U/L (38-126); Anion Gap 7 mmol/L; Blood Urea Nitrogen 11 mg/dL (9-20); Calcium 9.3 mg/dL (8.4-10.2); Carbon Dioxide 23 mmol/L (22-30); Chloride 109 mmol/L (98-107); Glucose 120 mg/dL (74-99); Magnesium 1.9 mg/dL (1.6-2.3); Non-African American GFR(CKD) >90 (>60 ml/min/1.73 sqM); Potassium 4.1 mmol/L (3.5-5.1); Sodium 139 mmol/L (137-145); Total Bilirubin 0.5 mg/dL (0.2-1.3); Total Protein 7.2 g/dL (6.3-8.2)
[2022-10-19 19:35] LABS: INR 0.9 (<1.2); Partial Thromboplastin Time 23.7 sec (22.0-30.0); Prothrombin Time 9.9 sec (9.0-12.0)
--- NOTE | 2022-10-19 19:48 | XR ---
EXAMINATION TYPE: XR chest 2V DATE OF EXAM: 10/19/2022 7:29 PM COMPARISON: Chest radiographs from 06/29/2021 TECHNIQUE: XR chest 2V Frontal and lateral views of the chest. CLINICAL INDICATION:Male, 37 years old with history of dysrhythmia; FINDINGS: Lungs/Pleura: There is no evidence of pleural effusion, focal consolidation, or pneumothorax. Pulmonary vascularity: Unremarkable. Heart/mediastinum: Cardiomediastinal silhouette is unremarkable. Musculoskeletal: No acute osseous pathology. IMPRESSION: No acute cardiopulmonary disease/process.
[2022-10-19 20:03] LABS: Basophils % (A) 0 %; Eosinophils # (A) 0.2 k/uL (0-0.7); Eosinophils % (A) 3 %; HCT 45.5 % (39.0-53.0); HGB 15.4 gm/dL (13.0-17.5); Lymphocytes # (A) 2.3 k/uL (1.0-4.8); Lymphocytes % (A) 33 %; MCH 30.9 pg (25.0-35.0); MCHC 33.9 g/dL (31.0-37.0); MCV 91.4 fL (80.0-100.0); Mean Platelet Volume 9.1; Monocytes # (A) 0.5 k/uL (0-1.0); Monocytes % (A) 8 %; Neutrophils # (A) 3.9 k/uL (1.3-7.7); Neutrophils % (A) 55 %; Platelet Count 208 k/uL (150-450); RBC 4.98 m/uL (4.30-5.90)
[2022-10-19 21:03] LABS: Amphetamine Screen,Urine Not Detected (NotDetected); Barbiturate Screen,Urine Not Detected (NotDetected); Benzodiazepines Screen,Urine Not Detected (NotDetected); Cocaine Screen,Urine Not Detected (NotDetected); Methadone Screen, Urine Not Detected (NotDetected); Opiate Screen,Urine Not Detected (NotDetected); Oxycodone Screen, Urine Not Detected (NotDetected); Phencyclidine Screen,Urine Not Detected (NotDetected); Tricyclic Antidepressant,Urine Not Detected (NotDetected); Urn Cannabinoid Scrn Not Detected (NotDetected)
[2022-10-19 21:11] LABS: Appearance,Urine Clear (Clear); Color,Urine Light Yellow; Glucose,Urine (UA) Negative (Negative); Protein,Urine Negative (Negative)
[2022-10-19 21:12] LABS: Bilirubin,Urine Negative (Negative); Blood,Urine Negative (Negative); Ketones,Urine Negative (Negative); Leukocyte Esterase,Urine Negative (Negative); Nitrite,Urine Negative (Negative); Urobilinogen,Urine <2.0 mg/dL (<2.0)
[2022-10-19 21:20] LABS: RBC,Urine 0 /hpf (0-5); WBC,Urine 0 /hpf (0-5)
[2022-10-19 22:06] VITALS: BP 113/72; PULSE 54
== END 2022-10-19 22:06 | disposition home or self-care (01) ==
LOC: EC 18:27
DX: R00.2 Palpitations (principal); J45.909 Unspecified asthma, uncomplicated; F41.9 Anxiety disorder, unspecified; Z88.1 Allergy status to other antibiotic agents; Z88.2 Allergy status to sulfonamides; Z88.5 Allergy status to narcotic agent; Z91.041 Radiographic dye allergy status; Z87.891 Personal history of nicotine dependence; Z79.899 Other long term (current) drug therapy
CPT/HCPCS: 36415; 71046; 80053; 80306; 81003; 83735; 84443; 84484; 85025; 85610; 85730; 93005; 96360; 96361; 99285

== ENCOUNTER 2024-04-02 04:59 | Emergency (ER) | payer OTHER ==
[2024-04-02 05:07] VITALS: RESP 16
[2024-04-02 05:09] LABS: Glucose,Whole Blood 96 mg/dL (70-110)
[2024-04-02] MEDS: FAMOTIDINE 20 MG/2 ML VIAL IV STA (05:13)
[2024-04-02] MEDS: diphenhydrAMINE 50 MG/ML 1 ML VIAL IVP STA (05:14)
[2024-04-02] MEDS: SODIUM CHLORIDE 0.9% 1,000 ML IV STA (05:16)
[2024-04-02] MEDS: methylPREDNISolone SOD SUCCI 125 MG/2 ML VIAL IV STA (05:17)
[2024-04-02 05:39] LABS: Basophils # (A) 0.1 k/uL (0-0.2); Basophils % (A) 1 %; Eosinophils # (A) 0.2 k/uL (0-0.7); Eosinophils % (A) 3 %; HCT 45.7 % (39.0-53.0); HGB 15.6 gm/dL (13.0-17.5); Lymphocytes # (A) 4.5 k/uL (1.0-4.8); Lymphocytes % (A) 55 %; MCH 31.1 pg (25.0-35.0); MCHC 34.1 g/dL (31.0-37.0); MCV 91.4 fL (80.0-100.0); Mean Platelet Volume 8.4; Monocytes # (A) 0.7 k/uL (0-1.0); Monocytes % (A) 8 %; Neutrophils # (A) 2.7 k/uL (1.3-7.7); Neutrophils % (A) 32 %; Platelet Count 237 k/uL (150-450); RDW 12.7 % (11.5-15.5); WBC 8.3 k/uL (3.8-10.6)
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
[2024-04-02 06:01] LABS: INR 0.9 (<1.2); Partial Thromboplastin Time 23.8 sec (22.0-30.0); Prothrombin Time 10.2 sec (10.0-12.5)
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
[2024-04-02 06:45] LABS: ALT 37 U/L (4-49); AST 29 U/L (17-59); African American GFR (CKD) >90 (>60 ml/min/1.73 sqM); Albumin 3.9 g/dL (3.5-5.0); Alcohol <10 mg/dL; Alkaline Phosphatase 30 U/L (38-126); Anion Gap 10 mmol/L; Blood Urea Nitrogen 14 mg/dL (9-20); Calcium 9.1 mg/dL (8.4-10.2); Carbon Dioxide 24 mmol/L (22-30); Chloride 106 mmol/L (98-107); Glucose 101 mg/dL (74-99); Non-African American GFR(CKD) >90 (>60 ml/min/1.73 sqM); Potassium 4.1 mmol/L (3.5-5.1); Sodium 140 mmol/L (137-145); Total Bilirubin 0.4 mg/dL (0.2-1.3); Total Protein 6.8 g/dL (6.3-8.2)
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
[2024-04-02 07:22] VITALS: BP 120/80; PULSE 65; TEMP 98.6
[2024-04-02 07:51] LABS: Amphetamine Screen,Urine Not Detected (NotDetected); Barbiturate Screen,Urine Not Detected (NotDetected); Benzodiazepines Screen,Urine Not Detected (NotDetected); Cocaine Screen,Urine Not Detected (NotDetected); Methadone Screen, Urine Not Detected (NotDetected); Opiate Screen,Urine Not Detected (NotDetected); Oxycodone Screen, Urine Not Detected (NotDetected); Phencyclidine Screen,Urine Not Detected (NotDetected); Tricyclic Antidepressant,Urine Not Detected (NotDetected); Urn Cannabinoid Scrn Not Detected (NotDetected)
== END 2024-04-02 07:10 | disposition home or self-care (01) ==
LOC: EC 04:59
DX: S29.011A Strain of muscle and tendon of front wall of thorax, initial encounter (principal); Z87.891 Personal history of nicotine dependence; Z88.8 Allergy status to other drugs, medicaments and biological substances; Z88.2 Allergy status to sulfonamides; Z91.041 Radiographic dye allergy status; Z88.1 Allergy status to other antibiotic agents; V49.40XA Driver injured in collision with unspecified motor vehicles in traffic accident, initial encounter
CPT/HCPCS: 36415; 93005; 86900; 86901; 80053; 84484; 85025; 85610; 85730; 86850; 80306; 72170; 73120; 71045; 72125; 70450; 71260; 74177; 99291; 96374; 96375 ×2; 96361; G0480; J1200; J3490; Q9967; J2919; 80320

== ENCOUNTER 2024-06-28 20:24 | Emergency (ER) | payer OTHER ==
[2024-06-28 20:28] VITALS: TEMP 98
--- NOTE | 2024-06-28 20:36 | ED ---
Chest Pain HPI - General Chief Complaint: Chest Pain Stated Complaint: Chest Pain,Sob Time Seen by Provider: 06/28/24 20:36 Source: patient, RN notes reviewed, old records reviewed Mode of arrival: ambulatory Limitations: no limitations - History of Present Illness Initial Comments: This is a 38-year-old male to the ER for evaluation of chest pain left-sided chest pain that chest pain that started about 1 hour prior to arrival radiating to the left arm radiating to the back. No shortness of breath. No travel history or sick contacts no history of heart disease no high blood pressure cholesterol diabetes, non-smoker. History of underlying asthma but again not currently short of breath no recent cough or congestion no travel history or sick contact MD Complaint: chest pain -: hour(s) Onset: during rest, during exertion Pain Location: substernal, left chest - Related Data Home Medications Medication Instructions Recorded Confirmed clonazePAM [KlonoPIN] 1 mg PO DAILY PRN 05/08/16 09/11/21 Meclizine [Antivert] 25 mg PO TID PRN 03/09/17 09/11/21 Propranolol (Unknown Dose) 1 tab PO DAILY 09/11/21 09/11/21 Allergies Allergy/AdvReac Type Severity Reaction Status Date / Time azithromycin [From Zithromax] Allergy Rash/Hives Verified 10/19/22 18:35 codeine Allergy Unknown Verified 10/19/22 18:35 Childhood Iodinated Contrast Media Allergy Anaphylaxis Verified 10/19/22 18:35 [Iodinated Contrast Media - IV Dye] iodine Allergy Anaphylaxis Verified 10/19/22 18:35 sulfamethoxazole Allergy Rash/Hives Verified 10/19/22 18:35 [From Bactrim] trimethoprim [From Bactrim] Allergy Rash/Hives Verified 10/19/22 18:35 Review of Systems ROS Statement: Those systems with pertinent positive or pertinent negative responses have been documented in the HPI. ROS Other: All systems not noted in ROS Statement are negative. EKG Findings - EKG Comments: EKG Findings:: EKG is sinus 80 FL 152 QRS 89 QTc 418 - EKG Results: EKG: interpreted by TAMERA Past Medical History Past Medical History: Asthma, GERD/Reflux, Sleep Apnea/CPAP/BIPAP Additional Past Medical History / Comment(s): Vertigo, hx kidney stones, IBS, varicose veins, CPAP use. History of Any Multi-Drug Resistant Organisms: None Reported Date of last positivie culture/infection: 09/05/17-CDiff, MDRO Source:: stool Past Surgical History: Adenoidectomy, Tonsillectomy Additional Past Surgical History / Comment(s): Colonoscopy. Past Anesthesia/Blood Transfusion Reactions: No Reported Reaction Additional Past Anesthesia/Blood Transfusion Reaction / Comment(s): Father PONV. Past Psychological History: Anxiety Smoking Status: Former smoker Past Alcohol Use History: None Reported Past Drug Use History: None Reported - Past Family History Father Family Medical History: Cancer General Exam Limitations: no limitations General appearance: alert, in no apparent distress Head exam: Present: atraumatic, normocephalic, normal inspection Eye exam: Present: normal appearance, PERRL, EOMI. Absent: scleral icterus, conjunctival injection, periorbital swelling ENT exam: Present: normal exam, mucous membranes moist Neck exam: Present: normal inspection. Absent: tenderness, meningismus, lymphadenopathy Respiratory exam: Present: normal lung sounds bilaterally. Absent: respiratory distress, wheezes, rales, rhonchi, stridor Cardiovascular Exam: Present: regular rate, normal rhythm, normal heart sounds. Absent: systolic murmur, diastolic murmur, rubs, gallop, clicks GI/Abdominal exam: Present: soft, normal bowel sounds. Absent: distended, tenderness, guarding, rebound, rigid Extremities exam: Present: normal inspection, full ROM, normal capillary refill. Absent: tenderness, pedal edema, joint swelling, calf tenderness Back exam: Present: normal inspection Neurological exam: Present: alert, oriented X3, CN II-XII intact Psychiatric exam: Present: normal affect, normal mood Skin exam: Present: warm, dry, intact, normal color. Absent: rash Course Vital Signs 06/28/24 06/28/24 20:25 21:49 Temperature 98.0 F Pulse Rate 87 74 Respiratory 16 18 Rate Blood Pressure 116/82 111/84 O2 Sat by Pulse 96 97 Oximetry - Reevaluation(s) Reevaluation #1: Medical records reviewed Reevaluation #2: Patient symptoms resolved no current chest pain Reevaluation #3: Patient informed of results questions answered Reevaluation #4: Was pt. sent in by a medical professional or institution (, PA, CHANGE BOOTH ATTENDANT, urgent care, hospital, or detention...) When possible be specific @ -no Did you speak to anyone other than the patient for history (EMS, parent, family, police, friend...)? What history was obtained from this source @ -no Did you review nursing and triage notes (agree or disagree)? Why? @ -agree Are old charts reviewed (outside hosp., previous admission, EMS record, old EKG, old radiological studies, urgent care reports/EKG's, detention records)? Report findings @ -yes Differential Diagnosis (chest pain, altered mental status, abdominal pain women, abdominal pain men, vaginal bleeding, weakness, fever, dyspnea, syncope, headache, dizziness, GI bleed, back pain, seizure, CVA, palpatations, mental health, musculoskeletal)? @ -prior EKG interpreted by me (3pts min.). @ -yes X-rays interpreted by me (1pt min.). @ -yes negative for acute disease CT interpreted by me (1pt min.). @ -no U/S interpreted by me (1pt. min.). @ -no What testing was considered but not performed or refused? (CT, X-rays, U/S, labs)? Why? @ -none What meds were considered but not given or refused? Why? @ -none Did you discuss the management of the patient with other professionals (professionals i.e. , PA, CHANGE BOOTH ATTENDANT, lab, RT, psych nurse, social services technician, technical maintenance specialist, teacher, risk officer, insurance case manager)? Give summary @ -no Was smoking cessation discussed for >3mins.? @ -no Was critical care preformed (if so, how long)? @ -no Were there social determinants of health that impacted care today? How? (Homelessness, low income, unemployed, alcoholism, drug addiction, transportation, low edu. Level, literacy, decrease access to med. care, longterm, rehab)? @ -none Was there de-escalation of care discussed even if they declined (Discuss DNR or withdrawal of care, Hospice)? DNR status @ -no What co-morbidities impacted this encounter? (DM, HTN, Smoking, COPD, CAD, Cancer, CVA, ARF, Chemo, Hep., AIDS, mental health diagnosis, sleep apnea, morbid obesity)? @ -none Was patient admitted / discharged? Hospital course, mention meds given and route, prescriptions, significant lab abnormalities, going to OR and other pertinent info. @ - 38 male to ER for chest pain EKG chest x-ray lab testing negative patient can be discharged home Discharge chest pain with chest pain Undiagnosed new problem with uncertain prognosis? @ -no Drug Therapy requiring intensive monitoring for toxicity (Heparin, Nitro, Insulin, Cardizem)? @ -no Were any procedures done? @ -no Diagnosis/symptom? @ - Acute, or Chronic, or Acute on Chronic? @ -Acute Uncomplicated (without systemic symptoms) or Complicated (systemic symptoms)? @ -Complicated Side effects of treatment? @ -no Exacerbation, Progression, or Severe Exacerbation? @ -exacerbation Poses a threat to life or bodily function? How? (Chest pain, [place], [place], pneumonia, PE, COPD, DKA, ARF, appy, cholecystitis, CVA, Diverticulitis, Homicidal, Suicidal, threat to staff... and all critical care pts) @ -yes with chest pain Reevaluation #5: Differential Chest Pain: Stable Angina, Unstable Angina, STEMI, NSTEMI Aortic Dissection, Pneumothorax, Musculoskeletal, Esophageal Spasm GERD, Cholecystitis, Pancreatitis, Zoster, this is not meant to be an all-inclusive list. Chest Pain MDM - MDM 38 male to ER for chest pain EKG chest x-ray lab testing negative patient can be discharged home Disposition Clinical Impression: Chest pain, Atypical chest pain Disposition: HOME SELF-CARE Condition: Good Instructions (If sedation given, give patient instructions): Chest Pain (ED) Is patient prescribed a controlled substance at d/c from ED?: No Referrals: Eran Andre MD [Primary Care Provider] - 1-2 days Time of Disposition: 21:20
[2024-06-28 20:54] LABS: Basophils # (A) 0.02 10*3/uL (0.00-0.10); Basophils % (A) 0.2 %; Eosinophils # (A) 0.13 10*3/uL (0.04-0.35); Eosinophils % (A) 1.6 %; HCT 45.5 % (39.6-50.0); Lymphocytes # (A) 3.47 10*3/uL (0.90-5.00); MCH 31.3 pg (27.0-32.0); MCHC 35.2 g/dL (32.0-37.0); MCV 88.9 fL (80.0-97.0); Mean Platelet Volume 10.6 fL (9.5-12.2); Monocytes # (A) 0.71 10*3/uL (0.20-1.00); Monocytes % (A) 8.6 %; Neutrophils # (A) 3.92 10*3/uL (1.80-7.70); Neutrophils % (A) 47.5 %; Platelet Count 251 10*3/uL (140-440); RBC 5.12 10*6/uL (4.40-5.60); RDW 12.6 % (11.5-14.5); WBC 8.26 10*3/uL (4.50-10.00)
--- NOTE | 2024-06-28 20:59 | XR ---
EXAMINATION TYPE: XR chest 2V DATE OF EXAM: 06/28/2024 8:54 PM COMPARISON: Chest radiographs from 10/19/2022 TECHNIQUE: XR chest 2V Frontal and lateral views of the chest. CLINICAL INDICATION:Male, 38 years old with history of Chest Pain; FINDINGS: Lungs/Pleura: There is no evidence of pleural effusion, focal consolidation, or pneumothorax. Pulmonary vascularity: Unremarkable. Heart/mediastinum: Cardiomediastinal silhouette is unremarkable. Musculoskeletal: No acute osseous pathology. IMPRESSION: No acute cardiopulmonary disease/process. [facility], , 06/28/2024 8:57 PM
[2024-06-28 21:11] LABS: INR 0.9 (<1.2); Partial Thromboplastin Time 24.1 sec (22.0-30.0); Prothrombin Time 10.6 sec (10.0-12.5)
[2024-06-28 21:12] LABS: ALT 40 U/L (4-49); AST 31 U/L (17-59); African American GFR (CKD) 88 (>60 ml/min/1.73 sqM); Albumin 4.3 g/dL (3.5-5.0); Alkaline Phosphatase 35 U/L (38-126); Anion Gap 7 mmol/L; Blood Urea Nitrogen 15 mg/dL (9-20); Calcium 9.5 mg/dL (8.4-10.2); Carbon Dioxide 26 mmol/L (22-30); Chloride 104 mmol/L (98-107); Glucose 107 mg/dL (74-99); Lipase 215 U/L (23-300); Magnesium 1.7 mg/dL (1.6-2.3); Non-African American GFR(CKD) 76 (>60 ml/min/1.73 sqM); Sodium 137 mmol/L (137-145); Total Bilirubin 0.6 mg/dL (0.2-1.3); Total Protein 7.4 g/dL (6.3-8.2)
[2024-06-28 21:20] LABS: NT-Pro-B-Type Natriuretic Pept <20 pg/mL
[2024-06-28 21:51] VITALS: BP 111/84; PULSE 74; RESP 18
== END 2024-06-28 21:50 | disposition home or self-care (01) ==
LOC: EC 20:24
DX: R07.89 Other chest pain (principal); Z88.1 Allergy status to other antibiotic agents; Z88.2 Allergy status to sulfonamides; Z88.8 Allergy status to other drugs, medicaments and biological substances; Z91.041 Radiographic dye allergy status; Z87.891 Personal history of nicotine dependence; Z88.6 Allergy status to analgesic agent
CPT/HCPCS: 36415; 71046; 80053; 83690; 83735; 83880; 84484; 85025; 85610; 85730; 93005; 99285